=== PATIENT | male | born 1940 | race Caucasian/White ===

== ENCOUNTER 2016-08-16 11:34 | Inpatient (IN) | payer MEDICARE ==
[2016-08-16] MEDS ORDERED: NS 0.9% 1000 ML* 1,000 ML IV ONE (11:46)
[2016-08-16] MEDS ORDERED: Levofloxacin 750 MG IVPREMIX(* 750 MG/150 ML BAG IVPB ONE (11:51)
[2016-08-16] MEDS ORDERED: methylPREDNISolone 125 MG* 2 ML VIAL IV ONE (11:51)
[2016-08-16] MEDS ORDERED: Acetaminophen TAB* 325 MG PO ONE (11:51)
[2016-08-16] MEDS ORDERED: Albuterol/Ipratropium NEB.SOL* Albuterol 2.5 MG/Ipratropium 0.5 MG 3 ML ONE (12:11)
[2016-08-16] MEDS: Albuterol/Ipratropium NEB.SOL* Albuterol 2.5 MG/Ipratropium 0.5 MG 3 ML INH SCH ×5 (12:16→14:54)
[2016-08-16 12:19] LABS: Hematocrit 39 % (42-52); Hemoglobin 12.6 g/dl (14.0-18.0); Mean Corpuscular HGB Conc 32 g/dl (31-36); Mean Corpuscular Hemoglobin 29 pg (27-31); Mean Corpuscular Volume 91 fL (80-94); Mean Platelet Volume 10 um3 (7.4-10.4); Red Blood Count 4.31 10^6/ul (4.0-5.4); Red Cell Distribution Width 15 % (10.5-15)
[2016-08-16 12:20] LABS: Add Diff/Slide Review? Slide Review Added; Comments Flag Yes
--- NOTE | 2016-08-16 12:27 | RAD ---
HISTORY: Shortness of breath COMPARISONS: December 12, 2015 VIEWS: 2: Frontal dual-energy and lateral views of the chest. FINDINGS: CARDIOMEDIASTINAL SILHOUETTE: The cardiomediastinal silhouette is normal. VARGAS: The vargas are normal. PLEURA: The costophrenic angles are sharp. No pleural abnormalities are noted. LUNG PARENCHYMA: There is hyperinflation with flattening of the diaphragm and expansion of the AP diameter of the chest. There is patchy alveolar opacification within the lower lung jordan bilaterally, developed from the previous examination ABDOMEN: The upper abdomen is clear. There is no subphrenic gas. BONES AND SOFT TISSUES: The patient is status post median sternotomy. OTHER: A left-sided AICD pacer is noted IMPRESSION: COPD. PATCHY AIRSPACE DISEASE OF THE LOWER LUNGS BILATERALLY. RECOMMEND FOLLOW-UP UNTIL RESOLUTION TO EXCLUDE UNDERLYING PULMONARY PARENCHYMAL PATHOLOGY
[2016-08-16 12:37] LABS: Albumin 3.7 g/dL (3.2-5.2); BUN/Creatinine Ratio 13.5 (8-20); C Reactive Protein 318.65 mg/L (< 5.00); Calcium 8.8 mg/dL (8.6-10.3); EGFR African American 106.9 (>60); EGFR Non-African American 83.1 (>60); Globulin 3.9 g/dL (2-4); Potassium 3.8 mmol/L (3.5-5.0); Total Bilirubin 2.2 mg/dL (0.2-1.0); Total Protein 7.6 g/dL (6.4-8.9)
[2016-08-16 12:52] LABS: Troponin I 0.04 ng/mL (<0.04)
[2016-08-16 13:24] LABS: Platelet Morphology Large
[2016-08-16] MEDS ORDERED: Ondansetron INJ* 2 MG/ML VIAL IV PRN (13:45)
[2016-08-16] MEDS ORDERED: NS 0.9% 1000 ML* 1,000 ML IV SCH (14:15)
[2016-08-16] MEDS ORDERED: Warfarin TAB(*) 5 MG PO SCH (17:00)
[2016-08-16 17:17] LABS: Digoxin 1.1 ng/ml (0.8-2.0)
[2016-08-16 17:28] LABS: TSH (Thyroid Stimulating Horm) 2.73 mcIU/mL (0.34-5.60)
[2016-08-16 18:03] LABS: Urine Bacteria Absent (Absent); Urine Bilirubin Negative (Negative); Urine Glucose 1+(50 mg/dL) (Negative); Urine Nitrite Negative (Negative)
--- NOTE | 2016-08-16 18:45 | ED ---
Brii Cain Auryana, scribed for Perry Jiménez MD on 08/16/16 at 1218 . Shortness of Breath - HPI Summary HPI Summary: 76 year old male presents with SOB starting 4 days ago worse since last night and this morning. He reports that last night he had a fever of 102 and now this morning has bilateral LE weakness, and a productive cough. Exertion aggravates the SOB - reports unable to shower. PMHx is significant for COPD history of PNA. - History of Current Complaint Chief Complaint: EDShortnessOfBreath Time Seen by Provider: 08/16/16 11:46 Hx Obtained From: Patient Onset/Duration: Gradual Onset, Lasting Days - 4, Still Present Timing: Constant Current Severity: Mild Dyspnea At: Rest Aggrevating Factors: Movement Associated Signs & Symptoms: Cough (Productive), Fever - Allergy/Home Medications Allergies/Adverse Reactions: Allergies Allergy/AdvReac Type Severity Reaction Status Date / Time Diltiazem [Cardizem] AdvReac See Comment Verified 02/24/16 23:32 Theophylline AdvReac Unknown Verified 02/24/16 23:32 Reaction Details Verapamil AdvReac See Comment Verified 02/24/16 23:32 Home Medications: Home Medications Eplerenone 25 mg PO DAILY 08/16/16 [History Confirmed 08/16/16] Spiriva Inhaler DEVICE* 18 mcg PO EVERY OTHER DAY 08/16/16 [History Confirmed ] PMH/Surg Hx/FS Hx/Imm Hx Endocrine/Hematology History: Denies: Hx Diabetes, Hx Thyroid Disease Cardiovascular History: Reports: Hx Angina, Hx Atrial Fibrillation, Hx Auto Implanted Cardiovert Defib, Hx Congestive Heart Failure, Hx Coronary Artery Disease, Hx Hypertension, Hx Myocardial Infarction, Hx Pacemaker/ICD, Hx Valvular Heart Disease, Other Cardiovascular Problems/Disorders - BYPASS Respiratory History: Reports: Hx Chronic Obstructive Pulmonary Disease (COPD), Hx Pneumonia Denies: Hx Asthma GI History: Denies: Hx Ulcer History: Denies: Hx Dialysis, Hx Renal Disease Musculoskeletal History: Reports: Hx Arthritis Sensory History: Reports: Hx Contacts or Glasses - DID NOT BRING FROM HOME Opthamlomology History: Reports: Hx Contacts or Glasses - DID NOT BRING FROM HOME - Surgical History Surgery Procedure, Year, and Place: A-FIB, HEART VALVE REPLACEMENT, PACE MAKER DEFIBRILATOR Hx Anesthesia Reactions: No - Immunization History Date of Tetanus Vaccine: UTD per pt Infectious Disease History: No Infectious Disease History: Denies: Hx Hepatitis, Hx Human Immunodeficiency Virus (HIV), Traveled Outside the [place] in Last 30 Days - Family History Known Family History: Positive: Cardiac Disease - CAD - Social History Occupation: Retired Lives: Alone Alcohol Use: Occasionally Hx Substance Use: No Substance Use Type: Reports: None Hx Tobacco Use: Yes Smoking Status (MU): Former Smoker Review of Systems Positive: Fever Eyes: Negative ENT: Negative Cardiovascular: Negative Positive: Shortness Of Breath, Cough - PRODUCTIVE Gastrointestinal: Negative Genitourinary: Negative Musculoskeletal: Negative Skin: Negative Positive: Weakness - BILATERAL LE Psychological: Normal All Other Systems Reviewed And Are Negative: Yes Physical Exam - Summary Physical Exam Summary: VITAL SIGNS: Reviewed. GENERAL: Patient is a elderly male who is lying comfortable in the stretcher. Patient is acute mild respiratory distress but is able to speak in full sentences. HEAD AND FACE: No signs of trauma. No ecchymosis, hematomas or skull depressions. No sinus tenderness. EYES: PERRLA, EOMI x 2, No injected conjunctiva, no nystagmus. EARS: Hearing grossly intact. Ear canals and tympanic membranes are within normal limits. MOUTH: Oropharynx within normal limits. NECK: Supple, trachea is midline, no adenopathy, no JVD, no carotid bruit, no c- spine tenderness, neck with full ROM. CHEST: Symmetric, no tenderness at palpation LUNGS: diffuse wheezing, bilateral crackles in the bases. CVS: Irregular rate and rhythm, S1 and S2 present, no murmurs or gallops appreciated. ABDOMEN: Soft, non-tender. No signs of distention. No rebound no guarding, and no masses palpated. Bowel sounds are normal. EXTREMITIES: FROM in all major joints, no edema, no cyanosis or clubbing. NEURO: Alert and oriented x 3. No acute neurological deficits. Speech is normal and follows commands. SKIN: Dry and warm Triage Information Reviewed: Yes Vital Signs On Initial Exam: Initial Vitals Temp Pulse Resp BP Pulse Ox 102.4 F 80 20 122/51 100 08/16/16 11:41 08/16/16 11:41 08/16/16 11:41 08/16/16 11:41 08/16/16 11:41 Vital Signs Reviewed: Yes Diagnostics - Vital Signs Vital Signs Temp Pulse Resp BP Pulse Ox 08/16/16 11:41 102.4 F 80 20 122/51 100 - Laboratory Lab Results: Lab Results 08/16/16 08/16/16 08/16/16 Range/Units 12:05 12:05 12:05 WBC 21.0 H (3.5-10.8) 10^3/ul RBC 4.31 (4.0-5.4) 10^6/ul Hgb 12.6 L (14.0-18.0) g/dl Hct 39 L (42-52) % MCV 91 (80-94) fL MCH 29 (27-31) pg MCHC 32 (31-36) g/dl RDW 15 (10.5-15) % Plt Count 218 (150-450) 10^3/ul MPV 10 (7.4-10.4) um3 Neut % (Auto) 83.9 H (38-83) % Lymph % (Auto) 3.4 L (25-47) % [place] % (Auto) 12.4 H (1-9) % Eos % (Auto) 0.1 (0-6) % Baso % (Auto) 0.2 (0-2) % Absolute Neuts (auto) 17.6 H (1.5-7.7) 10^3/ul Absolute Lymphs (auto) 0.7 L (1.0-4.8) 10^3/ul Absolute Monos (auto) 2.6 H (0-0.8) 10^3/ul Absolute Eos (auto) 0 (0-0.6) 10^3/ul Absolute Basos (auto) 0.1 (0-0.2) 10^3/ul Absolute Nucleated RBC 0 10^3/ul Nucleated RBC % 0 Platelet Morphology Large Normal RBC Morphology Not Reportable INR (Anticoag Therapy) (0.89-1.11) Sodium 134 (133-145) mmol/L Potassium 3.8 (3.5-5.0) mmol/L Chloride 95 L (101-111) mmol/L Carbon Dioxide 33 H (22-32) mmol/L Anion Gap 6 (2-11) mmol/L BUN 12 (6-24) mg/dL Creatinine 0.89 (0.67-1.17) mg/dL Est GFR ( Amer) 106.9 (>60) Est GFR (Non-Af Amer) 83.1 (>60) BUN/Creatinine Ratio 13.5 (8-20) Glucose 114 H (70-100) mg/dL Lactic Acid 1.1 (0.5-2.0) mmol/L Calcium 8.8 (8.6-10.3) mg/dL Magnesium 2.0 (1.9-2.7) mg/dL Total Bilirubin 2.20 H (0.2-1.0) mg/dL AST 33 (13-39) U/L ALT 21 (7-52) U/L Alkaline Phosphatase 109 H (34-104) U/L Total Creatine Kinase 34 (10-223) U/L Troponin I 0.04 H* (<0.04) ng/mL C-Reactive Protein 318.65 H (< 5.00) mg/L B-Natriuretic Peptide ( - 100) pg/mL Total Protein 7.6 (6.4-8.9) g/dL Albumin 3.7 (3.2-5.2) g/dL Globulin 3.9 (2-4) g/dL Albumin/Globulin Ratio 0.9 L (1-3) TSH 2.73 (0.34-5.60) mcIU/mL Digoxin 1.1 (0.8-2.0) ng/ml 08/16/16 08/16/16 Range/Units 12:05 12:05 WBC (3.5-10.8) 10^3/ul RBC (4.0-5.4) 10^6/ul Hgb (14.0-18.0) g/dl Hct (42-52) % MCV (80-94) fL MCH (27-31) pg MCHC (31-36) g/dl RDW (10.5-15) % Plt Count (150-450) 10^3/ul MPV (7.4-10.4) um3 Neut % (Auto) (38-83) % Lymph % (Auto) (25-47) % [place] % (Auto) (1-9) % Eos % (Auto) (0-6) % Baso % (Auto) (0-2) % Absolute Neuts (auto) (1.5-7.7) 10^3/ul Absolute Lymphs (auto) (1.0-4.8) 10^3/ul Absolute Monos (auto) (0-0.8) 10^3/ul Absolute Eos (auto) (0-0.6) 10^3/ul Absolute Basos (auto) (0-0.2) 10^3/ul Absolute Nucleated RBC 10^3/ul Nucleated RBC % Platelet Morphology Normal RBC Morphology INR (Anticoag Therapy) 3.08 H (0.89-1.11) Sodium (133-145) mmol/L Potassium (3.5-5.0) mmol/L Chloride (101-111) mmol/L Carbon Dioxide (22-32) mmol/L Anion Gap (2-11) mmol/L BUN (6-24) mg/dL Creatinine (0.67-1.17) mg/dL Est GFR ( Amer) (>60) Est GFR (Non-Af Amer) (>60) BUN/Creatinine Ratio (8-20) Glucose (70-100) mg/dL Lactic Acid (0.5-2.0) mmol/L Calcium (8.6-10.3) mg/dL Magnesium (1.9-2.7) mg/dL Total Bilirubin (0.2-1.0) mg/dL AST (13-39) U/L ALT (7-52) U/L Alkaline Phosphatase (34-104) U/L Total Creatine Kinase (10-223) U/L Troponin I (<0.04) ng/mL C-Reactive Protein (< 5.00) mg/L B-Natriuretic Peptide 250 H ( - 100) pg/mL Total Protein (6.4-8.9) g/dL Albumin (3.2-5.2) g/dL Globulin (2-4) g/dL Albumin/Globulin Ratio (1-3) TSH (0.34-5.60) mcIU/mL Digoxin (0.8-2.0) ng/ml Result Diagrams: 08/16/16 12:05 08/16/16 12:05 Lab Statement: Any lab studies that have been ordered have been reviewed, and results considered in the medical decision making process. - Radiology CXR Xray Interpretation: Positive (See Comments) - IMPRESSION: COPD. PATCHY AIRSPACE DISEASE OF THE LOWER LUNGS BILATERALLY. RECOMMEND FOLLOW-UP UNTIL RESOLUTION TO EXCLUDE UNDERLYING PULMONARY PARENCHYMAL PATHOLOGY Radiology Interpretation Completed By: Radiologist - EKG 11:56 EKG Interpretation: A-FIB WITH VENTRICULAR PACED RYHTHM @ 80 BPM EKG Comparison: No Significant Change - from similar EKG done on 04/07/14 Course/Dx - Course Course Of Treatment: 76 year old male presents with SOB starting 4 days ago worse since last night and this morning. He reports that last night he had a fever of 102 and now this morning has bilateral LE weakness, and a productive cough. Exertion aggravates the SOB - reports unable to shower. PMHx is significant for COPD history of PNA. Assessment/Plan: Test results WNL except WBC 21 without bands, INR of 3.8 , troponin 0.05, CRP 3.19. CXR IMPRESSION: COPD. PATCHY AIRSPACE DISEASE OF THE LOWER LUNGS BILATERALLY. EKG- A-FIB WITH VENTRICULAR PACED RYHTHM @ 80 BPM. In the ED course, patient was started with IV fluids and given Solu- medrol and duoneb for COPD exacerbation. Levaquin was started for PNA. The patient started feeling better but because the combo of PNA and acute COPD exacerbation, I discussed my physical exam and findings with Dr. Ruelas who accepted the patient for admission. Patient is hemodynamically stable and A&Ox3. - Diagnoses Differential Diagnosis/HQI/PQRI: Positive: Bronchitis, CHF, COPD Exacerbation, Pneumonia Provider Diagnoses: COPD with acute exacerbation, PNA (pneumonia) - Physician Notifications Discussed Care of Patient With: DIDI FUENTES Time Discussed With Above Provider: 12:13 - agrees to admit Discharge - Discharge Plan Condition: Stable Disposition: ADMITTED TO [facility] documentation as recorded by the Brii chavez Auryana accurately reflects the service I personally performed and the decisions made by me, Perry Jiménez MD.
[2016-08-16] MEDS: guaiFENesin ER TAB 600 MG PO SCH (21:16)
--- NOTE | 2016-08-16 21:33 | HP ---
MEDICINE HISTORY AND PHYSICAL: DATE OF ADMISSION: 08/16/16 PROVIDER: Tariq Springer NP ATTENDING PHYSICIAN: Charo Ruelas DO* (dictated by Tariq Springer NP) PRIMARY CARE PROVIDER: Yahir Hardy MD PRIMARY INFANTRYMAN: Dr. Pollo Andino. CHIEF COMPLAINT: Shortness of breath. HISTORY OF PRESENT ILLNESS: Mr. Huber is a 76-year-old male patient who presents today with complaints of increased shortness of breath x4 to 5 days. The patient states that he has been feeling more fatigued over the past few days like he has been treating his symptoms with Tylenol and allergy medications. They have not helped with his symptoms. He also reports last evening having chills. At first, he could not find a thermometer, but his daughter got him one. He states that he was concerned for a 102 temperature at home. He reports a productive cough with yellow green sputum. Additionally, he also reports some left-sided chest pain at the site of his pacemaker and he states that he has to put his hand over the area to make the pain stop. He has not had any pattern with it. It does not increase with exertion or activity. He states the pain is intermittent and does not think it is linked to his breathing. He states it feels like a sore muscle. He currently denies chest pain. The patient does use oxygen on a p.r.n. basis at home and states that he has not really needed to increase his oxygen in the past couple of days; however, he does report that he does feel more short of breath and he traces this back as far as 5 months ago when he got a new ICD pacemaker implantation. He states that since then he has been more easily fatigued and feels that the pacemaker has not helped. He states that he felt worse since the new one was placed. The previous pacemaker was malfunctioning. The patient has not followed up with Cardiology since his last pacemaker placement; however, his daughter does state that the patient has been able to carry out most of his normal activities, but does fatigue more easily. He has not had echocardiogram recently. In the ER, the patient was evaluated and labs were drawn. He does have a white count that is notable for 21,000 white blood cells as well as an indeterminate troponin of 0.04. His CRP is 318.65 and the patient's chest x-ray shows concern for COPD and patchy air space disease of the lower lungs bilaterally. Also, the patient has a 102.4 fever upon arrival. PAST MEDICAL HISTORY: 1. COPD. 2. History of CHF with last documented ejection fraction 30% to 35%. 3. History of mechanical aortic valve replacement. 4. Coronary artery disease, status post MA and CABG. 5. Defibrillator and pacemaker placement, most recently placed 5 months ago at [facility]. 6. Hyperlipidemia. 7. Anemia. 8. History of GI AVM. 9. History of herpes zoster. 10. Atrial fibrillation. 11. History of rheumatic fever in childhood. 12. Pulmonary nodules seen on previous admission. The patient states that he had followup and was told that they are gone. HOME MEDICATIONS: 1. Spiriva 18 mcg every other day. 2. Eplerenone 25 mg daily. 3. Albuterol nebulizer treatment 2.5 mg nebulizer q.4 hours p.r.n. 4. Acetaminophen 650 mg q.6 hours p.r.n. 5. Nitroglycerin 0.4 mg q.5 minutes p.r.n. 6. Atrovent 0.5 mg t.i.d. p.r.n. 7. Warfarin 5 mg daily except for Saturdays when the patient takes 2.5 mg. 8. Multivitamin 1 tab daily. 9. Albuterol nebulizer 1 treatment q.4 hours. 10. Torsemide 20 mg daily. 11. Aspirin 81 mg daily. 12. Albuterol inhaler 2 puffs inhaled q.4 hours p.r.n. 13. Digoxin 0.25 mg daily. 14. Atorvastatin 10 mg daily. 15. Toprol-XL 50 mg daily. ALLERGIES: Include DILTIAZEM, THEOPHYLLINE, and VERAPAMIL. FAMILY HISTORY: The patient reports history of coronary artery disease in his mother and history of bone cancer in his father. Both parents are . SOCIAL HISTORY: The patient reports that he quit smoking over 30 years ago. He did smoke for approximately 35 years. He reports occasional use. He lives alone, but states that his daughter and his brother check in on him regularly. He is independent with ADLs. His daughter, Traci White, is his surrogate decision maker in the event of emergency. REVIEW OF SYSTEMS: A 14-point review of systems was completed. All pertinent positives and negatives are included in the HPI. All those not mentioned are negative. PHYSICAL EXAMINATION GENERAL: Mr. Huber is a 76-year-old male patient who is lying in the ED stretcher, in no acute distress. He is able to speak in full sentences. VITAL SIGNS: Temperature 102.4, heart rate 100, respiratory rate 22, blood pressure 118/59, and O2 saturation 95% on 3 L nasal cannula. HEENT: Head is atraumatic, normocephalic. Face is symmetrical. Pupils are equal, round, reactive to light and are anicteric. Oral mucosa appears moist. There is no oropharyngeal erythema. NECK: Supple. No lymphadenopathy noted. RESPIRATORY: Lungs are somewhat coarse and diminished, although there is fair aeration throughout all lung jordan. The patient does have expiratory wheezing and prolonged expiratory phase. No accessory muscle use is noted. CARDIAC: Irregularly irregular rate and rhythm. There is a grade 1 to 2 systolic murmur that is better heard when the patient is lying down. The patient does not have any peripheral edema and distal pulses are 2+. ABDOMEN: Soft, nontender, and nondistended. Bowel sounds are present times all 4 quadrants. MUSCULOSKELETAL: There is no clubbing or cyanosis noted. The patient has full range of motion. SKIN: Limited examination, appears grossly intact. The patient does have some scattered ecchymotic areas to the extremities and one notable dry scaling patch to his right lower extremity. NEUROLOGIC: He is alert and oriented x3. No focal neurologic deficits. He moves all extremities. Sensation is intact to light touch. DIAGNOSTIC STUDIES/LAB DATA: CBC: WBC 21.0, hemoglobin 12.6, hematocrit 39, and platelet count 218. CMP: Sodium 134, potassium 3.8, chloride 95, carbon dioxide 33, BUN 12, creatinine 0.89, glucose 114, lactic acid 1.1, and calcium 8.8. Total bilirubin 2.2, AST 33, ALT 21, and alk phos 109. Total CK 34. Troponin 0.04. CRP 318.65. BNP 250. Total protein 7.6 and albumin 3.7. INR is pending. The patient's EKG shows ventricularly paced rhythm and atrial fibrillation. Chest x-rays as previously mentioned. Old medical records were reviewed. ASSESSMENT AND PLAN: Mr. Huber is a 76-year-old male patient presented to the ER today with concern for increasing shortness of breath and was found to have a bilateral pneumonia. Symptoms also concerning for reported increased activity intolerance over the past 5 months. We will admit him to the telemetry floor. Plan is as follows: 1. Community-acquired pneumonia: Admit to telemetry. The patient has received his first dose of IV Levaquin, which we will continue. Initially, we will maintain the patient on steroids. He will receive prednisone starting tomorrow. He has received Solu-Medrol here in the ER and is doing well. Continue p.r.n. nebulizer treatments. We will also check results of blood cultures, sputum culture the patient is able to provide as well as urine antigens for Legionella and S. pneumoniae. The patient also is ordered guaifenesin. 2. Chronic obstructive pulmonary disease: Suspect mild exacerbation in the presence of pneumonia. Continue the patient on his home Spiriva and continue p.r.n. nebulizers. Again, the patient will be on prednisone. He does not appear to be in severe distress and we will continue to monitor. 3. Sepsis: The patient meets SIRS criteria for sepsis with elevated white count and fever and meets sepsis criteria by q-SOFA score of 1 per increased respiratory rate. Continue IV Levaquin and continue to monitor. 4. Increased total bilirubin: Suspect this maybe secondary to acute infection. Continue to follow. 5. History of congestive heart failure: The patient's last documented EF per our records is 30% to 35%. The patient reports increasing shortness of breath and increased fatigue over the past 5 months. I am not clear how accurate is the story is, but we will check an echocardiogram to compare with his previous records to see if there is any new cardiomyopathy present. Continue home torsemide. 6. Chest pain: The patient reports intermittent chest pain at home, which maybe pleuritic. We will trend his troponins. His first troponin was indeterminate, which might be secondary to demand ischemia. We will also check an echocardiogram. 7. Coronary artery disease: Continue the patient's home aspirin, statin, and beta matthew. 8. History of anemia: The patient seems to be within his baseline. Continue to monitor. 9. Atrial fibrillation: Continue Toprol-XL and warfarin. 10. History of mechanical valve replacement: Continue home warfarin at home dosing assuming his INR is therapeutic. 11. FEN: The patient is on a heart-healthy diet. We will also monitor I's and O's and daily weights. 12. DVT prophylaxis: Continue the patient's home warfarin. 13. Code status: The patient is a full code. TIME SPENT: Time spent on the admission was approximately 60 minutes, more than half the time was spent [id number] with the patient obtaining history and physical, performing the physical examination, and reviewing the plan of care. Plan of care was also reviewed with my attending, Dr. Ruelas, who is in agreement. TARIQ SPRINGER NP CC: Dr. Hardy; Dr. Andino* [id number]/CPS #: [id number]
[2016-08-17 06:46] LABS: Hematocrit 35 % (42-52); Hemoglobin 11.3 g/dl (14.0-18.0); Mean Corpuscular HGB Conc 33 g/dl (31-36); Mean Corpuscular Hemoglobin 30 pg (27-31); Mean Corpuscular Volume 91 fL (80-94); Mean Platelet Volume 10 um3 (7.4-10.4); Red Blood Count 3.82 10^6/ul (4.0-5.4); Red Cell Distribution Width 15 % (10.5-15); White Blood Count 15.4 10^3/ul (3.5-10.8)
[2016-08-17 07:09] LABS: Albumin 3.2 g/dL (3.2-5.2); BUN/Creatinine Ratio 17.1 (8-20); Calcium 8.6 mg/dL (8.6-10.3); Direct Bilirubin 0.4 mg/dL (0.03-0.18); EGFR Non-African American 109.6 (>60); Globulin 3.3 g/dL (2-4); Indirect Bilirubin 0.6 mg/dL (0.3-1.0); Potassium 3.6 mmol/L (3.5-5.0); Total Protein 6.5 g/dL (6.4-8.9)
[2016-08-17] MEDS: Digoxin TAB* 0.25 MG PO SCH (08:04)
[2016-08-17] MEDS: Aspirin EC Low Dose* 81 MG TAB.EC PO SCH (08:04)
[2016-08-17] MEDS: Atorvastatin* 10 MG TAB PO SCH (08:04)
[2016-08-17] MEDS: Multivitamins/Minerals TAB PO SCH (08:05)
[2016-08-17] MEDS: Metoprolol Succinate XL TAB* 50 MG PO SCH (08:05)
[2016-08-17] MEDS: guaiFENesin ER TAB 600 MG PO SCH ×2 (08:05→20:34)
[2016-08-17] MEDS: Torsemide TAB* 20 MG PO SCH (08:07)
[2016-08-17] MEDS ORDERED: predniSONE TAB* 20 MG PO ONE (09:00)
[2016-08-17] MEDS: EPLERONONE 25 MG PO SCH (11:31)
--- NOTE | 2016-08-17 11:47 | ECHO ---
Patient: EMMANUEL ESPINAL [facility] Rec#: [id number] : 1940 Date: 08/17/2016 Age: 76y Height: 187.96 cm / 74.0 in Weight: 77.11 kg / 170.0 lbs Sex: M BSA: 2.03 Room#: 447 Admit Date#: 08/16/2016 Type: Inpatient Referring: Tiffany Sow Reading: Tom Lopez MD Program Director/Music Director: Linda Webber RDCS CC: Yahir Hardy MD Transthoracic Echocardiogram Indication: CHF//SOB BP: 122/62 HR: 69 Rhythm: Paced Findings History: COPD,a-fib,s/p AICD implant,CHF,CAD,s/p AVR and MVR with mechanical valve in both positions,remote smoking history with home oxygen as needed,AK,HTN. Technical Comments: The study is technically limited due to the patient's history of COPD. Completed at 1115. The study is technically limited due to the patient's smoking history. Left Ventricle: The left ventricular chamber size is normal. Moderate concentric left ventricular hypertrophy is observed. There is moderately decreased left ventricular systolic function. The estimated ejection fraction is 35-40%. Post surgical hypokinesis of the interventricular septum is observed consistent with valve replacement. The assessment of diastolic function is non-diagnostic. The apical lateral wall segment is hypokinetic (score 2). The basal inferior, apical septal, and apical inferior wall segments are akinetic (score 3). Overall wallmotion score index is 2.75 Left Atrium: The left atrium is moderate to severely dilated. Right Ventricle: The right ventricular cavity size is normal. The right ventricular global systolic function is normal. The septum has abnormal paradoxical motion consistent with RV pacemaker. A pacemaker wire is visualized in the right ventricle. Right Atrium: The right atrium is moderately dilated. A pacemaker wire is visualized in the right atrium. Aortic Valve: There is no evidence of aortic regurgitation. There is moderate aortic stenosis. A mechanical prosthetic aortic valve is present. Mitral Valve: There is mild to moderate mitral regurgitation. There is mild mitral stenosis. A mechanical prosthetic mitral valve is present. Tricuspid Valve: The tricuspid valve leaflets are normal. There is mild tricuspid regurgitation. The tricuspid regurgitant jet is directed toward the RA free wall. The right ventricular systolic pressure is estimated at 42 mmHg. There is evidence of mild pulmonary hypertension. Pulmonic Valve: The pulmonic valve appears normal. There is no evidence of pulmonic regurgitation. There is no pulmonic stenosis. Pericardium: There is no significant pericardial effusion. Aorta: There is no dilatation of the aortic arch. There is mild dilatation of the aortic root. Pulmonary Artery: The main pulmonary artery is not well visualized. Venous: The inferior vena cava is dilated. There is an approximate 50% respiratory change in the inferior vena cava dimension. Conclusions There is moderately decreased left ventricular systolic function. The estimated ejection fraction is 35-40%. The apical lateral wall segment is hypokinetic (score 2). The basal inferior, apical septal, and apical inferior wall segments are akinetic (score 3). The left ventricular chamber size is normal. Moderate concentric left ventricular hypertrophy is observed. The left atrium is moderate to severely dilated. The right atrium is moderately dilated. A mechanical prosthetic aortic valve replacement (AVR) is present. There is moderate aortic stenosis. There is no evidence of aortic regurgitation. A mechanical prosthetic mitral valve is present. There is mild to moderate mitral regurgitation. There is mild mitral stenosis. There is mild tricuspid regurgitation. There is evidence of mild pulmonary hypertension. There is mild dilatation of the aortic root. Since the prior echocardiograms completed 08/10/10 and 04/28/13, there is a mild increase in the peak and mean gradients across the AVR; otherwise appears similiar. Measurements Name Value Normal Range RVIDd (AP) 2D 3.1 cm (0.9 - 2.6) RVDdMajor (2D) 2.9 cm (2.2 - 4.4) RAd ISD 4CH 6.2 cm (3.4 - 4.9) RA (A4C)W 4.6 cm (2.9 - 4.6) IVSd (2D) 1.5 cm (0.6 - 1) LVPWd (2D) 1.5 cm (0.6 - 1) LVIDd (2D) 4.2 cm (3.6 - 5.4) LVIDs (2D) 3.5 cm - LV FS (2D) 17 % (25 - 45) Aortic Annulus 1.7 cm (1.4 - 2.6) Ao root diameter (2D) 3.7 cm (2.1 - 3.5) Aortic arch 2.5 cm (1.8 - 3.4) Descending Ao 0.7 cm - LAd ISD 4CH 7.6 cm (2.9 - 5.3) LA ISD 4CH W 4.8 cm (2.5 - 4.5) Name Value Normal Range LA ESV SP 4CH (A/L) 140 ml - LA ESV SP 2CH (A/L) 145 ml - LA ESV BP (A/L) 145 ml - LA ESV BP (A/L) index 71.33 ml/m2 - LA ESV SP 4CH (MOD) 127 ml - LA ESV SP 2CH (MOD) 139 ml - Name Value Normal Range MV E-wave Vmax 2.1 m/sec - MV deceleration time 332 msec - LV septal e' Vmax 0.07 m/sec - LV lateral e' Vmax 0.07 m/sec - LV E:e' septal ratio 30 ratio - LV E:e' lateral ratio 30 ratio - Name Value Normal Range AV Vmax 3.2 m/sec - AV VTI 59.23 cm - AV peak gradient 42.26 mmHg - AV mean gradient 21.01 mmHg - LVOT diameter 1.6 cm - LVOT Vmax 0.8 m/sec - LVOT VTI 16.6 cm - LVOT peak gradient 2.76 mmHg - LVOT mean gradient 1.3 mmHg - HERBIE (continuity Vmax) 0.5 cm2 - HERBIE (continuity VTI) 0.6 cm2 - Name Value Normal Range MV Vmax 2.1 m/sec - MV VTI 41.89 cm - MV peak gradient 17.6 mmHg - MV mean gradient 6.65 mmHg - MV PHT 94 msec - MR Vmax 4.34 m/sec - MR VTI 106.4 cm - MVA (PHT) 2.3 cm2 - MVA (continuity VTI) 1.1 cm2 - Name Value Normal Range TR Vmax 2.8 m/sec - TR peak gradient 30 mmHg - RAP 12 mmHg - RVSP 42 mmHg - IVC diameter 2.4 cm - Name Value Normal Range PV Vmax 1.1 m/sec - PV peak gradient 5.19 mmHg - Wallmotion BAS Not Seen BA Not Seen BAL Not Seen JANA Not Seen BI Akinetic BIS Not Seen MAS Not Seen MA Not Seen MAL Not Seen MIL Not Seen AK Not Seen MIS Not Seen Akinetic AA Not Seen AL Hypokinetic AI Akinetic APEX Akinetic
[2016-08-17] MEDS ORDERED: Levofloxacin 750 MG IVPREMIX(* 750 MG/150 ML BAG IVPB SCH (12:00)
[2016-08-17] MEDS: Albuterol 2.5 MG/3 ML NEB.SOL* (0.083%) INH PRN (13:22)
--- NOTE | 2016-08-17 15:29 | PN ---
Subjective Date of Service: 08/17/16 Interval History: This is a 76 yo gentleman with COPD, CHF with EF 30-35%, mechanical aortic and mitral valves, atrial fibrillation and pacer/ICD in place who presented with c/ o SOB and cough with fevers. He was admitted with PNA and COPD exacerbation. He also offered that his pacer was replaced at [facility] ~ 5 months ago and he has been more fatigued and short of breath since that time. Today, he is still quite dyspneic, requiring assistance to get to the restroom. He reports that his SOB and cough have improved since admission. Denies CP, abd pain, n/v. Objective Active Medications: Acetaminophen (Tylenol Tab*) 650 mg PO Q4H PRN PRN Reason: FEVER/PAIN Albuterol (Ventolin 2.5 Mg/3 Ml Neb.Nori*) 2.5 mg INH Q2H PRN PRN Reason: SOB/WHEEZING Last Admin: 08/17/16 13:22 Dose: 2.5 mg Albuterol/Ipratropium (Duoneb (Albuterol 2.5 Mg/Ipratropium 0.5 Mg)) 1 neb INH Q4H PRN PRN Reason: SOB/WHEEZING Aspirin (Aspirin Ec Low Dose*) 81 mg PO DAILY [facility] Last Admin: 08/17/16 08:04 Dose: 81 mg Atorvastatin Calcium (Lipitor*) 10 mg PO DAILY [facility] Last Admin: 08/17/16 08:04 Dose: 10 mg Digoxin (Lanoxin Tab*) 0.25 mg PO DAILY [facility] Last Admin: 08/17/16 08:04 Dose: 0.25 mg Eplerenone (Inspra (Nf)) 25 mg PO DAILY [facility] Last Admin: 08/17/16 11:31 Dose: 25 mg Guaifenesin (Mucinex*) 1,200 mg PO BID [facility] Last Admin: 08/17/16 08:05 Dose: 1,200 mg Levofloxacin/Dextrose (Levaquin 750 Mg Ivpremix(*)) 750 mg in 150 mls @ 100 mls /hr IVPB Q24H [facility] Stop: 08/20/16 13:29 Last Admin: 08/17/16 11:31 Dose: 100 mls/hr Metoprolol Succinate (Toprol Xl Tab*) 50 mg PO DAILY [facility] Last Admin: 08/17/16 08:05 Dose: 50 mg Multivitamins/Minerals (Theragran/Minerals Tab*) 1 tab PO DAILY [facility] Last Admin: 08/17/16 08:05 Dose: 1 tab Ondansetron HCl (Zofran Inj*) 4 mg IV Q6H PRN PRN Reason: NAUSEA Pharmacy Profile Note (Coumadin Per Pharmacy*) 1 note FOLLOW UP .PER PHARMACY PROTOC [facility]ELIA PRN Reason: Protocol Prednisone (Deltasone Tab*) 40 mg PO DAILY [facility] Tiotropium [place] (Spiriva Cap.Inh*) 1 cap INH EVERY OTHER DAY [facility] Torsemide (Demadex*) 20 mg PO DAILY [facility] Last Admin: 08/17/16 08:07 Dose: 20 mg Vital Signs: Temp Pulse Resp BP Pulse Ox 97.4 F 86 16 108/60 96 08/17/16 07:35 08/17/16 08:35 08/17/16 08:35 08/17/16 07:35 08/17/16 08:35 Oxygen Devices in Use Now: Nasal Cannula Appearance: Elderly gentleman, extremely pleasant, mildly dyspneic with conversation Respiratory: Symmetrical Chest Expansion and Respiratory Effort, - - reduced lung sounds in all jordan, few crackles in LLL Cardiovascular: RRR Abdominal: NL Sounds; No Tenderness; No Distention Extremities: No Edema Skin: No Rash or Ulcers Neurological: Alert and Oriented x 3 Result Diagrams: 08/17/16 06:04 08/17/16 06:04 Additional Lab and Data: Laboratory Tests 08/16/16 08/16/16 08/16/16 12:05 14:59 18:35 Troponin I 0.04 H* 0.05 H* 0.06 H* 08/16/16 21:37 Troponin I 0.03 Microbiology and Other Data: Microbiology 08/16/16 17:30 Legionella Urinary Antigen - Final Urine Negative Legionella Streptococcus pneumoniae Ag Screen - Final Negative S. pneumo Antigen Diagnostic Imaging: CXR - patchy bilateral infiltrate Echo - mod LVH, EF 30-35% with hypokinesis apical and inferior segments with mech aortic and mitral valves in place, reportedly unchanged from prior Tele - primarily paced, occ. breakthrough bigeminy and 2 sec pauses x 2 Assess/Plan/Problems-Billing Assessment: This is a 76 yo gentleman with COPD, CHF with EF 30-35%, mechanical aortic and mitral valves, CAD s/p CABG, HLD, anemia, pacer/ICD in place and atrial fibrillation who presented with complaints of SOB, cough and fever. Admitted with PNA and COPD exacerbation - Patient Problems (1) Pneumonia Comment: Clinically improving Cont Levaquin (2) COPD exacerbation Comment: Improving Still dyspneic Cont prednisone, Spiriva, prn DuoNebs (3) Cardiomyopathy Comment: Ischemic, EF 30-35% No acute exacerbation (4) Elevated troponin Comment: No ACS Likely demand (5) Atrial fibrillation Comment: Anticoagulated with Coumadin Rate controlled, primarily paced rhythm (6) Cardiac pacemaker Comment: Replaced 5 months ago at [facility] records (7) Bradyarrhythmia Comment: Noted bradycardia and pauses while primarily paced Will obtain recent pacer records and ask cardiology to review He is currently asymptomatic with this (8) CAD (coronary artery disease) Comment: No ACS s/p CABG (9) Mechanical heart valve present Comment: Aortic/mitral valves (10) Full code status (11) DVT prophylaxis Comment: Therapeutic INR Status and Disposition: Inpatient. Anticipate additional 2-3 day LOS
[2016-08-18] MEDS: Acetaminophen TAB* 325 MG PO PRN (04:45)
[2016-08-18] MEDS: Albuterol/Ipratropium NEB.SOL* Albuterol 2.5 MG/Ipratropium 0.5 MG 3 ML INH PRN (04:59)
[2016-08-18] MEDS: Atorvastatin* 10 MG TAB PO SCH (07:28)
[2016-08-18] MEDS: Torsemide TAB* 20 MG PO SCH (07:28)
[2016-08-18] MEDS: Digoxin TAB* 0.25 MG PO SCH (07:29)
[2016-08-18] MEDS: Multivitamins/Minerals TAB PO SCH (07:29)
[2016-08-18] MEDS: predniSONE TAB* 20 MG PO SCH (07:29)
[2016-08-18] MEDS: Metoprolol Succinate XL TAB* 50 MG PO SCH (07:29)
[2016-08-18] MEDS: Aspirin EC Low Dose* 81 MG TAB.EC PO SCH (07:30)
[2016-08-18] MEDS: guaiFENesin ER TAB 600 MG PO SCH ×2 (07:30→20:54)
[2016-08-18] MEDS: EPLERONONE 25 MG PO SCH (08:04)
[2016-08-18] MEDS: Azithromycin IV(*) 250 MG in NS 0.9% 250 ML* 250 ML IVPB SCH (08:54)
[2016-08-18 08:58] LABS: Hematocrit 40 % (42-52); Mean Corpuscular HGB Conc 33 g/dl (31-36); Mean Corpuscular Hemoglobin 30 pg (27-31); Mean Corpuscular Volume 91 fL (80-94); Mean Platelet Volume 10 um3 (7.4-10.4); Red Blood Count 4.38 10^6/ul (4.0-5.4); Red Cell Distribution Width 15 % (10.5-15); White Blood Count 20.8 10^3/ul (3.5-10.8)
[2016-08-18 09:16] LABS: BUN/Creatinine Ratio 21.3 (8-20); Calcium 9.2 mg/dL (8.6-10.3); EGFR African American 120.9 (>60); Potassium 3.7 mmol/L (3.5-5.0)
[2016-08-18 09:35] LABS: C Reactive Protein 187.51 mg/L (< 5.00)
[2016-08-18] MEDS: cefTRIAXone VIAL(*) 1,000 MG in NS 0.9% 50 ML* 50 ML IVPB SCH (09:48)
--- NOTE | 2016-08-18 10:32 | PN ---
Subjective Date of Service: 08/18/16 Interval History: Patient reports he is fatigued this am. He was coughing this am, improved after a nebulizer treatment. Reports some improvement in dyspnea. Objective Active Medications: Acetaminophen (Tylenol Tab*) 650 mg PO Q4H PRN PRN Reason: FEVER/PAIN Last Admin: 08/18/16 04:45 Dose: 650 mg Albuterol (Ventolin 2.5 Mg/3 Ml Neb.Nori*) 2.5 mg INH Q2H PRN PRN Reason: SOB/WHEEZING Last Admin: 08/17/16 13:22 Dose: 2.5 mg Albuterol/Ipratropium (Duoneb (Albuterol 2.5 Mg/Ipratropium 0.5 Mg)) 1 neb INH Q4H PRN PRN Reason: SOB/WHEEZING Last Admin: 08/18/16 04:59 Dose: 1 neb Aspirin (Aspirin Ec Low Dose*) 81 mg PO DAILY [facility] Last Admin: 08/18/16 07:30 Dose: 81 mg Atorvastatin Calcium (Lipitor*) 10 mg PO DAILY [facility] Last Admin: 08/18/16 07:28 Dose: 10 mg Digoxin (Lanoxin Tab*) 0.25 mg PO DAILY [facility] Last Admin: 08/18/16 07:29 Dose: 0.25 mg Eplerenone (Inspra (Nf)) 25 mg PO DAILY [facility] Last Admin: 08/18/16 08:04 Dose: 25 mg Guaifenesin (Mucinex*) 1,200 mg PO BID [facility] Last Admin: 08/18/16 07:30 Dose: 1,200 mg Ceftriaxone Sodium 1,000 mg/ (Sodium Chloride) 50 mls @ 200 mls/hr IVPB Q24H [facility] Last Admin: 08/18/16 09:48 Dose: 200 mls/hr Azithromycin 250 mg/ Sodium (Chloride) 250 mls @ 250 mls/hr IVPB Q24H [facility] Last Admin: 08/18/16 08:54 Dose: 250 mls/hr Metoprolol Succinate (Toprol Xl Tab*) 50 mg PO DAILY [facility] Last Admin: 08/18/16 07:29 Dose: 50 mg Multivitamins/Minerals (Theragran/Minerals Tab*) 1 tab PO DAILY [facility] Last Admin: 08/18/16 07:29 Dose: 1 tab Ondansetron HCl (Zofran Inj*) 4 mg IV Q6H PRN PRN Reason: NAUSEA Pharmacy Profile Note (Coumadin Per Pharmacy*) 1 note FOLLOW UP .PER PHARMACY PROTOC [facility] PRN Reason: Protocol Prednisone (Deltasone Tab*) 40 mg PO DAILY [facility] Last Admin: 08/18/16 07:29 Dose: 40 mg Tiotropium [place] (Spiriva Cap.Inh*) 1 cap INH EVERY OTHER DAY [facility] Torsemide (Demadex*) 20 mg PO DAILY [facility] Last Admin: 08/18/16 07:28 Dose: 20 mg Vital Signs: Temp Pulse Resp BP Pulse Ox 97.6 F 80 18 113/71 98 08/18/16 07:31 08/18/16 09:01 08/18/16 09:01 08/18/16 07:31 08/18/16 09:01 Oxygen Devices in Use Now: Nasal Cannula Appearance: Somewhat fatigued elderly gentleman in NAD. Smiling and joking. Respiratory: Symmetrical Chest Expansion and Respiratory Effort, - - faint wheeze, reduced breath sounds, but improved air exchange Cardiovascular: NL Sounds; No Murmurs; No JVD, RRR Extremities: No Edema Skin: No Rash or Ulcers Neurological: Alert and Oriented x 3 Result Diagrams: 08/18/16 08:34 08/18/16 08:34 Additional Lab and Data: Laboratory Tests 08/16/16 08/16/16 08/16/16 12:05 14:59 18:35 Troponin I 0.04 H* 0.05 H* 0.06 H* 08/16/16 21:37 Troponin I 0.03 Microbiology and Other Data: Microbiology 08/16/16 17:30 Legionella Urinary Antigen - Final Urine Negative Legionella Streptococcus pneumoniae Ag Screen - Final Negative S. pneumo Antigen Diagnostic Imaging: CXR - patchy bilateral infiltrate Echo - mod LVH, EF 30-35% with hypokinesis apical and inferior segments with mech aortic and mitral valves in place, reportedly unchanged from prior Tele - primarily paced, freq pauses up to 2 sec Assess/Plan/Problems-Billing Assessment: This is a 76 yo gentleman with COPD, CHF with EF 30-35%, mechanical aortic and mitral valves, CAD s/p CABG, HLD, anemia, pacer/ICD in place and atrial fibrillation who presented with complaints of SOB, cough and fever. Admitted with PNA and COPD exacerbation - Patient Problems (1) Pneumonia Comment: Clinically improving Switch from Levaquin to ceftriaxone/azithromycin because of increasing INR Increased leukocytosis likely due to steroids, CRP improving, remains afebrile (2) COPD exacerbation Comment: Improving Still dyspneic Cont prednisone, Spiriva, prn DuoNebs (3) Cardiac pacemaker Comment: Frequent pauses on telemetry, up to 2 sec Replaced 5 months ago at [facility] Records received and in paper chart, [facility] Requested interrogation by [facility] front office representative and cardiology consultation regarding pauses (4) Cardiomyopathy Comment: Ischemic, EF 30-35% No acute exacerbation (5) Hyperglycemia Comment: Noted hyperglycemia on fasting labs the last 2 days May be due to steroid use Checking HgbA1c (6) Elevated troponin Comment: No ACS Likely demand (7) Atrial fibrillation Comment: Anticoagulated with Coumadin Rate controlled, primarily paced rhythm (8) Bradyarrhythmia Comment: Noted bradycardia and pauses while primarily paced Will obtain recent pacer records and ask cardiology to review He is currently asymptomatic with this (9) CAD (coronary artery disease) Comment: No ACS s/p CABG (10) Mechanical heart valve present Comment: Aortic/mitral valves (11) Full code status (12) DVT prophylaxis Comment: Therapeutic INR Status and Disposition: Inpatient. Anticipate additional 1-2 day LOS
[2016-08-18] MEDS: Tiotropium CAP.INH* CAP.INH/18 MCG INH SCH (11:09)
[2016-08-18] MEDS ORDERED: Spiriva Inhaler DEVICE* 1 EACH DEVICE ONE (12:00)
--- NOTE | 2016-08-18 16:19 | CONS ---
CARDIAC CONSULTATION: DATE OF CONSULTATION: 08/18/16 INDICATIONS FOR CONSULTATION: Atrial fibrillation, cardiomyopathy, abnormal pacemaker rhythm. HISTORY OF PRESENT ILLNESS: The patient is a 76-year-old gentleman with a history of ischemic cardiomyopathy, chronic atrial fibrillation, history of a dual-chamber ICD implantation many years ago, who came in to the hospital because of pneumonia. On his telemetry monitoring, there appears to be pauses on his pacemaker and his pacemaker is set at 60 beats per minute. Occasionally , he will have a pause of 1 cycle and then back to its normal rhythm. Interrogation of his ICD demonstrates there is oversensing of his baseline myocardium, which causes inhibition of his pacing output. There is no clear evidence of lead fracture. His impedance and sensing appeared to be normal. His baseline does not show any clear evidence of fracture. His ICD was reprogrammed to a higher sensitivity, which seemed to take care of the problem and he has normal pacing. The question is whether the higher sensitivity will inhibit its ability to detect ventricular fibrillation. PAST MEDICAL HISTORY: Significant for: 1. COPD. 2. Congestive heart failure. 3. Ischemic cardiomyopathy. 4. Mechanical aortic valve replacement. 5. Chronic atrial fibrillation. 6. GI bleed. 7. Childhood rheumatic fever. OUTPATIENT MEDICATIONS: 1. Spiriva 18 mcg inhaler every day. 2. Eplerenone 25 mg a day. 3. Nitroglycerin p.r.n. 4. Atrovent inhaler. 5. Coumadin as directed. 6. Multivitamin a day. 7. Torsemide 20 mg a day. 8. Aspirin 81 mg a day. 9. Digoxin 0.25 mg daily. 10. Atorvastatin 10 mg a day. 11. Toprol-XL 50 mg a day. ALLERGIES: He is intolerant of DILTIAZEM, THEOPHYLLINE, VERAPAMIL. SOCIAL HISTORY: He is a previous smoker. He quit 30 years ago. He lives alone. He is able to do his activities of daily living on his own. He does not have any problems doing his activities. He does not get any regular exercise. PHYSICAL EXAMINATION: Height is 6 feet 2 inches, weight is 161 pounds, temperature is 98.3, heart rate is 80, blood pressure 130/68, respiratory rate is 18, oxygen saturation 95% on 2 L. Sclerae anicteric. Oropharynx is pink without erythema. Carotids are 2+ without bruits. JVD is normal. Thyroid is normal. Cardiac Exam: S1, mechanical S2 with a 2/6 systolic ejection murmur, no diastolic murmur. Lungs have mild rhonchi bilaterally. There is no dullness to percussion. His ICD site is stable. Extremities show no edema. The patient is awake, alert and oriented. He moves all 4 extremities equally. LABORATORY STUDIES: White count 20.8, hemoglobin 13, hematocrit 40, platelet count 277. Chemistries within normal limits, BUN 17, creatinine 0.8. IMPRESSION AND PLAN: This is a 76-year-old gentleman with a history of ischemic cardiomyopathy, history of mechanical aortic valve replacement, history of chronic atrial fibrillation, who is admitted to the hospital with pneumonia. On telemetry, he was noted to have pacemaker pauses for unclear reasons. Interrogation of his ICD demonstrates that there is oversensing on his ventricular lead, thus inhibiting output at its normal rate. There were adjustments made in his device. There is no clear evidence of a lead fracture. His device was reprogrammed to a more sensitive setting. The patient will follow up as an outpatient with Dr. Andino and Dr. Palma regarding his ICD. At this point, no other intervention is necessary. CC: Yahir Hardy MD; Dr. Andino; Dr. Keo Palma, [place], [place]* [id number]/[facility] #: [id number] MTDD
[2016-08-19 05:41] LABS: Hematocrit 37 % (42-52); Hemoglobin 11.9 g/dl (14.0-18.0); Mean Corpuscular HGB Conc 32 g/dl (31-36); Mean Corpuscular Hemoglobin 29 pg (27-31); Mean Corpuscular Volume 91 fL (80-94); Mean Platelet Volume 10 um3 (7.4-10.4); Red Blood Count 4.05 10^6/ul (4.0-5.4); Red Cell Distribution Width 15 % (10.5-15); White Blood Count 14.9 10^3/ul (3.5-10.8)
[2016-08-19 05:55] LABS: BUN/Creatinine Ratio 23.3 (8-20); Calcium 8.5 mg/dL (8.6-10.3); EGFR African American 134.3 (>60); EGFR Non-African American 104.5 (>60); Potassium 3.6 mmol/L (3.5-5.0)
[2016-08-19] MEDS: EPLERONONE 25 MG PO SCH (07:32)
[2016-08-19] MEDS: predniSONE TAB* 20 MG PO SCH (07:33)
[2016-08-19] MEDS: Aspirin EC Low Dose* 81 MG TAB.EC PO SCH (07:35)
[2016-08-19] MEDS: Metoprolol Succinate XL TAB* 50 MG PO SCH (07:35)
[2016-08-19] MEDS: Multivitamins/Minerals TAB PO SCH (07:36)
[2016-08-19] MEDS: Digoxin TAB* 0.25 MG PO SCH (07:36)
[2016-08-19] MEDS: Atorvastatin* 10 MG TAB PO SCH (07:37)
[2016-08-19] MEDS: guaiFENesin ER TAB 600 MG PO SCH (07:37)
[2016-08-19] MEDS: Torsemide TAB* 20 MG PO SCH (07:37)
[2016-08-19] MEDS: Azithromycin IV(*) 250 MG in NS 0.9% 250 ML* 250 ML IVPB SCH (07:43)
[2016-08-19] MEDS: Albuterol/Ipratropium NEB.SOL* Albuterol 2.5 MG/Ipratropium 0.5 MG 3 ML INH PRN (09:20)
[2016-08-19] MEDS: cefTRIAXone VIAL(*) 1,000 MG in NS 0.9% 50 ML* 50 ML IVPB SCH (10:35)
--- NOTE | 2016-08-19 13:58 | PN ---
Subjective Date of Service: 08/19/16 Interval History: Patient reports that he had some increased cough and SOB overnight and it took him most of the morning to recover, he is now feeling better. He denies CP or abd pain. He feels that he is still slowly improving but still quite dyspneic. Pacer interrogated yesterday and reprogrammed by Dr Clark, no further pauses noted Objective Active Medications: Acetaminophen (Tylenol Tab*) 650 mg PO Q4H PRN PRN Reason: FEVER/PAIN Last Admin: 08/18/16 04:45 Dose: 650 mg Albuterol (Ventolin 2.5 Mg/3 Ml Neb.Nori*) 2.5 mg INH Q2H PRN PRN Reason: SOB/WHEEZING Last Admin: 08/17/16 13:22 Dose: 2.5 mg Albuterol/Ipratropium (Duoneb (Albuterol 2.5 Mg/Ipratropium 0.5 Mg)) 1 neb INH Q4H PRN PRN Reason: SOB/WHEEZING Last Admin: 08/19/16 09:20 Dose: 1 neb Aspirin (Aspirin Ec Low Dose*) 81 mg PO DAILY [facility] Last Admin: 08/19/16 07:35 Dose: 81 mg Atorvastatin Calcium (Lipitor*) 10 mg PO DAILY [facility] Last Admin: 08/19/16 07:37 Dose: 10 mg Digoxin (Lanoxin Tab*) 0.25 mg PO DAILY [facility] Last Admin: 08/19/16 07:36 Dose: 0.25 mg Eplerenone (Inspra (Nf)) 25 mg PO DAILY [facility] Last Admin: 08/19/16 07:32 Dose: 25 mg Guaifenesin (Mucinex*) 1,200 mg PO BID [facility] Last Admin: 08/19/16 07:37 Dose: 1,200 mg Ceftriaxone Sodium 1,000 mg/ (Sodium Chloride) 50 mls @ 200 mls/hr IVPB Q24H [facility] Last Admin: 08/19/16 10:35 Dose: 200 mls/hr Azithromycin 250 mg/ Sodium (Chloride) 250 mls @ 250 mls/hr IVPB Q24H [facility] Last Admin: 08/19/16 07:43 Dose: 250 mls/hr Metoprolol Succinate (Toprol Xl Tab*) 50 mg PO DAILY [facility] Last Admin: 08/19/16 07:35 Dose: 50 mg Multivitamins/Minerals (Theragran/Minerals Tab*) 1 tab PO DAILY [facility] Last Admin: 08/19/16 07:36 Dose: 1 tab Ondansetron HCl (Zofran Inj*) 4 mg IV Q6H PRN PRN Reason: NAUSEA Pharmacy Profile Note (Coumadin Per Pharmacy*) 1 note FOLLOW UP .PER PHARMACY PROTOC [facility] PRN Reason: Protocol Prednisone (Deltasone Tab*) 40 mg PO DAILY [facility] Last Admin: 08/19/16 07:33 Dose: 40 mg Tiotropium [place] (Spiriva Cap.Inh*) 1 cap INH EVERY OTHER DAY [facility] Last Admin: 08/18/16 11:09 Dose: 1 cap Torsemide (Demadex*) 20 mg PO DAILY [facility] Last Admin: 08/19/16 07:37 Dose: 20 mg Warfarin Sodium (Coumadin Tab(*)) 4 mg PO 1700 ONE Stop: 08/19/16 17:01 Vital Signs: Temp Pulse Resp BP Pulse Ox 97.9 F 80 20 128/47 92 08/19/16 07:48 08/19/16 09:20 08/19/16 09:20 08/19/16 07:48 08/19/16 09:20 Oxygen Devices in Use Now: Nasal Cannula Appearance: Well appearing elderly gentleman in NAD Neck: NL Appearance and Movements; NL JVP Respiratory: Symmetrical Chest Expansion and Respiratory Effort, - - reduced breath sounds, no wheeze noted Cardiovascular: RRR, - - faint murmur noted Abdominal: NL Sounds; No Tenderness; No Distention Extremities: No Edema Skin: No Rash or Ulcers Neurological: Alert and Oriented x 3 Result Diagrams: 08/19/16 04:55 08/19/16 04:55 Additional Lab and Data: Laboratory Tests 08/16/16 08/16/16 08/16/16 12:05 14:59 18:35 Troponin I 0.04 H* 0.05 H* 0.06 H* 08/16/16 21:37 Troponin I 0.03 Microbiology and Other Data: Microbiology 08/16/16 17:30 Legionella Urinary Antigen - Final Urine Negative Legionella Streptococcus pneumoniae Ag Screen - Final Negative S. pneumo Antigen Diagnostic Imaging: CXR - patchy bilateral infiltrate Echo - mod LVH, EF 30-35% with hypokinesis apical and inferior segments with mech aortic and mitral valves in place, reportedly unchanged from prior Tele - primarily paced, freq pauses up to 2 sec Assess/Plan/Problems-Billing Assessment: This is a 76 yo gentleman with COPD, CHF with EF 30-35%, mechanical aortic and mitral valves, CAD s/p CABG, HLD, anemia, pacer/ICD in place and atrial fibrillation who presented with complaints of SOB, cough and fever. Admitted with PNA and COPD exacerbation - Patient Problems (1) Pneumonia Comment: Clinically improving Cont ceftriaxone, azithromycin Remains afebrile, decreasing WBCs and CRP (2) COPD exacerbation Comment: Improving Still dyspneic Cont prednisone and Spiriva Add scheduled DuoNebs (3) V-tach Comment: He is having freq PVCs and a few episodes of non-sustained Vtach Increase metoprolol and cont to monitor (4) Cardiac pacemaker Comment: Noted frequent pauses on telemetry, up to 2 sec which have resolved since pacer reprogrammed by Dr Clark Replaced 5 months ago at [facility] (5) Cardiomyopathy Comment: Ischemic, EF 30-35% No acute exacerbation (6) Hyperglycemia Comment: Noted hyperglycemia on fasting labs the last 2 days May be due to steroid use Checking HgbA1c (7) Elevated troponin Comment: No ACS Likely demand (8) Atrial fibrillation Comment: Anticoagulated with Coumadin Rate controlled, primarily paced rhythm (9) CAD (coronary artery disease) Comment: No ACS s/p CABG (10) Mechanical heart valve present Comment: Aortic/mitral valves (11) Full code status (12) DVT prophylaxis Comment: Therapeutic INR Status and Disposition: Inpatient. Anticipate additional 1-2 day LOS
[2016-08-19] MEDS ORDERED: Metoprolol Succinate XL TAB* 50 MG PO ONE (14:03)
[2016-08-19] MEDS: Acetaminophen TAB* 325 MG PO PRN (14:35)
[2016-08-19] MEDS ORDERED: Warfarin TAB(*) 4 MG PO ONE (17:00)
[2016-08-19] MEDS: Albuterol/Ipratropium NEB.SOL* Albuterol 2.5 MG/Ipratropium 0.5 MG 3 ML INH SCH (18:26)
[2016-08-20] MEDS: guaiFENesin ER TAB 600 MG PO SCH ×3 (00:27→21:20)
[2016-08-20] MEDS: Albuterol/Ipratropium NEB.SOL* Albuterol 2.5 MG/Ipratropium 0.5 MG 3 ML INH PRN ×2 (00:42→03:47)
[2016-08-20 05:41] LABS: Hematocrit 36 % (42-52); Hemoglobin 11.5 g/dl (14.0-18.0)
[2016-08-20] MEDS: Albuterol/Ipratropium NEB.SOL* Albuterol 2.5 MG/Ipratropium 0.5 MG 3 ML INH SCH ×3 (07:55→19:37)
[2016-08-20] MEDS: Atorvastatin* 10 MG TAB PO SCH (08:13)
[2016-08-20] MEDS: predniSONE TAB* 20 MG PO SCH (08:13)
[2016-08-20] MEDS: Torsemide TAB* 20 MG PO SCH (08:13)
[2016-08-20] MEDS: Aspirin EC Low Dose* 81 MG TAB.EC PO SCH (08:13)
[2016-08-20] MEDS: Multivitamins/Minerals TAB PO SCH (08:14)
[2016-08-20] MEDS: Digoxin TAB* 0.25 MG PO SCH (08:14)
[2016-08-20] MEDS: EPLERONONE 25 MG PO SCH (08:14)
[2016-08-20] MEDS: Metoprolol Succinate XL TAB* 50 MG PO SCH (08:14)
[2016-08-20] MEDS: Azithromycin IV(*) 250 MG in NS 0.9% 250 ML* 250 ML IVPB SCH (08:15)
[2016-08-20] MEDS: Tiotropium CAP.INH* CAP.INH/18 MCG INH SCH (09:36)
[2016-08-20] MEDS: cefTRIAXone VIAL(*) 1,000 MG in NS 0.9% 50 ML* 50 ML IVPB SCH (09:36)
--- NOTE | 2016-08-20 11:06 | PN ---
Subjective Date of Service: 08/20/16 Interval History: Patient reports that is still improving. He asked to take off his O2 yesterday afternoon and has maintained resting O2 sats in the low to mid 90s. He went for a walk this am and became dyspneic with O2 sats in the mid 80s, but he recovered quickly with rest. Objective Active Medications: Acetaminophen (Tylenol Tab*) 650 mg PO Q4H PRN PRN Reason: FEVER/PAIN Last Admin: 08/19/16 14:35 Dose: 650 mg Albuterol (Ventolin 2.5 Mg/3 Ml Neb.Nori*) 2.5 mg INH Q2H PRN PRN Reason: SOB/WHEEZING Last Admin: 08/17/16 13:22 Dose: 2.5 mg Albuterol/Ipratropium (Duoneb (Albuterol 2.5 Mg/Ipratropium 0.5 Mg)) 1 neb INH Q4H PRN PRN Reason: SOB/WHEEZING Last Admin: 08/20/16 03:47 Dose: 1 neb Albuterol/Ipratropium (Duoneb (Albuterol 2.5 Mg/Ipratropium 0.5 Mg)) 1 neb INH RT.TID [facility] Last Admin: 08/20/16 07:55 Dose: 1 neb Aspirin (Aspirin Ec Low Dose*) 81 mg PO DAILY [facility] Last Admin: 08/20/16 08:13 Dose: 81 mg Atorvastatin Calcium (Lipitor*) 10 mg PO DAILY [facility] Last Admin: 08/20/16 08:13 Dose: 10 mg Digoxin (Lanoxin Tab*) 0.25 mg PO DAILY [facility] Last Admin: 08/20/16 08:14 Dose: 0.25 mg Eplerenone (Inspra (Nf)) 25 mg PO DAILY [facility] Last Admin: 08/20/16 08:14 Dose: 25 mg Guaifenesin (Mucinex*) 1,200 mg PO BID [facility] Last Admin: 08/20/16 08:14 Dose: 1,200 mg Ceftriaxone Sodium 1,000 mg/ (Sodium Chloride) 50 mls @ 200 mls/hr IVPB Q24H [facility] Last Admin: 08/20/16 09:36 Dose: 200 mls/hr Azithromycin 250 mg/ Sodium (Chloride) 250 mls @ 250 mls/hr IVPB Q24H [facility] Last Admin: 08/20/16 08:15 Dose: 250 mls/hr Metoprolol Succinate (Toprol Xl Tab*) 100 mg PO DAILY [facility] Last Admin: 08/20/16 08:14 Dose: 100 mg Multivitamins/Minerals (Theragran/Minerals Tab*) 1 tab PO DAILY [facility] Last Admin: 08/20/16 08:14 Dose: 1 tab Ondansetron HCl (Zofran Inj*) 4 mg IV Q6H PRN PRN Reason: NAUSEA Pharmacy Profile Note (Coumadin Per Pharmacy*) 1 note FOLLOW UP .PER PHARMACY PROTOC [facility] PRN Reason: Protocol Prednisone (Deltasone Tab*) 40 mg PO DAILY [facility] Last Admin: 08/20/16 08:13 Dose: 40 mg Tiotropium [place] (Spiriva Cap.Inh*) 1 cap INH EVERY OTHER DAY [facility] Last Admin: 08/20/16 09:36 Dose: 1 cap Torsemide (Demadex*) 20 mg PO DAILY [facility] Last Admin: 08/20/16 08:13 Dose: 20 mg Vital Signs: Temp Pulse Resp BP Pulse Ox 97.9 F 88 16 116/50 98 08/20/16 07:08 08/20/16 08:14 08/20/16 07:55 08/20/16 07:08 08/20/16 07:55 Oxygen Devices in Use Now: None Appearance: Well appearing elderly gentleman in NAD Respiratory: Symmetrical Chest Expansion and Respiratory Effort, Clear to Auscultation, - - improved breath sounds Cardiovascular: NL Sounds; No Murmurs; No JVD, RRR Abdominal: NL Sounds; No Tenderness; No Distention Extremities: No Edema Skin: No Rash or Ulcers Neurological: Alert and Oriented x 3 Result Diagrams: 08/20/16 05:30 08/19/16 04:55 Additional Lab and Data: Laboratory Tests 08/16/16 08/16/16 08/16/16 12:05 14:59 18:35 Troponin I 0.04 H* 0.05 H* 0.06 H* 08/16/16 21:37 Troponin I 0.03 Microbiology and Other Data: Microbiology 08/16/16 17:30 Legionella Urinary Antigen - Final Urine Negative Legionella Streptococcus pneumoniae Ag Screen - Final Negative S. pneumo Antigen Diagnostic Imaging: CXR - patchy bilateral infiltrate Echo - mod LVH, EF 30-35% with hypokinesis apical and inferior segments with mech aortic and mitral valves in place, reportedly unchanged from prior Tele - primarily paced, freq pauses up to 2 sec Assess/Plan/Problems-Billing Assessment: This is a 76 yo gentleman with COPD, CHF with EF 30-35%, mechanical aortic and mitral valves, CAD s/p CABG, HLD, anemia, pacer/ICD in place and atrial fibrillation who presented with complaints of SOB, cough and fever. Admitted with PNA and COPD exacerbation - Patient Problems (1) Pneumonia Comment: Clinically improving, oxygen needs are decreasing Cont ceftriaxone, azithromycin Remains afebrile (2) COPD exacerbation Comment: Improving Still dyspneic but now only with ambulation Cont prednisone and Spiriva with scheduled DuoNebs (3) V-tach Comment: He is having freq PVCs and a few episodes of non-sustained Vtach Metoprolol increased, cont to monitor (4) Cardiac pacemaker Comment: Noted frequent pauses on telemetry, up to 2 sec which have resolved since pacer reprogrammed by Dr Eduardo Neville 5 months ago at [facility] (5) Cardiomyopathy Comment: Ischemic, EF 30-35% No acute exacerbation (6) Hyperglycemia Comment: Noted hyperglycemia on fasting labs the last 2 days Likely due to steroid use HgbA1c nl at 5.5% (7) Elevated troponin Comment: No ACS Likely demand (8) Atrial fibrillation Comment: Anticoagulated with Coumadin Rate controlled, primarily paced rhythm (9) CAD (coronary artery disease) Comment: No ACS s/p CABG (10) Mechanical heart valve present Comment: Aortic/mitral valves (11) Full code status (12) DVT prophylaxis Comment: Therapeutic INR Status and Disposition: Inpatient. Anticipate discharge tomorrow
[2016-08-20] MEDS ORDERED: Warfarin TAB(*) 5 MG PO ONE (17:00)
[2016-08-20] MEDS ORDERED: Benzonatate CAP* 100 MG PO PRN (20:46)
[2016-08-20] MEDS: Albuterol 2.5 MG/3 ML NEB.SOL* (0.083%) INH PRN (23:19)
[2016-08-21 05:50] LABS: Hematocrit 35 % (42-52); Hemoglobin 11.4 g/dl (14.0-18.0); Mean Corpuscular HGB Conc 32 g/dl (31-36); Mean Corpuscular Hemoglobin 29 pg (27-31); Mean Corpuscular Volume 91 fL (80-94); Mean Platelet Volume 9 um3 (7.4-10.4); Red Cell Distribution Width 15 % (10.5-15)
[2016-08-21 06:02] LABS: BUN/Creatinine Ratio 17.7 (8-20); Calcium 8.7 mg/dL (8.6-10.3); EGFR African American 162.2 (>60); EGFR Non-African American 126.1 (>60); Potassium 3.8 mmol/L (3.5-5.0)
[2016-08-21] MEDS: Albuterol/Ipratropium NEB.SOL* Albuterol 2.5 MG/Ipratropium 0.5 MG 3 ML INH SCH (07:25)
[2016-08-21 07:31] VITALS: BP 122/57
[2016-08-21] MEDS: Azithromycin IV(*) 250 MG in NS 0.9% 250 ML* 250 ML IVPB SCH (07:34)
[2016-08-21] MEDS: predniSONE TAB* 20 MG PO SCH (07:36)
[2016-08-21] MEDS: Torsemide TAB* 20 MG PO SCH (07:36)
[2016-08-21] MEDS: Metoprolol Succinate XL TAB* 50 MG PO SCH (07:37)
[2016-08-21] MEDS: Atorvastatin* 10 MG TAB PO SCH (07:37)
[2016-08-21] MEDS: Aspirin EC Low Dose* 81 MG TAB.EC PO SCH (07:37)
[2016-08-21] MEDS: Multivitamins/Minerals TAB PO SCH (07:38)
[2016-08-21] MEDS: guaiFENesin ER TAB 600 MG PO SCH (07:38)
[2016-08-21] MEDS: Digoxin TAB* 0.25 MG PO SCH (07:38)
[2016-08-21] MEDS: EPLERONONE 25 MG PO SCH (07:40)
[2016-08-21] MEDS: cefTRIAXone VIAL(*) 1,000 MG in NS 0.9% 50 ML* 50 ML IVPB SCH (08:45)
--- NOTE | 2016-08-21 23:09 | DS ---
DISCHARGE SUMMARY: DATE OF ADMISSION: 08/16/16 DATE OF DISCHARGE: 08/21/16 PRIMARY CARE PROVIDER: Yahir Hardy MD DISCHARGING PROVIDER: ADI Michael CONSULTING ASSISTANT GENERAL MANAGER: Abdelrahman Clark MD SUPERVISING PHYSICIAN: Emir Gonzales MD * (DICTATED BY ADI MICHAEL) PRIMARY DISCHARGE DIAGNOSES: 1. Pneumonia. 2. Chronic obstructive pulmonary disease exacerbation. 3. Pacemaker malfunction. 4. Frequent premature ventricular contractions with ventricular tachycardia. 5. Elevated troponin - likely representing demand ischemia without acute coronary syndrome. SECONDARY DISCHARGE DIAGNOSES: 1. Ischemic cardiomyopathy with EF of 30% to 35% without acute exacerbation. 2. Atrial fibrillation - rate controlled and anticoagulated with Coumadin. 3. Mechanical aortic and mitral valves present. DISCHARGE MEDICATIONS: 1. Eplerenone 25 mg p.o. daily. 2. Spiriva 18 mcg inhaled once daily. 3. Acetaminophen 650 mg p.o. q.6 hours as needed for pain or fever. 4. Albuterol inhaler 2 puffs inhaled q.4 hours as needed for shortness of breath. 5. DuoNeb inhaled q.4 hours as needed for shortness of breath. 6. Aspirin 81 mg p.o. daily. 7. Atorvastatin 10 mg p.o. daily. 8. Cefdinir 300 mg p.o. twice daily x5 days. 9. Digoxin 0.25 mg p.o. daily. 10. Metoprolol succinate 1 mg p.o. daily. 11. Multivitamin 1 tablet p.o. daily. 12. Nitroglycerin 0.4 mg p.o. q.5 minutes as needed for chest pain. 13. Torsemide 20 mg p.o. daily. 14. Coumadin 5 mg daily with the exception of Saturdays which he takes 2.5 mg. 15. Prednisone 20 mg daily x3 days followed by 10 mg daily x3 days. Medication changes: 1. Increase metoprolol from 50 to 100 mg daily. 2. Cefdinir x5 days. 3. Prednisone on a tapering basis. HOSPITAL IMAGIN. Chest x-ray shows COPD changes and evidence of bilateral infiltrates in lower lobes. 2. EKG shows primarily paced rhythm with occasional underlying atrial fibrillation. 3. Transthoracic echocardiogram demonstrates ejection fraction of 35% to 40% with apical and lateral wall segment hypokinesis as well as moderate concentric LVH. Mechanical aortic valve present with moderate stenosis and mechanical mitral valve present with [id number] regurg, evidence of mild pulmonary hypertension when compared to echos from 2011 to 2014 that was a little changed. HOSPITAL COURSE: This is a 76-year-old gentleman with a known history of coronary artery disease and subsequent ischemic cardiomyopathy as well as relatively severe COPD, mechanical aortic and mitral valves with a pacer and ICD in place, and underlying atrial fibrillation, who presented to the emergency department with complaints of shortness of breath for 4 or 5 days prior to admission. He was noted to be febrile upon admission to the emergency department with the temperature measured at 102.4 degrees Fahrenheit. Initial labs demonstrated a leukocytosis with white blood cell count of 21,000, primarily neutrophils. Comprehensive metabolic panel was largely unremarkable. Initial troponin was mildly elevated at 0.04. CRP was significantly elevated at 318. Initial chest x-ray demonstrated a patchy bilateral infiltrate and the patient had wheezing and rhonchi appreciated on lung exam. The patient was subsequently admitted for treatment of pneumonia and associated COPD exacerbation. The patient was initial treated with Levaquin, but there was noted a rise in his INR and subsequently switched to ceftriaxone and azithromycin with a good clinical response. The patient was treated with oral steroids and regular DuoNebs in addition to his typical home Spiriva treatments for his COPD exacerbation. His oxygen needs slowly improved to the point that he was able to maintain oxygen saturations in the low to mid 90s on room air at rest. He continues to desaturate with ambulation into the mid 80s or so, but recovered quickly. The patient was maintained on telemetry. He has a primarily paced rhythm with underlying atrial fibrillation. There were significant and quite regular pauses noted; however, during his hospital stay despite the pacer in place. [facility] rep came and interrogated the pacer and this was reviewed with Dr. Clark. There seemed to be a programming issue that did not allow for conduction occasionally. The patient had noted that since his pacemaker had been placed 5 to 6 months ago at [facility], he had been more fatigued than usual. After pacemaker was reprogrammed, there were no further pauses. DISPOSITION AND FOLLOWUP PLAN: The patient is being discharged to home. He has home oxygen available to him and he is instructed to use this during activity or with feeling of shortness of breath or dizziness. He is also instructed to use his nebulizer at least 3 times daily on a scheduled basis for the next several days, after which he can taper down to just as needed. He will require 5 additional days of antibiotics and prednisone taper as outlined above. He also requires followup with his oil winterizer regarding his pacer and would likely benefit from interrogation again in a couple of weeks to ensure that there are no additional significant pauses. ADI MICHAEL CC: Dr. Hardy* [id number]/CPS #: [id number] [id number]
[2016-08-22] MEDS ORDERED: Warfarin TAB(*) 2.5 MG PO SCH (17:00)
== END 2016-08-21 10:45 | disposition home or self-care (01) | DRG 314 ==
LOC: ED 11:34 → MEDTELE 13:42
PROVIDERS: ADMIT Hospitalist; ATTEND Internal Medicine
PROC: 4B02XTZ Measurement of Cardiac Defibrillator, External Approach (ICD-10-PCS; principal; 2016-08-17)
DX: T82.119A Breakdown (mechanical) of unspecified cardiac electronic device, initial encounter (principal); J18.9 Pneumonia, unspecified organism; I47.2 Ventricular tachycardia; I11.0 Hypertensive heart disease with heart failure; I24.8 Other forms of acute ischemic heart disease; T82.857A Stenosis of other cardiac prosthetic devices, implants and grafts, initial encounter; I25.5 Ischemic cardiomyopathy; I50.9 Heart failure, unspecified; I49.5 Sick sinus syndrome; J44.0 Chronic obstructive pulmonary disease with (acute) lower respiratory infection; J44.1 Chronic obstructive pulmonary disease with (acute) exacerbation; I48.2 Chronic atrial fibrillation; Y71.2 Prosthetic and other implants, materials and accessory cardiovascular devices associated with adverse incidents; I25.10 Atherosclerotic heart disease of native coronary artery without angina pectoris; M19.90 Unspecified osteoarthritis, unspecified site; E78.5 Hyperlipidemia, unspecified; D64.9 Anemia, unspecified; R73.9 Hyperglycemia, unspecified; I49.3 Ventricular premature depolarization; Z88.8 Allergy status to other drugs, medicaments and biological substances; I25.2 Old myocardial infarction; Z95.1 Presence of aortocoronary bypass graft; Z82.49 Family history of ischemic heart disease and other diseases of the circulatory system; Z87.891 Personal history of nicotine dependence; Z80.8 Family history of malignant neoplasm of other organs or systems; Y92.9 Unspecified place or not applicable; Z79.82 Long term (current) use of aspirin
CPT/HCPCS: 36415; 71020; 80048; 80053; 80076; 80162; 81003; 81015; 82550; 83036; 83605; 83735; 83880; 84443; 84484; 85014; 85018; 85025; 85610; 86140; 87040; 87077; 87150; 87205; 87899; 93005; 93306; 94640; 94760; A9270-GY; J0456; J0696; J2930; J7512

== ENCOUNTER 2017-03-30 23:31 | Emergency (ER) | payer MEDICARE ==
[2017-03-31] MEDS ORDERED: Sodium Phosphate ADULT ENEMA* 118 ml bottle PR ONE (01:43)
[2017-03-31 01:57] LABS: Hematocrit 42 % (42-52); Hemoglobin 13.9 g/dl (14.0-18.0); Mean Corpuscular HGB Conc 33 g/dl (31-36); Mean Corpuscular Hemoglobin 30 pg (27-31); Mean Corpuscular Volume 91 fL (80-94); Mean Platelet Volume 9 um3 (7.4-10.4); Platelet Count 208 10^3/ul (150-450); Red Blood Count 4.67 10^6/ul (4.0-5.4); Red Cell Distribution Width 15 % (10.5-15); White Blood Count 13.7 10^3/ul (3.5-10.8)
[2017-03-31 02:02] LABS: INR 2.84 (0.77-1.02)
[2017-03-31 02:11] LABS: EGFR Non-African American 87.6 (>60)
[2017-03-31 02:28] LABS: ABS Basophils 0 10^3/ul (0-0.2); ABS Eosinophils 0.1 10^3/ul (0-0.6); ABS Monocytes 1.7 10^3/ul (0-0.8); ABS Neutrophils 10.8 10^3/ul (1.5-7.7); ABS Nucleated RBC 0 10^3/ul; Eosinophil % 0.5 % (0-6); Lymphocyte % 7.6 % (25-47); Nucleated Red Blood Cells % 0.1
[2017-03-31 04:41] LABS: Urine Appearance Clear; Urine Blood Negative (Negative); Urine Color Yellow; Urine Ketones 1+ (Negative); Urine Protein Negative (Negative); Urine Specific Gravity 1.014 (1.010-1.030); Urine Urobilinogen Negative (Negative)
[2017-03-31 04:42] VITALS: BP 107/78
--- NOTE | 2017-04-17 16:47 | ED ---
Caty Cain Emily, scribed for Yahir Cheng MD on 03/31/17 at 0125 . GI/ HPI - HPI Summary HPI Summary: This patient is a 76 year old M presenting to [facility] with a chief complaint of constipation that began yesterday. The patient rates the pain 7/10 in severity. Symptoms aggravated by nothing. Symptoms alleviated by nothing. Patient reports rectal pain and ankle swelling. Patient denies abd pain and hematochezia. Pt is on 3 L of O2 at home. - History of Current Complaint Chief Complaint: EDGeneral Stated Complaint: CONSTIPATION Hx Obtained From: Patient Onset/Duration: Started Days Ago, Still Present Timing: Constant, Lasting Days Severity: Moderate Current Severity: Moderate Pain Intensity: 7 Location of Pain: Rectal Associated Signs and Symptoms: Positive: Other: - Positive rectal pain and ankle swelling. Negative hematochezia - Additional Pertinent History Primary Care Physician: [id number] - Allergy/Home Medications Allergies/Adverse Reactions: Allergies Allergy/AdvReac Type Severity Reaction Status Date / Time Diltiazem [Cardizem] AdvReac See Comment Verified 03/30/17 23:51 Theophylline AdvReac Unknown Verified 03/30/17 23:51 Reaction Details Verapamil AdvReac See Comment Verified 03/30/17 23:51 PMH/Surg Hx/FS Hx/Imm Hx Previously Healthy: No Endocrine/Hematology History: Denies: Hx Diabetes, Hx Thyroid Disease Cardiovascular History: Reports: Hx Angina, Hx Atrial Fibrillation, Hx Auto Implanted Cardiovert Defib, Hx Congestive Heart Failure, Hx Coronary Artery Disease, Hx Hypertension, Hx Myocardial Infarction, Hx Pacemaker/ICD, Hx Valvular Heart Disease, Other Cardiovascular Problems/Disorders - [place]PASS Respiratory History: Reports: Hx Chronic Obstructive Pulmonary Disease (COPD), Hx Pneumonia Denies: Hx Asthma GI History: Denies: Hx Ulcer History: Denies: Hx Dialysis, Hx Renal Disease Musculoskeletal History: Reports: Hx Arthritis Sensory History: Reports: Hx Contacts or Glasses - DID NOT BRING FROM HOME Denies: Hx Hearing Aid Opthamlomology History: Reports: Hx Contacts or Glasses - DID NOT BRING FROM HOME - Surgical History Surgery Procedure, Year, and Place: A-FIB, HEART VALVE REPLACEMENT, PACE MAKER DEFIBRILATOR Hx Anesthesia Reactions: No - Immunization History Date of Tetanus Vaccine: UTD per pt Date of Influenza Vaccine: Fall 2016 Infectious Disease History: No Infectious Disease History: Denies: Hx Hepatitis, Hx Human Immunodeficiency Virus (HIV), Traveled Outside the [place] in Last 30 Days - Family History Known Family History: Positive: Cardiac Disease - CAD - Social History Occupation: Retired Lives: Alone Alcohol Use: Occasionally Hx Substance Use: No Substance Use Type: Reports: None Hx Tobacco Use: Yes Smoking Status (MU): Former Smoker Review of Systems Positive: Other - Positive constipation and rectal pain. Negative hematochezia. Negative: Abdominal Pain Positive: Other - Positive ankle swelling All Other Systems Reviewed And Are Negative: Yes Physical Exam - Summary Physical Exam Summary: Appearance: Well-appearing, Well-nourished Skin: Warm, Dry, No rash Eyes: Normal, PERRL, EOMI, sclera anicteric ENT: Normal Neck: Supple, nontender Respiratory: Decreased breath sounds bilaterally Cardiovascular: S1, S2, no murmur, no rub, no gallop Abdomen: Soft, Mildly distended Rectal Exam: Rectum is without obvious hemorrhoids. Pt deferred a digital exam Bowel sounds: Present Musculoskeletal: Normal, Strength/ROM Intact, no edema, pulses symmetrical Neurological: Normal, A&Ox3, cranial nerves II-XII WNL, follows commands, gait not tested, sensation intact to pin and light touch Psychiatric: affect normal, behavior appropriate, dressed appropriately, judgment intact Triage Information Reviewed: Yes Vital Signs On Initial Exam: Initial Vitals Temp Pulse Resp BP Pulse Ox 99.3 F 81 20 142/75 92 03/30/17 23:46 03/30/17 23:46 03/30/17 23:46 03/30/17 23:46 03/30/17 23:46 Vital Signs Reviewed: Yes Diagnostics - Vital Signs Vital Signs Temp Pulse Resp BP Pulse Ox 03/30/17 23:46 99.3 F 81 20 142/75 92 - Laboratory Result Diagrams: 03/31/17 01:41 03/31/17 01:41 Lab Statement: Any lab studies that have been ordered have been reviewed, and results considered in the medical decision making process. GIGU Course/Dx - Course Assessment/Plan: This patient is a 76 year old M presenting to [facility] with a chief complaint of constipation that began yesterday. Patient reports rectal pain and ankle swelling. Patient denies hematochezia. Physical Exam Findings. Decreased breath sounds bilaterally. Abd is mildly distended. Rectum without obvious hemorrhoids. Pt deferred a digital exam. Bloodwork obtained. In the ED course the patient was given fleet enema. Patient will be discharged with a prescription for Miralax and with follow up from PCP. The patient is agreeable with this plan. - Diagnoses Provider Diagnoses: Constipation Discharge - Discharge Plan Condition: Good Disposition: HOME Prescriptions: Polyethylene Glycol 3350 BTL* [Miralax] 1 pow PO DAILY PRN 30 Days #1 btl PRN Reason: Constipation Patient Education Materials: Constipation (ED) Referrals: Yahir Hardy MD [Primary Care Provider] - The documentation as recorded by the Caty chavez Emily accurately reflects the service I personally performed and the decisions made by me, Yahir Cheng MD.
== END 2017-03-31 04:35 | disposition home or self-care (01) ==
LOC: ED 23:31
DX: K59.00 Constipation, unspecified (principal); K62.89 Other specified diseases of anus and rectum; Z87.891 Personal history of nicotine dependence
CPT/HCPCS: 36415; 80048; 81003; 85025; 85610; 99283; A9270-GY

== ENCOUNTER 2018-05-09 11:24 | Observation (INO) | payer MEDICARE ==
[2018-05-09] MEDS ORDERED: Morphine INJ* 2 MG/ML 1 ML SYRINGE (TWO MG - NEW SYRINGE VERSION) IV PRN (16:39)
[2018-05-09] MEDS ORDERED: Albuterol/Ipratropium NEB.SOL* Albuterol 2.5 MG/Ipratropium 0.5 MG 3 ML INH PRN (16:48)
[2018-05-09] MEDS ORDERED: Enoxaparin(*) 40 MG/0.4 ML SYR SUBCUT SCH (17:00)
[2018-05-09] MEDS ORDERED: Warfarin TAB(*) 5 MG PO SCH (17:00)
[2018-05-09 18:36] LABS: ABS Basophils 0 10^3/ul (0-0.2); ABS Eosinophils 0.2 10^3/ul (0-0.6); ABS Monocytes 0.9 10^3/ul (0-0.8); ABS Neutrophils 5.7 10^3/ul (1.5-7.7); ABS Nucleated RBC 0 10^3/ul; Eosinophil % 3.1 %; Hematocrit 46 % (42-52); Hemoglobin 14.9 g/dl (14.0-18.0); Lymphocyte % 12.1 %; Mean Corpuscular HGB Conc 33 g/dl (31-36); Mean Corpuscular Hemoglobin 30 pg (27-31); Mean Corpuscular Volume 92 fL (80-94); Mean Platelet Volume 9.7 fL (7.4-10.4); Nucleated Red Blood Cells % 0.1; Platelet Count 237 10^3/ul (150-450); Red Blood Count 4.97 10^6/ul (4.00-5.40); Red Cell Distribution Width 15 % (10.5-15); White Blood Count 7.9 10^3/ul (3.5-10.8)
[2018-05-09 18:41] LABS: Albumin 4.6 g/dL (3.2-5.2); Albumin/Globulin Ratio 1.3 (1-3); BUN/Creatinine Ratio 13.3 (8-20); C Reactive Protein 8.18 mg/L (<8.01); Calcium 9.7 mg/dL (8.6-10.3); EGFR African American 82.7 (>60); EGFR Non-African American 68.3 (>60); Globulin 3.5 g/dL (2-4); Potassium 4.6 mmol/L (3.5-5.0); Total Protein 8.1 g/dL (6.4-8.9)
[2018-05-09] MEDS ORDERED: Pantoprazole TAB * 40 MG TAB PO ONE (18:45)
[2018-05-09] MEDS ORDERED: methylPREDNISolone 125 MG* 2 ML VIAL IV ONE (18:45)
[2018-05-09] MEDS ORDERED: Iohexol 350* (CONTRAST) 500 ML MDV IV ONE (18:54)
[2018-05-09] MEDS: Mometasone/Formoter 200/5 MDI INH SCH (21:19)
[2018-05-10 07:14] LABS: Erythrocyte Sed Rate 5 mm/Hr (0-20)
[2018-05-10] MEDS: Metoprolol Succinate XL TAB* 50 MG PO SCH (07:44)
[2018-05-10] MEDS: Torsemide TAB* 20 MG PO SCH (07:45)
[2018-05-10] MEDS: predniSONE TAB* 20 MG PO SCH (07:45)
[2018-05-10] MEDS: Atorvastatin* 40 MG TAB PO SCH (07:45)
[2018-05-10] MEDS: Pantoprazole TAB * 40 MG TAB PO SCH (07:45)
[2018-05-10] MEDS: Aspirin EC TAB* 81 MG TAB.EC PO SCH (07:45)
[2018-05-10] MEDS: Multivitamins/Minerals TAB PO SCH (07:46)
[2018-05-10 07:48] LABS: INR 3.35 (0.77-1.02)
[2018-05-10] MEDS: Mometasone/Formoter 200/5 MDI INH SCH ×2 (07:54→19:32)
[2018-05-10] MEDS ORDERED: Magnesium CITRATE* 300 ML BTL PO ONE (11:00)
--- NOTE | 2018-05-10 11:13 | PN ---
Progress Note - Progress Note Date of Service: 05/10/18 SOAP: Subjective: [Feeling slightly better this am. He says mornings are typically better and his symptoms get worse throughout the day so he is anxious to say he has improved. Had a BM this am, but still feels bloated, although improved. No fevers. No cough.] Objective: [ Vital Signs Temp Pulse Resp BP Pulse Ox 97.4 F 89 18 117/54 93 05/10/18 07:47 05/10/18 07:57 05/10/18 07:57 05/10/18 07:47 05/10/18 07:57 Acetaminophen (Tylenol Tab*) 650 mg PO Q6H PRN PRN Reason: pain/fever Albuterol/Ipratropium (Duoneb (Albuterol 2.5 Mg/Ipratropium 0.5 Mg)) 1 neb INH Q4H PRN PRN Reason: SOB/WHEEZING Aspirin (Aspirin Ec Tab*) 81 mg PO DAILY [facility] Last Admin: 05/10/18 07:45 Dose: 81 mg Atorvastatin Calcium (Lipitor*) 40 mg PO DAILY [facility] Last Admin: 05/10/18 07:45 Dose: 40 mg Magnesium Citrate (Citrate Of Magnesia*) 150 ml PO ONCE ONE Stop: 05/10/18 11:01 Metoprolol Succinate (Toprol Xl Tab*) 50 mg PO DAILY [facility] Last Admin: 05/10/18 07:44 Dose: 50 mg Mometasone Furoate/Formoterol Fumar (Dulera 200/5 Mdi*) 2 puff INH BID [facility] Last Admin: 05/10/18 07:54 Dose: 2 puff Morphine Sulfate (Morphine Inj ((Syringe))*) 2 mg IV Q4H PRN PRN Reason: PAIN - MILD Multivitamins/Minerals (Theragran/Minerals Tab*) 1 tab PO DAILY [facility] Last Admin: 05/10/18 07:46 Dose: 1 tab Pantoprazole Sodium (Protonix Tab*) 40 mg PO DAILY [facility] Last Admin: 05/10/18 07:45 Dose: 40 mg Prednisone (Deltasone Tab*) 70 mg PO DAILY [facility] Last Admin: 05/10/18 07:45 Dose: 70 mg Torsemide (Demadex*) 10 mg PO DAILY [facility] Last Admin: 05/10/18 07:45 Dose: 10 mg Warfarin Sodium (Coumadin Tab(*)) 5 mg PO [id number] [facility]; Protocol Last Admin: 05/09/18 22:19 Dose: Not Given Laboratory Results - last 24 hr 05/09/18 05/09/18 05/09/18 18:17 18:17 18:17 WBC 7.9 RBC 4.97 Hgb 14.9 Hct 46 MCV 92 MCH 30 MCHC 33 RDW 15 Plt Count 237 MPV 9.7 Neut % (Auto) 72.9 Lymph % (Auto) 12.1 [place] % (Auto) 11.4 Eos % (Auto) 3.1 Baso % (Auto) 0.5 Absolute Neuts (auto) 5.7 Absolute Lymphs (auto) 1.0 Absolute Monos (auto) 0.9 H Absolute Eos (auto) 0.2 Absolute Basos (auto) 0 Absolute Nucleated RBC 0 Nucleated RBC % 0.1 ESR 5 INR (Anticoag Therapy) Sodium 137 Potassium 4.6 Chloride 97 L Carbon Dioxide 35 H Anion Gap 5 BUN 14 Creatinine 1.05 Est GFR ( Amer) 82.7 Est GFR (Non-Af Amer) 68.3 BUN/Creatinine Ratio 13.3 Glucose 97 Calcium 9.7 Total Bilirubin 1.00 AST 31 ALT 17 Alkaline Phosphatase 81 Lactate Dehydrogenase 160 C-Reactive Protein 8.18 H B-Natriuretic Peptide 227 H Total Protein 8.1 Albumin 4.6 Globulin 3.5 Albumin/Globulin Ratio 1.3 05/10/18 07:14 WBC RBC Hgb Hct MCV MCH MCHC RDW Plt Count MPV Neut % (Auto) Lymph % (Auto) [place] % (Auto) Eos % (Auto) Baso % (Auto) Absolute Neuts (auto) Absolute Lymphs (auto) Absolute Monos (auto) Absolute Eos (auto) Absolute Basos (auto) Absolute Nucleated RBC Nucleated RBC % ESR INR (Anticoag Therapy) 3.35 H Sodium Potassium Chloride Carbon Dioxide Anion Gap BUN Creatinine Est GFR ( Amer) Est GFR (Non-Af Amer) BUN/Creatinine Ratio Glucose Calcium Total Bilirubin AST ALT Alkaline Phosphatase Lactate Dehydrogenase C-Reactive Protein B-Natriuretic Peptide Total Protein Albumin Globulin Albumin/Globulin Ratio Exam: Gen: Chronically ill but spry appearing elderly gentleman in NAD HEENT: MMM, no thrush CV: RRR, murmur present Resp: reduced breath sounds, few rhonchi at bases Abd: slightly distended, soft, nonTTP Ext: no edema Skin: no rashes] Assessment: [78 yo male with CHF, COPD, and recurrent metastatic melanoma on pembrolizumab who presented with c/o increased SOB and abdominal bloating. CT scan demonstrates ground glass opacities at lung bases likely representing a pneumonitis and his abdominal bloating is secondary to constipation.] Plan: [1. Pneumonitis secondary to pembrolizumab - cont prednisone 70 mg daily (1mg/kg) - can likely taper steroids quickly 2. COPD, severe - O2 dependent - some associated exacerbation - needs 2-3L with ambulation at baseline although he has been resistent to use it 3. CHF - severe cardiomyopathy - followed by Dr Andino - does not appear acutely exacerbated - repeat echo pending for today 4. Constipation - large amount of stool on imaging - will be more aggressive with laxatives during his inpatient stay and recommend a more regular bowel regimen at home Dispo: anticipate discharge home tomorrow
--- NOTE | 2018-05-10 12:11 | ECHO ---
Patient: EMMANUEL ESPINAL [facility] Rec#: [id number] : 1940 Date: 05/10/2018 Age: 78y Height: 183 cm / 72.0 in Weight: 72.7 kg / 160.2 lbs Sex: M BSA: 1.94 Room#: [facility] Admit Date#: 05/09/2018 Type: Inpatient Referring: Paloma Pinto Reading: Abdelrahman Clark MD Graphic Engineer: Christy Espinoza RN RDCS CC: Inessa Ruth MD Transthoracic Echocardiogram Indication: Shortness of breath, CHF BP: 92/42 HR: 70 Rhythm: Paced Findings History: CAD, CABG, mechanical AVR and MVR, A. fib, AICD, CHF, HTN, HLD Technical Comments: The study quality is fair. The study is technically limited due to the patient's history of COPD. Left Ventricle: The left ventricular chamber size is normal. Mild to moderate concentric left ventricular hypertrophy is observed. There is global hypokinesis of the left ventricle with minor regional variation. There is severely decreased left ventricular systolic function. The estimated ejection fraction is 20-25%. There is abnormal ventricular septal wall motion consistent with right ventricular pacemaker. Abnormal left ventricular diastolic function is observed. Left Atrium: The left atrium is severely dilated. Right Ventricle: The right ventricular cavity size is normal. The right ventricular global systolic function is low normal. A pacemaker wire is visualized in the right ventricle. Right Atrium: The right atrium is moderately dilated. A pacemaker wire is visualized in the right atrium. Aortic Valve: The aortic valve structure is not well visualized. There is no evidence of aortic regurgitation. The mean gradient of the aortic valve is 17 mmHg. The peak instantaneous gradient of the aortic valve is 30 mmHg. A mechanical prosthetic aortic valve is present. The mechanical aortic valve appears well seated with normal function. Mitral Valve: There is mild mitral regurgitation. A mechanical prosthetic mitral valve is present. Mitral valve repair functioning normally. Tricuspid Valve: The tricuspid valve structure is not well visualized. There is trace to mild tricuspid regurgitation. Unable to estimate the right ventricular systolic pressure. There is no tricuspid stenosis. Pulmonic Valve: The pulmonic valve structure is not well visualized. Pericardium: There is no significant pericardial effusion. Aorta: The ascending aorta is not well visualized. There is no dilatation of the aortic arch. There is mild dilatation of the aortic root. Pulmonary Artery: The main pulmonary artery is not well visualized. Venous: The inferior vena cava is dilated. There is a greater than 50% respiratory change in the inferior vena cava dimension. Summary: There are no significant changes when compared to the previous study done on 02/02/18 Conclusions There is global hypokinesis of the left ventricle with minor regional variation. There is severely decreased left ventricular systolic function. The estimated ejection fraction is 20-25%. There is abnormal ventricular septal wall motion consistent with right ventricular pacemaker. A pacemaker wire is visualized in the right ventricle. A mechanical prosthetic aortic valve is present. The mechanical aortic valve appears well seated with normal function. The mean gradient of the aortic valve is 17 mmHg. A mechanical prosthetic mitral valve is present. Mitral valve repair functioning normally. There is mild mitral regurgitation. There is trace to mild tricuspid regurgitation. Unable to estimate the right ventricular systolic pressure. There is no significant pericardial effusion. There are no significant changes when compared to the previous study done on 02/02/18 Measurements Name Value Normal Range RVDdMajor (2D) 3.6 cm (2.2 - 4.4) RAd ISD 4CH 6.5 cm (3.4 - 4.9) RA (A4C)W 5 cm (2.9 - 4.6) IVSd (2D) 1.3 cm (0.6 - 1) LVPWd (2D) 1.2 cm (0.6 - 1) LVIDd (2D) 5.3 cm (3.6 - 5.4) LVIDs (2D) 4.9 cm - LV FS (2D) 8 % (25 - 45) EF Teichholz (2D) 17 % - Aortic Annulus 2 cm (1.4 - 2.6) Ao root diameter (2D) 3.6 cm (2.1 - 3.5) Aortic arch 2.2 cm (1.8 - 3.4) LA dimension (AP) 2D 3.9 cm (2.3 - 3.8) LAd ISD 4CH 7.3 cm (2.9 - 5.3) LA ISD 4CH W 5.1 cm (2.5 - 4.5) Name Value Normal Range LA ESV BP (A/L) index 67 ml/m2 - Name Value Normal Range MV E-wave Vmax 1.7 m/sec - MV deceleration time 295 msec - LV septal e' Vmax 0.05 m/sec - LV lateral e' Vmax 0.06 m/sec - LV E:e' septal ratio 34 ratio - LV E:e' lateral ratio 28.33 ratio - Name Value Normal Range AV Vmax 2.8 m/sec - AV VTI 52.5 cm - AV peak gradient 30 mmHg - AV mean gradient 17 mmHg - LVOT diameter 1.9 cm - LVOT Vmax 1.1 m/sec - LVOT VTI 22 cm - LVOT peak gradient 4 mmHg - LVOT mean gradient 3 mmHg - DOI (VTI) 0.42 ratio - DOI (Vmax) 0.39 ratio - HERBIE (continuity Vmax) 1.1 cm2 - HERBIE (continuity VTI) 1.2 cm2 - KATTY Vmax 0.82 m/sec - Name Value Normal Range MV Vmax 1.8 m/sec - MV VTI 38.8 cm - MV peak gradient 13 mmHg - MV mean gradient 4 mmHg - MV PHT 100 msec - MVA (PHT) 2.2 cm2 - MVA (continuity VTI) 1.61 cm2 - Name Value Normal Range IVC diameter 2.3 cm - Name Value Normal Range PV Vmax 0.82 m/sec -
[2018-05-10] MEDS: Acetaminophen TAB* 325 MG PO PRN (14:22)
[2018-05-10] MEDS ORDERED: Pneumococcal *Vac Polyvalent 0.5 ML VIAL IM ONE (21:00)
[2018-05-11] MEDS: Mometasone/Formoter 200/5 MDI INH SCH ×2 (06:28→10:10)
[2018-05-11 06:51] LABS: INR 3.08 (0.77-1.02)
[2018-05-11] MEDS: Acetaminophen TAB* 325 MG PO PRN (07:59)
[2018-05-11] MEDS ORDERED: Pneumococcal *Vac Polyvalent 0.5 ML VIAL IM ONE (09:00)
[2018-05-11] MEDS: Metoprolol Succinate XL TAB* 50 MG PO SCH (10:08)
[2018-05-11] MEDS: predniSONE TAB* 20 MG PO SCH (10:09)
[2018-05-11] MEDS: Torsemide TAB* 20 MG PO SCH (10:09)
[2018-05-11] MEDS: Multivitamins/Minerals TAB PO SCH (10:10)
[2018-05-11] MEDS: Aspirin EC TAB* 81 MG TAB.EC PO SCH (10:10)
[2018-05-11] MEDS: Atorvastatin* 40 MG TAB PO SCH (10:10)
[2018-05-11] MEDS: Pantoprazole TAB * 40 MG TAB PO SCH (10:10)
[2018-05-11 11:48] VITALS: BP 131/64
--- NOTE | 2018-05-11 13:02 | DS ---
CC: Dr. Ruth * DISCHARGE SUMMARY: DATE OF ADMISSION: 05/09/18 DATE OF DISCHARGE: 05/11/18 PRIMARY CARE PROVIDER: Dr. Ruth. PRIMARY ONCOLOGIST AND ATTENDING PHYSICIAN: Dr. Yasmani Bermudez.* (DICTATED BY ADI MICHAEL) DISCHARGING PROVIDER: ADI Michael PRIMARY DISCHARGE DIAGNOSES: 1. 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 2. Constipation causing abdominal discomfort and bloating. SECONDARY DISCHARGE DIAGNOSES: 1. Chronic severe systolic heart failure, followed by Dr. Andino, without evidence for acute exacerbation during this hospitalization. 2. Severe oxygen dependent chronic obstructive pulmonary disease, likely some associated exacerbation with the pneumonitis, and requires 2 to 3 L of supplemental oxygen at baseline. DISCHARGE MEDICATIONS: 1. DuoNeb 1 neb inhaled 4 times daily as needed for shortness of breath. 2. Aspirin 81 mg p.o. daily. 3. Atorvastatin 40 mg p.o. daily. 4. Inspra 25 mg p.o. daily. 5. Advair 250/50 one puff inhaled twice daily. 6. Multivitamin 1 tablet p.o. daily. 7. Torsemide 10 mg p.o. daily. 8. Coumadin 5 mg p.o. daily. 9. Metoprolol succinate 50 mg p.o. daily. 10. Prednisone 60 mg p.o. daily with plan to start taper next week. HOSPITAL IMAGING: CTA chest, abdomen, and pelvis shows no PE, bilateral ground - glass opacities and small nodules in the lung bases bilaterally, no other acute findings. HOSPITAL COURSE: This is a 78-year-old gentleman with metastatic melanoma, currently treated with pembrolizumab, who presented to the oncology clinic with complaints of increased shortness of breath, abdominal bloating, and discomfort , who was subsequently admitted with concerns for potential pneumonitis secondary to his immunotherapy. He had CT chest, abdomen, and pelvis for restaging purposes as well as to investigate his complaints. A CTA of the chest was completed to also rule out PE which was negative. He did have what looked like ground glass opacities with small nondescript nodularities in the lung bases bilaterally which would be consistent with pneumonitis. No other pathology noted with the exception of a large amount of stool in his colon. No evidence of significant ascites. The patient was subsequently started on high dose steroids and a more aggressive bowel regimen. His abdominal discomfort improved with subsequent bowel movements and his shortness of breath improved back to baseline during his hospitalization as well. Echocardiogram was assessed during this hospitalization as well, which did not show any significant change when compared to January 2018, but does show severe cardiomyopathy with an EF of 20% to 25% and a mechanical aortic valve in place. DISPOSITION AND FOLLOWUP PLAN: The patient is being discharged to home with 60 mg of prednisone daily, he received 70 mg during his hospitalizations here. Plan to follow up with Dr. Bermudez next week on 05/18/18 and anticipate that we can initiate rather rapid taper of his steroids at that point. Pembrolizumab will be held at this time until his steroid taper is nearly completed. Of note , his INR was slightly supratherapeutic during his hospitalization. He is followed closely by the [facility] with [facility] and his Coumadin was held for 1 day during his hospitalization; will resume at 5 mg daily with close followup with the [facility]. ADI MICHAEL [id number]/[facility] #: [id number] STEVE
[2018-05-11] MEDS ORDERED: Warfarin TAB(*) 4 MG PO SCH (17:00)
== END 2018-05-11 13:10 | disposition home or self-care (01) | DRG 206 ==
LOC: MED 11:24 → OBSVTOIN 05-10 11:24 → INTOOBSV 05-10 11:24
PROVIDERS: ADMIT Internal Medicine Hematology & Oncology; ATTEND Internal Medicine Hematology & Oncology
DX: J70.4 Drug-induced interstitial lung disorders, unspecified (principal); J44.1 Chronic obstructive pulmonary disease with (acute) exacerbation; I50.22 Chronic systolic (congestive) heart failure; C79.9 Secondary malignant neoplasm of unspecified site; I42.9 Cardiomyopathy, unspecified; K59.00 Constipation, unspecified; T45.1X5A Adverse effect of antineoplastic and immunosuppressive drugs, initial encounter; C44.99 Other specified malignant neoplasm of skin, unspecified; I48.91 Unspecified atrial fibrillation; I25.10 Atherosclerotic heart disease of native coronary artery without angina pectoris; E78.5 Hyperlipidemia, unspecified; Z86.19 Personal history of other infectious and parasitic diseases; Z95.4 Presence of other heart-valve replacement; Y92.9 Unspecified place or not applicable; Z99.81 Dependence on supplemental oxygen; Z79.82 Long term (current) use of aspirin; Z79.01 Long term (current) use of anticoagulants; Z79.52 Long term (current) use of systemic steroids; Z23 Encounter for immunization; Z95.1 Presence of aortocoronary bypass graft; Z95.810 Presence of automatic (implantable) cardiac defibrillator; Z72.89 Other problems related to lifestyle
CPT/HCPCS: 36415; 71275; 74177; 80053; 83615; 83880; 85025; 85610; 85652; 86140; 90471; 90686; 90732; 94640; 96372; 99219; 99222; 99232; 99239; 99283; A9270-GY; G0009; G0378; J2930; J7512; Q9967

== ENCOUNTER 2018-07-03 06:20 | Inpatient (IN) | payer MEDICARE ==
[2018-07-03] MEDS ORDERED: fentaNYL* 50 MCG/ML 2 ML VIAL (100 MCG VIAL) IV SLOW PU ONE ×2 (06:31→06:35)
[2018-07-03] MEDS ORDERED: Famotidine IV* 10 MG/ML 2 ML (20 mg) IV SLOW PU ONE (07:24)
[2018-07-03 07:34] LABS: ABS Basophils 0 10^3/ul (0-0.2); ABS Eosinophils 0.1 10^3/ul (0-0.6); ABS Lymphocytes 0.4 10^3/ul (1.0-4.8); ABS Monocytes 1.2 10^3/ul (0-0.8); ABS Nucleated RBC 0 10^3/ul; Eosinophil % 0.4 %; Hematocrit 35 % (36-46); Hemoglobin 11.3 g/dL (14.0-18.0); Lymphocyte % 3.2 %; Mean Corpuscular HGB Conc 32 g/dL (31-36); Mean Corpuscular Hemoglobin 30 pg (27-31); Mean Corpuscular Volume 94 fL (80-94); Mean Platelet Volume 8.2 fL (7.4-10.4); Nucleated Red Blood Cells % 0; Platelet Count 294 10^3/uL (150-450); Red Blood Count 3.73 10^6 /uL (4.18-5.48); Red Cell Distribution Width 16 % (10.5-15); White Blood Count 13.7 10^3/uL (3.5-10.8)
[2018-07-03 07:40] LABS: INR 2.43 (0.77-1.02)
[2018-07-03 07:52] LABS: Albumin 3.8 g/dL (3.2-5.2); Albumin/Globulin Ratio 1.3 (1-3); C Reactive Protein 29.92 mg/L (<8.01); EGFR African American 121.9 (>60); EGFR Non-African American 100.7 (>60); Globulin 2.9 g/dL (2-4); Potassium 4.4 mmol/L (3.5-5.0); Total Bilirubin 0.7 mg/dL (0.2-1.0); Total Protein 6.7 g/dL (6.4-8.9)
[2018-07-03 07:53] LABS: Troponin I 0.02 ng/mL (<0.04)
--- NOTE | 2018-07-03 09:08 | ED ---
Abdominal Pain/Male - HPI Summary HPI Summary: Patient is a 78-year-old male with history of malignant melanoma presenting to the ED with abdominal pain which is diffuse. He states this began after eating a meatball cells last evening. He came in today as he was concerned with further malignancy and metastasis in the abdomen. He has a history of COPD and uses 2 L O2 of oxygen at baseline. He was seen in the ED 1 month ago for pneumonia and was admitted to the hospital at that time. He denies any nausea, vomiting, diarrhea, constipation. He denies any back pain or urinary symptoms. He denies any dizziness, headache, weakness. Denies any recent sick contacts , body aches, fevers, sweats, chills. - History of Current Complaint Chief Complaint: EDAbdPain Stated Complaint: "ABD PAIN" PER EMS Time Seen by Provider: 07/03/18 06:48 Hx Obtained From: Patient Onset/Duration: Sudden Onset Timing: Constant Severity Initially: Moderate Severity Currently: Mild Pain Intensity: 8 Pain Scale Used: 0-10 Numeric Radiates: No Character: Cramping Aggravating Factor(s): Nothing Alleviating Factor(s): Nothing Associated Signs And Symptoms: Positive: Negative - Risk Factors Testicular Torsion: Negative Cardiac Risk Factors: Negative - Allergies/Home Medications Allergies/Adverse Reactions: Allergies Allergy/AdvReac Type Severity Reaction Status Date / Time diltiazem Allergy See Comment Verified 05/26/18 11:16 theophylline Allergy See Comment Verified 05/26/18 11:16 verapamil Allergy See Comment Verified 05/26/18 11:16 PMH/Surg Hx/FS Hx/Imm Hx Previously Healthy: Yes Endocrine/Hematology History: Reports: Hx Anticoagulant Therapy - Coumadin Denies: Hx Diabetes, Hx Thyroid Disease Cardiovascular History: Reports: Hx Angina, Hx Atrial Fibrillation, Hx Auto Implanted Cardiovert Defib, Hx Congestive Heart Failure, Hx Coronary Artery Disease, Hx Hypertension, Hx Myocardial Infarction, Hx Pacemaker/ICD - [employer]- [employer] - NOT MR CONDITIONAL, Hx Rheumatic Fever, Hx Valvular Heart Disease, Other Cardiovascular Problems/Disorders - BYPASS Respiratory History: Reports: Hx Chronic Obstructive Pulmonary Disease (COPD), Hx Pneumonia Denies: Hx Asthma GI History: Denies: Hx Ulcer History: Denies: Hx Dialysis, Hx Renal Disease Musculoskeletal History: Reports: Hx Arthritis Sensory History: Reports: Hx Contacts or Glasses - DID NOT BRING FROM HOME, Hx Hearing Problem Denies: Hx Hearing Aid Opthamlomology History: Reports: Hx Contacts or Glasses - DID NOT BRING FROM HOME - Cancer History Cancer Type, Location and Year: METASTATIC MELANOMA - Surgical History Surgery Procedure, Year, and Place: A-FIB, HEART VALVE REPLACEMENT,. [facility]- [facility] - NOT MR CONDITIONAL----PACEMAKER/DEFIBRILLATOR (2 - 2007 & CHANDED 2014 - ALL PAPERWORK SCANNED INTO [employer] UNDER OTHER FACILTY REPORTS - DR CECIL WAGONER) Hx Anesthesia Reactions: No - Immunization History Date of Tetanus Vaccine: UTD per pt Date of Influenza Vaccine: Fall 2017 Hx Pertussis Vaccination: No Immunizations Up to Date: Yes Infectious Disease History: No Infectious Disease History: Denies: Hx Hepatitis, Hx Human Immunodeficiency Virus (HIV), Traveled Outside the [place] in Last 30 Days - Family History Known Family History: Positive: None - reviewed & noncontributory, Cardiac Disease - Social History Occupation: Unemployed Lives: Alone Alcohol Use: Rare Hx Substance Use: No Substance Use Type: Reports: None Hx Tobacco Use: Yes Smoking Status (MU): Former Smoker Type: Cigarettes Review of Systems Constitutional: Negative Negative: Fever, Chills, Fatigue Negative: Dental Pain, Sore Throat Negative: Palpitations, Chest Pain Negative: Cough Positive: Abdominal Pain. Negative: Vomiting, Diarrhea, Nausea Genitourinary: Negative Positive: no symptoms reported, see HPI Negative: Arthralgia, Myalgia Negative: Bruising Negative: Headache, Weakness All Other Systems Reviewed And Are Negative: Yes Physical Exam - Summary Physical Exam Summary: Appearance: Patient appears well, no acute distress male, comfortable, pleasant , alert Skin: Soft dry skin, no lesions. Nailbeds pink with no cyanosis or clubbing. No petechia noted. Eyes: JOE, EOMI, Conjunctiva pink with no redness or exudates. Mouth: Dentition without lesions. Moist mucosa Neck: Full range of motion. Palpable thyroid. Trachea at midline. No lymphadenopathy. Pulm: Chest symmetrical expansion. No deformities on posterior chest wall. Lungs clear to auscultation and percussion, without adventitious sounds. CV: No JVD. No deformities on anterior chest wall. Heart sounds. RRR. Normal S1 and single S2. No S3, S4, rubs, or murmurs. Carotids 2+ bilaterally without bruits. . exam not performed GI: Bowel sounds WNL in all 4 quadrants. No pain on deep palpation of all 4 quadrants. Negative clay's, negative obturator. Psoas not performed. No pain over Mcburney's point. Musculoskeletal: Flexion and extension of neck without limitations. ROM WNL in all extremities. No deformities noted. Pulses +2 bilaterally. Neuro: Motor strength is 5/5 in upper and lower extremities bilaterally. A&OX3 Psych: Logical, coherent Triage Information Reviewed: Yes Vital Signs On Initial Exam: Initial Vitals Temp Pulse Resp BP Pulse Ox 98.4 F 70 22 94/56 92 07/03/18 06:25 07/03/18 06:25 07/03/18 06:25 07/03/18 06:25 07/03/18 06:25 Vital Signs Reviewed: Yes Appearance: Positive: Well-Appearing, Well-Nourished Skin: Positive: Warm, Skin Color Reflects Adequate Perfusion Diagnostics - Vital Signs Vital Signs Temp Pulse Resp BP Pulse Ox 07/03/18 08:27 70 17 106/44 98 07/03/18 08:00 70 23 97 07/03/18 07:57 70 16 130/71 98 07/03/18 07:01 70 21 95 07/03/18 06:57 70 13 106/58 94 07/03/18 06:36 20 07/03/18 06:27 67 94/56 91 07/03/18 06:25 98.4 F 70 22 94/56 91 - Laboratory Lab Results: Lab Results 07/03/18 07/03/18 07/03/18 Range/Units 07:27 07:27 07:27 WBC 13.7 H (3.5-10.8) 10^3/uL RBC 3.73 L (4.18-5.48) 10^6 /uL Hgb 11.3 L (14.0-18.0) g/dL Hct 35 L (36-46) % MCV 94 (80-94) fL MCH 30 (27-31) pg MCHC 32 (31-36) g/dL RDW 16 H (10.5-15) % Plt Count 294 (150-450) 10^3/uL MPV 8.2 (7.4-10.4) fL Neut % (Auto) 87.3 % Lymph % (Auto) 3.2 % Collin % (Auto) 8.9 % Eos % (Auto) 0.4 % Baso % (Auto) 0.2 % Absolute Neuts (auto) 12.0 H (1.5-7.7) 10^3/ul Absolute Lymphs (auto) 0.4 L (1.0-4.8) 10^3/ul Absolute Monos (auto) 1.2 H (0-0.8) 10^3/ul Absolute Eos (auto) 0.1 (0-0.6) 10^3/ul Absolute Basos (auto) 0 (0-0.2) 10^3/ul Absolute Nucleated RBC 0 10^3/ul Nucleated RBC % 0 INR (Anticoag Therapy) 2.43 H (0.77-1.02) Sodium 136 (135-145) mmol/L Potassium 4.4 (3.5-5.0) mmol/L Chloride 100 L (101-111) mmol/L Carbon Dioxide 31 (22-32) mmol/L Anion Gap 5 (2-11) mmol/L BUN 12 (6-24) mg/dL Creatinine 0.75 (0.67-1.17) mg/dL Est GFR ( Amer) 121.9 (>60) Est GFR (Non-Af Amer) 100.7 (>60) BUN/Creatinine Ratio 16.0 (8-20) Glucose 112 H (70-100) mg/dL Lactic Acid (0.5-2.0) mmol/L Calcium 9.0 (8.6-10.3) mg/dL Magnesium 2.0 (1.9-2.7) mg/dL Total Bilirubin 0.70 (0.2-1.0) mg/dL AST 22 (13-39) U/L ALT 13 (7-52) U/L Alkaline Phosphatase 89 (34-104) U/L Troponin I 0.02 (<0.04) ng/mL C-Reactive Protein 29.92 H (<8.01) mg/L Total Protein 6.7 (6.4-8.9) g/dL Albumin 3.8 (3.2-5.2) g/dL Globulin 2.9 (2-4) g/dL Albumin/Globulin Ratio 1.3 (1-3) Lipase 25 (11.0-82.0) U/L 07/03/18 Range/Units 07:27 WBC (3.5-10.8) 10^3/uL RBC (4.18-5.48) 10^6 /uL Hgb (14.0-18.0) g/dL Hct (36-46) % MCV (80-94) fL MCH (27-31) pg MCHC (31-36) g/dL RDW (10.5-15) % Plt Count (150-450) 10^3/uL MPV (7.4-10.4) fL Neut % (Auto) % Lymph % (Auto) % Collin % (Auto) % Eos % (Auto) % Baso % (Auto) % Absolute Neuts (auto) (1.5-7.7) 10^3/ul Absolute Lymphs (auto) (1.0-4.8) 10^3/ul Absolute Monos (auto) (0-0.8) 10^3/ul Absolute Eos (auto) (0-0.6) 10^3/ul Absolute Basos (auto) (0-0.2) 10^3/ul Absolute Nucleated RBC 10^3/ul Nucleated RBC % INR (Anticoag Therapy) (0.77-1.02) Sodium (135-145) mmol/L Potassium (3.5-5.0) mmol/L Chloride (101-111) mmol/L Carbon Dioxide (22-32) mmol/L Anion Gap (2-11) mmol/L BUN (6-24) mg/dL Creatinine (0.67-1.17) mg/dL Est GFR ( Amer) (>60) Est GFR (Non-Af Amer) (>60) BUN/Creatinine Ratio (8-20) Glucose (70-100) mg/dL Lactic Acid 0.6 (0.5-2.0) mmol/L Calcium (8.6-10.3) mg/dL Magnesium (1.9-2.7) mg/dL Total Bilirubin (0.2-1.0) mg/dL AST (13-39) U/L ALT (7-52) U/L Alkaline Phosphatase (34-104) U/L Troponin I (<0.04) ng/mL C-Reactive Protein (<8.01) mg/L Total Protein (6.4-8.9) g/dL Albumin (3.2-5.2) g/dL Globulin (2-4) g/dL Albumin/Globulin Ratio (1-3) Lipase (11.0-82.0) U/L Result Diagrams: 07/03/18 07:27 07/03/18 07:27 Lab Statement: Any lab studies that have been ordered have been reviewed, and results considered in the medical decision making process. Abdominal Pain Male Course/Dx - Course Course Of Treatment: During this course of treatment, the patient is evaluated for diffuse abdominal pain which is currently rated a 7/10, previously 89/10. On arrival he is given fentanyl for pain. Labs obtained which are WNL. He was placed on a cardiopulmonary monitor while in the ED and was noted to have a run of V. tach of 6 beats with a rate of 128. He does have a defibrillator and pacemaker placed a [facility] 5 years ago. While seen in the ED last month he was noted to have frequent pauses > 2 sec as well as NSVT of 3-5 consec. beats. ICD interrogation was performed at that time. It was found the model to his RV lead was recalled and he has an appointment in 2 days with his grocery clerk checking Dr. Nichole in [place], [place] to assess. Recent ejection fraction shows 25%. Patient also has a history of aortic/mitral valve replacements. Patient denies any chest pain, shortness of breath, dizziness or weakness. Discussed case with Dr. Collins at 9:00 AM on 07/03/18. Patient is currently on a BB and is asympatomatic. Also, patient has close f/u. EKG shows ventricular paced rhythm. He will be discharged home and I have encouraged Gas-X and also have given tramadol for comfort relief of his abdomen pain. He states the abdominal pain has reduced from 7/10-2/10. He states in the past Gas-X has improved these types of symptoms. He is given strict return precautions. He understands plan and is okay with discharge at this time. - Diagnoses Differential Diagnosis/HQI/PQRI: Other - NSVT, diffuse abdominal pain, pacemaker issue Provider Diagnoses: Abdominal pain, NSVT (nonsustained ventricular tachycardia) - Provider Notifications Discussed Care Of Patient With: Guillermo Collins Instructed by Provider To: Other - patient will see grocery clerk checking Dr Nichole in [place] in 2 days (scheduled) Discharge - Sign-Out/Discharge Documenting (check all that apply): Patient Departure Patient Received Moderate/Deep Sedation with Procedure: No - Discharge Plan Condition: Stable Disposition: HOME Prescriptions: Simethicone [Gas-X] 125 mg PO SEE INSTRUCTIONS #30 tab.chew traMADol TAB* [Ultram*] 50 mg PO Q8H PRN #12 tab MDD 3 PRN Reason: Pain Patient Education Materials: Acute Abdominal Pain (ED) Referrals: Inessa Ruth MD [Primary Care Provider] - Additional Instructions: Please follow-up with your grocery clerk checking at [facility] on Wednesday as scheduled As discussed, Gas-X 1-2 chewable tabs after mealtimes and before bed Tramadol up to 3 times daily for pain not well controlled with Gas-X If you develop any worsening abdominal pain, dizziness, weakness or chest pains , return to the ED immediately - Billing Disposition and Condition Condition: STABLE Disposition: Home
[2018-07-03] MEDS ORDERED: NS 0.9% 1000 ML** 1,000 ML IV ONE (10:51)
[2018-07-03] MEDS ORDERED: Simethicone TAB* 80 MG TAB.CHEW PO ONE (10:57)
[2018-07-03 13:05] LABS: Urine Appearance Cloudy; Urine Bilirubin Negative (Negative); Urine Blood Negative (Negative); Urine Color Yellow; Urine Glucose Negative (Negative); Urine Ketones 2+ (Negative); Urine Nitrite Negative (Negative); Urine Protein Negative (Negative); Urine Specific Gravity 1.021 (1.010-1.030); Urine Urobilinogen Negative (Negative)
[2018-07-03] MEDS ORDERED: Albuterol/Ipratropium NEB.SOL* Albuterol 2.5 MG/Ipratropium 0.5 MG 3 ML INH PRN (13:13)
[2018-07-03 13:20] LABS: Influenza A Molecular NEGATIVE (Negative); Influenza B Molecular NEGATIVE (Negative)
[2018-07-03] MEDS ORDERED: Acetaminophen TAB* 325 MG PO ONE (13:32)
[2018-07-03] MEDS: cefTRIAXone(*) 1 GM in NS 0.9% 50 ML* 50 ML IVPB SCH (13:38)
[2018-07-03] MEDS ORDERED: Enoxaparin(*) 40 MG/0.4 ML SYR SUBCUT SCH (14:00)
[2018-07-03] MEDS ORDERED: Iohexol 300* (CONTRAST) 10 ML SDV IV ONE (14:58)
[2018-07-03] MEDS: Azithromycin IV(*) 250 MG in NS 0.9% 250 ML* 250 ML IVPB SCH (15:53)
--- NOTE | 2018-07-03 16:25 | HP ---
CC: Dr. Ruth; Dr. Yasmani Bermudez * ADMISSION HISTORY AND PHYSICAL: DATE OF ADMISSION: 07/03/18 PRIMARY CARE PROVIDER: Dr. Ruth. PRIMARY ONCOLOGIST: Dr. Bermudez. ATTENDING PHYSICIAN: Dr. Ricci Woodson.* (DICTATED BY ADI MICHAEL) ADMITTING PROVIDER: ADI Michael. CHIEF COMPLAINT: Abdominal pain. HISTORY OF PRESENT ILLNESS: This is a 78-year-old gentleman under the care of Dr. Bermudez for metastatic melanoma, recently treated with pembrolizumab, who presented to the emergency department with complaints of severe abdominal pain, which started at approximately 10 p.m. last night. The patient reports that his abdominal discomfort started shortly after he drank half a beer. He complained of abdominal cramping and distention, but the pain was quite severe and he was unable to get comfortable. The pain radiated to his chest. When the pain did not subside, he called an ambulance to be evaluated in the emergency department. His initial evaluation in terms of his abdominal complaints was benign, but discovered a right middle lobe pneumonia on chest x- ray. The patient reports that over the last several days he has had some increased fatigue and shortness of breath. Denies any new cough or fever, however. At the time of evaluation, he reports that his abdominal pain has improved, and he denies any current nausea or recent vomiting. He has been intermittently compliant with recommendations to use a supplemental oxygen full-time at home. The patient recently met with Dr. Bermudez following a restaging PET scan. He had a new lesion at his fourth rib, which is consistent likely with an occult fracture associated with coughing and sneezing; however, there was a new lesion at T8 and a 7-mm lung nodule with indeterminate PET activity that was also new on that scan. Plan at the time that he saw Dr. Bermudez was for a contrasted CT of the thoracic spine to further characterize the T8 lesion. He is unable to have an MRI due to his pacemaker and defibrillator. Also of note, during the patient's last hospitalization, he had noted pacemaker malfunction and it has been working more appropriately since he had some change in settings, but one of his ventricular leads is on recall and he has an appointment with his correctional supervisor in [place] for this coming week to review his recommendations for management. PAST MEDICAL HISTORY: 1. Severe COPD, oxygen dependent. 2. Severe ischemic cardiomyopathy with last EF of 20% to 25%. 3. Metastatic melanoma. 4. Mechanical aortic valve replacement. HOME MEDICATIONS: 1. DuoNeb 2 puffs inhaled q.4 hours as needed for shortness of breath. 2. Aspirin 81 mg p.o. daily. 3. Atorvastatin 40 mg p.o. daily. 4. Eplerenone 25 mg p.o. daily. 5. Advair 1 puff inhaled twice daily. 6. Metoprolol succinate 25 mg p.o. daily. 7. Multivitamin 1 tablet p.o. daily. 8. Entresto 1 tablet p.o. twice daily. 9. Spiriva 1 capsule inhaled daily. 10. Torsemide 10 mg p.o. daily. 11. Docusate 100 mg p.o. twice daily. 12. MiraLAX 17 g p.o. daily. 13. Senna 1 tablet p.o. twice daily. 14. Gas-X 1 to 2 tablets at mealtime. 15. Coumadin 3 mg daily. FAMILY HISTORY: The patient has a sister with melanoma and 4 other siblings with other skin cancers, a brother with lung cancer and esophageal cancer. SOCIAL HISTORY: The patient lives at home by himself. He has 5 children. Consumes alcohol occasionally. Retired from the [employer]. He has a history of smoking, but is not actively smoking. REVIEW OF SYSTEMS: Full review of systems completed and as noted in HPI, otherwise negative. PHYSICAL EXAMINATION GENERAL: This is a mildly ill-appearing 78-year-old male, in no acute distress. VITAL SIGNS: Most recent vitals, temperature 98.4 degrees Fahrenheit, pulse 70 beats per minute, respiratory rate 22, oxygen saturation 92% on 2 L, blood pressure 94/56. HEENT: Head is normocephalic, atraumatic. Mucous membranes are pink and moist. RESPIRATORY: Decreased lung sounds throughout. No appreciated wheezes, crackles, or rhonchi. CARDIOVASCULAR: Heart has regular rate and rhythm. There is a subtle murmur appreciated associated with his known valve replacement. ABDOMEN: Soft, somewhat distended with some hyperactive bowel sounds. EXTREMITIES: No edema. SKIN: No rash. DIAGNOSTIC STUDIES/LAB DATA: CBC shows a white blood cell count of 13,700, hemoglobin of 11.3 g/dL, and platelet count of 294,000. INR therapeutic at 2.43. Comprehensive metabolic panel shows a sodium of 136, potassium of 4.4, BUN of 12, creatinine 0.75. Lactic acid 0.6. Transaminases within normal limits. Troponin negative x2 at 0.02 and 0.03. CRP mildly elevated at 29. Lipase normal at 25. Urinalysis remarkable only for 2+ ketones. Influenza is negative. Imagin. CT abdomen and pelvis shows, per personal review, moderate amount of gas and stool within the large bowel. There is a 9-mm right lower lobe pulmonary nodule, which is unchanged from the recent PET. 2. Chest x-ray demonstrates a right middle lobe infiltrate. 3. EKG shows a primarily paced rhythm. ASSESSMENT AND PLAN: This is a 78-year-old gentleman with severe chronic obstructive pulmonary disease and ischemic cardiomyopathy as well as metastatic melanoma, who presented to the emergency department with complaints of abdominal discomfort, which seems most consistent with gas related pain, but also complained of some increased fatigue and shortness of breath with a right middle lobe infiltrate appreciated on chest x-ray. The patient will subsequently be admitted to a period of observation for appropriate evaluation and management. 1. Right middle lobe pneumonia - treat for community acquired pathogens with ceftriaxone and azithromycin. Does not appear to have a significant chronic obstructive pulmonary disease exacerbation associated with this, and we will continue with his usual inhaled medications and p.r.n. DuoNeb. We will avoid starting steroids at this point. 2. Severe chronic obstructive pulmonary disease, oxygen dependent with 2 L at baseline without acute exacerbation. 3. Severe ischemic cardiomyopathy with EF of 20% to 25% that does not appear to be acutely exacerbated. 4. Metastatic melanoma - most recently treated with pembrolizumab, but has been held recently for need for steroids to help manage prior chronic obstructive pulmonary disease exacerbations. He is currently off of steroids. Recent PET scan showed a new pulmonary nodule and lesion at T8. He requires a contrasted CT of the thoracic spine to further evaluate the thoracic lesion, which can be completed during this hospitalization. 5. Code status: The patient is full code. 6. DVT prophylaxis: Lovenox 40 mg subcu daily. 7. Disposition: The patient is being admitted to observation status for pneumonia. Anticipate length of stay to be 1 midnight. [facility]HAEL [id number]/[facility] #: [id number] [facility] HOSPITALJesse
[2018-07-03] MEDS: Simethicone TAB* 80 MG TAB.CHEW PO SCH (17:18)
[2018-07-03] MEDS: Mometasone/Formoter 200/5 MDI INH SCH (20:10)
[2018-07-03] MEDS: VALSARTAN PO SCH (21:23)
[2018-07-03] MEDS: SACUBITRIL PO SCH (21:23)
[2018-07-03] MEDS: Docusate CAP* 100 MG PO SCH (21:23)
[2018-07-03] MEDS: oxyCODONE TAB* 5 MG TAB PO PRN (23:02)
[2018-07-04 07:22] LABS: Hematocrit 34 % (36-46); Hemoglobin 11.1 g/dL (14.0-18.0); Mean Corpuscular HGB Conc 32 g/dL (31-36); Mean Corpuscular Hemoglobin 30 pg (27-31); Mean Corpuscular Volume 93 fL (80-94); Mean Platelet Volume 8.9 fL (7.4-10.4); Platelet Count 307 10^3/uL (150-450); Red Blood Count 3.69 10^6 /uL (4.18-5.48); Red Cell Distribution Width 16 % (10.5-15); White Blood Count 15.4 10^3/uL (3.5-10.8)
[2018-07-04] MEDS: Tiotropium CAP.INH* CAP.INH/18 MCG (USE ORDER SET !) INH SCH (07:30)
[2018-07-04 07:31] LABS: INR 2.41 (0.77-1.02)
[2018-07-04] MEDS: Mometasone/Formoter 200/5 MDI INH SCH ×2 (07:31→20:58)
[2018-07-04 07:34] LABS: Albumin 3.6 g/dL (3.2-5.2); Albumin/Globulin Ratio 1.2 (1-3); BUN/Creatinine Ratio 11.7 (8-20); Calcium 8.9 mg/dL (8.6-10.3); EGFR African American 118.2 (>60); EGFR Non-African American 97.7 (>60); Globulin 2.9 g/dL (2-4); Potassium 4.3 mmol/L (3.5-5.0); Total Bilirubin 0.9 mg/dL (0.2-1.0); Total Protein 6.5 g/dL (6.4-8.9)
[2018-07-04 08:27] LABS: ABS Basophils 0 10^3/ul (0-0.2); ABS Eosinophils 0 10^3/ul (0-0.6); ABS Monocytes 1.9 10^3/ul (0-0.8); ABS Neutrophils 12.4 10^3/ul (1.5-7.7); ABS Nucleated RBC 0 10^3/ul; Eosinophil % 0.3 %; Lymphocyte % 6.3 %; Nucleated Red Blood Cells % 0
[2018-07-04] MEDS: Polyethylene Glycol 3350* 17 GM PACKET PO SCH (08:52)
[2018-07-04] MEDS: Docusate CAP* 100 MG PO SCH ×2 (08:53→21:36)
[2018-07-04] MEDS: Torsemide TAB 10 MG PO SCH (08:53)
[2018-07-04] MEDS: Simethicone TAB* 80 MG TAB.CHEW PO SCH ×3 (08:53→16:20)
[2018-07-04] MEDS: oxyCODONE TAB* 5 MG TAB PO PRN ×2 (08:53→21:35)
[2018-07-04] MEDS: Metoprolol Succinate XL TAB* 25 MG PO SCH (08:53)
[2018-07-04] MEDS: Atorvastatin* 40 MG TAB PO SCH (08:53)
[2018-07-04] MEDS: Aspirin EC TAB* 81 MG TAB.EC PO SCH (08:54)
[2018-07-04] MEDS: VALSARTAN PO SCH ×2 (09:05→21:36)
[2018-07-04] MEDS: CMC:Epleronone (NF) 25 MG TAB PO SCH (09:05)
[2018-07-04] MEDS: SACUBITRIL PO SCH ×2 (09:05→21:36)
[2018-07-04] MEDS: cefTRIAXone(*) 1 GM in NS 0.9% 50 ML* 50 ML IVPB SCH (14:22)
[2018-07-04] MEDS: Warfarin TAB(*) 3 MG PO SCH (16:20)
[2018-07-04] MEDS: Azithromycin IV(*) 250 MG in NS 0.9% 250 ML* 250 ML IVPB SCH (16:20)
[2018-07-05] MEDS ORDERED: NS 0.9% 500 ML* 500 ML IV ONE (04:35)
[2018-07-05] MEDS: oxyCODONE TAB* 5 MG TAB PO PRN ×3 (04:47→20:42)
[2018-07-05 06:24] LABS: Hematocrit 30 % (36-46); Hemoglobin 9.8 g/dL (14.0-18.0); Mean Corpuscular HGB Conc 33 g/dL (31-36); Mean Corpuscular Hemoglobin 31 pg (27-31); Mean Corpuscular Volume 93 fL (80-94); Mean Platelet Volume 8.6 fL (7.4-10.4); Platelet Count 272 10^3/uL (150-450); Red Blood Count 3.22 10^6 /uL (4.18-5.48); Red Cell Distribution Width 16 % (10.5-15); White Blood Count 11.7 10^3/uL (3.5-10.8)
[2018-07-05 06:26] LABS: ABS Basophils 0 10^3/ul (0-0.2); ABS Eosinophils 0.2 10^3/ul (0-0.6); ABS Lymphocytes 0.7 10^3/ul (1.0-4.8); ABS Monocytes 1.9 10^3/ul (0-0.8); ABS Neutrophils 8.9 10^3/ul (1.5-7.7); ABS Nucleated RBC 0 10^3/ul; Eosinophil % 1.5 %; Nucleated Red Blood Cells % 0
[2018-07-05] MEDS: Metoprolol Succinate XL TAB* 25 MG PO SCH (07:49)
[2018-07-05] MEDS: Tiotropium CAP.INH* CAP.INH/18 MCG (USE ORDER SET !) INH SCH (09:08)
[2018-07-05] MEDS: Mometasone/Formoter 200/5 MDI INH SCH ×2 (09:09→19:37)
[2018-07-05] MEDS: Aspirin EC TAB* 81 MG TAB.EC PO SCH (10:02)
[2018-07-05] MEDS: Atorvastatin* 40 MG TAB PO SCH (10:02)
[2018-07-05] MEDS: Simethicone TAB* 80 MG TAB.CHEW PO SCH ×3 (10:02→16:22)
[2018-07-05] MEDS: Docusate CAP* 100 MG PO SCH ×2 (10:02→20:42)
[2018-07-05] MEDS: CMC:Epleronone (NF) 25 MG TAB PO SCH (10:02)
[2018-07-05] MEDS: Torsemide TAB 10 MG PO SCH (10:03)
[2018-07-05] MEDS: Senna TAB PO PRN (10:03)
[2018-07-05] MEDS: SACUBITRIL PO SCH ×2 (10:03→20:42)
[2018-07-05] MEDS: VALSARTAN PO SCH ×2 (10:03→20:42)
[2018-07-05] MEDS: Polyethylene Glycol 3350* 17 GM PACKET PO SCH (10:03)
[2018-07-05] MEDS: cefTRIAXone(*) 1 GM in NS 0.9% 50 ML* 50 ML IVPB SCH (14:59)
[2018-07-05] MEDS: Azithromycin IV(*) 250 MG in NS 0.9% 250 ML* 250 ML IVPB SCH (15:35)
[2018-07-05] MEDS: Warfarin TAB(*) 3 MG PO SCH (17:29)
[2018-07-05] MEDS ORDERED: NS 0.9% 250 ML* 250 ML IV ONE (18:30)
--- NOTE | 2018-07-05 20:16 | PN ---
Progress Note - Progress Note Date of Service: 07/05/18 Note: Surgery Progress Note Please see full dictated H&P by Ryann Otero. But briefly, patient is a 78 yo M with metastatic melanoma, ischemic cardiomyopathy, AVR on coumadin who presented to the ED with abdominal pain 2 days ago. The patient says his generalized abdominal discomfort began about 1 month ago when he said he just "swelled up like a balloon." He said that his pain is typically lower abdominal. He also has had decreased bowel movements and usually only has BM every 3-4 days. He said for the past 1 week he started having more right mid abdominal pain. He does not have much appetite at home because after eating he gets distended. He denies nausea, emesis or diarrhea. Labs and imaging were reviewed. Normal LFTs and WBC today 11. RUQ US shows distended gallbladder, no stones. CT shows a distended gallbladder. On exam he has localized right mid abdomen tenderness. Patient could have acalculus cholecystitis however his pain is slightly more mid abdomen than upper abdomen. Recommend ordering a HIDA scan to assess for acute cholecystitis. Patient can stay NPO and continue abx, which he has been on ceftriaxone for a PNA. If patient does demonstrate acute cholecystitis he is not the best operative candidate given his ischemic cardiomyopathy and EF and may be best treated with a cholecystostomy tube.
--- NOTE | 2018-07-05 20:24 | CONS ---
CC: Dr. Bermudez; Dr. Ruth; Dr. Diana Ojeda * SURGICAL CONSULTATION NOTE: DATE OF CONSULT: 07/05/18 LOCATION: This patient was seen on 07/05/18 in room 412 at [facility]. ATTENDING PHYSICIAN: Dr. Diana Ojeda. CHIEF COMPLAINT: Right upper quadrant abdominal pain. HISTORY OF PRESENT ILLNESS: The patient is a 78-year-old male under the care of Dr. Bermudez for metastatic melanoma who presented to the emergency department on 07/03/18 with complaints of severe abdominal pain, which started the evening before after he drank half of a beer. He complained of abdominal cramping and distention and nausea, but no vomiting. His initial evaluation in terms of his abdominal complaints was benign, but a chest x-ray discovered a right middle lobe pneumonia. Apparently, Dr. Woodson saw the patient this morning and Mr. Huber was complaining of severe right upper quadrant abdominal pain and therefore a gallbladder ultrasound was ordered. On the gallbladder ultrasound, there was trace pericholecystic fluid and positive Kearns sign with a question of a calculus cholecystitis. It should be mentioned that on the day of admission, he had a CAT scan of the abdomen and pelvis without contrast and the gallbladder was described as appearing distended, but no stones or gallbladder wall thickening was seen. His white blood cell count initially was 13.7, yesterday it was 15.4, and today it is 11.7. His liver function tests have all been within normal limits and he has been afebrile. PAST MEDICAL HISTORY: Significant for severe COPD, oxygen dependent, severe ischemic cardiomyopathy with last ejection fraction 20% to 25%, metastatic melanoma, mechanical aortic valve replacement, pacemaker and chronic anticoagulation. MEDICATIONS: Home medications were reviewed. It is significant that he is on Coumadin 3 mg daily. INR on 07/04/18 was 2.41. ALLERGIES: Include DILTIAZEM, THEOPHYLLINE and VERAPAMIL. FAMILY HISTORY: Noted in the admission. SOCIAL HISTORY: Noted in the admission. REVIEW OF SYSTEMS: Noted to be completed on admission and other than symptoms mentioned in the history of present illness were otherwise negative. PHYSICAL EXAM: General: This is a mildly ill appearing 78-year-old male in no acute distress. Height 6 feet, weight 162 pounds, body mass index 22. Vital Signs: Temperature 98.1, heart rate 69, respiratory rate 18, O2 saturation 98% on room air, blood pressure 98/49. Physical examination was limited to the abdomen, which is distended with active bowel sounds; soft, exquisitely tender over the right upper quadrant subcostal region with an area of firmness and mild guarding. ASSESSMENT: The patient is a 78-year-old male with multiple medical problems and an ejection fraction of 20% to 25% that could preclude surgical intervention ; he has a gallbladder ultrasound suggestive of a calculus cholecystitis. The findings were discussed with Dr. Ojeda. PLAN: Further workup with a HIDA scan tomorrow morning. The patient will be kept NPO; I updated ADI Byrne from [facility] with the plan and at this time we will not discontinue warfarin. The patient was updated with the plan. We will follow along with you. Thank you for this consult. TIME SPENT: 60 minutes with greater than 50% in [id number] history taking, physical examination and coordination of care. VIGNESH LIU NP [id number]/[facility] #: [id number] [facility]
[2018-07-06 07:00] LABS: Hematocrit 30 % (36-46); Hemoglobin 9.7 g/dL (14.0-18.0); Mean Corpuscular HGB Conc 33 g/dL (31-36); Mean Corpuscular Hemoglobin 30 pg (27-31); Mean Corpuscular Volume 93 fL (80-94); Mean Platelet Volume 9.1 fL (7.4-10.4); Platelet Count 269 10^3/uL (150-450); Red Blood Count 3.21 10^6 /uL (4.18-5.48); Red Cell Distribution Width 16 % (10.5-15); White Blood Count 9.8 10^3/uL (3.5-10.8)
[2018-07-06 07:03] LABS: ABS Basophils 0 10^3/ul (0-0.2); ABS Eosinophils 0.2 10^3/ul (0-0.6); ABS Lymphocytes 0.6 10^3/ul (1.0-4.8); ABS Monocytes 1.6 10^3/ul (0-0.8); ABS Neutrophils 7.3 10^3/ul (1.5-7.7); ABS Nucleated RBC 0 10^3/ul; Eosinophil % 2.4 %; Lymphocyte % 6.1 %; Nucleated Red Blood Cells % 0.1
[2018-07-06 07:06] LABS: INR 2.08 (0.77-1.02)
[2018-07-06 07:16] LABS: Albumin 2.9 g/dL (3.2-5.2); Albumin/Globulin Ratio 1.1 (1-3); BUN/Creatinine Ratio 13.7 (8-20); Calcium 8.3 mg/dL (8.6-10.3); EGFR African American 125.7 (>60); EGFR Non-African American 103.9 (>60); Globulin 2.7 g/dL (2-4); Potassium 3.9 mmol/L (3.5-5.0); Total Bilirubin 0.8 mg/dL (0.2-1.0); Total Protein 5.6 g/dL (6.4-8.9)
[2018-07-06] MEDS: Simethicone TAB* 80 MG TAB.CHEW PO SCH ×3 (08:38→15:13)
[2018-07-06] MEDS: Tiotropium CAP.INH* CAP.INH/18 MCG (USE ORDER SET !) INH SCH (09:27)
[2018-07-06] MEDS: Mometasone/Formoter 200/5 MDI INH SCH ×2 (09:28→19:22)
--- NOTE | 2018-07-06 11:47 | PN ---
Progress Note - Progress Note Date of Service: 07/06/18 Note: Surgery Progress Note S: Patient feels well this morning. No nausea, no emesis. Hasn't had pain meds since yesterday. No new complaints. O: Vital Signs: Temp Pulse Resp BP Pulse Ox 98.3 F 70 16 96/47 97 07/06/18 07:23 07/06/18 09:29 07/06/18 09:29 07/06/18 07:23 07/06/18 09:29 Laboratory Last Values WBC 9.8 10^3/uL (3.5-10.8) 07/06/18 06:27 RBC 3.21 10^6 /uL (4.18-5.48) L 07/06/18 06:27 Hgb 9.7 g/dL (14.0-18.0) L 07/06/18 06:27 Hct 30 % (36-46) L 07/06/18 06:27 MCV 93 fL (80-94) 07/06/18 06:27 MCH 30 pg (27-31) 07/06/18 06:27 MCHC 33 g/dL (31-36) 07/06/18 06:27 RDW 16 % (10.5-15) H 07/06/18 06:27 Plt Count 269 10^3/uL (150-450) 07/06/18 06:27 MPV 9.1 fL (7.4-10.4) 07/06/18 06:27 Neut % (Auto) 74.7 % 07/06/18 06:27 Lymph % (Auto) 6.1 % 07/06/18 06:27 [place] % (Auto) 16.5 % 07/06/18 06:27 Eos % (Auto) 2.4 % 07/06/18 06:27 Baso % (Auto) 0.3 % 07/06/18 06:27 Absolute Neuts (auto) 7.3 10^3/ul (1.5-7.7) 07/06/18 06:27 Absolute Lymphs (auto) 0.6 10^3/ul (1.0-4.8) L 07/06/18 06:27 Absolute Monos (auto) 1.6 10^3/ul (0-0.8) H 07/06/18 06:27 Absolute Eos (auto) 0.2 10^3/ul (0-0.6) 07/06/18 06:27 Absolute Basos (auto) 0 10^3/ul (0-0.2) 07/06/18 06:27 Absolute Nucleated RBC 0 10^3/ul 07/06/18 06:27 Nucleated RBC % 0.1 07/06/18 06:27 INR (Anticoag Therapy) 2.08 (0.77-1.02) H 07/06/18 06:27 Sodium 135 mmol/L (135-145) 07/06/18 06:27 Potassium 3.9 mmol/L (3.5-5.0) 07/06/18 06:27 Chloride 100 mmol/L (101-111) L 07/06/18 06:27 Carbon Dioxide 32 mmol/L (22-32) 07/06/18 06:27 Anion Gap 3 mmol/L (2-11) 07/06/18 06:27 BUN 10 mg/dL (6-24) 07/06/18 06:27 Creatinine 0.73 mg/dL (0.67-1.17) 07/06/18 06:27 Est GFR ( Amer) 125.7 (>60) 07/06/18 06:27 Est GFR (Non-Af Amer) 103.9 (>60) 07/06/18 06:27 BUN/Creatinine Ratio 13.7 (8-20) 07/06/18 06:27 Glucose 95 mg/dL (70-100) 07/06/18 06:27 Lactic Acid 0.6 mmol/L (0.5-2.0) 07/03/18 07:27 Calcium 8.3 mg/dL (8.6-10.3) L 07/06/18 06:27 Magnesium 2.0 mg/dL (1.9-2.7) 07/03/18 07:27 Total Bilirubin 0.80 mg/dL (0.2-1.0) 07/06/18 06:27 AST 15 U/L (13-39) 07/06/18 06:27 ALT 9 U/L (7-52) 07/06/18 06:27 Alkaline Phosphatase 72 U/L (34-104) 07/06/18 06:27 Troponin I 0.03 ng/mL (<0.04) 07/03/18 11:46 C-Reactive Protein 29.92 mg/L (<8.01) H 07/03/18 07:27 Total Protein 5.6 g/dL (6.4-8.9) L 07/06/18 06:27 Albumin 2.9 g/dL (3.2-5.2) L 07/06/18 06:27 Globulin 2.7 g/dL (2-4) 07/06/18 06:27 Albumin/Globulin Ratio 1.1 (1-3) 07/06/18 06:27 Lipase 25 U/L (11.0-82.0) 07/03/18 07:27 Urine Color Yellow 07/03/18 12:45 Urine Appearance Cloudy 07/03/18 12:45 Urine pH 5.0 (5-9) 07/03/18 12:45 Ur Specific [place] 1.021 (1.010-1.030) 07/03/18 12:45 Urine Protein Negative (Negative) 07/03/18 12:45 Urine Ketones 2+ (Negative) A 07/03/18 12:45 Urine Blood Negative (Negative) 07/03/18 12:45 Urine Nitrate Negative (Negative) 07/03/18 12:45 Urine Bilirubin Negative (Negative) 07/03/18 12:45 Urine Urobilinogen Negative (Negative) 07/03/18 12:45 Ur Leukocyte Esterase Negative (Negative) 07/03/18 12:45 Urine Glucose Negative (Negative) 07/03/18 12:45 Urine Ascorbic Acid * (Negative) A 07/03/18 12:45 Influenza A (Rapid) Negative (Negative) 07/03/18 12:45 Influenza B (Rapid) Negative (Negative) 07/03/18 12:45 Intake & Output 07/05/18 07/06/18 07/06/18 22:59 06:59 14:59 Intake Total 766 0 Output Total 1050 Balance -284 0 Intake: IV Fluids 331 NS (0.9%) 331 IVPB 325 ABX - AZITHROMYCIN 270 ABX - CEFTRIAXONE 55 Oral 110 0 Output: Urine 1050 Other: # Bowel Movements 0 Physical exam: Abd: distended, non tender this morning, +tympany A/P: 78 M with metastatic melanoma and ischemic cardiomyopathy with right mid abdominal pain of unclear etiology. - Awaiting HIDA scan to evaluate for acute cholecystitis although this seems less likely given patient's history and clinical course - Afebrile, WBC normal today and exam seems improved - I suspect his abdominal pain may be from the distension and constipation. Would recommend aggressive regimen with enema, suppository, milk of magnesia and colace/senna. - Discussed patient with primary oncology team
[2018-07-06] MEDS ORDERED: Sodium Phosphate ADULT ENEMA* 118 ml bottle PR ONE (11:48)
[2018-07-06] MEDS: oxyCODONE TAB* 5 MG TAB PO PRN ×2 (12:35→20:40)
[2018-07-06] MEDS: Senna TAB PO PRN (15:13)
[2018-07-06] MEDS: Aspirin EC TAB* 81 MG TAB.EC PO SCH (15:13)
[2018-07-06] MEDS: Atorvastatin* 40 MG TAB PO SCH (15:13)
[2018-07-06] MEDS: Docusate CAP* 100 MG PO SCH ×2 (15:13→20:41)
[2018-07-06] MEDS: Polyethylene Glycol 3350* 17 GM PACKET PO SCH (15:13)
[2018-07-06] MEDS: cefTRIAXone(*) 1 GM in NS 0.9% 50 ML* 50 ML IVPB SCH (15:14)
[2018-07-06] MEDS: VALSARTAN PO SCH ×2 (15:16→20:41)
[2018-07-06] MEDS: CMC:Epleronone (NF) 25 MG TAB PO SCH (15:16)
[2018-07-06] MEDS: SACUBITRIL PO SCH ×2 (15:16→20:41)
[2018-07-06] MEDS: Azithromycin IV(*) 250 MG in NS 0.9% 250 ML* 250 ML IVPB SCH (15:47)
[2018-07-06] MEDS: Warfarin TAB(*) 3 MG PO SCH (18:27)
[2018-07-07 05:55] LABS: ABS Basophils 0.1 10^3/ul (0-0.2); ABS Eosinophils 0.2 10^3/ul (0-0.6); ABS Lymphocytes 0.6 10^3/ul (1.0-4.8); ABS Monocytes 1.4 10^3/ul (0-0.8); ABS Neutrophils 5.6 10^3/ul (1.5-7.7); ABS Nucleated RBC 0 10^3/ul; Eosinophil % 2.9 %; Hematocrit 29 % (36-46); Hemoglobin 9.4 g/dL (14.0-18.0); Lymphocyte % 7.8 %; Mean Corpuscular HGB Conc 33 g/dL (31-36); Mean Corpuscular Hemoglobin 31 pg (27-31); Mean Corpuscular Volume 93 fL (80-94); Nucleated Red Blood Cells % 0.1; Platelet Count 296 10^3/uL (150-450); Red Blood Count 3.07 10^6 /uL (4.18-5.48); Red Cell Distribution Width 16 % (10.5-15); White Blood Count 7.8 10^3/uL (3.5-10.8)
[2018-07-07 06:21] LABS: Albumin 2.9 g/dL (3.2-5.2); Albumin/Globulin Ratio 1.1 (1-3); BUN/Creatinine Ratio 15.5 (8-20); Calcium 8.4 mg/dL (8.6-10.3); EGFR African American 129.8 (>60); EGFR Non-African American 107.3 (>60); Globulin 2.6 g/dL (2-4); Magnesium 2.1 mg/dL (1.9-2.7); Total Bilirubin 0.6 mg/dL (0.2-1.0); Total Protein 5.5 g/dL (6.4-8.9)
[2018-07-07 06:22] LABS: INR 2.13 (0.77-1.02)
[2018-07-07] MEDS: Metoprolol Succinate XL TAB* 25 MG PO SCH (07:37)
[2018-07-07] MEDS: Mometasone/Formoter 200/5 MDI INH SCH ×2 (08:01→20:56)
[2018-07-07] MEDS: Tiotropium CAP.INH* CAP.INH/18 MCG (USE ORDER SET !) INH SCH (08:01)
[2018-07-07] MEDS: Polyethylene Glycol 3350* 17 GM PACKET PO SCH (08:49)
[2018-07-07] MEDS: Simethicone TAB* 80 MG TAB.CHEW PO SCH ×3 (08:49→16:58)
[2018-07-07] MEDS: CMC:Epleronone (NF) 25 MG TAB PO SCH (08:50)
[2018-07-07] MEDS: Atorvastatin* 40 MG TAB PO SCH (08:50)
[2018-07-07] MEDS: Docusate CAP* 100 MG PO SCH ×2 (08:50→20:07)
[2018-07-07] MEDS: Aspirin EC TAB* 81 MG TAB.EC PO SCH (08:50)
[2018-07-07] MEDS: Torsemide TAB 10 MG PO SCH (09:38)
[2018-07-07] MEDS ORDERED: Acetaminophen TAB* 325 MG PO PRN (09:40)
[2018-07-07] MEDS ORDERED: Sodium Phosphate ADULT ENEMA* 118 ml bottle PR ONE (10:24)
[2018-07-07] MEDS: Senna TAB PO PRN (10:33)
[2018-07-07] MEDS ORDERED: Magnesium Hydroxide LIQ* 30 ML UDC PO ONE (10:33)
--- NOTE | 2018-07-07 10:45 | PN ---
Progress Note - Progress Note Date of Service: 07/07/18 SOAP: Subjective: [Abdomen is slightly better today. Successful enema yesterday but he still feels bloated and would like to repeat it today. No n/v. Feeling more SOB today.] Objective: [ Laboratory Results - last 24 hr 07/07/18 07/07/18 07/07/18 05:28 05:28 05:28 WBC 7.8 RBC 3.07 L Hgb 9.4 L Hct 29 L MCV 93 MCH 31 MCHC 33 RDW 16 H Plt Count 296 MPV 9.0 Neut % (Auto) 71.2 Lymph % (Auto) 7.8 [place] % (Auto) 17.3 Eos % (Auto) 2.9 Baso % (Auto) 0.8 Absolute Neuts (auto) 5.6 Absolute Lymphs (auto) 0.6 L Absolute Monos (auto) 1.4 H Absolute Eos (auto) 0.2 Absolute Basos (auto) 0.1 Absolute Nucleated RBC 0 Nucleated RBC % 0.1 INR (Anticoag Therapy) 2.13 H Sodium 137 Potassium 4.0 Chloride 102 Carbon Dioxide 31 Anion Gap 4 BUN 11 Creatinine 0.71 Est GFR ( Amer) 129.8 Est GFR (Non-Af Amer) 107.3 BUN/Creatinine Ratio 15.5 Glucose 97 Calcium 8.4 L Magnesium 2.1 Total Bilirubin 0.60 AST 16 ALT 9 Alkaline Phosphatase 78 Total Protein 5.5 L Albumin 2.9 L Globulin 2.6 Albumin/Globulin Ratio 1.1 Acetaminophen (Tylenol Tab*) 650 mg PO Q6H PRN PRN Reason: pain/fever Last Admin: 07/07/18 10:33 Dose: 650 mg Albuterol/Ipratropium (Duoneb (Albuterol 2.5 Mg/Ipratropium 0.5 Mg)) 1 neb INH [id number] AWAKE PRN PRN Reason: sob/wheexing Last Admin: 07/04/18 09:12 Dose: 1 neb Aspirin (Aspirin Ec Tab*) 81 mg PO DAILY [facility] Last Admin: 07/07/18 08:50 Dose: 81 mg Atorvastatin Calcium (Lipitor*) 40 mg PO DAILY [facility] Last Admin: 07/07/18 08:50 Dose: 40 mg Docusate Sodium (Colace Cap*) 100 mg PO BID [facility] Last Admin: 07/07/18 08:50 Dose: 100 mg Eplerenone (Inspra (Nf)) 25 mg PO DAILY [facility]; Protocol Last Admin: 07/07/18 08:50 Dose: 25 mg Ceftriaxone Sodium 1 gm/ (Sodium Chloride) 50 mls @ 200 mls/hr IVPB Q24H [facility] Last Admin: 07/06/18 15:14 Dose: 200 mls/hr Azithromycin 250 mg/ Sodium (Chloride) 250 mls @ 250 mls/hr IVPB Q24H [facility] Last Admin: 07/06/18 15:47 Dose: 250 mls/hr Metoprolol Succinate (Toprol Xl Tab*) 25 mg PO DAILY@0900 [facility] Last Admin: 07/07/18 07:37 Dose: Not Given Mometasone Furoate/Formoterol Fumar (Dulera 200/5 Mdi*) 2 puff INH BID [facility] Last Admin: 07/07/18 08:01 Dose: 2 puff Oxycodone HCl (Roxycodone Tab*) 5 mg PO Q4H PRN PRN Reason: PAIN Last Admin: 07/06/18 20:40 Dose: 5 mg Polyethylene Glycol/Electrolytes (Miralax*) 17 gm PO DAILY [facility] Last Admin: 07/07/18 08:49 Dose: 17 gm Sacubitril/Valsartan (Entresto (Nf)) 1 tab PO BID [facility] Last Admin: 07/06/18 20:41 Dose: 1 tab Senna (Senokot Tab*) 1 tab PO BID PRN PRN Reason: CONSTIPATION Last Admin: 07/07/18 10:33 Dose: 1 tab Simethicone (Mylicon Tab*) 80 mg PO AC [facility] Last Admin: 07/07/18 08:49 Dose: 80 mg Tiotropium [place] (Spiriva Cap.Inh*) 1 cap INH DAILY [facility] Last Admin: 07/07/18 08:01 Dose: 1 cap Torsemide (Torsemide) 10 mg PO DAILY@0900 [facility] Last Admin: 07/07/18 09:38 Dose: Not Given Warfarin Sodium (Coumadin Tab(*)) 3 mg PO 1700 [facility]; Protocol Last Admin: 07/06/18 18:27 Dose: 3 mg Vital Signs: Temp Pulse Resp BP Pulse Ox 98.1 F 71 16 101/41 98 07/07/18 07:37 07/07/18 08:04 07/07/18 08:04 07/07/18 07:37 07/07/18 08:04 Exam: Gen: Relatively well appearing 78 yo male in NAD HEENT: MMM CV: RRR, 3/6 murmur Resp: few rhonchi, no wheezing Abd: slightly distended, some TTP over the R upper and lower quadrants Ext: no edema] Assessment: [78 yo male with metastatic melanoma, severe COPD and severe ischemic cardiomyopathy who presented with c/o abd pain, fatigue and dyspnea and found to have a PNA on CXR. Concern for biliary pathology. ] Plan: [1. PNA - improving - cont Ceftriaxone/azithro 2. Abd pain - HIDA negative - symptoms likely due to constipation and seem to have improved somewhat following an enema 3. COPD - O2 dependent, no current exacerbation 4. Ischemic cardiomyopathy with AICD/pacer in place - occasional short runs of Vtach - followed by Dr Andino - no exacerbation with this hospitalization 5. Melanoma - arguably EDGAR based on recent PET - T4/T8 lesions secondary to bony trauma, indeterminant pulm nodule - will plan to resume pembrolizumab following discharge Dispo: anticipate dc home tomorrow]
--- NOTE | 2018-07-07 14:25 | PN ---
Progress Note - Progress Note Date of Service: 07/07/18 SOAP: Subjective:HOSPITAL DAY#5,ABDOMINAL PAIN feels better,good results from enema yesterday,passing a lot of flatus,no n/v [] Objective: Vital Signs Temp 98.0 F 07/07/18 11:07 Pulse 68 07/07/18 11:07 Resp 17 07/07/18 11:07 BP 102/46 07/07/18 11:07 Pulse Ox 97 07/07/18 11:07 Intake & Output 07/06/18 07/07/18 07/07/18 18:59 06:59 18:59 Intake Total 580 787 120 Output Total 525 Balance 55 787 120 Intake: IV Fluids 25 NS (0.9%) 25 IVPB 322 ABX - AZITHROMYCIN 265 ABX - CEFTRIAXONE 57 Oral 580 440 120 Output: Urine 525 Other: Estimated Void Small # Bowel Movements 0 Estimated Stool Amount Large # Voids 0 abd:+BS,softer and less distended,minimal tenderness on palpation,no guarding [] Assessment:HIDA neg for acute cholecystitis;constipation most likely cause of pain and distention [] Plan:Bowel regimen in place;pt states he is going home tomorrow;will sign off; no surgical intervention needed ay this time; agrees []
[2018-07-07] MEDS: SACUBITRIL PO SCH ×2 (15:13→20:08)
[2018-07-07] MEDS: VALSARTAN PO SCH ×2 (15:13→20:08)
[2018-07-07] MEDS: cefTRIAXone(*) 1 GM in NS 0.9% 50 ML* 50 ML IVPB SCH (15:14)
[2018-07-07] MEDS: Azithromycin IV(*) 250 MG in NS 0.9% 250 ML* 250 ML IVPB SCH (16:17)
[2018-07-07] MEDS: Warfarin TAB(*) 3 MG PO SCH (16:58)
[2018-07-07] MEDS: oxyCODONE TAB* 5 MG TAB PO PRN (20:08)
[2018-07-08 07:30] VITALS: BP 96/53
[2018-07-08] MEDS: Metoprolol Succinate XL TAB* 25 MG PO SCH (07:47)
[2018-07-08] MEDS: CMC:Epleronone (NF) 25 MG TAB PO SCH (07:48)
[2018-07-08] MEDS: Polyethylene Glycol 3350* 17 GM PACKET PO SCH (07:48)
[2018-07-08] MEDS: Atorvastatin* 40 MG TAB PO SCH (07:49)
[2018-07-08] MEDS: Simethicone TAB* 80 MG TAB.CHEW PO SCH ×2 (07:49→12:20)
[2018-07-08] MEDS: SACUBITRIL PO SCH (07:49)
[2018-07-08] MEDS: Aspirin EC TAB* 81 MG TAB.EC PO SCH (07:49)
[2018-07-08] MEDS: Senna TAB PO PRN (07:49)
[2018-07-08] MEDS: Docusate CAP* 100 MG PO SCH (07:49)
[2018-07-08] MEDS: VALSARTAN PO SCH (07:49)
[2018-07-08] MEDS: oxyCODONE TAB* 5 MG TAB PO PRN (07:49)
[2018-07-08] MEDS: Mometasone/Formoter 200/5 MDI INH SCH (08:38)
[2018-07-08] MEDS: Tiotropium CAP.INH* CAP.INH/18 MCG (USE ORDER SET !) INH SCH (08:38)
[2018-07-08] MEDS: Torsemide TAB 10 MG PO SCH (09:58)
[2018-07-08] MEDS: cefTRIAXone(*) 1 GM in NS 0.9% 50 ML* 50 ML IVPB SCH (12:08)
--- NOTE | 2018-07-12 04:16 | DS ---
CC: Dr. Ruth; Dr. Bermudez * DISCHARGE SUMMARY: DATE OF ADMISSION: 07/03/18 DATE OF DISCHARGE: 07/08/18 PRIMARY CARE PROVIDER: Dr. Ruth. PRIMARY ONCOLOGIST: Dr. Bermudez. CONSULTING SURGEON: Dr. Ojeda. ATTENDING PHYSICIAN: Dr. Woodson.* (DICTATED BY ADI MICHAEL) DISCHARGING PROVIDER: ADI Michael PRIMARY DISCHARGE DIAGNOSES: 1. Pneumonia - discharged with 5 additional days of cefdinir after being treated with ceftriaxone and azithromycin during hospitalization. 2. Abdominal pain - likely secondary to constipation with negative gallbladder evaluation. 3. Chronic obstructive pulmonary disease - severe and oxygen dependent, but without acute exacerbation. 4. Severe ischemic cardiomyopathy with EF of 20% to 25 % without acute exacerbation. 5. Metastatic melanoma - treated with pembrolizumab - stable on recent imaging. DISCHARGE MEDICATIONS: 1. Aspirin 81 mg p.o. daily. 2. Atorvastatin 40 mg p.o. daily. 3. Eplerenone 25 mg p.o. daily. 4. Advair 1 puff inhaled twice daily. 5. Metoprolol succinate 25 mg p.o. daily. 6. Multivitamin 1 tablet p.o. daily. 7. Entresto 1 tablet p.o. twice daily. 8. Spiriva 1 capsule inhaled daily. 9. Torsemide 10 mg p.o. daily. 10. DuoNeb one neb inhaled q.4 hours as needed for shortness of breath. 11. Cefdinir 300 mg p.o. twice daily for 5 days. 12. Docusate 100 mg p.o. twice daily. 13. Oxycodone 5 mg p.o. q.4 hours as needed for pain. 14. MiraLAX 17 g p.o. daily. 15. Senna 1 tablet p.o. twice daily. 16. Gas-X 125 mg p.o. after meals and at bedtime as needed for abdominal discomfort. 17. Coumadin 3 mg p.o. daily. HOSPITAL IMAGIN. CT abdomen and pelvis 07/03/18 demonstrates a 9 mm right lower lobe pulmonary nodule which is unchanged from recent PET scan, no other acute pathology. 2. Chest x-ray 07/03/18 demonstrates a new small nodular infiltrate in the right mid lung. Recommend followup chest x-rays to resolution. 3. CT thoracic spine demonstrates severe compression fracture of T8 with slight increased compression from prior CT study as well as mild retropulsion of fracture fragments causing mild spinal canal narrowing. 4. Gallbladder ultrasound 07/05/18 shows trace pericholecystic fluid with positive sonographic [place] sign, sonographic features are indeterminate, but may represent acute cholecystitis. 5. HIDA demonstrates delayed filling of the gallbladder, but a patent cystic duct. HOSPITAL COURSE: This is 78-year-old gentleman with metastatic melanoma, currently treated with pembrolizumab, who has been hospitalized frequently over the last couple of months with recurrent pneumonia and COPD exacerbation, presented to the emergency department with complaints of abdominal pain and distention as well as increased fatigue and cough. The patient was afebrile on an initial presentation, but did have leukocytosis with a white blood cell count 13,700. He had rather significant abdominal discomfort when he reached the emergency department which resolved with administration of IV opiates. He reported that his abdominal pain had started shortly after having half a beer, which he rarely does and he described it as a cramping sensation in the mid abdomen. On initial evaluation in the ER following pain medication, he had very little in the way of abdominal tenderness, but was noted to have a right- sided pulmonary infiltrate with complaints of increasing fatigue and cough over the proceeding few days. The patient was subsequently admitted for treatment of pneumonia as well as further evaluation of his abdominal pain. Following day, patient developed recurrent abdominal pain and was quite tender to palpation in the right upper quadrant as well as the right lower quadrant and surgical evaluation was sought. He underwent gallbladder ultrasound, initially suggestive of acute cholecystitis and subsequent HIDA scan that demonstrated a patent cystic duct. The patient was subsequently treated with an aggressive bowel regimen, as he did have a significant amount of bowel gas and stool within the large colon. His abdominal discomfort improved. Regarding his pneumonia, he was treated with ceftriaxone and azithromycin for community-acquired pathogens. He was not treated with steroids and did not appear to have a significant COPD exacerbation. In regards to his melanoma, his last PET scan demonstrated PET indeterminate lung nodule as well as lesions on a rib near T4 and T8. The T4 lesion seemed to be consistent with what was thought to be a rib fracture and T8 was evaluated further with dedicated thoracic spine CT which demonstrated progression of a prior compression fracture in the area which would be consistent with PET findings. No evidence that this was a pathologic fracture or otherwise represented his metastatic disease. DISPOSITION AND FOLLOWUP PLAN: The patient is being discharged home in stable condition. He will continue cefdinir for an additional 5 days and more aggressive bowel regimen. He will follow up with oncology office within the next week and plan to resume pembrolizumab. ADI MICHAEL [id number]/[facility] #: [id number] [facility] CENTERJesse
== END 2018-07-08 13:10 | disposition home or self-care (01) | DRG 194 ==
LOC: ED 06:20 → MED 13:13 → OBSVTOIN 07-04 16:00
PROVIDERS: ADMIT Internal Medicine Hematology & Oncology; ATTEND Internal Medicine Hematology & Oncology
DX: J18.1 Lobar pneumonia, unspecified organism (principal); J44.0 Chronic obstructive pulmonary disease with (acute) lower respiratory infection; I47.1 Supraventricular tachycardia; C79.89 Secondary malignant neoplasm of other specified sites; I48.91 Unspecified atrial fibrillation; I50.9 Heart failure, unspecified; I25.10 Atherosclerotic heart disease of native coronary artery without angina pectoris; I11.0 Hypertensive heart disease with heart failure; M19.90 Unspecified osteoarthritis, unspecified site; H91.90 Unspecified hearing loss, unspecified ear; C43.9 Malignant melanoma of skin, unspecified; I25.5 Ischemic cardiomyopathy; K59.00 Constipation, unspecified; Z82.49 Family history of ischemic heart disease and other diseases of the circulatory system; Z87.891 Personal history of nicotine dependence; I25.2 Old myocardial infarction; Z95.0 Presence of cardiac pacemaker; Z88.8 Allergy status to other drugs, medicaments and biological substances; Z95.810 Presence of automatic (implantable) cardiac defibrillator; Z95.2 Presence of prosthetic heart valve; Z80.0 Family history of malignant neoplasm of digestive organs; Z80.1 Family history of malignant neoplasm of trachea, bronchus and lung; Z72.89 Other problems related to lifestyle; Z79.82 Long term (current) use of aspirin; Z79.01 Long term (current) use of anticoagulants
CPT/HCPCS: 36415; 71046; 72129; 74176; 76705; 78226; 80053; 81003; 83605; 83690; 83735; 84484; 85025; 85610; 86140; 87641; 93005; 94640; 99220; 99223; 99232; 99239; 99285; A9270-GY; A9537; G0378; J0456; J0696; J1650; J3010; Q9967

== ENCOUNTER 2018-08-08 11:40 | Inpatient (IN) | payer MEDICARE ==
[2018-08-08] MEDS ORDERED: methylPREDNISolone 125 MG* 2 ML VIAL IV ONE (11:43)
--- NOTE | 2018-08-08 11:52 | ED ---
Shortness of Breath - HPI Summary HPI Summary: This patient is a 78 year old M brought in by ambulance to ED with hx of COPD and a chief complaint of SOB since 2 days ago. The patient lives in a hot environment in his trailer. En route, the patient was given a duoneb via EMS. The patient rates the pain 5/10 in severity. Symptoms aggravated by nothing. Symptoms alleviated by tx given by EMS. The patient is on Coumadin and ASA. His oncologist is Dr. Bemrudez. - History of Current Complaint Hx Obtained From: Patient, EMS Onset/Duration: Sudden Onset, Lasting Days - since 2 days ago, Still Present Timing: Constant Current Severity: Moderate - 5/10 Aggrevating Factors: Nothing Alleviating Factors: EMS Tx - Allergy/Home Medications Allergies/Adverse Reactions: Allergies Allergy/AdvReac Type Severity Reaction Status Date / Time diltiazem Allergy See Comment Verified 05/26/18 11:16 theophylline Allergy See Comment Verified 05/26/18 11:16 verapamil Allergy See Comment Verified 05/26/18 11:16 Home Medications: Home Medications Acetaminophen [Acetaminophen Extra Strength] 500 mg PO Q6HR PRN 08/08/18 [ History Confirmed 08/08/18] Albuterol HFA INHALER* [Ventolin HFA Inhaler*] 2 puff INH Q4H PRN 08/08/18 [ History Confirmed 08/08/18] Albuterol/Ipratropium NEB.MELINDA* [Duoneb (Albuterol 2.5 MG/Ipratropium 0.5 MG)] 1 neb INH Q4H PRN 08/08/18 [History Confirmed 08/08/18] Azithromycin TAB* [Zithromax TAB (Z-JANNETTE) 250 mg #6 tabs] 250 mg PO .THREE TIMES A WEEK 08/08/18 [History Confirmed 08/08/18] Clotrimazole/Betamethasone* [Lotrisone Cream*] 1 applic TOPICAL BID 08/08/18 [ History Confirmed 08/08/18] Fluticasone-Salmeterol 500-50* [Advair Diskus 500-50*] 1 puff INH BID 08/08/18 [ History Confirmed 08/08/18] Metoprolol Succinate XL TAB* [Toprol XL TAB*] 50 mg PO DAILY 08/08/18 [History Confirmed 08/08/18] Nitroglycerin TAB 0.4 MG* 0.4 mg SL Q5M PRN 08/08/18 [History Confirmed 08/08/18 ] Pembrolizumab [Keytruda] 200 mg IV Q21D 08/08/18 [History Confirmed 08/08/18] Simethicone TAB* [Mylicon TAB*] 125 mg PO QID PRN 08/08/18 [History Confirmed ] Tiotropium [place] [Spiriva Respimat] 8 gm INH DAILY 08/08/18 [History Confirmed 08/08/18] Warfarin TAB(*) [Coumadin TAB(*)] 3 mg PO MOTUWETHSA 08/08/18 [History Confirmed 08/08/18] Warfarin TAB(*) [Coumadin TAB(*)] 5 mg PO SUFR 08/08/18 [History Confirmed 08/08] guaiFENesin ER TAB [Mucinex*] 1,200 mg PO BID 08/08/18 [History Confirmed ] PMH/Surg Hx/FS Hx/Imm Hx Endocrine/Hematology History: Reports: Hx Anticoagulant Therapy - Coumadin Denies: Hx Diabetes, Hx Thyroid Disease Cardiovascular History: Reports: Hx Angina, Hx Atrial Fibrillation, Hx Auto Implanted Cardiovert Defib, Hx Congestive Heart Failure, Hx Coronary Artery Disease, Hx Hypertension, Hx Myocardial Infarction, Hx Pacemaker/ICD - [facility] [employer] - NOT MR CONDITIONAL, Hx Rheumatic Fever, Hx Valvular Heart Disease, Other Cardiovascular Problems/Disorders - [place]PASS Respiratory History: Reports: Hx Chronic Obstructive Pulmonary Disease (COPD), Hx Pneumonia Denies: Hx Asthma GI History: Denies: Hx Ulcer History: Denies: Hx Dialysis, Hx Renal Disease Musculoskeletal History: Reports: Hx Arthritis Sensory History: Reports: Hx Contacts or Glasses, Hx Hearing Problem Denies: Hx Hearing Aid Opthamlomology History: Reports: Hx Contacts or Glasses - Cancer History Cancer Type, Location and Year: METASTATIC MELANOMA - Surgical History Surgery Procedure, Year, and Place: A-FIB, HEART VALVE REPLACEMENT,. [facility] - NOT MR CONDITIONAL----PACEMAKER/DEFIBRILLATOR (2 - 2007 & CHANDED 2014 - ALL PAPERWORK SCANNED INTO [place] UNDER OTHER FACILTY REPORTS - DR CECIL WAGONER) Hx Anesthesia Reactions: No - Immunization History Date of Tetanus Vaccine: UTD per pt Date of Influenza Vaccine: Fall 2017 Infectious Disease History: Denies: Hx Hepatitis, Hx Human Immunodeficiency Virus (HIV) - Family History Known Family History: Positive: Cardiac Disease - Social History Alcohol Use: Rare Hx Substance Use: No Substance Use Type: Reports: None Hx Tobacco Use: Yes Smoking Status (MU): Former Smoker Type: Cigarettes Review of Systems Negative: Fever Positive: Shortness Of Breath All Other Systems Reviewed And Are Negative: Yes Physical Exam - Summary Physical Exam Summary: Appearance: Well-appearing, Well-nourished, lying in bed comfortably Skin: Warm, dry, no obvious rash Eyes: sclera anicteric, no conjunctival pallor ENT: mucous membranes moist, pharynx appears normal Neck: Supple, nontender Respiratory: Clear to auscultation, no signs of respiratory distress. Diminished breath sounds bilaterally. No audible wheezing. Cardiovascular: Normal S1, S2. No murmurs. Normal distal pulses in tibial and radial bilaterally. Abdomen: Soft, nontender, normal active bowel sounds present Musculoskeletal: Normal, Strength/ROM Intact Neurological: A&Ox3, awake and alert, mentation is normal, speech is fluent and appropriate Psychiatric: affect is normal, does not appear anxious or depressed Triage Information Reviewed: Yes Vital Signs On Initial Exam: Initial Vitals Temp Pulse Resp BP Pulse Ox 98.2 F 95 20 114/64 99 08/08/18 11:44 08/08/18 11:44 08/08/18 11:44 08/08/18 11:44 08/08/18 11:44 Vital Signs Reviewed: Yes Diagnostics - Laboratory Result Diagrams: 08/08/18 11:54 08/08/18 11:54 Lab Statement: Any lab studies that have been ordered have been reviewed, and results considered in the medical decision making process. - Radiology CXR Radiology Interpretation Completed By: ED Physician, Radiologist Summary of Radiographic Findings: Per ED physician, theres improving infiltrate in R mid lung. Pending radiologist official report. Per radiologist , 1. POSSIBLE MILD CONGESTIVE HEART FAILURE VERSUS CHRONIC CHANGES. 2. COPD. Dr. Sanchez has reviewed this radiology report. - EKG 1146 Cardiac Rate: Other Rate - ventricular paced complexes at rate of 70 BPM Summary of EKG Findings: Ventricular paced complexes at rate of 70 BPM and no further analysis attempted due to paced rhythm. Re-Evaluation - Re-Evaluation First Eval Re-Evaluation Time: 12:31 Comment: Performed PE. Second Eval Re-Evaluation Time: 13:51 Change: Improved Comment: Discussed results with the patient. He feels a bit better. Third Eval Re-Evaluation Time: 14:13 Comment: We monitored the patient's O2 sat and condition as he walked in the ED. the patient felt winded and light-headed as he walked. Discussed plan for admission. Patient understands and agrees with this plan. Course/Dx - Course Assessment/Plan: This patient is a 78 year old M brought in by ambulance to ED with hx of COPD and a chief complaint of SOB since 2 days ago. EKG reveals ventricular paced complexes at rate of 70 BPM and no further analysis attempted due to paced rhythm. Per ED physician, theres improving infiltrate in R mid lung. Per radiologist, 1. POSSIBLE MILD CONGESTIVE HEART FAILURE VERSUS CHRONIC CHANGES. 2. COPD. Consulted Dr. Nath at 1427 who accepted the patient for admission. The patient will be admitted with dx of COPD exacerbation. Patient understands and agrees with this plan. - Diagnoses Differential Diagnosis/HQI/PQRI: Positive: COPD Exacerbation Provider Diagnoses: COPD exacerbation - Physician Notifications Discussed Care of Patient With: Arpita Nath Time Discussed With Above Provider: 14:27 Instructed by Provider To: Admit As Inpatient Discharge - Sign-Out/Discharge Documenting (check all that apply): Patient Departure - admit Patient Received Moderate/Deep Sedation with Procedure: No - Discharge Plan Condition: Stable Disposition: ADMITTED TO [facility] - Billing Disposition and Condition Condition: STABLE Disposition: Admitted to [facility] - Attestation Statements Document Initiated by Claudine: Yes Documenting Scribe: Fercho Ojeda Provider For Whom Cluadine is Documenting (Include Credential): MD Bennett Newmanibabdullahi Attestation: Fercho Cain, scribed for Samuel Sanchez MD on 08/08/18 at 1709. Scribe Documentation Reviewed: Yes Provider Attestation: The documentation as recorded by the Fercho chavez accurately reflects the service I personally performed and the decisions made by me, Samuel Sanchez MD Status of Scribe Document: Viewed
[2018-08-08 12:09] LABS: Hematocrit 36 % (42-52); Hemoglobin 11.6 g/dL (14.0-18.0); Mean Corpuscular HGB Conc 33 g/dL (31-36); Mean Corpuscular Hemoglobin 30 pg (27-31); Mean Corpuscular Volume 92 fL (80-94); Platelet Count 235 10^3/uL (150-450); Red Blood Count 3.88 10^6 /uL (4.18-5.48); Red Cell Distribution Width 15 % (10.5-15); White Blood Count 7.5 10^3/uL (3.5-10.8)
[2018-08-08] MEDS ORDERED: Acetaminophen TAB* 325 MG PO ONE (12:30)
[2018-08-08] MEDS ORDERED: Albuterol 0.5% CONC NEB.SOL* 5 MG/ML 20 ml BOT INH ONE (12:39)
[2018-08-08 12:46] LABS: Albumin 4.1 g/dL (3.2-5.2); Albumin/Globulin Ratio 1.4 (1-3); BUN/Creatinine Ratio 17.7 (8-20); EGFR African American 91.7 (>60); EGFR Non-African American 75.8 (>60); Globulin 2.9 g/dL (2-4); Potassium 3.9 mmol/L (3.5-5.0); Total Bilirubin 0.7 mg/dL (0.2-1.0)
[2018-08-08 12:48] LABS: Troponin I 0.03 ng/mL (<0.04)
[2018-08-08 12:51] LABS: ABS Basophils 0.1 10^3/ul (0-0.2); ABS Eosinophils 0.5 10^3/ul (0-0.6); ABS Lymphocytes 1.1 10^3/ul (1.0-4.8); ABS Monocytes 1.1 10^3/ul (0-0.8); ABS Neutrophils 4.7 10^3/ul (1.5-7.7); Eosinophil % 7.3 %; Lymphocyte % 14.4 %
[2018-08-08] MEDS ORDERED: Albuterol/Ipratropium NEB.SOL* Albuterol 2.5 MG/Ipratropium 0.5 MG 3 ML INH PRN (15:25)
[2018-08-08] MEDS ORDERED: Morphine ORAL CONCENTRATE* 5 MG/0.25 ML ORAL.SYRIN PO PRN (15:42)
[2018-08-08] MEDS ORDERED: LORazepam TAB(*) 0.5 MG PO PRN (15:43)
[2018-08-08] MEDS ORDERED: Azithromycin TAB* 250 MG PO SCH (16:00)
[2018-08-08] MEDS ORDERED: Warfarin TAB(*) 3 MG PO SCH (17:00)
[2018-08-08] MEDS: MDI INH SCH (18:10)
[2018-08-08] MEDS: TIOTROPIUM RESPIMT 2.5 MCG INH SCH (18:10)
--- NOTE | 2018-08-08 18:11 | HP ---
CC: Dr. Inessa Ruth; Dr. Bermudez; Dr. Andino * HISTORY AND PHYSICAL: DATE OF ADMISSION: 08/08/18 PRIMARY CARE PROVIDER: Dr. Inessa Ruth. ONCOLOGIST: Dr. Bermudez. CLINIC ASSISTANT: Dr. Andino. HEALTHCARE PROXY: Jose Enrique Huber, his brother. CODE STATUS: DNR/DNI. CHIEF COMPLAINT: Dyspnea on exertion for 4 days. HISTORY OF PRESENT ILLNESS: Mr. Huber is a 78-year-old man with metastatic melanoma, recently treated with pembrolizumab; severe COPD, on home O2, with recent care from [facility], on morphine and Ativan; AFib, on warfarin; rheumatic heart disease, status post aortic and mitral valve replacement; heart failure, reduced ejection fraction, EF 20%; carotid stenosis; who is presenting with subacute dyspnea on exertion. He reports being in his usual state of health until approximately 4 to 5 days ago when he began experiencing progressive dyspnea on exertion. He states that he normally can walk at least a couple minutes without having to stop to rest, although he does go slowly and recently he has been progressively more short of breath on exerting himself until the point where today he could not even make it a few steps to his bathroom from his bed. Initially, he did not have shortness of breath at rest, but by the day of admission, he did experience shortness of breath even while resting. He also reports that when this severe shortness of breath would come on on exertion, he also experienced dizziness and lightheadedness, although he did not feel like he was going to faint. He did not experience syncope. When asked what is the main concern that brought the patient to the hospital, he states that he would like some more help at home. He states that he currently manages his own medications and he does not have a home health aide and he has never had a visiting nurse. He denies fevers or chills, fatigue, chest pain, abdominal pain, nausea, vomiting, constipation, diarrhea, orthopnea, paroxysmal nocturnal dyspnea, or increasing lower extremity edema. He has been taking all of his medicines as prescribed. He states that he does have a chronic cough at baseline that is not progressive or productive recently. In the emergency room, the patient was noted to be at his home oxygen requirements approximately 2 L; however, upon walking, the patient became severely symptomatic again with dizziness and lightheadedness. While the ER staff did not note the patient to desaturate on walking, the patient reports that he went down to 80% on his pulse ox that he has on his finger from home, so he was asked to be admitted to the hospitalist service for COPD exacerbation. In the emergency room, he was also given nebulizers, Tylenol, and methylprednisolone IV 125 mg. Of note, the patient has had three hospitalizations in the last year. The first one in January 2018 was for an episode of chest pressure, which was thought to be secondary to nonsustained ventricular tachycardia. 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 His third hospitalization was last month June 2018 where he was hospitalized for pneumonia, abdominal pain likely secondary to constipation, acute exacerbation of COPD. PAST MEDICAL HISTORY: 1. Metastatic melanoma, followed by Dr. Bermudez, previously on immunotherapy. 2. Chronic obstructive pulmonary disease, on home oxygen, recently cared for by [facility]. 3. Rheumatic heart disease, status post mechanical aortic and mitral valves, on warfarin. 4. Coronary artery disease, status post bypass in 1985 and a stent to LAD in 2009. 5. Ischemic cardiomyopathy with EF 20% to 25%. 6. Nonsustained ventricular tachycardia, status post pacer/defibrillator implantation. 7. Obstructive sleep apnea. 8. Carotid stenosis. 9. Chronic atrial fibrillation, on anticoagulation, with pacer. 10. DVT. 11. BPH. 12. 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 HOME MEDICATIONS: 1. Morphine oral concentration 5 mg every 6 hours as needed for dyspnea. 2. Ativan 0.5 mg every 6 hours as needed for anxiety. 3. Warfarin 3 mg 5 days a week, 5 mg twice a week. 4. Torsemide 10 mg daily. 5. Spiriva 1 inhalation daily. 6. Advair 1 puff twice a day. 7. DuoNebs every 4 hours as needed for shortness of breath. 8. Albuterol 2 puffs every 4 hours as needed for shortness of breath. 9. Aspirin 81 mg daily. 10. Atorvastatin 40 mg daily. 11. Azithromycin 250 three times a week. 12. Eplerenone 25 mg daily. 13. Metoprolol 50 mg daily. 14. Nitroglycerin 0.4 sublingual every 5 minutes as needed for chest pain. 15. Polyethylene glycol 17 g daily as needed for constipation. 16. Entresto 1 tab twice a day. ALLERGIES: DILTIAZEM, THEOPHYLLINE, and VERAPAMIL. See chart for reactions. FAMILY HISTORY: Significant for sister with breast cancer and other siblings with non-melanoma skin cancer. SOCIAL HISTORY: The patient's healthcare proxy is his brother, Jose Enrique. He lives alone at home. He quit smoking in the 1980s, but had significant prior use. Rare alcohol use and never recreational drugs. 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 PHYSICAL EXAMINATION GENERAL: Mildly ill-appearing man, in no acute distress, but with increased work of breathing, friendly, pleasant, and in good spirits. VITAL SIGNS: The patient is afebrile, heart rate 70s, blood pressure 109/59, respiratory rate 12, oxygen saturation 95% on 2 L. HEENT: Moist mucous membranes. Pupils equal, round, reactive to light. RESPIRATORY: With poor air movement throughout. No wheezes, crackles, or rhonchi. HEART: Regular rate and rhythm. No murmurs, gallops, or rubs, but mechanical S1, S2. ABDOMEN: Soft, nontender, nondistended. EXTREMITIES: With trace ankle edema. SKIN: Without rash. DIAGNOSTIC STUDIES/LAB DATA: Labs reviewed and significant for anemia 11.6, normocytic at baseline. BMP and LFTs normal. INR not drawn. Chest x-ray with possible mild congestive heart failure versus chronic changes and hyperinflation. No evidence of infection. ASSESSMENT AND PLAN: 78-year-old man with severe chronic obstructive pulmonary disease, on home O2; ischemic cardiomyopathy, EF 25% to 30%; atrial fibrillation and mechanical aortic and mitral valves, on warfarin; metastatic melanoma; who is presenting to the emergency department with acute dyspnea on exertion, progressive shortness of breath, found without evidence of infection, symptoms significantly improved after IV steroids and nebulizers. 1. Chronic obstructive pulmonary disease exacerbation. We will continue the patient on nebulizers, his home inhalers, and steroid burst. We will wean O2 as tolerated, but the patient is currently at his home oxygen dose. We will continue azithromycin 3 times a week and continue home opioids and benzos as needed for dyspnea and anxiety. We will explore options for more support at home. 2. Severe ischemic cardiomyopathy, heart failure. We will home torsemide dose. The patient currently does not appear volume overloaded significantly on exam. Continue home eplerenone and Entresto and beta-matthew. 3. Metastatic melanoma. We will touch base with Oncology. 4. History of coronary artery disease. Continue home aspirin and statin. 5. Constipation. Continue home MiraLAX as needed. 6. Atrial fibrillation and mechanical valve. Continue warfarin dosing by level. 7. Code status: The patient is DNR/DNI. TIME SPENT: Approximately 60 minutes was spent on admission of this patient, more than half of which was spent at bedside for interview and exam. [id number]/[facility] #: [id number] STEVE
[2018-08-08] MEDS: Acetaminophen TAB* 325 MG PO PRN (18:14)
[2018-08-08] MEDS: Mometasone/Formoter 200/5 MDI INH SCH (19:51)
[2018-08-08] MEDS: guaiFENesin ER TAB 600 MG PO SCH (21:46)
[2018-08-08] MEDS: PTO: Sacubitril/Valsartan 24/26(NF) 1 TAB PO SCH (22:02)
[2018-08-08] MEDS: Simethicone TAB* 80 MG TAB.CHEW PO PRN (22:16)
[2018-08-09] MEDS: Acetaminophen TAB* 325 MG PO PRN ×2 (00:15→15:09)
[2018-08-09] MEDS: Simethicone TAB* 80 MG TAB.CHEW PO PRN (03:29)
[2018-08-09] MEDS ORDERED: Al Hydrox/Mg Hydrox/Simet LIQ* 30 ML UDC PO PRN (03:44)
--- NOTE | 2018-08-09 03:46 | PN ---
Progress Note - Progress Note Date of Service: 08/09/18 Note: Patient c/o mid sternal radiating to epigastric pain all evening. Paged for his oxycodone which he normally takes at home. Will order this as well as getting his labs now, including a troponin and EKG
[2018-08-09] MEDS: oxyCODONE TAB* 5 MG TAB PO PRN ×2 (04:03→10:41)
[2018-08-09 04:15] LABS: Hematocrit 35 % (42-52); Hemoglobin 11.3 g/dL (14.0-18.0); Mean Corpuscular HGB Conc 32 g/dL (31-36); Mean Corpuscular Hemoglobin 30 pg (27-31); Mean Corpuscular Volume 92 fL (80-94); Mean Platelet Volume 9.3 fL (7.4-10.4); Platelet Count 213 10^3/uL (150-450); Red Blood Count 3.79 10^6 /uL (4.18-5.48); Red Cell Distribution Width 15 % (10.5-15)
[2018-08-09 04:22] LABS: Anion Gap 6 mmol/L (2-11); BUN/Creatinine Ratio 20.2 (8-20); Blood Urea Nitrogen 19 mg/dL (6-24); CO2 Carbon Dioxide 29 mmol/L (22-32); Calcium 9.3 mg/dL (8.6-10.3); Chloride 101 mmol/L (101-111); EGFR African American 93.9 (>60); EGFR Non-African American 77.6 (>60); Glucose 144 mg/dL (70-100); Potassium 4.7 mmol/L (3.5-5.0); Sodium 136 mmol/L (135-145)
[2018-08-09 04:31] LABS: INR 5.49 (0.82-1.09)
[2018-08-09 04:33] LABS: Troponin I 0.19 ng/mL (<0.04)
[2018-08-09] MEDS: Mometasone/Formoter 200/5 MDI INH SCH ×2 (07:32→20:08)
[2018-08-09] MEDS: MDI INH SCH (07:33)
[2018-08-09] MEDS: TIOTROPIUM RESPIMT 2.5 MCG INH SCH (07:33)
[2018-08-09 07:38] LABS: Troponin I 0.16 ng/mL (<0.04)
[2018-08-09] MEDS: guaiFENesin ER TAB 600 MG PO SCH (07:54)
[2018-08-09] MEDS: PTO: Sacubitril/Valsartan 24/26(NF) 1 TAB PO SCH (07:55)
[2018-08-09] MEDS ORDERED: Phytonadione Oral Solution* 5 MG/25 ML UDC PO ONE (07:58)
[2018-08-09] MEDS ORDERED: Polyethylene Glycol 3350* 17 GM PACKET PO SCH (09:00)
[2018-08-09] MEDS ORDERED: Metoprolol Succinate XL TAB* 50 MG PO SCH (09:00)
[2018-08-09] MEDS ORDERED: CMCS:Epleronone (NF) 25 MG TAB PO SCH (09:00)
[2018-08-09] MEDS ORDERED: Torsemide TAB 10 MG PO SCH (09:00)
[2018-08-09] MEDS ORDERED: Aspirin EC TAB* 81 MG TAB.EC PO SCH (09:00)
[2018-08-09] MEDS ORDERED: Atorvastatin* 40 MG TAB PO SCH (09:00)
[2018-08-09] MEDS ORDERED: predniSONE TAB* 20 MG PO SCH (09:00)
[2018-08-09 15:45] VITALS: BP 91/49
--- NOTE | 2018-08-09 15:55 | ECHO ---
*[facility]* [place] [address] Fax #: [phone] Patient: Mayo, Height: 72 in / Mario Wallace 182.9 cm : 1940 Weight: 149.7 lb / Study Date: 08/09/2018 68 kg Age: 78 BP: 101 / 51 Gender: M BMI/BSA: 20.3 kg/m^2 HR: 70 bpm / 1.89 m^2 *Marine Operations Coordinator: * Elvia Hernandez [facility] *Referring Physician: * Janeth Vidal *Reading Physician: * Abdelrahman Clark MD Indications: Chest Pain, unspecified. History: Atrial fibrillation. Coronary artery disease. Congestive heart failure. PMH: COPD exacerbation. Risk factors: Hypertension. Hyperlipidemia. Metastatic melanoma. Labs, prior tests, procedures, and surgery: ICD system implantation. Coronary artery bypass grafting. Mitral valve replacement with a mechanical valve. Aortic valve replacement with a mechanical valve. Conclusions Summary: 1. Left ventricle: Systolic function is severely reduced. The estimated ejection fraction is 25-30%. Severe diffuse hypokinesis. Left ventricular diastolic function parameters are indeterminate. 2. Ventricular septum: There is abnormal interventricular septal wall motion consistent with an RV pacemaker. 3. Mitral valve: There is a mechanical prosthesis. There is no evidence of stenosis. There is trace to mild regurgitation. 4. Aortic valve: There is a mechanical prosthetic valve. There is no evidence of stenosis. There is trivial regurgitation. 5. Tricuspid valve: There is mild regurgitation. 6. Ascending aorta: The ascending aorta is appears normal. 7. Compared to study of 05/10/18, there is little change. Study data: Procedure: Transthoracic echocardiography was performed. Image quality was fair. Complete 2D, spectral Doppler, and color flow Doppler. Location: Bedside. Patient status: Inpatient. Patient room number: 440. Rhythm: Paced rhythm. Findings Left ventricle: The cavity size is normal. Wall thickness is normal. Systolic function is severely reduced. The estimated ejection fraction is 25-30%. Severe diffuse hypokinesis. Left ventricular diastolic function parameters are indeterminate. Right ventricle: The cavity size is mildly to moderately dilated. Pacer wire noted in the right ventricle. Systolic function is low normal. Ventricular septum: There is abnormal interventricular septal wall motion consistent with an RV pacemaker. Left atrium: The atrium is severely dilated. Right atrium: The atrium is moderately dilated. Pacer wire noted in right atrium. Mitral valve: Not well visualized. There is a mechanical prosthesis. There is no evidence of stenosis. There is trace to mild regurgitation. Aortic valve: Not well visualized. There is a mechanical prosthetic valve. There is no evidence of stenosis. There is trivial regurgitation. Tricuspid valve: The leaflets are mildly thickened. There is no evidence of stenosis. There is mild regurgitation. Pulmonic valve: The leaflets are normal thickness. There is no evidence of stenosis. There is trivial regurgitation. Aorta: Ascending aorta: The ascending aorta is appears normal. Aortic arch: The aortic arch is appears normal. The aortic root is not dilated. Pericardium: There is no pericardial effusion. Pulmonary arteries: Not well visualized. Systemic veins: Inferior vena cava: The vessel is normal in size. The respirophasic diameter changes are in the normal range (>= 50%). Measurements Left ventricle Value Ref Aortic valve Value Ref SANJUANITA, LAX 5.1 cm 4.2 - Annette diam, ED 1.9 cm ----- 5.8 Peak v, S 2.7 m/sec ----- ESD, LAX 3.9 cm 2.5 - VTI, S 62.7 cm ----- 4.0 Mean grad, S 17.0 mm Hg ----- FS, LAX (L) 23 % 25 - 43 Peak grad, S 30.0 mm Hg ----- PW, ED, LAX 1.0 cm 0.6 - LVOT/AV, VTI ratio 0.24 ----- 1.0 HERBIE, VTI 0.75 cm^2 ----- FS (L) 23 % 25 - 43 HERBIE, Vmax 0.92 cm^2 ----- PW, ED 1.0 cm 0.6 - 1.0 Mitral valve Value Ref E', lat annette, TDI (L) 5.3 cm/sec >=10.0 Peak E 1.6 m/sec --- -- E/e', lat annette, TDI 30 -------- Peak A 0 m/sec ----- E', med annette, TDI (L) 5.3 cm/sec >=7.0 Decel time 246 ms --- -- E/e', med annette, TDI 30 -------- PHT 166 ms ----- E', avg, TDI 5.3 cm/sec -------- Mean grad, D 6.0 mm Hg ----- E/e', avg, TDI (H) 30 <=14 Peak grad, D 17.0 mm Hg --- -- MVA, PHT 1.4 cm^2 ----- LVOT Value Ref Diam, S 2.00 cm -------- Pulmonic valve Value Ref Area 3.1 cm^2 -------- Peak v, S 0.93 m/sec ----- Peak alejandro, S 0.79 m/sec -------- Peak grad, S 3.0 mm Hg ----- VTI, S 15.0 cm -------- Mean grad, S 1 mm Hg -------- Tricuspid valve Value Ref SV 46 ml -------- TR peak v 2.5 m/sec <=2.8 SV/bsa 24 ml/m^2 -------- Peak RV-RA grad, S 25 mm Hg ----- Ventricular septum Value Ref Aortic root Value Ref IVS, ED 1.0 cm 0.6 - Root diam 3.4 cm <4.1 1.0 Ascending aorta Value Ref Right ventricle Value Ref AAo AP diam, S 3.5 cm ----- SANJUANITA, LAX 4.4 cm -------- SANJUANITA minor ax, A4C (H) 5.3 cm 1.9 - Aortic arch Value Ref mid 3.5 Arch diam 2.5 cm ----- Pressure, S 28 mm Hg -------- Decending aorta Value Ref Left atrium Value Ref Kenny peak alejandro 0.64 m/sec ----- ML dim, A4C 6.4 cm -------- SI dim, A4C 7.6 cm -------- Pulmonary artery Value Ref Vol/bsa, ES, 1-p (H) 120 ml/m^2 12 - 37 Pressure, S 25.0 mm Hg ----- A4C Vol/bsa, ES, A/L (H) 143 ml/m^2 16 - 34 Inferior vena cava Value Ref Diam 2.1 cm ----- Right atrium Value Ref SI dim, ES (H) 7.5 cm 3.4 - 5.3 ML dim, ES, A4C (H) 5.2 cm 2.6 - 4.4 SI dim, ES, A4C (H) 7.5 cm 3.4 - 5.3 SI dim/bsa, ES, A4C (H) 4.0 cm/m^2 1.8 - 3.0 Estimated RAP 3 mm Hg -------- Legend: (L) and (H) damian values outside specified reference range. Prepared and electronically signed by Abdelrahman Clark MD 08/09/2018 15:55
--- NOTE | 2018-08-10 01:08 | DS ---
CC: Inessa Ruth MD * DISCHARGE SUMMARY: DATE OF ADMISSION: 08/08/18 DATE OF DISCHARGE: 08/09/18 ATTENDING PHYSICIAN: Joseph Turk MD * (dictated by ADI Bonilla). PRIMARY CARE PROVIDER: Inessa Ruth MD. PRIMARY DIAGNOSES: 1. Chronic obstructive pulmonary disease exacerbation. 2. Supratherapeutic INR. 3. Type II non-ST elevation myocardial infarction. SECONDARY DIAGNOSES: 1. Chronic obstructive pulmonary disease, on 2 L of oxygen at home. 2. Metastatic melanoma, currently receiving chemotherapy. 3. Rheumatic heart disease, status post mechanical aortic and mitral valve, on warfarin. 4. Coronary artery disease, status post coronary artery bypass in 1985 and a stent to LAD in 2009. 5. Ischemic cardiomyopathy with EF 20% to 25%. 6. Nonsustained ventricular tachycardia, status post pacer/defibrillator implantation. 7. Obstructive sleep apnea. 8. Carotid stenosis. 9. Atrial fibrillation, on anticoagulation, with pacer. 10. Deep venous thrombosis. 11. Benign prostatic hyperplasia. 12. 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 DIAGNOSTIC IMAGING STUDIES: Chest x-ray on 08/08/18: 1. COPD. 2. Possible mild congestive heart failure versus chronic changes. EKG on 08/08/18, ventricular paced, rate of 70 beats per minute, similar to a previous EKG in June. EKG taken on 08/08/18 at 3:53 a.m., ventricular paced with rate of 70 beats per minute. No ST changes compared to previous EKG. No T-wave changes. Transthoracic echocardiogram on 08/09/18. Summary: Left ventricle systolic function is severely reduced. Estimated ejection fraction 25% to 30%. Severe diffuse hypokinesis. Left ventricular diastolic function parameters are indeterminate. Ventricular septum: There is abnormal ventricular septal valve motion consistent with RV pacemaker. Mitral valve: There is mechanical prosthesis. There is no evidence of stenosis. There is trace to mild regurgitation. Aortic valve: There is mechanical prosthetic valve. There is no evidence of stenosis. There is trivial regurgitation. Tricuspid valve: There is mild regurgitation. Ascending aorta: The aorta appears normal. Compared studies on 05/10/18, there is no change. PERTINENT LAB DATA: Troponin at admission 0.03. Troponin after experiencing chest pain at 3 a.m. was 0.19 and then 0.16. White blood cell count 7.5 at admission. INR 5.49. DISCHARGE MEDICATIONS: 1. Oral prednisone 6 mg p.o. x5 days. CONTINUED HOME MEDICATIONS: 1. Warfarin 5 mg p.o. Wednesday and Wednesday (to be held for 2 days until INR recheck). 2. Warfarin 3 mg p.o. Wednesday, Wednesday, Wednesday, , and Wednesday (to be held for 2 days pending INR recheck). 3. Torsemide 10 mg p.o. daily. 4. Spiriva 8 g inhaled daily. 5. Simethicone 125 p.o. 4 times a day, p.r.n. constipation. 6. Entresto 1 tab p.o. b.i.d. 7. MiraLAX 17 g p.o. daily. 8. Keytruda 200 mg IV q.21 days, care with Dr. Bermudez. 9. Oxycodone 5 mg p.o. q.4 hours p.r.n. pain, maximum daily dose 30 mg. 10. Nitroglycerine 0.4 mg sublingual q 5 minutes p.r.n. chest pain. 11. Multivitamin tab. 12. Mucinex 1200 mg p.o. b.i.d. 13. Metoprolol succinate 50 mg p.o. daily. 14. Advair 1 puff inhale b.i.d. 15. Eplerenone 25 mg p.o. daily. 17. Lotrisone cream 1 application topical b.i.d. 18. Azithromycin 250 p.o. 3 times a week. 19. Atorvastatin 40 mg p.o. daily. 20. Aspirin 81 mg p.o. daily. 21. DuoNeb 1 inhaled q.4 hours p.r.n. shortness of breath. 22. Albuterol inhaler 2 puffs inhaled q.4 hours p.r.n. shortness of breath and wheezing. 23. Acetaminophen 500 mg p.o. q.6 hours p.r.n. pain. HISTORY OF PRESENT ILLNESS/HOSPITAL COURSE: Mr. Mario Huber is a 78-year-old white male with past medical history significant for COPD, on 2 L oxygen at home; coronary artery disease; metastatic melanoma; ischemic cardiomyopathy with ejection fraction of 20% to 25%; atrial fibrillation; and mechanical valves , on Coumadin; and history of GI bleed, who presents to the emergency department due to dyspnea on exertion for 4 days. To see further details regarding the admission, please see H and P dictated by Dr. Arpita Nath. Ultimately, the patient had diminished breath sounds and the patient had no fever, no leukocytosis, and chest x-ray was overall clear without evidence for pulmonary edema. Additionally, the patient did not have peripheral edema. Therefore, dyspnea on exertion was determined due to COPD exacerbation. The patient was given IV steroids in emergency department and then p.o. steroids during his stay. The following day, he was greatly improved, he was able to ambulate around the unit, but he did not develop shortness of breath for approximately 200 feet. During this time, he maintained oxygen saturations above 88% on his 2 L, which is his home amount. During his stay, care management coordinated setting up visiting nurses through [facility]. The patient is already receiving care through [facility] for palliative care. Overnight after his admission, he developed chest pain at 3 a.m. and his EKG did not show any acute changes, but he did have elevated troponin, which was noted. The patient had an echo following day, which was unchanged from previous echo. This is likely due to the demand ischemia and type 2 NSTEMI. The patient likely to have true NSTEMI as there was no EKG changes, but ischemic demand is likely due to COPD exacerbation. Additionally, the patient had supratherapeutic INR and his Coumadin was held and he was given 1 mg p.o. Coumadin due to his history of GI bleed. In addition to the steroid, the patient was continued on his home medications and was placed on p.r.n. DuoNeb. All other home medications were continued other than the Coumadin, which was held. On the day of discharge, the patient is feeling greatly improved and no longer is experiencing shortness of breath with ambulation with such short distances. The patient, at the time of evaluation, does not have chest pain. Denies fever , chills, the patient does admit to abdominal pain, which has been a chronic issue since chemotherapy and does find a relief with oxycodone. He denies nausea, vomiting. REVIEW OF SYSTEMS: An 11-point review of systems was completed and all pertinent positives and negatives are above in the HPI. All other systems are negative. PHYSICAL EXAMINATION: General: Thin, elderly white male, lying in hospital bed , appearing in no acute distress and appearing comfortable. Head: Normocephalic atraumatic. Eyes: PERRLA. Sclerae anicteric. ENT: Mucous membranes moist. Neck: Without JVD. Neck is supple. Cardio: Regular rate and rhythm without murmurs, rubs, or gallops. Respiratory: Audible breath sounds throughout. No wheezes, rhonchi, or crackles. Chest expansion is symmetrical with respirations. Abdomen: Abdomen is minimally tender throughout. Abdomen is nondistended and no masses palpated. Abdomen is soft. Extremities: Strength 5 /5 in all extremities. No clubbing, cyanosis, or edema. Neuro: The patient is alert and oriented x3. No focal deficits. Skin: Skin is warm, dry, and intact. Psych: The patient is pleasant and cooperative. DISCHARGE PLAN: Diet: Heart healthy diet. Activity: The patient is to return to normal activity as tolerated with 2 L of oxygen. The patient was advised to hold his Coumadin his for 2 days and to have his INR followed up in 2 days with his primary care provider. The patient is advised to follow up with primary care provider regarding this admission as well. The patient will receive nursing services from [facility]. The patient is advised to follow up with Dr. Bermudez regarding his chemotherapy. Regarding his coronary artery disease, he is to continue his home medications of metoprolol, aspirin, and atorvastatin. Regarding his ischemic cardiomyopathy, the patient is to continue taking his metoprolol, torsemide, eplerenone, and Entresto. Regarding his atrial fibrillation, the patient is to hold warfarin as previously mentioned. Regarding the treatment of his COPD, he is to take Prednisone for 5 days for the COPD exacerbation and continue his previous home medications of Spiriva, Advair 3 times a day, azithromycin, p.r.n. DuoNeb, p.r.n. albuterol, and Mucinex. For treatment of his cancer pain type, he will continue to take oxycodone. The patient is additionally provided p.r.n. Ativan. CONDITION ON DISCHARGE: Stable. DISPOSITION: Home. TIME SPENT: Approximately 35 minutes was spent on this discharge; approximately half this time was spent at bedside. ADI BONILLA [id number]/[facility] #: [id number] STEVE
--- NOTE | 2018-08-11 16:06 | HP ---
HISTORY AND PHYSICAL: ADDENDUM: DATE OF ADMISSION: 08/08/18 REVIEW OF SYSTEMS: A complete 10-point review of systems was performed and pertinent positives and negatives are listed in the HPI. [id number]/[facility] #: [id number]
[2018-08-12] MEDS ORDERED: Warfarin TAB(*) 5 MG PO SCH (17:00)
== END 2018-08-09 23:44 | disposition home health service (06) | DRG 190 ==
LOC: ED 11:40 → MEDTELE 15:25 → UNDOADMIN 15:25 → ED 16:43 → UNDODISIN 08-09 23:44 → UNDOADMIN 09-06 15:41 → MEDTELE 09-06 15:41
PROVIDERS: ADMIT Internal Medicine; ATTEND Internal Medicine
DX: J44.1 Chronic obstructive pulmonary disease with (acute) exacerbation (principal); I21.A1 Myocardial infarction type 2; I47.1 Supraventricular tachycardia; Z99.81 Dependence on supplemental oxygen; C43.9 Malignant melanoma of skin, unspecified; I09.9 Rheumatic heart disease, unspecified; I25.5 Ischemic cardiomyopathy; G47.33 Obstructive sleep apnea (adult) (pediatric); I65.29 Occlusion and stenosis of unspecified carotid artery; I08.1 Rheumatic disorders of both mitral and tricuspid valves; I48.91 Unspecified atrial fibrillation; N40.0 Benign prostatic hyperplasia without lower urinary tract symptoms; I25.10 Atherosclerotic heart disease of native coronary artery without angina pectoris; K59.00 Constipation, unspecified; Z95.1 Presence of aortocoronary bypass graft; Z95.810 Presence of automatic (implantable) cardiac defibrillator; Z95.2 Presence of prosthetic heart valve; Z95.5 Presence of coronary angioplasty implant and graft; Z86.718 Personal history of other venous thrombosis and embolism; Z79.2 Long term (current) use of antibiotics; Z79.01 Long term (current) use of anticoagulants; Z79.82 Long term (current) use of aspirin; Z79.51 Long term (current) use of inhaled steroids; Z79.899 Other long term (current) drug therapy; Z88.8 Allergy status to other drugs, medicaments and biological substances; Z80.8 Family history of malignant neoplasm of other organs or systems; Z87.891 Personal history of nicotine dependence
CPT/HCPCS: 36415; 71046; 80048; 80053; 83605; 83735; 84484; 85025; 85027; 85610; 93005; 93306; 94640; 99284; A9270-GY; J2930; J7512; J7611

== ENCOUNTER 2018-09-11 13:39 | Observation (INO) | payer MEDICARE ==
--- NOTE | 2018-09-11 13:55 | ED ---
HPI Chest Pain - HPI Summary HPI Summary: 78 year old M presenting to [facility] with a chief complaint of mid sternal chest tightness since 12:30 today 09/11/18. The patient rates the pain 6/10 in severity. It started as 4/10 in severity and has now progressed to a 6/10 in severity. Symptoms aggravated by nothing. Symptoms alleviated by nothing. Patient reports lightheadedness, diaphoresis, right leg numbness, shortness of breath, and headache. He states that he "feels like someone was squeezing his throat and taking his air." Patient treated his symptoms with NTG spray without relief. Patient used 2 sprays, each at 400 mcg per spray. Patient has cardiac hx. Patient has hx AZ. He states that his las AZ was "a little while ago" but cannot remember exactly when. He states that his current symptoms feel like an AZ. His last code striper is Dr. Andino at [facility]. Patient has a pacemaker and defibrillator that did not go off today. Patient wears O2 nasal cannula 2L continuously at home, and comes in with his O2 tank, but it is empty. He is placed on 2L NC on arrival. Patient is a former smoker. He used to drink alcohol. Fhx cardiac disease. Vital signs at triage: HR 70 bpm, BP 100/51, O2 sat 92% Home Medications Medication Instructions Recorded Confirmed Type Aspirin EC TAB* [Ecotrin EC Low 81 mg PO DAILY 02/01/18 09/11/18 History Dose 81 MG*] Atorvastatin* [Lipitor 40 MG*] 40 mg PO DAILY 02/01/18 08/08/18 History Epleronone (NF) [Inspra (NF)] 25 mg PO DAILY 02/01/18 09/11/18 History Multivitamins/Minerals TAB* 1 tab PO DAILY 02/01/18 09/11/18 History [Theragran/minerals TAB*] Sacubitril/Valsartan (NF) 1 tab PO BID 05/26/18 09/11/18 History [Entresto (NF)] Torsemide TAB* [Demadex 20 MG*] 10 mg PO DAILY 05/26/18 09/11/18 History Polyethylene Glycol 3350* 17 gm PO DAILY packet 06/02/18 09/11/18 Rx [Miralax*] oxyCODONE TAB* [Roxycodone TAB 5 5 mg PO Q4H PRN #90 tab MDD 30 mg 07/08/18 Rx mg*] Acetaminophen [Acetaminophen Extra 500 mg PO Q6HR PRN 08/08/18 09/11/18 History Strength] Albuterol HFA INHALER* [Ventolin 2 puff INH Q4H PRN 08/08/18 09/11/18 History HFA Inhaler*] Albuterol/Ipratropium NEB.MELINDA* 1 neb INH Q4H PRN 08/08/18 09/11/18 History [Duoneb (Albuterol 2.5 MG/Ipratropium 0.5 MG)] Clotrimazole/Betamethasone* 1 applic TOPICAL BID 08/08/18 09/11/18 History [Lotrisone Cream*] Fluticasone-Salmeterol 500-50* 1 puff INH BID 08/08/18 09/11/18 History [Advair Diskus 500-50*] Metoprolol Succinate XL TAB* 25 mg PO DAILY 08/08/18 09/11/18 History [Toprol XL TAB*] Nitroglycerin TAB 0.4 MG* 0.4 mg SL Q5M PRN 08/08/18 09/11/18 History Pembrolizumab [Keytruda] 200 mg IV Q21D 08/08/18 09/11/18 History Simethicone TAB* [Mylicon TAB*] 125 mg PO QID PRN 08/08/18 09/11/18 History Tiotropium [place] [Spiriva 8 gm INH DAILY 08/08/18 09/11/18 History Respimat] Warfarin TAB(*) [Coumadin TAB(*)] 3 mg PO MOTUWETHSA 08/08/18 09/11/18 History Warfarin TAB(*) [Coumadin TAB(*)] 5 mg PO SUFR 08/08/18 09/11/18 History guaiFENesin ER TAB [Mucinex*] 1,200 mg PO BID 08/08/18 09/11/18 History LORazepam [Lorazepam] 0.5 mg PO Q6H PRN 09/11/18 09/11/18 History predniSONE TAB* [Deltasone 20 MG 20 mg PO DAILY 09/11/18 09/11/18 History TAB*] - History of Current Complaint Chief Complaint: EDChestPainROMI Hx Obtained From: Patient Onset/Duration: Started Hours Ago - 12:30 today 09/11/18, Still Present Time of Onset: 12:30 - today, 09/11/18 Timing: Constant Initial Severity: Moderate Current Severity: Moderate Pain Intensity: 4 Pain Scale Used: 0-10 Numeric Chest Pain Location: Mid Sternal Chest Pain Radiates: No Character: Tightness Aggravating Factor(s): Nothing Alleviating Factor(s): Nothing Associated Signs and Symptoms: Positive: Chest Pain, Headaches, Numbness - right leg, Shortness of Breath, Lightheadedness, Diaphoresis - Additional Pertinent History Primary Care Physician: [id number] - Allergy/Home Medications Allergies/Adverse Reactions: Allergies Allergy/AdvReac Type Severity Reaction Status Date / Time diltiazem Allergy See Comment Verified 09/11/18 14:20 theophylline Allergy See Comment Verified 09/11/18 14:20 verapamil Allergy See Comment Verified 09/11/18 14:20 Home Medications: Home Medications LORazepam [Lorazepam] 0.5 mg PO Q6H PRN 09/11/18 [History Confirmed 09/11/18] PMH/Surg Hx/FS Hx/Imm Hx Previously Healthy: No Endocrine/Hematology History: Reports: Hx Anticoagulant Therapy - Coumadin Denies: Hx Diabetes, Hx Thyroid Disease Cardiovascular History: Reports: Hx Angina, Hx Atrial Fibrillation, Hx Auto Implanted Cardiovert Defib, Hx Congestive Heart Failure, Hx Coronary Artery Disease, Hx Hypertension, Hx Myocardial Infarction, Hx Pacemaker/ICD - [facility] - NOT MR CONDITIONAL, Hx Rheumatic Fever, Hx Valvular Heart Disease, Other Cardiovascular Problems/Disorders - BYPASS Respiratory History: Reports: Hx Chronic Obstructive Pulmonary Disease (COPD), Hx Pneumonia Denies: Hx Asthma GI History: Denies: Hx Ulcer History: Denies: Hx Dialysis, Hx Renal Disease Musculoskeletal History: Reports: Hx Arthritis Sensory History: Reports: Hx Contacts or Glasses, Hx Hearing Problem Denies: Hx Hearing Aid Opthamlomology History: Reports: Hx Contacts or Glasses - Cancer History Cancer Type, Location and Year: METASTATIC MELANOMA - Surgical History Surgery Procedure, Year, and Place: A-FIB, HEART VALVE REPLACEMENT,. [facility] - NOT MR CONDITIONAL----PACEMAKER/DEFIBRILLATOR (2 - 2007 & CHANDED 2014 - ALL PAPERWORK SCANNED INTO [employer] UNDER OTHER FACILTY REPORTS - DR CECIL WAGONER). AICD Hx Anesthesia Reactions: No - Immunization History Date of Tetanus Vaccine: UTD per pt Date of Influenza Vaccine: Fall 2017 Infectious Disease History: No Infectious Disease History: Denies: Hx Hepatitis, Hx Human Immunodeficiency Virus (HIV), Traveled Outside the [place] in Last 30 Days - Family History Known Family History: Positive: Cardiac Disease - Social History Alcohol Use: None Hx Substance Use: No Substance Use Type: Reports: None Hx Tobacco Use: Yes Smoking Status (MU): Former Smoker Type: Cigarettes Review of Systems Positive: Skin Diaphoresis Positive: Other - feels like someone is squeezing his throat and taking his air away Positive: Other - chest tightness Positive: Shortness Of Breath Gastrointestinal: Negative Positive: no symptoms reported Musculoskeletal: Negative Skin: Negative Neurological: Other - lightheadedness, right leg numbness Positive: Headache Psychological: Normal All Other Systems Reviewed And Are Negative: Yes Physical Exam - Summary Physical Exam Summary: Appearance: Ill-appearing, moderate pain distress, well-nourished, he is wearing 2L nasal cannula of O2 Skin: Warm, color reflects adequate perfusion, diaphoretic Head: Normal Head/Face inspection, atraumatic Eyes: Conjunctiva clear ENT: Normal inspection Neck: Supple, no nodes, no JVD Respiratory: Lungs clear, normal breath sounds, no respiratory distress, he is wearing 2L nasal cannula of O2 Cardio: RRR, No murmur, pulses normal, brisk capillary refill, pacemaker in the left anterior chest Abdomen: Soft, nontender, no masses, nondistended Bowel sounds: Present Musculoskeletal: Strength Intact/ROM intact, no calf tenderness, no edema. Psychological: Normal Neuro: Alert, muscle tone normal, no focal deficit Triage Information Reviewed: Yes Vital Signs On Initial Exam: Initial Vitals Temp Pulse Resp BP Pulse Ox 99.5 F 70 18 100/51 92 09/11/18 13:40 09/11/18 13:40 09/11/18 13:40 09/11/18 13:40 09/11/18 13:40 Vital Signs Reviewed: Yes Diagnostics - Vital Signs Vital Signs Temp Pulse Resp BP Pulse Ox 09/11/18 13:40 99.5 F 70 18 100/51 92 - Laboratory Result Diagrams: 09/11/18 13:58 09/12/18 05:38 Lab Statement: Any lab studies that have been ordered have been reviewed, and results considered in the medical decision making process. - Radiology CXR Radiology Interpretation Completed By: Radiologist Summary of Radiographic Findings: CXR shows: Stigmata of chronic obstructive pulmonary disease and pulmonary arterial hypertension without appreciable superimposed acute cardiopulmonary process. ED physician has reviewed this report. - EKG 1353 Cardiac Rate: Other Rate - 100% paced Summary of EKG Findings: This is a 100% paced EKG taken at 13:53. ED MD has reviewed and interpreted this EKG. 1652 EKG Comparison: Other - No change compared to 13:53 1653 Cardiac Rate: NL - 70 BPM EKG Rhythm: Sinus Rhythm EKG Comparison: Other - No change compared to 13:53 09/11/18 Summary of EKG Findings: This is a 100% paced EKG taken at 13:53. ED MD has reviewed and interpreted this EKG. Re-Evaluation - Re-Evaluation First Eval Re-Evaluation Time: 16:20 Change: Improved Comment: Patient has right arm pain. Chest tightness has resolved. 2nd re-eval Re-Evaluation Time: 18:02 Change: Unchanged Comment: Vital signs: 73bpm, SaO2 95% on 2L nasal cannula, BP 87/43, and 18 respirations per minute. The chest pressure is still present, and he is slightly short of breath and requests a nebulizer tx. Chest Pain Course/Dx - Course Course Of Treatment: 78 yo M with hx AZ presents with throat and chest tightness , unrelieved by NTG. Pt wears O2 2L continuously, and is placed on this at triage. Patient medications reviewed this visit. Nurses notes reviewed. Allergies noted. High blood pressure noted. An EKG reveals a 100% paced EKG taken at 13:53. CXR shows: Stigmata of chronic obstructive pulmonary disease and pulmonary arterial hypertension without appreciable superimposed acute cardiopulmonary process. Test results with no significant abnormalities except for Hgb 11.7, Hct 36, INR 3.24 (slightly supratherapeutic). Troponin I 0.02 at 15:59. Troponin I 0.03 at 19:59. In the ED course, the patient was given aspirin 81 mg x4, and Tylenol [address] Barth, hospitalist, agrees to admit the patient at 16:50 based on current and past hx. The patient will be admitted to the hospitalist. The patient understands and is agreeable to this admission plan. Re-eval at 1802 shows: Vital signs: 73bpm, SaO2 95% on 2L nasal cannula, BP 87/43, and 18 respirations per minute. The chest pressure is still present, and he is slightly short of breath and requests a nebulizer tx. - Chest Pain Differential Diagnosis/HQI/PQRI: Acute AZ, ACS, Angina, CHF, Lower Respiratory Infection, Pulmonary Embolism - Diagnoses Provider Diagnoses: Unstable angina, COPD (chronic obstructive pulmonary disease) - Provider Notifications Discussed Care Of Patient With: Basia Barth Time Discussed With Above Provider: 16:50 Instructed by Provider To: Other - Dr. Barth, hospitalist, agrees to admit the patient. - Critical Care Time Critical Care Time: 30-74 min - 30 minutes Discharge - Sign-Out/Discharge Documenting (check all that apply): Patient Departure - Admit Patient Received Moderate/Deep Sedation with Procedure: No - Discharge Plan Condition: Guarded Disposition: ADMITTED TO [facility] - Billing Disposition and Condition Condition: GUARDED Disposition: Admitted to [facility] - Attestation Statements Document Initiated by Scribe: Yes Documenting Scribe: Yael Aguilera Provider For Whom Claudine is Documenting (Include Credential): Della Gotti MD Scribe Attestation: Yael Cain, scribed for Della Gotti MD on 09/13/18 at 2004. Scribe Documentation Reviewed: Yes Provider Attestation: The documentation as recorded by the scribYael fernando accurately reflects the service I personally performed and the decisions made by me, Della Gotti MD Status of Scribe Document: Viewed
[2018-09-11 14:07] LABS: ABS Basophils 0.1 10^3/ul (0-0.2); ABS Eosinophils 0.2 10^3/ul (0-0.6); ABS Lymphocytes 1.1 10^3/ul (1.0-4.8); ABS Monocytes 1.1 10^3/ul (0-0.8); ABS Neutrophils 8.4 10^3/ul (1.5-7.7); Eosinophil % 2.3 %; Hematocrit 36 % (42-52); Hemoglobin 11.7 g/dL (14.0-18.0); Lymphocyte % 9.8 %; Mean Corpuscular HGB Conc 32 g/dL (31-36); Mean Corpuscular Hemoglobin 30 pg (27-31); Mean Corpuscular Volume 92 fL (80-94); Platelet Count 287 10^3/uL (150-450); Red Blood Count 3.96 10^6 /uL (4.18-5.48); Red Cell Distribution Width 15 % (10-15); White Blood Count 10.8 10^3/uL (3.5-10.8)
[2018-09-11 14:11] LABS: INR 3.24 (0.82-1.09)
[2018-09-11 14:24] LABS: Albumin 3.8 g/dL (3.2-5.2); Albumin/Globulin Ratio 1.2 (1-3); BUN/Creatinine Ratio 19.1 (8-20); Calcium 9.3 mg/dL (8.6-10.3); EGFR African American 93.9 (>60); EGFR Non-African American 77.6 (>60); Globulin 3.1 g/dL (2-4); Potassium 4.5 mmol/L (3.5-5.0); Total Bilirubin 0.7 mg/dL (0.2-1.0); Total Protein 6.9 g/dL (6.4-8.9)
[2018-09-11 14:26] LABS: Troponin I 0.02 ng/mL (<0.04)
[2018-09-11] MEDS ORDERED: Aspirin 81 mg CHEW TAB* 81 MG TAB.CHEW PO ONE (16:11)
[2018-09-11] MEDS ORDERED: Acetaminophen TAB* 325 MG PO ONE (17:11)
[2018-09-11] MEDS ORDERED: Simethicone TAB* 80 MG TAB.CHEW PO PRN (19:02)
[2018-09-11] MEDS ORDERED: Albuterol/Ipratropium NEB.SOL* Albuterol 2.5 MG/Ipratropium 0.5 MG 3 ML INH PRN (19:02)
[2018-09-11] MEDS ORDERED: Albuterol HFA INHALER* 8 gm MDI INH PRN (19:02)
[2018-09-11] MEDS ORDERED: Nitroglycerin TAB 0.4 MG* 0.4 MG TAB SL PRN (19:02)
[2018-09-11] MEDS ORDERED: LORazepam TAB(*) 0.5 MG PO PRN (19:02)
[2018-09-11] MEDS ORDERED: Ondansetron INJ* 2 MG/ML VIAL IV PRN (19:08)
[2018-09-11] MEDS ORDERED: Warfarin TAB(*) 5 MG PO SCH (20:00)
--- NOTE | 2018-09-11 20:34 | HP ---
CC: Dr. Ruth; Dr. Bermudez * [facility] MEDICINE HISTORY AND PHYSICAL: DATE OF ADMISSION: 09/11/18 PRIMARY CARE PHYSICIAN: Dr. Ruth. ONCOLOGIST: Dr. Bermudez. SPOT REMOVER: Dr. Andino. ATTENDING PHYSICIAN: Dr. Luis Miguel Giles * (dictation provided by Lily Mullen NP). CHIEF COMPLAINT: Chest pain. HISTORY OF PRESENT ILLNESS: Mr. Huber is a 78-year-old male with multiple medical problems including COPD with chronic hypoxic respiratory failure; on 2 L nasal cannula at home, chronic systolic congestive heart failure with ejection fraction of 20% to 25%, history of CABG, history of AFib; on anticoagulation, history of rheumatic fever; mechanical aortic and mitral valve replacements as well as a metastatic melanoma; currently in the midst of treatment who presents today to the hospital with concern for chest pain. Mr. Huber states he was in his normal state of health when he woke up this morning. He was getting in the car to drive toward [facility], where he was going to meet family, when he suddenly developed tightness in his throat. He had pain in his neck. This began to radiate down into his chest and felt like a heaviness and then it was hard for him to catch his breath. He debated with his family on whether or not he should come into the hospital, but ultimately decided to come in when these symptoms did not thi. He also associated the symptoms of tingling in his right leg. By the time he got to the hospital, he was feeling a little bit better. Persistent symptoms are a little bit of blurry vision, a headache, and some right arm pain. Mr. Huber states overall he is feeling better and he does deny chest pain. He denies any other symptoms. He has had no nausea, vomiting, diarrhea, or abdominal pain. In the emergency room, Mr. Huber has had 2 troponins, the first was 0.02 and the second was 0.03. An EKG which showed AFib and V-paced. Rest of his labs were unremarkable. PAST MEDICAL HISTORY: 1. COPD with chronic hypoxic respiratory failure, on 2 L nasal cannula. 2. History of metastatic melanoma. 3. Rheumatic heart disease, status post mechanical aortic and mitral valves, on warfarin. 4. Coronary artery disease, status post CABG in 1995 and stent to LAD in 2009. 5. Ischemic cardiomyopathy with chronic systolic congestive heart failure with ejection fraction of 20% to 25%. 6. History of nonsustained V-tach with history of pacemaker defibrillator. 7. Obstructive sleep apnea. 8. Carotid stenosis. 9. Deep vein thrombosis. 10. Benign prostatic hyperplasia. 11. 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 MEDICATIONS: The patient was unable to corroborate his complete medication list as it is complex. He states that he had no medication changes since his previous discharge. At that time, his medications are as follows: 1. Warfarin 5 mg p.o. Wednesday and Wednesday. 2. Warfarin 3 mg Wednesday, Wednesday, Wednesday, , and Wednesday. 3. Torsemide 10 mg p.o. daily. 4. Spiriva inhaled daily. 5. Simethicone 125 mg p.o. 4 times a day p.r.n. for constipation. 6. Entresto 1 tab p.o. b.i.d. 7. MiraLAX 17 g p.o. daily. 8. Keytruda 200 mg IV q.21 days (the patient states he has not had this for at least 2 months). 9. Oxycodone 5 mg q.6 hours p.r.n. 10. Nitroglycerin 0.4 mg sublingually as needed. 11. Multivitamin tab. 12. Mucinex 1200 mg p.o. b.i.d. 13. Metoprolol succinate 50 mg p.o. daily. 14. Advair 1 puff inhaled b.i.d. 15. Eplerenone 25 mg p.o. daily. 16. Lotrisone cream 1 application topical b.i.d. 17. Azithromycin 250 mg p.o. 3 times a week. 18. Atorvastatin 40 mg p.o. daily. 19. Aspirin 81 mg p.o. daily. 20. DuoNeb inhaled q.4 hours p.r.n. for shortness of breath. 21. Albuterol inhaler as needed. 22. Tylenol p.r.n. for pain. 23. Clotrimazole 1 application topically b.i.d. The staff here in the ED did review the list that was provided by [facility]. Prednisone is listed there, but I am not continuing that at this point. It is unclear whether or not he is taking this, but we will need to follow up with the patient's primary care physician in order to verify his complete and correct list. ALLERGIES: DILTIAZEM, THEOPHYLLINE, and VERAPAMIL. FAMILY HISTORY: The patient reports that his mother related to old age and father related to bone cancer. SOCIAL HISTORY: The patient is a former smoker, but he quit 30 years ago. He drinks alcohol very occasionally. No reported drug use. He states his daughter will be the healthcare proxy. REVIEW OF SYSTEMS: A 14-point review of systems was completed with the patient and all those not mentioned above were negative. PHYSICAL EXAMINATION GENERAL: Mr. Huber is sitting on the bed. He is in no acute distress. VITAL SIGNS: Temperature 98.0, pulse rate 70, respiratory rate 17, O2 saturation 96% on room air, blood pressure 87/43. LUNGS: Clear to auscultation bilaterally with no accessory muscle use and good aeration. HEART: No murmur, rub, or gallop. Mechanical S1, S2. ABDOMEN: Soft, nontender with bowel sounds positive x4. EXTREMITIES: No cyanosis or edema. NEURO: He is alert. He is oriented x3. He moves all extremities equally. There is no facial asymmetry or focal weakness. Extraocular movements are intact. SKIN: Intact. DIAGNOSTIC STUDIES/LAB DATA: Labs: WBC 10.8, hemoglobin 11.7, hematocrit 36, platelet count 287. INR 3.24. Sodium 137, potassium 4.5, chloride 101, serum bicarbonate 33, BUN 18, creatinine 0.94, glucose 96. Troponin 0.02 and then followed by 0.03. The EKG shows AFib flutter and was V-paced as well. Chest x-ray, stigmata of COPD and pulmonary arterial hypertension without appreciable superimposed acute cardiopulmonary process. ASSESSMENT AND PLAN: Mr. Huber is a 78-year-old male with a complicated past medical history including chronic hypoxic respiratory failure; on 2 L nasal cannula at home, chronic obstructive pulmonary disease, systolic congestive heart failure with ejection fraction of 20% to 25%, coronary artery disease with coronary artery bypass grafting and mechanical aortic and mitral valves who presents today to the hospital with concern for chest pain. Our plans are for observation in the hospital for the followin. Chest pain: I have reviewed the case with Dr. Lau over the phone. He has recommended that we continue to cycle troponins and that the patient should have a nuclear cardiac stress test tomorrow. I put in a consultation with Dr. Clark, who will be following up. At this time, he is chest pain free, although he has some lingering symptoms of a headache and some blurry vision. I suspect this is related to nitroglycerin. He will have Tylenol available p.r.n. He will be monitored on the telemetry unit. He will have aspirin. He has multiple cardiac medications. I do note that his blood pressure is quite low, but I know it has been that way in the past. Plan to hold his blood pressure medications for blood pressure less than 95, but otherwise, we will continue those. The patient has no evidence of acute congestive heart failure exacerbation. There is no evidence of chronic obstructive pulmonary disease and no evidence of pneumonia. He is therapeutic on his INR, so there is no evidence for a pulmonary embolism. 2. Hypotension. The patient's blood pressure is relatively low. In looking back at previous hospitalization, he had some low blood pressures there as well. I think this is chronic for him, but we will monitor closely and hold medications if necessary. 3. Hyperlipidemia. Continue atorvastatin. 4. Chronic obstructive pulmonary disease. Continue home medications. 5. Anxiety. Continue lorazepam. 6. Mechanical aortic and mitral valves as well as atrial fibrillation. Continue warfarin as INR is therapeutic at 3.24. TIME SPENT: Approximately 75 minutes were spent on the admission of this patient. More than half the time was spent with the patient at the bedside reviewing the events leading up to this hospitalization, performing the physical examination, and reviewing my plan of care. LILY MULLEN NP [id number]/[facility] #: [id number] STEVE
[2018-09-11] MEDS: guaiFENesin ER TAB 600 MG PO SCH (20:40)
[2018-09-11] MEDS ORDERED: Sacubitril/Valsartan 24/26(NF) 1 TAB PO ONE (21:00)
[2018-09-11] MEDS ORDERED: Sacubitril/Valsartan 24/26(NF) 1 TAB PO SCH (21:00)
[2018-09-11] MEDS: oxyCODONE TAB* 5 MG TAB PO PRN (22:48)
[2018-09-11] MEDS: Mometasone/Formoter 200/5 MDI INH SCH (22:51)
[2018-09-12] MEDS ORDERED: Magnesium Sulfate 1 GM IV* 1 GM/100 ML BAG IV ONE (00:52)
--- NOTE | 2018-09-12 00:55 | PN ---
Progress Note - Progress Note Date of Service: 09/12/18 Note: Pt had an asymptomatic run of 27 beats of V. tach. Echo , Mg level and BMP ordered for aM
[2018-09-12 06:20] LABS: INR 3.11 (0.82-1.09)
[2018-09-12] MEDS ORDERED: Tiotropium CAP.INH* CAP.INH/18 MCG (USE ORDER SET !) INH ONE (06:56)
[2018-09-12] MEDS: Mometasone/Formoter 200/5 MDI INH SCH ×2 (07:11→19:24)
[2018-09-12] MEDS: Tiotropium CAP.INH* CAP.INH/18 MCG (USE ORDER SET !) INH SCH (07:35)
[2018-09-12] MEDS: SACUBITRIL PO SCH ×2 (08:02→21:32)
[2018-09-12] MEDS: VALSARTAN PO SCH ×2 (08:02→21:32)
[2018-09-12] MEDS: Torsemide TAB 10 MG PO SCH (08:02)
[2018-09-12] MEDS: Metoprolol Succinate XL TAB* 25 MG PO SCH (08:02)
[2018-09-12 08:18] LABS: BUN/Creatinine Ratio 20.8 (8-20); Calcium 8.5 mg/dL (8.6-10.3); EGFR African American 91.7 (>60); EGFR Non-African American 75.8 (>60); Magnesium 2.3 mg/dL (1.9-2.7)
[2018-09-12] MEDS ORDERED: Spiriva Inhaler DEVICE* 1 EACH DEVICE INH ONE (09:00)
[2018-09-12] MEDS ORDERED: Metoprolol Succinate XL TAB* 50 MG PO SCH (09:00)
[2018-09-12] MEDS: Acetaminophen TAB* 325 MG PO PRN ×2 (09:00→21:31)
[2018-09-12] MEDS ORDERED: predniSONE TAB* 20 MG PO SCH (09:00)
[2018-09-12] MEDS: Atorvastatin* 40 MG TAB PO SCH (09:02)
[2018-09-12] MEDS: Aspirin EC TAB* 81 MG TAB.EC PO SCH (09:02)
[2018-09-12] MEDS: guaiFENesin ER TAB 600 MG PO SCH ×2 (09:02→21:32)
[2018-09-12] MEDS: Multivitamins/Minerals TAB PO SCH (09:03)
[2018-09-12] MEDS: oxyCODONE TAB* 5 MG TAB PO PRN ×2 (12:21→18:37)
[2018-09-12] MEDS: Polyethylene Glycol 3350* 17 GM PACKET PO SCH (12:22)
[2018-09-12] MEDS ORDERED: Regadenoson* 0.4 MG/5 ML SYRINGE ONE (13:19)
[2018-09-12] MEDS ORDERED: Warfarin TAB(*) 3 MG PO SCH (17:00)
--- NOTE | 2018-09-12 17:37 | CONS ---
CC: Dr. Andino, Cardiology, [facility] * CARDIOLOGY CONSULTATION: DATE OF CONSULT: 09/12/18 INDICATION FOR CONSULTATION: Atypical chest pain. HISTORY OF PRESENT ILLNESS: The patient is a 78-year-old gentleman with a history of coronary artery disease, history of ischemic cardiomyopathy, history of ICD implantation, who was admitted to the hospital with chest pain. The patient described it as slight discomfort in the anterior chest that radiated up into the back of his right neck. He said when he moved his neck around, it made the discomfort better. He said he was sleeping poorly for the past 2 nights and thought he had muscle strain in the back of his neck. He wanted to check it out and came to the emergency room. The patient was admitted to the hospital for rule out myocardial infarction. The patient's troponin levels were unremarkable. The patient did have a chemical nuclear stress test today, which demonstrated a large area of infarct to his inferior, inferolateral and apical schrader. No evidence of reversible ischemia, this is all a large infarct. His calculated ejection fraction was 30% with distal inferior wall, lateral wall and apical wall akinesis. His TID was normal at 0.99, again no evidence of ischemia were present. The patient's troponin levels were negative. In speaking with the patient today, his discomfort was all gone. He has no specific complaints. PAST MEDICAL HISTORY: Significant for COPD, metastatic melanoma, rheumatic heart disease with mechanical and aortic valve replacements in the past, coronary artery bypass surgery in 2009, history of nonsustained VT with an ICD implant, sleep apnea, DVT. OUTPATIENT MEDICATIONS: 1. Coumadin as directed. 2. Torsemide 10 mg a day. 3. Spiriva inhaler. 4. Entresto 1 tablet b.i.d. 5. Keytruda as directed for lung cancer. 6. Oxycodone. 7. Multivitamin a day. 8. Metoprolol succinate 50 mg a day. 9. Advair inhaler. 10. Eplerenone 25 mg a day. 11. Atorvastatin 40 mg a day. 12. Aspirin 81 mg a day. 13. Albuterol inhaler. 14. Tylenol p.r.n. ALLERGIES: DILTIAZEM and THEOPHYLLINE. FAMILY HISTORY: The patient reports his mother of natural causes. Father of lung cancer. SOCIAL HISTORY: He is a previous smoker, he quit 30 years ago. Denies tobacco or alcohol use. He lives with his daughter. REVIEW OF SYSTEMS: Negative for fevers and chills. Negative for changes in bowel or bladder habits. Negative for change in weight. Other 12-point review is unremarkable. PHYSICAL EXAM: Height is 6 feet, weight is 148 pounds. Temperature 97.9, heart rate is 70, blood pressure 89/45, which is his baseline. Oxygen saturation 99% on 3 L. Sclerae anicteric. Oropharynx is pink without erythema. Carotids are 2+ without bruits. JVD is normal. Thyroid is normal. Cardiac exam: Mechanical S1, mechanical S2 with a 2/6 systolic ejection murmur. No diastolic murmur. PMI is normal. Lungs are clear to auscultation bilaterally. There is no dullness to percussion. Extremities: Show no edema. He has 2+ pulses throughout. The patient is awake, alert and oriented. DIAGNOSTIC STUDIES/LAB DATA: The patient did have an echocardiogram on that demonstrated ejection fraction of 25% to 30%. Mechanical aortic and mitral valves which are functioning normally. CBC within normal limits. Chemistries within normal limits. Troponins are negative x3. AST and ALT are normal. IMPRESSION: The patient is a 78-year-old gentleman who was admitted to the hospital with atypical chest pain. The patient does have an extensive cardiac history including coronary artery bypass surgery, history of stenting, history of ICD implantation. At this point, I am not exactly sure what the cause of this chest discomfort was. I do not think it was an ischemic event. The patient will follow up with Dr. Andino at [facility]. [id number]/[facility] #: [id number] [facility]
[2018-09-12] MEDS ORDERED: Iohexol 300* (CONTRAST) 10 ML SDV IV ONE (17:40)
--- NOTE | 2018-09-12 19:55 | PN ---
Subjective Date of Service: 09/12/18 Interval History: HOSPITALIST PROGRESS NOTE Patient seen and examined at bedside. Care reviewed and d/w Jewell Diaz RN. He feels better today. Had an episode of 27 beats of Vtach overnight, asymptomatic. Neck pressure and dyspnea are resolved, but he complains of RLE numbness since admission, not associated with weakness. Also c/o right sided back pain, that's worse now. Family History: Unchanged from Admission Social History: Unchanged from Admission Past Medical History: Unchanged from Admission Objective Active Medications: Acetaminophen (Tylenol Tab*) 650 mg PO Q6H PRN PRN Reason: PAIN Last Admin: 09/12/18 09:00 Dose: 650 mg Albuterol (Ventolin Hfa Inhaler*) 2 puff INH Q4H PRN PRN Reason: SOB/WHEEZING Last Admin: 09/11/18 22:54 Dose: 2 puff Albuterol/Ipratropium (Duoneb (Albuterol 2.5 Mg/Ipratropium 0.5 Mg)) 1 neb INH Q4H PRN PRN Reason: WHEEZING Aspirin (Aspirin Ec Tab*) 81 mg PO DAILY [facility] Last Admin: 09/12/18 09:02 Dose: 81 mg Atorvastatin Calcium (Lipitor*) 40 mg PO DAILY [facility] Last Admin: 09/12/18 09:02 Dose: 40 mg Guaifenesin (Mucinex*) 1,200 mg PO BID [facility] Last Admin: 09/12/18 09:02 Dose: 1,200 mg Lorazepam (Ativan Tab(*)) 0.5 mg PO Q6H PRN PRN Reason: ANXIETY Metoprolol Succinate (Toprol Xl Tab*) 25 mg PO DAILY [facility] Last Admin: 09/12/18 08:02 Dose: Not Given Mometasone Furoate/Formoterol Fumar (Dulera 200/5 Mdi*) 1 puff INH BID [facility] Last Admin: 09/12/18 19:24 Dose: 1 puff Multivitamins/Minerals (Theragran/Minerals Tab*) 1 tab PO DAILY [facility] Last Admin: 09/12/18 09:03 Dose: 1 tab Nitroglycerin (Nitroglycerin Tab 0.4 Mg*) 0.4 mg SL Q5M PRN PRN Reason: PAIN - CHEST Ondansetron HCl (Zofran Inj*) 4 mg IV Q6H PRN PRN Reason: NAUSEA Oxycodone HCl (Roxycodone Tab*) 5 mg PO Q4H PRN PRN Reason: PAIN Last Admin: 09/12/18 18:37 Dose: 5 mg Pharmacy Profile Note (Coumadin Daily Reminder*) 1 note FOLLOW UP 1700 [facility] Last Admin: 09/12/18 18:38 Dose: 1 note Polyethylene Glycol/Electrolytes (Miralax*) 17 gm PO DAILY [facility] Last Admin: 09/12/18 12:22 Dose: 17 gm Sacubitril/Valsartan (Entresto (Nf)) 1 tab PO BID [facility] Last Admin: 09/12/18 08:02 Dose: Not Given Simethicone (Mylicon Tab*) 80 mg PO QID PRN PRN Reason: INDIGESTION Tiotropium [place] (Spiriva Cap.Inh*) 1 cap INH DAILY [facility] Last Admin: 09/12/18 07:35 Dose: Not Given Torsemide (Torsemide) 10 mg PO DAILY [facility] Last Admin: 09/12/18 08:02 Dose: Not Given Warfarin Sodium (Coumadin Tab(*)) 3 mg PO MoTuWeThSa@1700 [facility]; Protocol Last Admin: 09/12/18 17:32 Dose: 3 mg Warfarin Sodium (Coumadin Tab(*)) 5 mg PO SuFr@1700 [facility]; Protocol Last Admin: 09/11/18 20:40 Dose: 5 mg Vital Signs - 8 hr 09/12/18 09/12/18 09/12/18 12:21 16:47 18:37 Pulse Rate Respiratory 16 16 16 Rate O2 Sat by Pulse Oximetry 09/12/18 19:24 Pulse Rate 70 Respiratory 20 Rate O2 Sat by Pulse 92 Oximetry Oxygen Devices in Use Now: Nasal Cannula - 2 liters Appearance: Elderly gentleman sitting up in bed in [facility]. Eyes: No Scleral Icterus Ears/Nose/Mouth/Throat: Mucous Membranes Moist Neck: Trachea Midline Respiratory: Symmetrical Chest Expansion and Respiratory Effort, - - BS+ bilaterally diminished, no added sounds Cardiovascular: RRR - Normal S1 and S2 Abdominal: NL Sounds; No Tenderness; No Distention Extremities: No Edema Neurological: Alert and Oriented x 3, - - Decreased sensation on RLE from knee down Result Diagrams: 09/11/18 13:58 09/12/18 05:38 Assess/Plan/Problems-Billing Assessment: Mr Huber is a 78yo M with PMH of COPD on home O2, metastatic melanoma, rheumatic heart disease s/p mechanical aortic and mitral valve replacements on chronic anticoagulation with Warfarin, CAD s/p CABG and stent, ischemic CMP with EF 20-25%, non sustained Vtach s/p pacer/ICD, SAL, carotid stenosis, DVT, BPH, GI bleed secondary to AVM; who presented to ED with c/o dyspnea and neck pressure. - Patient Problems (1) CAD (coronary artery disease) Comment: - Patient has known complex cardiac history. - Stress test showed a large infarct involving the apex and inferior schrader without evidence for ischemia. - Cardiology input appreciated - unclear what caused his discomfort, but Dr Clark doesn't think it was an ischemic event. Recommended continuation of current medications and f/u with Dr Andino. (2) Right leg numbness Comment: - No focal weakness, but has sensory loss. - H/o melanoma with bone mets - will check CT brain/spine to look for mets causing his symptoms. - Neuro checks. - Cannot have MRI due to pacer/ICD. (3) V-tach Comment: - Asymptomatic. - Continue Metoprolol. (4) COPD (chronic obstructive pulmonary disease) Comment: - Stable. - Continue Mometasone/Formoterol, Spiriva, supplemental O2. (5) DVT prophylaxis Comment: - Warfarin. - Therapeutic INR (6) Full code status Status and Disposition: OBV.
[2018-09-13] MEDS: oxyCODONE TAB* 5 MG TAB PO PRN ×2 (04:19→10:15)
[2018-09-13] MEDS: VALSARTAN PO SCH (08:18)
[2018-09-13] MEDS: SACUBITRIL PO SCH (08:18)
[2018-09-13] MEDS: Atorvastatin* 40 MG TAB PO SCH (08:20)
[2018-09-13] MEDS: guaiFENesin ER TAB 600 MG PO SCH (08:20)
[2018-09-13] MEDS: Torsemide TAB 10 MG PO SCH (08:20)
[2018-09-13] MEDS: Multivitamins/Minerals TAB PO SCH (08:20)
[2018-09-13] MEDS: Polyethylene Glycol 3350* 17 GM PACKET PO SCH (08:20)
[2018-09-13] MEDS: Metoprolol Succinate XL TAB* 25 MG PO SCH (08:20)
[2018-09-13] MEDS: Aspirin EC TAB* 81 MG TAB.EC PO SCH (08:20)
[2018-09-13] MEDS: Mometasone/Formoter 200/5 MDI INH SCH (10:36)
[2018-09-13] MEDS: Tiotropium CAP.INH* CAP.INH/18 MCG (USE ORDER SET !) INH SCH (10:36)
--- NOTE | 2018-09-13 11:46 | PN ---
Progress Note - Progress Note Date of Service: 09/13/18 SOAP: Subjective: [Admitted yesterday with c/o CP. Evaluation for ACS has been negative. Stress test shows stable large infarct without new ischemia, and interestingly his EF looks improved to 35% by nuclear measurements. Mario reports over the last 2 days he has noted numbness in his R foot which is most notable in his great toe but effects the entire leg distal to the knee. He has also had increased back pain over the last couple of weeks. Most of his back pain is in the mid thoracic region. No lower back pain. Of note, he reports the numbness appears worse when he sits up and dangles his feet.] Objective: [ Acetaminophen (Tylenol Tab*) 650 mg PO Q6H PRN PRN Reason: PAIN Last Admin: 09/12/18 21:31 Dose: 650 mg Albuterol (Ventolin Hfa Inhaler*) 2 puff INH Q4H PRN PRN Reason: SOB/WHEEZING Last Admin: 09/11/18 22:54 Dose: 2 puff Albuterol/Ipratropium (Duoneb (Albuterol 2.5 Mg/Ipratropium 0.5 Mg)) 1 neb INH Q4H PRN PRN Reason: WHEEZING Aspirin (Aspirin Ec Tab*) 81 mg PO DAILY [facility] Last Admin: 09/13/18 08:20 Dose: 81 mg Atorvastatin Calcium (Lipitor*) 40 mg PO DAILY [facility] Last Admin: 09/13/18 08:20 Dose: 40 mg Guaifenesin (Mucinex*) 1,200 mg PO BID [facility] Last Admin: 09/13/18 08:20 Dose: 1,200 mg Lorazepam (Ativan Tab(*)) 0.5 mg PO Q6H PRN PRN Reason: ANXIETY Metoprolol Succinate (Toprol Xl Tab*) 25 mg PO DAILY [facility] Last Admin: 09/13/18 08:20 Dose: 25 mg Mometasone Furoate/Formoterol Fumar (Dulera 200/5 Mdi*) 1 puff INH BID [facility] Last Admin: 09/13/18 10:36 Dose: 1 puff Multivitamins/Minerals (Theragran/Minerals Tab*) 1 tab PO DAILY [facility] Last Admin: 09/13/18 08:20 Dose: 1 tab Nitroglycerin (Nitroglycerin Tab 0.4 Mg*) 0.4 mg SL Q5M PRN PRN Reason: PAIN - CHEST Ondansetron HCl (Zofran Inj*) 4 mg IV Q6H PRN PRN Reason: NAUSEA Oxycodone HCl (Roxycodone Tab*) 5 mg PO Q4H PRN PRN Reason: PAIN Last Admin: 09/13/18 10:15 Dose: 5 mg Pharmacy Profile Note (Coumadin Daily Reminder*) 1 note FOLLOW UP 1700 [facility] Last Admin: 09/12/18 18:38 Dose: 1 note Polyethylene Glycol/Electrolytes (Miralax*) 17 gm PO DAILY [facility] Last Admin: 09/13/18 08:20 Dose: 17 gm Sacubitril/Valsartan (Entresto (Nf)) 1 tab PO BID [facility] Last Admin: 09/13/18 08:18 Dose: Not Given Simethicone (Mylicon Tab*) 80 mg PO QID PRN PRN Reason: INDIGESTION Tiotropium [place] (Spiriva Cap.Inh*) 1 cap INH DAILY [facility] Last Admin: 09/13/18 10:36 Dose: 1 cap Torsemide (Torsemide) 10 mg PO DAILY [facility] Last Admin: 09/13/18 08:20 Dose: 10 mg Warfarin Sodium (Coumadin Tab(*)) 3 mg PO MoTuWeThSa@1700 [facility]; Protocol Last Admin: 09/12/18 17:32 Dose: 3 mg Warfarin Sodium (Coumadin Tab(*)) 5 mg PO SuFr@1700 [facility]; Protocol Last Admin: 09/11/18 20:40 Dose: 5 mg Vital Signs: Temp Pulse Resp BP Pulse Ox 98.5 F 70 16 101/52 90 09/13/18 08:00 09/13/18 10:37 09/13/18 10:37 09/13/18 08:00 09/13/18 10:37 Exam: Gen: chronically ill 78 yo male in NAD HEENT: MMM CV: RRR, no m/r/g Resp: decreased BS diffusely, no w/c/r Abd: soft, mild TTP Ext: no edema, 1+ dorsalis pedis pulse, difficult to assess posterior tibial, cap refill mildly delayed but symmetric Spine: TTP over midline of the mid thoracic region Skin: no concerning rashes or lesions] Assessment: [This is a 78 yo male with metastatic melanoma and severe COPD and ischemic cardiomyopathy admitted with c/o CP and RLE numbness. CT brain shows no acute disease. CT C/A/P shows stable RUL lung nodule, but there appears to be a new T7 compression fx. No obvious cord compression or lytic lesion. MRI would be most helpful to differentiate between pathologic and osteoporotic fxs, but he has a pacemaker that interferes with this. Since there is no way to differentiate between these processes further it makes the most sense to treat this as a symptomatic pathologic fracture. Regarding the RLE numbness it is difficult to connect his T7 compression fx to RLE numbness. No obvious lumbar or obstructive pelvic pathology. Could consider vascular pathology, but he has an intact dorsalis pedis pulse and skin is warm. Neurology consultation is pending. Plan: [1. T7/8 compression fx - T7 appears new when compared to imaging from June 2018 - symptomatic with c/o pain and TTP - recommend we treat this has a pathologic fx and pursue palliative RT to the area - reviewed this with pt and he is agreeable - pain appears manageable and there is no cord compromise, RT can be initiated on an outpatient basis - Dr Aldridge is out of the office today, but consultation appt was made on patient's behalf for next week (09/21 at 2:30p) 2. RLE numbness - pending neurologic consult - brain CT neg for obvious pathology - unlikely to be related to pathology at thoracic level 3. Metastatic melanoma - pending PET for tomorrow - treatment has been intermittent due to multiple hospitalizations and freq need for high dose steroids for COPD treatment - hospice has been offered on several occasions, but pt is motivated to cont with treatment 4. Ischemic cardiomyopathy 5. Severe COPD Dispo: per Hospitalist. Appt for radiation oncologist, Dr Aldridge Wed 09/21 at 2: 30p. Pend PET for tomorrow, can be rescheduled if he remains in the hospital]
[2018-09-13 16:13] VITALS: BP 107/57
--- NOTE | 2018-09-13 20:53 | CONS ---
NEUROLOGY CONSULTATION REPORT: DATE OF CONSULT: 09/13/18 CONSULTING PROVIDER: Dr. Lutz. REASON FOR CONSULT: Numbness in the right leg. CHIEF COMPLAINT: Numbness of the right leg. HISTORY OF PRESENT ILLNESS: Mr. Mario Huber is a 78-year-old man with history of COPD, on chronic oxygen therapy; congestive heart failure with an ejection fraction of 20%; atrial fibrillation, on anticoagulation with therapeutic INR; history of mechanical aortic and mitral valve; and metastatic melanoma; who presented to [facility] for throat tightness, pressure sensation in the head, shortness of breath, and tingling sensation in the right leg. He was admitted for rule out cardiac related chest pain. His workup was unrevealing and the patient was getting discharged when then he started complaining of the tingling of the right leg. The patient stated that he noticed the tingling on Wednesday while he was en route [facility] The patient stated before entering the pickup truck he had no numbness or tingling sensation and then a few blocks down the road after sitting in the vehicle, he noticed a sharp tingling pain in the lateral surface of the right foot radiating upwards to the right leg. The pain does not go above the knee. He has chronic back pain, but this pain is different and does not radiate down his leg. He denied any symptoms in the upper extremities. He does cross his legs occasionally right over the left. He does sleep on the right side, which pushes on his right lateral fibula. He denied any recent travels. He denied any slurred speech. He has other nonspecific symptoms of chronic blurred vision, but he has been told that he has cataracts and needs surgery. PAST MEDICAL HISTORY: 1. COPD with chronic hypoxic respiratory failure. 2. Metastatic melanoma. 3. Rheumatic heart disease, on anticoagulation therapy 4. Coronary artery disease. 5. Ischemic cardiomyopathy with an ejection fraction for 20% to 25%. 6. History of nonsustained V-tach. 7. Obstructive sleep apnea. 8. Carotid stenosis. 9. Deep vein thrombosis. 10. Benign prostatic hyperplasia. 11. 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 MEDICATIONS: 1. Aspirin 81 mg daily. 2. Torsemide 10 mg p.o. daily. 3. Eplerenone 25 mg p.o. daily. 4. MiraLAX 17 g p.o. daily. 5. Oxycodone 5 mg p.o. every 4 hours. 6. Warfarin 5 mg p.o. daily. 7. Spiriva. 8. Mylicon. 9. Keytruda 200 mg IV every 21 days. 10. Nitroglycerin 0.4 mg sublingual as needed. 11. Guaifenesin 1200 mg p.o. b.i.d. 12. Metoprolol 25 mg p.o. daily. 13. Advair. 14. Lotrisone. 15. Albuterol/ipratropium. 16. Acetaminophen. 17. Lorazepam 0.5 mg p.o. every 6 hours as needed. 18. Prednisone 20 mg p.o. daily. FAMILY HISTORY: No family history of stroke or seizures. SOCIAL HISTORY: The patient denied any recent tobacco or alcohol use. He is a former smoker, but quit 30 years ago. REVIEW OF SYSTEMS: A 14-point review of systems was obtained and otherwise negative except for what was mentioned in the HPI. PHYSICAL EXAMINATION: Vitals: Temperature of 98.3, pulse of 70, respiratory rate of 20, oxygen saturation 96, blood pressure 107/57. General: Frail, chronically ill-appearing man in no acute distress. Head: Normocephalic, atraumatic without any obvious abnormality. Eyes: Conjunctivae/corneas are clear. Neck: Supple and symmetric with no carotid bruit. Lungs are clear to auscultation bilaterally. Cardiovascular: Click heard on the lateral chest wall. Extremities: Normal range of motion with no cyanosis. No mass lesions or cysts on the lateral knee on either side. Skin: No skin lesions or lacerations. Psych: Affect is broad and normal mood. Easy to establish rapport. Neurological Examination: Mental status: Awake, alert, and oriented to person, place, time, and general circumstance. Speech and language including expression, naming, repetition, and comprehension were assessed and found to be normal. Cranial Nerves: Normal confrontation testing bilaterally. Sensation is intact in the forehead, cheeks, and jaw region bilaterally. There is no facial droop or facial asymmetry while smiling. He is able to hear throughout the history process. Symmetrical palatal elevation. Normal strength against shoulder shrug. Tongue is symmetric and midline with no atrophy or fasciculations. Motor examination: No abnormal movements or pronator drift. Normal bulk and tone throughout. No fasciculation. Reflexes right/left: Brachioradialis 1/1, biceps 1/1, triceps 1/1, patella trace/trace, ankle trace/trace, plantar flexor/flexor. Sensation is reduced to pinprick on the lateral surface of the right leg and the dorsum of the right leg. Tinel's sign is positive over the right fibular neck. Negative Tinel's sign over the left lateral leg. There is reduced vibration at the toes. Normal proprioception. Coordination: Normal bemifm-cf-[id number] and rapid alternating movement. Gait and station wide based. No ataxia. DIAGNOSTIC STUDIES/LABORATORY DATA: His WBC was 10.8, hemoglobin of 11, hematocrit of 36, platelet count of 287, INR is 3.11. Sodium of 139, potassium is 5, creatinine 0.96, glucose of 93, and AST and ALT are unremarkable. He had a CT of the head without contrast completed on 09/12/18 that showed no evidence of acute intracranial abnormality. I personally reviewed the study. ASSESSMENT AND RECOMMENDATION: Mr. Mario Huber is a 78-year-old male who has habitual leg crossing as well as applying pressure to the right lateral knee region when sleeping, who presented with increase in tingling sensation over the right lateral distal two-third of the lower extremity involving the dorsum of the foot. He had positive Tinel's sign on the right over the fibular head. 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 Risks factors do include the habitual leg crossing as well as applying pressure to that region. I was unable to feel any cyst or neuromas around that area. He has no evidence of weakness. No need for ankle foot orthotics at this point; however, I did educate the patient on the importance of minimizing any habitual leg crossing, and if he is going to lay on the right side, to make sure he places a pillow. He has no upper extremity symptoms or symptoms involving other dermatomal distribution and therefore I do not suspect this is related to radiculopathy originating from the lumbar spine or neuropathy. An EMG nerve conduction study can be done within 2-3 weeks as an outpatient to further evaluate the degree of mononeuropathy in that limb. I discussed these recommendations with the patient. He verbalized understanding. I do not recommend any further neurological workup at this time. I discussed the case with Dr. Lutz who agreed. [id number]/[facility] #: [id number] [facility]se
== END 2018-09-13 17:11 | disposition home or self-care (01) ==
LOC: ED 13:39 → MEDTELE 18:41
PROVIDERS: ADMIT Internal Medicine; ATTEND Internal Medicine
DX: R07.9 Chest pain, unspecified (principal); J44.9 Chronic obstructive pulmonary disease, unspecified; J96.11 Chronic respiratory failure with hypoxia; Z85.820 Personal history of malignant melanoma of skin; Z79.01 Long term (current) use of anticoagulants; I25.10 Atherosclerotic heart disease of native coronary artery without angina pectoris; Z95.5 Presence of coronary angioplasty implant and graft; I25.5 Ischemic cardiomyopathy; I50.22 Chronic systolic (congestive) heart failure; G47.33 Obstructive sleep apnea (adult) (pediatric); I65.29 Occlusion and stenosis of unspecified carotid artery; Z86.718 Personal history of other venous thrombosis and embolism; N40.0 Benign prostatic hyperplasia without lower urinary tract symptoms; Z87.891 Personal history of nicotine dependence; Z79.82 Long term (current) use of aspirin
CPT/HCPCS: 36415; 70460; 71045; 71260; 74177; 78452; 80048; 80053; 83735; 84484; 85025; 85610; 93005; 93017; 94640; 96374; 99285; A9270-GY; A9502; G0378; J2785; J3475; Q9967

== ENCOUNTER 2018-10-27 13:48 | Inpatient (IN) | payer MEDICARE ==
--- NOTE | 2018-10-27 14:21 | ED ---
HPI Chest Pain - History of Current Complaint Chief Complaint: EDShortnessOfBreath Time Seen by Provider: 10/27/18 13:57 Hx Obtained From: Patient Onset/Duration: Started Days Ago, Still Present Pain Intensity: 3 Pain Scale Used: 0-10 Numeric - Additional Pertinent History Primary Care Physician: [id number] - Allergy/Home Medications Allergies/Adverse Reactions: Allergies Allergy/AdvReac Type Severity Reaction Status Date / Time diltiazem Allergy See Comment Verified 10/27/18 13:57 theophylline Allergy See Comment Verified 10/27/18 13:57 verapamil Allergy See Comment Verified 10/27/18 13:57 PMH/Surg Hx/FS Hx/Imm Hx Endocrine/Hematology History: Reports: Hx Anticoagulant Therapy - Coumadin Denies: Hx Diabetes, Hx Thyroid Disease Cardiovascular History: Reports: Hx Angina, Hx Atrial Fibrillation, Hx Auto Implanted Cardiovert Defib, Hx Congestive Heart Failure, Hx Coronary Artery Disease, Hx Hypercholesterolemia, Hx Hypertension, Hx Myocardial Infarction, Hx Pacemaker/ICD - [facility] - NOT MR CONDITIONAL, Hx Rheumatic Fever, Hx Valvular Heart Disease, Other Cardiovascular Problems/Disorders - [place]PASS Respiratory History: Reports: Hx Chronic Obstructive Pulmonary Disease (COPD), Hx Pneumonia Denies: Hx Asthma GI History: Denies: Hx Ulcer History: Denies: Hx Dialysis, Hx Renal Disease Musculoskeletal History: Reports: Hx Arthritis Sensory History: Reports: Hx Contacts or Glasses, Hx Hearing Problem Denies: Hx Hearing Aid Opthamlomology History: Reports: Hx Contacts or Glasses - Cancer History Cancer Type, Location and Year: METASTATIC MELANOMA - Surgical History Surgery Procedure, Year, and Place: A-FIB, HEART VALVE REPLACEMENT,. [facility] - NOT MR CONDITIONAL----PACEMAKER/DEFIBRILLATOR (2 - 2007 & CHANDED 2014 - ALL PAPERWORK SCANNED INTO [place] UNDER OTHER FACILTY REPORTS - DR CECIL WAGONER). AICD Hx Anesthesia Reactions: No - Immunization History Date of Tetanus Vaccine: UTD per pt Date of Influenza Vaccine: Fall 2017 Infectious Disease History: No Infectious Disease History: Denies: Hx Hepatitis, Hx Human Immunodeficiency Virus (HIV), Traveled Outside the [place] in Last 30 Days - Family History Known Family History: Positive: Cardiac Disease - Social History Alcohol Use: None Hx Substance Use: No Substance Use Type: Reports: None Hx Tobacco Use: Yes Smoking Status (MU): Former Smoker Type: Cigarettes Amount Used/How Often: !pck/day Have You Smoked in the Last Year: No Physical Exam Triage Information Reviewed: Yes Vital Signs On Initial Exam: Initial Vitals Resp 18 10/27/18 13:53 Vital Signs Reviewed: Yes Diagnostics - Vital Signs Vital Signs Temp Pulse Resp BP Pulse Ox 10/27/18 13:54 98.4 F 70 19 103/50 93 10/27/18 13:53 18 - Laboratory Lab Statement: Any lab studies that have been ordered have been reviewed, and results considered in the medical decision making process. Discharge - Discharge Plan Referrals: Inessa Ruth MD [Primary Care Provider] - - Attestation Statements Document Initiated by Scribe: Yes Documenting Scribe: Chantel Us Provider For Whom Scribe is Documenting (Include Credential): Dr. Estiven Westfall MD Scribe Attestation: Chantel Cain, scribed for Dr. Estiven Westfall MD on 10/27/18 at 1420.
[2018-10-27] MEDS ORDERED: Albuterol/Ipratropium NEB.SOL* Albuterol 2.5 MG/Ipratropium 0.5 MG 3 ML INH ONE ×2 (14:24→18:16)
[2018-10-27] MEDS ORDERED: Dexamethasone IV* 4 MG/ML 1 ML (4 MG) IV SLOW PU ONE (14:24)
[2018-10-27 14:26] LABS: ABS Eosinophils 1.3 10^3/ul (0-0.6); ABS Lymphocytes 0.7 10^3/ul (1.0-4.8); ABS Monocytes 1.2 10^3/ul (0-0.8); ABS Neutrophils 6.5 10^3/ul (1.5-7.7); Eosinophil % 13.1 %; Hematocrit 38 % (42-52); Hemoglobin 12.2 g/dL (14.0-18.0); Lymphocyte % 7.6 %; Mean Corpuscular HGB Conc 32 g/dL (31-36); Mean Corpuscular Hemoglobin 29 pg (27-31); Mean Corpuscular Volume 91 fL (80-94); Mean Platelet Volume 8.6 fL (7.4-10.4); Platelet Count 262 10^3/uL (150-450); Red Blood Count 4.19 10^6 /uL (4.18-5.48); Red Cell Distribution Width 15 % (10-15); White Blood Count 9.7 10^3/uL (3.5-10.8)
--- NOTE | 2018-10-27 14:29 | ED ---
Shortness of Breath - HPI Summary HPI Summary: 78 year old M presenting to [facility] with a chief complaint of shortness of breath for the last 3-4 days, worse since this morning, 10/27/18, rated at 3/10 in severity, per triage. Per triage, patient was seen by visiting nurse this morning and patient had low O2 saturation leading to his ED visit. Patient reports that this morning he could not even talk due to the shortness of breath. Patient reports that before he left his home he took morphine and oxycodone which he thinks is helping him to breath now. Patient reports he visited a new lung doctor and asked her to prescribe him a new breathing medication that he saw on television. Patient reports that the doctor told him to stop use of all of his other medications which he proceeded to do so. Patient reports he took a dose of the new medication and for 3 days could breathe fantastically but after the 3 days he experienced difficulty breathing. Patient thinks that the other medications that he stopped use of helped and now the new medication is not helping. Patient reports a slight cough, belly and chest soreness, and itchy skin. Pt denies any fever, chills, erythema of eyes, sore throat, CP, abdominal pain, N/V, dysuria, hematuria, myalgia, edema, rash, or dizziness. Symptoms aggravated by nothing. Symptoms alleviated by morphine and oxycodone. Patient has had multiple cardiac surgeries. - History of Current Complaint Chief Complaint: EDShortnessOfBreath Time Seen by Provider: 10/27/18 13:57 Hx Obtained From: Patient Onset/Duration: Lasting Days, Still Present Aggravating Factors: Nothing Alleviating Factors: Other - Morphine and Oxycodone Associated Signs & Symptoms: Cough (Nonproductive) - Allergy/Home Medications Allergies/Adverse Reactions: Allergies Allergy/AdvReac Type Severity Reaction Status Date / Time diltiazem Allergy See Comment Verified 10/27/18 13:57 theophylline Allergy See Comment Verified 10/27/18 13:57 verapamil Allergy See Comment Verified 10/27/18 13:57 Home Medications: Home Medications Azithromycin TAB* [Zithromax TAB (Z-JANNETTE) 250 mg #6 tabs] 250 mg PO .3XWEEK 10/27 [History Confirmed 10/27/18] Moxifloxacin 0.5% OPHTH(NF) [Vigamox 0.5% OPHTH(NF)] 2 drop RIGHT EYE QID [History Confirmed 10/27/18] Prednisolone Acetate/Pf [Prednisolone Acet 1% Eye Drop] 1 drop RIGHT EYE QID 11/07 [History Confirmed 10/27/18] PMH/Surg Hx/FS Hx/Imm Hx Endocrine/Hematology History: Reports: Hx Anticoagulant Therapy - Coumadin Denies: Hx Diabetes, Hx Thyroid Disease Cardiovascular History: Reports: Hx Angina, Hx Atrial Fibrillation, Hx Auto Implanted Cardiovert Defib, Hx Congestive Heart Failure, Hx Coronary Artery Disease, Hx Hypercholesterolemia, Hx Hypertension, Hx Myocardial Infarction, Hx Pacemaker/ICD - [facility] - NOT MR CONDITIONAL, Hx Rheumatic Fever, Hx Valvular Heart Disease, Other Cardiovascular Problems/Disorders - BYPASS Respiratory History: Reports: Hx Chronic Obstructive Pulmonary Disease (COPD), Hx Pneumonia Denies: Hx Asthma GI History: Denies: Hx Ulcer History: Denies: Hx Dialysis, Hx Renal Disease Musculoskeletal History: Reports: Hx Arthritis Sensory History: Reports: Hx Contacts or Glasses, Hx Hearing Problem Denies: Hx Hearing Aid Opthamlomology History: Reports: Hx Contacts or Glasses - Cancer History Cancer Type, Location and Year: METASTATIC MELANOMA - Surgical History Surgery Procedure, Year, and Place: A-FIB, HEART VALVE REPLACEMENT,. [facility] - NOT MR CONDITIONAL----PACEMAKER/DEFIBRILLATOR (2007 & [facility]AND2014 - ALL PAPERWORK SCANNED INTO [facility] UNDER OTHER FACILTY REPORTS - DR CECIL WAGONER). AICD Hx Anesthesia Reactions: No - Immunization History Date of Tetanus Vaccine: UTD per pt Date of Influenza Vaccine: Fall 2017 Infectious Disease History: No Infectious Disease History: Denies: Hx Hepatitis, Hx Human Immunodeficiency Virus (HIV), Traveled Outside the [place] in Last 30 Days - Family History Known Family History: Positive: Cardiac Disease - Social History Alcohol Use: None Hx Substance Use: No Substance Use Type: Reports: None Hx Tobacco Use: Yes Smoking Status (MU): Former Smoker Type: Cigarettes Amount Used/How Often: !pck/day Have You Smoked in the Last Year: No Review of Systems Negative: Fever, Chills Negative: Erythema Negative: Sore Throat Negative: Chest Pain Positive: Shortness Of Breath, Cough Negative: Abdominal Pain, Vomiting, Nausea Negative: dysuria, hematuria Negative: Myalgia, Edema Negative: Rash Neurological: Other - denies dizziness All Other Systems Reviewed And Are Negative: Yes Physical Exam - Summary Physical Exam Summary: Constitutional: Well-developed, Well-nourished, Alert. (-) Distressed Skin: Warm, Dry HENT: Normocephalic; Atraumatic Eyes: Conjunctiva normal Neck: Musculoskeletal ROM normal neck. (-) JVD, (-) Stridor, (-) Tracheal deviation Cardio: Rhythm regular, rate normal, Heart sounds normal; Intact distal pulses; The pedal pulses are 2+ and symmetric. Radial pulses are 2+ and symmetric. (-) Murmur Pulmonary/Chest wall: diminished breath sounds with expiratory wheezing Abd: Soft, (-) tenderness, (-) Distension, (-) Guarding, (-) Rebound Musculoskeletal: (-) Edema Lymph: (-) Cervical adenopathy Neuro: Alert, Oriented x3 Psych: Mood and affect Normal Triage Information Reviewed: Yes Vital Signs On Initial Exam: Initial Vitals Resp 18 10/27/18 13:53 Vital Signs Reviewed: Yes Diagnostics - Vital Signs Vital Signs Temp Pulse Resp BP Pulse Ox 10/27/18 13:54 98.4 F 70 19 103/50 93 10/27/18 13:53 18 - Laboratory Result Diagrams: 10/31/18 06:57 10/31/18 06:57 Lab Statement: Any lab studies that have been ordered have been reviewed, and results considered in the medical decision making process. - Radiology Chest X-Ray Radiology Interpretation Completed By: Radiologist Summary of Radiographic Findings: Per radiologist,. INTERSTITIAL EDEMA WITH RIGHT BASE AIRSPACE DISEASE CONSISTENT WITH RIGHT. BASILAR PNEUMONIA. ED physician has reviewed this imaging report. - CT Chest/Thorax CTA CT Interpretation Completed By: Radiologist Summary of CT Findings: Per radiologist,. No definite pulmonary embolus is noted. Enlarged left atrium and right atrium which is similar to that identified previously. Areas of peripheral nodular infiltrate in the inferior right upper lobe and right lower. lobe as well as the left lower lobe is noted unchanged from previous exam and may. represent inflammatory changes. Right basilar atelectasis is noted. ED physician has reviewed this report. - EKG 1359 Cardiac Rate: NL - 70 BP< Summary of EKG Findings: Ventricular-paced complexes at 70 BPM. Re-Evaluation - Re-Evaluation First Eval Re-Evaluation Time: 17:52 Comment: patient check up Course/Dx - Course Course Of Treatment: 78 year old M presenting to [facility] with a chief complaint of shortness of breath for the last 3-4 days, worse since this morning, 10/27/18, rated at 3/10 in severity, per triage. Per triage, patient was seen by visiting nurse this morning and patient had low O2 saturation leading to his ED visit. Patient reports that before he left his home he took morphine and oxycodone which he thinks is helping him to breath now. Patient reports he started a new breathing medication and stopped use of all of his other medications. Patient reports he took a dose of the new medication and for 3 days could breathe fantastically but after the 3 days he experienced difficulty breathing. Patient thinks that the other medications that he stopped use of helped and now the new medication is not helping. Patient reports a slight cough, belly and chest soreness, and itchy skin. Pt denies any fever, chills, erythema of eyes, sore throat, CP, abdominal pain, N/V, dysuria, hematuria, myalgia, edema, rash, or dizziness. Symptoms alleviated by morphine and oxycodone. Physical exam reveals no abnormalities except for diminished breath sounds with expiratory wheezing. Bloodwork reveals no abnormalities except for Hgb 12.2 L, Hct 38 L, Absolute Lymphs 0.7 L, Absolute Monos 1.2 H, Absolute Eos 1.3 H, D-Dimer 299 H, Carbon Dioxide 33 H, Glucose 110 H, B-Natriuretic Peptide 126 H, INR 2.57 H, and D- Dimer 299 H. Patient was given 1 neb albuterol/ipratropium 8 mg dexamethasone sodium phosphate IV, 70 ml iohexol IV, 100 mg benzonatate PO, 250 mls/hr doxycycline hyclate 100 mg in sodium chloride IV, 20 mg furosemide PO, 1200 mg guaifenesin PO, 5 mg oxycodone hcl, 1 drop prednisolone acetate right eye, and 3 mg warfarin sodium PO. Chest X-Ray reveals INTERSTITIAL EDEMA WITH RIGHT BASE AIRSPACE DISEASE CONSISTENT WITH RIGHT BASILAR PNEUMONIA. Chest/Thorax CTA reveals No definite pulmonary embolus is noted. Enlarged left atrium and right atrium which is similar to that identified previously.Areas of peripheral nodular infiltrate in the inferior right upper lobe and right lower. lobe as well as the left lower lobe is noted unchanged from previous exam and may. represent inflammatory changes. Right basilar atelectasis is noted. EKG reveals Ventricular-paced complexes at 70 BPM. Physician discussed care with Dr. Fernandez, hospitalist, who accepts admission. Patient will be admitted. - Diagnoses Provider Diagnoses: Pneumonia Discharge ED - Sign-Out/Discharge Documenting (check all that apply): Patient Departure - admit Patient Received Moderate/Deep Sedation with Procedure: No - Discharge Plan Condition: Fair Disposition: ADMITTED TO [facility] - Billing Disposition and Condition Condition: FAIR Disposition: Admitted to [facility] - Attestation Statements Document Initiated by Scribe: Yes Documenting Scribe: Chantel Us Provider For Whom Bennettibe is Documenting (Include Credential): Dr. Estiven Westfall MD Scribe Attestation: Chantel Cain, scribed for Dr. Estiven Westfall MD on 11/08/18 at 1429. Scribe Documentation Reviewed: Yes Provider Attestation: The documentation as recorded by the Chantel chavez accurately reflects the service I personally performed and the decisions made by me, Dr. Estiven Westfall MD Status of Scribe Document: Viewed
[2018-10-27 14:49] LABS: Troponin I 0.01 ng/mL (<0.04)
[2018-10-27 14:50] LABS: Albumin 4.3 g/dL (3.2-5.2); Albumin/Globulin Ratio 1.4 (1-3); BUN/Creatinine Ratio 11.4 (8-20); Calcium 9.3 mg/dL (8.6-10.3); EGFR African American 101.3 (>60); EGFR Non-African American 83.8 (>60); Globulin 3.1 g/dL (2-4); Potassium 4.2 mmol/L (3.5-5.0); Total Bilirubin 0.9 mg/dL (0.2-1.0); Total Protein 7.4 g/dL (6.4-8.9)
[2018-10-27] MEDS ORDERED: Iohexol 350* (CONTRAST) 500 ML MDV IV ONE (16:40)
[2018-10-27 18:57] LABS: INR 2.57 (0.82-1.09)
[2018-10-27] MEDS ORDERED: Ondansetron INJ* 2 MG/ML VIAL IV PRN (18:58)
[2018-10-27] MEDS ORDERED: Albuterol 2.5 MG/3 ML NEB.SOL* (0.083%) INH PRN (18:58)
[2018-10-27] MEDS ORDERED: Benzonatate CAP* 100 MG PO PRN (18:58)
[2018-10-27] MEDS ORDERED: DOXYcycline IV* 100 MG in NS 0.9% 250 ML* 250 ML IVPB SCH (19:00)
[2018-10-27] MEDS ORDERED: Morphine ORAL CONCENTRATE* 5 MG/0.25 ML ORAL.SYRIN PO PRN (19:04)
[2018-10-27] MEDS ORDERED: Nitroglycerin TAB 0.4 MG* 0.4 MG TAB SL PRN (19:04)
[2018-10-27] MEDS ORDERED: Simethicone TAB* 80 MG TAB.CHEW PO PRN (19:04)
[2018-10-27] MEDS: Albuterol/Ipratropium NEB.SOL* Albuterol 2.5 MG/Ipratropium 0.5 MG 3 ML INH SCH (19:10)
[2018-10-27] MEDS ORDERED: Warfarin TAB(*) 3 MG PO SCH (20:00)
[2018-10-27] MEDS: Mometasone/Formoter 200/5 MDI INH SCH (20:03)
[2018-10-27] MEDS ORDERED: Fluticasone-Salmeterol 500-50* DISKUS INH SCH (21:00)
--- NOTE | 2018-10-27 21:08 | HP ---
CC: Dr. Ruth; Dr. Alexandrea Fernandez* ADMISSION HISTORY AND PHYSICAL: DATE OF ADMISSION: 10/27/18 PRIMARY CARE PROVIDER: Dr. Ruth. MY ATTENDING WHILE IN THE HOSPITAL: Dr. Alexandrea Fernandez* (dictated by ADI Peterson). CHIEF COMPLAINT: Shortness of breath x3 days. HISTORY OF PRESENT ILLNESS: Mr. Huber is a 78-year-old male with past medical history significant for severe COPD with chronic hypoxic respiratory failure, on 2 L of oxygen at home; heart failure, reduced ejection fraction, EF most recently 25% to 30%; and rheumatic heart disease, who presents to the emergency department after approximately 1 week ago he was feeling in his normal state of health, he had significant shortness of breath at baseline and is on maximal medical therapy for COPD prevention, but saw an advertisement for Anoro on the television and had a transition from his previous medications of Advair and Spiriva to the Anoro. The patient states he felt very good on the first day, poor on the second day and then has had worsening shortness of breath since then. The patient states his functional capacity is significantly decreased. He cannot walk for more than several feet without getting short of breath. The patient has been using his inhalers and has been using a significant amount of morphine for controlling his shortness of breath. The patient denies any swelling in his legs. No orthopnea. The patient has had no sick contacts. No fevers or chills. The patient has had an increase in cough. No hemoptysis. The patient denies chest pain, just some chest tightness. The patient denies overt wheezing. The patient had no high salt meals. The patient has very poor appetite and has been losing weight. Generally, the patient is on no treatment for his melanoma at the current time. The patient states his only complaint is being generally itchy, which has been responding relatively well to over-the- counter treatments. The patient was sent in due to severe shortness of breath from his visiting nurse services. In the emergency department, the patient was found to be on his baseline oxygen saturation. The patient had a slightly elevated D-dimer, but negative CTA of the chest showing only chronic stable changes. The patient was given dexamethasone and DuoNeb inhalers, which did not improve his subjective shortness of breath or his significantly restricted lung exam. The patient also states that his torsemide was recently decreased due to low blood pressure, but that he has not noticed any significant change since then. Due to concern for COPD exacerbation, we were asked to evaluate the patient for admission to the hospital. PAST MEDICAL HISTORY: COPD with chronic hypoxic respiratory failure, on 2 L of oxygen at home; rheumatic heart disease; coronary artery disease; nonsustained ventricular tachycardia, status post pacemaker placement; obstructive sleep apnea; carotid stenosis; DVT; BPH; history of gastrointestinal AV malformation with GI bleeding; malignant melanoma, on no current treatment. PAST SURGICAL HISTORY: CABG, pacer and ICD placement. MEDICATIONS: The patient does not know his medications. As per medication reconciliation: 1. Multivitamin 1 tab p.o. daily. 2. Atorvastatin 40 mg p.o. daily. 3. Aspirin 81 mg p.o. daily. 4. Eplerenone 25 mg p.o. daily. 5. Torsemide 10 mg p.o. daily. 6. Entresto one tab p.o. b.i.d. 7. MiraLAX 17 g p.o. daily. 8. Oxycodone 5 mg p.o. q.4 hours as needed. 9. Warfarin 5 mg p.o. Wednesday, Wednesday. 10. Warfarin 3 mg Wednesday, Wednesday, Wednesday, , and Wednesday. 11. Spiriva Respimat 4 g/mL 2 puffs inhalation daily. 12. Simethicone 125 mg p.o. 4 times a day as needed. 13. Nitroglycerin 0.4 mg sublingually q.5 minutes as needed. 14. Mucinex 1200 mg p.o. b.i.d. 15. Metoprolol succinate 25 mg p.o. daily. 16. Advair Diskus 500/50 one puff inhalation b.i.d. 17. Clotrimazole/betamethasone 1 application topical b.i.d. 18. DuoNeb 1 nebulizer inhalation q.4 hours as needed. 19. Albuterol inhaler 2 puffs inhalation q.4 hours as needed. 20. Tylenol 500 mg p.o. q.6 hours as needed. 21. Lorazepam 0.25 mg p.o. q.6 hours as needed. 22. Revefenacin 1 puff inhalation daily. 23. Prednisolone 1 drop right eye 4 times daily. 24. Moxifloxacin 2 drops right eye 4 times daily. 25. Morphine 2.5 mL p.o. q.4 to 6 hours as needed for shortness of breath. 26. Zithromax 250 mg p.o. 3 times weekly. ALLERGIES: DILTIAZEM, THEOPHYLLINE, VERAPAMIL. FAMILY HISTORY: The patient's mother of old age. The patient's father of bone cancer. SOCIAL HISTORY: The patient quit smoking over 30 years ago. The patient drinks occasional alcohol, none recently. The patient denies illicit drug use. 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 The patient is not and has 7 biological children, 2 of which . REVIEW OF SYSTEMS: A 14-point review of systems was reviewed and is negative except as above in the HPI. PHYSICAL EXAMINATION GENERAL: The patient is a 78-year-old male, who appears stated age and sitting in the bed with significantly increased work of breathing. VITAL SIGNS: At the time of evaluation, temperature 98.4, pulse rate 71, respiratory rate 22, oxygen saturation 96% on 2 L, blood pressure 94/55. HEENT: Head: Normocephalic, atraumatic. Sclerae anicteric. No conjunctival injection. Nasal mucosa moist. Oral mucosa moist. No pharyngeal erythema, discharge, or exudate. NECK: Supple, nontender. No lymphadenopathy. No carotid bruits auscultated. JVD at 90 degrees to corner of the jaw. RESPIRATORY: Severely decreased breath sounds bilaterally, slight expiratory wheezing heard in all lung jordan, very poor air exchange. ABDOMEN: Soft, nontender, nondistended. Bowel sounds present and normoactive in all 4 quadrants. No hepatosplenomegaly. No abdominal bruits auscultated. No hepatojugular reflux. GENITOURINARY: No suprapubic or CVA tenderness. NEURO: Cranial nerves II through XII intact. No focal deficits. Alert and oriented x3. PSYCHIATRIC: Pleasant and cooperative. SKIN: Clean, dry, and intact. No rash. DIAGNOSTIC STUDIES/LAB DATA: White blood cell count 9.7, hemoglobin 12.2. INR 2.57. D-dimer 299. Sodium 138, potassium 4.2, chloride 101, carbon dioxide 33, anion gap 4, BUN 10, creatinine 0.88, glucose 110, lactic acid 0.9, calcium 9.3. Bilirubin 0.9, AST 25, ALT 14, alkaline phosphatase 85. Troponin I 0.01, BNP 126. Protein 7.4, albumin 4.3, globulin 3.1. Studies: Chest/thorax CTA read as no definite pulmonary embolism noted. Enlarged left atrium and right atrium, which was similar to previous exam. Areas of peripheral nodule, infiltrate in the inferior right upper lobe and right lower lobe as well as left lower lobe are noted, unchanged from previous exam and may represent inflammatory changes, right basilar atelectasis. Chest x-ray read as interstitial edema with right basilar airspace disease consistent with right basilar pneumonia. ASSESSMENT AND PLAN: Impression: Mr. Huber is a 78-year-old male with past medical history significant for severe chronic obstructive pulmonary disease, on 2 L of oxygen at all times; heart failure with reduced ejection fraction, EF most recently 25% to 30%, status post pacemaker and ICD; coronary artery disease , status post CABG, who presents to the emergency department with 3 days of worsening shortness of breath after a change in his respiratory medications. The patient was transitioned from Advair and Spiriva to Anoro and did not tolerate this well. The patient will be admitted to the hospital for acute exacerbation. 1. Chronic obstructive pulmonary disease exacerbation. The patient has no worsening hypoxic respiratory failure from his chronic obstructive pulmonary disease exacerbation; however, he is significantly limited in his functional capacity with not being able to take more than several steps. The patient is particularly short of breath and has a very poor lung exam. The patient will be started on prednisone 60 mg daily for a planned burst with a possible tapering. Given the severity of disease, the patient will be given doxycycline IV for its anti-inflammatory effects. The patient will likely be resumed on his azithromycin 3 times weekly upon discharge. Discussion with his federal district law clerk about other advanced treatments for chronic obstructive pulmonary disease should be discussed. The patient will be placed on maximal dose triple inhaler therapy and have scheduled initial DuoNeb and albuterol for breakthrough wheezing. The patient will be continued on his morphine for respiratory distress. If the patient fails to improve, Dr. Del Castillo could be consulted inpatient. 2. Heart failure with reduced ejection fraction. The patient was recently discontinued from his torsemide. The patient does not appear overtly fluid overloaded except for significant JVD. The patient has very low blood pressure and will be started on low dose of Lasix. The patient's heart failure is likely contributing to his shortness of breath. He will be monitored closely for blood pressure and improvement with low dose of Lasix. The patient's kidney failure is normal and at baseline. 3. Rheumatic heart disease. The patient has mitral and aortic valve replacements. The patient is anticoagulated for this. The patient is currently therapeutic on his INR and will be continued with this. 4. Coronary artery disease. Continue the patient's Lipitor and aspirin. The patient has a negative troponin and nonischemic EKG. 5. History of deep venous thrombosis. Continue the patient's Coumadin. 6. FEN: The patient will have a heart-healthy diet without caffeine. No fluids are indicated. 7. Disposition: The patient is admitted to the hospital observation. TIME SPENT: Approximately 60 minutes were spent on the admission of this patient, 30 of which was spent [id number] with the patient obtaining history and physical and discussing treatment plan. The plan has been discussed with my attending, Dr. Alexandrea Fernandez, and she is in agreement. ADI PETERSON [id number]/CPS #: [id number]
[2018-10-27] MEDS: prednisoLONE 1% OPHTH.SUSP* 5 ML OPHTH.SUSP RIGHT EYE SCH (21:50)
[2018-10-27] MEDS: guaiFENesin ER TAB 600 MG PO SCH (21:51)
[2018-10-27] MEDS: oxyCODONE TAB* 5 MG TAB PO PRN (21:51)
[2018-10-27] MEDS: Furosemide TAB* 20 MG PO SCH (21:52)
[2018-10-27] MEDS: Clotrimazole/Betamethasone CREAM* 15 GM TOPICAL SCH (21:52)
[2018-10-27] MEDS: VALSARTAN PO SCH (21:53)
[2018-10-27] MEDS: SACUBITRIL PO SCH (21:53)
[2018-10-27] MEDS: Warfarin TAB(*) 3 MG PO SCH (23:31)
[2018-10-27] MEDS: DOXYcycline IV* 100 MG in NS 0.9% 250 ML* 250 ML IVPB SCH (23:31)
[2018-10-28] MEDS: Albuterol/Ipratropium NEB.SOL* Albuterol 2.5 MG/Ipratropium 0.5 MG 3 ML INH SCH ×5 (00:13→19:14)
[2018-10-28] MEDS: Acetaminophen TAB* 325 MG PO PRN ×2 (03:58→14:11)
[2018-10-28] MEDS: LORazepam TAB(*) 0.5 MG PO PRN ×2 (03:59→20:51)
[2018-10-28 04:19] LABS: Urine Appearance Cloudy; Urine Bilirubin Negative (Negative); Urine Blood Negative (Negative); Urine Color Yellow; Urine Glucose Negative (Negative); Urine Ketones Negative (Negative); Urine Nitrite Negative (Negative); Urine Protein Negative (Negative); Urine Specific Gravity 1.039 (1.010-1.030); Urine Urobilinogen Negative (Negative)
[2018-10-28 06:00] LABS: ABS Lymphocytes 0.3 10^3/ul (1.0-4.8); ABS Monocytes 0.3 10^3/ul (0-0.8); ABS Neutrophils 5.5 10^3/ul (1.5-7.7); Hematocrit 32 % (42-52); Hemoglobin 10.7 g/dL (14.0-18.0); Lymphocyte % 5.5 %; Mean Corpuscular HGB Conc 33 g/dL (31-36); Mean Corpuscular Hemoglobin 30 pg (27-31); Mean Corpuscular Volume 90 fL (80-94); Mean Platelet Volume 8.8 fL (7.4-10.4); Platelet Count 205 10^3/uL (150-450); Red Blood Count 3.58 10^6 /uL (4.18-5.48); Red Cell Distribution Width 15 % (10-15); White Blood Count 6.1 10^3/uL (3.5-10.8)
[2018-10-28 06:06] LABS: INR 3.08 (0.82-1.09)
[2018-10-28 06:27] LABS: BUN/Creatinine Ratio 21.3 (8-20); Calcium 9.1 mg/dL (8.6-10.3); EGFR Non-African American 82.7 (>60); Potassium 4.8 mmol/L (3.5-5.0)
[2018-10-28] MEDS: Mometasone/Formoter 200/5 MDI INH SCH ×2 (07:33→19:14)
[2018-10-28] MEDS: Tiotropium CAPSULE (NF) 1 CAP/18 MCG CAP.INH INH SCH (07:33)
[2018-10-28] MEDS: Polyethylene Glycol 3350* 17 GM PACKET PO SCH (08:46)
[2018-10-28] MEDS: CMCS:Epleronone (NF) 25 MG TAB PO SCH (08:49)
[2018-10-28] MEDS: prednisoLONE 1% OPHTH.SUSP* 5 ML OPHTH.SUSP RIGHT EYE SCH ×3 (08:50→16:17)
[2018-10-28] MEDS: guaiFENesin ER TAB 600 MG PO SCH ×2 (08:51→20:41)
[2018-10-28] MEDS: Atorvastatin* 40 MG TAB PO SCH (08:51)
[2018-10-28] MEDS: Furosemide TAB* 20 MG PO SCH (08:54)
[2018-10-28] MEDS: Aspirin EC TAB* 81 MG TAB.EC PO SCH (08:54)
[2018-10-28] MEDS: predniSONE TAB* 20 MG PO SCH (08:54)
[2018-10-28] MEDS: Clotrimazole/Betamethasone CREAM* 15 GM TOPICAL SCH ×2 (08:56→20:41)
[2018-10-28] MEDS: Metoprolol Succinate XL TAB* 25 MG PO SCH (08:56)
[2018-10-28] MEDS: Multivitamins/Minerals TAB PO SCH (08:56)
[2018-10-28] MEDS: DOXYcycline IV* 100 MG in NS 0.9% 250 ML* 250 ML IVPB SCH ×2 (08:57→20:42)
[2018-10-28] MEDS: SACUBITRIL PO SCH (08:57)
[2018-10-28] MEDS: VALSARTAN PO SCH (08:57)
[2018-10-28] MEDS ORDERED: Spiriva HANDIHALER DEVICE (NF) 1 EACH DEVICE INH SCH (09:00)
[2018-10-28] MEDS: oxyCODONE TAB* 5 MG TAB PO PRN ×2 (10:28→18:23)
--- NOTE | 2018-10-28 16:19 | PN ---
Subjective Date of Service: 10/28/18 Interval History: Patient is feeling persistently very SOB today. Patient has continued tightness in his chest, but no pain. Patient has mild improvement with nebulizers, but no overall subjective improvement. Patient talked at length and got very emotional talking about his desire to stay alive and be functional enough to ride his tractor. Family History: Unchanged from Admission Social History: Unchanged from Admission Past Medical History: Unchanged from Admission Objective Active Medications: Acetaminophen (Tylenol Tab*) 650 mg PO Q6H PRN PRN Reason: MILD PAIN or TEMP > 100.4 Last Admin: 10/28/18 14:11 Dose: 650 mg Albuterol (Ventolin 2.5 Mg/3 Ml Neb.Nori*) 2.5 mg INH Q2H PRN PRN Reason: SOB/WHEEZING Albuterol/Ipratropium (Duoneb (Albuterol 2.5 Mg/Ipratropium 0.5 Mg)) 1 neb INH [id number] AWAKE [facility] Last Admin: 10/28/18 12:03 Dose: 1 neb Aspirin (Aspirin Ec Tab*) 81 mg PO DAILY [facility] Last Admin: 10/28/18 08:54 Dose: 81 mg Atorvastatin Calcium (Lipitor*) 40 mg PO DAILY [facility] Last Admin: 10/28/18 08:51 Dose: 40 mg Benzonatate (Tessalon Cap*) 100 mg PO BID PRN PRN Reason: COUGH Last Admin: 10/27/18 21:50 Dose: 100 mg Betamethasone/Clotrimazole (Lotrisone Cream*) 1 applic TOPICAL BID [facility] Last Admin: 10/28/18 08:56 Dose: 1 applic Device (Tiotropium Inhaler Device*) 1 each INH .USE w/ SPIRIVA CAPS [facility] Eplerenone (Inspra (Nf)) 25 mg PO DAILY [facility]; Protocol Last Admin: 10/28/18 08:49 Dose: 25 mg Furosemide (Lasix Tab*) 20 mg PO DAILY [facility] Last Admin: 10/28/18 08:54 Dose: Not Given Guaifenesin (Mucinex*) 1,200 mg PO BID [facility] Last Admin: 10/28/18 08:51 Dose: 1,200 mg Doxycycline Hyclate 100 mg/ (Sodium Chloride) 250 mls @ 250 mls/hr IVPB 0900, 2100 [facility] Last Admin: 10/28/18 08:57 Dose: 250 mls/hr Lorazepam (Ativan Tab(*)) 0.5 mg PO Q6H PRN PRN Reason: ANXIETY Last Admin: 10/28/18 03:59 Dose: 0.5 mg Metoprolol Succinate (Toprol Xl Tab*) 25 mg PO DAILY [facility] Last Admin: 10/28/18 08:56 Dose: Not Given Mometasone Furoate/Formoterol Fumar (Dulera 200/5 Mdi*) 2 puff INH BID [facility] Last Admin: 10/28/18 07:33 Dose: 2 puff Morphine Sulfate (Morphine Oral.Soln 10 Mg*) 2.5 mg PO Q6H PRN PRN Reason: SEE LABEL COMMENTS Multivitamins/Minerals (Theragran/Minerals Tab*) 1 tab PO DAILY [facility] Last Admin: 10/28/18 08:56 Dose: 1 tab Nitroglycerin (Nitroglycerin Tab 0.4 Mg*) 0.4 mg SL Q5M PRN PRN Reason: PAIN - CHEST Ondansetron HCl (Zofran Inj*) 4 mg IV Q6H PRN PRN Reason: NAUSEA Oxycodone HCl (Roxycodone Tab*) 5 mg PO Q4H PRN PRN Reason: PAIN Last Admin: 10/28/18 10:28 Dose: 5 mg Polyethylene Glycol/Electrolytes (Miralax*) 17 gm PO DAILY [facility] Last Admin: 10/28/18 08:46 Dose: 17 gm Prednisolone Acetate (Pred Forte 1%*) 1 drop RIGHT EYE QID [facility] Last Admin: 10/28/18 08:50 Dose: 1 drop Prednisone (Deltasone Tab*) 60 mg PO DAILY [facility] Last Admin: 10/28/18 08:54 Dose: 60 mg Sacubitril/Valsartan (Entresto 24/(Nf)) 1 tab PO BID [facility] Simethicone (Mylicon Tab*) 80 mg PO QID PRN PRN Reason: INDIGESTION Tiotropium [place] (Spiriva Cap.Inh*) 1 cap INH DAILY [facility] Last Admin: 10/28/18 07:33 Dose: 1 cap Warfarin Sodium (Coumadin Tab(*)) 5 mg PO SuFr@1700 [facility]; Protocol Warfarin Sodium (Coumadin Tab(*)) 3 mg PO MoTuWeThSa@1701 [facility]; Protocol Last Admin: 10/27/18 23:31 Dose: 3 mg Vital Signs - 8 hr 10/28/18 10/28/18 10/28/18 10:28 11:15 12:05 Temperature 97.6 F Pulse Rate 71 75 Respiratory 20 16 16 Rate Blood Pressure 94/57 (mmHg) O2 Sat by Pulse 99 96 Oximetry Oxygen Devices in Use Now: Nasal Cannula Appearance: Patient is a 78yo male who appears stated age and is sitting in the bed with significantly increased work of breathing. Eyes: No Scleral Icterus, PERRLA Ears/Nose/Mouth/Throat: NL Teeth, Lips, Gums, Clear Oropharnyx, Mucous Membranes Moist Neck: NL Appearance and Movements; NL JVP, Trachea Midline Respiratory: Symmetrical Chest Expansion and Respiratory Effort, - - Severely diminished, Slight Expiratory wheezing. Cardiovascular: NL Sounds; No Murmurs; No JVD, RRR, No Edema Abdominal: NL Sounds; No Tenderness; No Distention, No Hepatosplenomegaly Lymphatic: No Cervical Adenopathy Extremities: No Edema Skin: No Rash or Ulcers, No Nodules or Sclerosis Neurological: Alert and Oriented x 3, NL Sensation, NL Muscle Strength and Tone Result Diagrams: 10/28/18 05:48 10/28/18 05:48 Microbiology and Other Data: Microbiology 10/27/18 14:10 Aerobic Blood Culture - Preliminary Blood Venous No Growth Day 1 Anaerobic Blood Culture - Preliminary No Growth Day 1 10/27/18 14:10 Aerobic Blood Culture - Preliminary Blood Venous No Growth Day 1 Anaerobic Blood Culture - Preliminary No Growth Day 1 10/28/18 04:00 Nasal Screen MRSA (PCR) - Final Nasal Mrsa Not Detected Assess/Plan/Problems-Billing Assessment: Patient is a 78yo male with a PMH for severe COPD, Severe HFrEF, Metastatic Melanoma, not currently active, who is admitted for a COPD exacerbation and is not currently improving. - Patient Problems (1) COPD exacerbation Current Visit: No Status: Acute Code(s): J44.1 - CHRONIC OBSTRUCTIVE PULMONARY DISEASE W (ACUTE) EXACERBATION SNOMED Code(s): 791840011 Comment: - Began when being transitioned from Triple Inhaler therapy to LAMA-LABA combo - ? Why ICS was discontinued do to evidence for improved exacerbation rate and mortality with ICS. - Very Poor Air Exchange - Continue steroids and Doxycycline - Continue scheduled nebulizers at this time - On home dose of O2, severely decreased exercise tolerance and slight wheezing. (2) Heart failure Current Visit: No Status: Chronic Code(s): I50.9 - HEART FAILURE, UNSPECIFIED SNOMED Code(s): 50810458 Comment: - Severe HFrEF with EF 20-25% stable from recent outside echo - Maximum medical therapy with Biventricular pacer, Entresto, Epleronone, Metoprolol, Diuretics. (3) CAD (coronary artery disease) Current Visit: No Status: Acute Code(s): I25.10 - ATHSCL HEART DISEASE OF [place] CORONARY ARTERY W/O ANG PCTRS SNOMED Code(s): 58397085 Comment: - Patient has known complex cardiac history. - EF 25-30% - Pacer/ICD in place due to NSVT - Recently discontinued Torsemide - Start Low dose lasix, monitor strict I/O and Daily Weight. (4) Cardiac pacemaker Current Visit: No Status: Acute Code(s): Z95.0 - PRESENCE OF CARDIAC PACEMAKER SNOMED Code(s): 910085669 Comment: - Biventricular - With ICD for NSVT (5) Mechanical heart valve present Current Visit: No Status: Acute Code(s): Z95.2 - PRESENCE OF PROSTHETIC HEART VALVE SNOMED Code(s): 17914329770959 Comment: - Aortic/mitral valves replaced and recent normal function - Theraperutic on Warfarin. (6) Melanoma Current Visit: No Status: Acute Code(s): C43.9 - MALIGNANT MELANOMA OF SKIN , UNSPECIFIED SNOMED Code(s): 070161524 Comment: - Metastatic, failed treatment - Follow up outpatient Oncology Status and Disposition: Observation for COPD Exacerbation.
[2018-10-28] MEDS ORDERED: Warfarin TAB(*) 5 MG PO SCH (17:00)
[2018-10-28] MEDS: PTO:Sacubitril/Valsartan 24/26(NF) 1 TAB PO SCH (20:41)
[2018-10-29] MEDS: Albuterol/Ipratropium NEB.SOL* Albuterol 2.5 MG/Ipratropium 0.5 MG 3 ML INH SCH ×3 (01:14→12:55)
[2018-10-29] MEDS: oxyCODONE TAB* 5 MG TAB PO PRN ×3 (04:51→22:32)
[2018-10-29 06:52] LABS: ABS Lymphocytes 0.6 10^3/ul (1.0-4.8); ABS Monocytes 1.4 10^3/ul (0-0.8); ABS Neutrophils 16.3 10^3/ul (1.5-7.7); Hematocrit 29 % (42-52); Hemoglobin 9.8 g/dL (14.0-18.0); Lymphocyte % 3.4 %; Mean Corpuscular HGB Conc 34 g/dL (31-36); Mean Corpuscular Hemoglobin 30 pg (27-31); Mean Corpuscular Volume 88 fL (80-94); Platelet Count 202 10^3/uL (150-450); Red Blood Count 3.27 10^6 /uL (4.18-5.48); Red Cell Distribution Width 15 % (10-15); White Blood Count 18.3 10^3/uL (3.5-10.8)
[2018-10-29 07:10] LABS: Calcium 9.4 mg/dL (8.6-10.3); Potassium 4.8 mmol/L (3.5-5.0)
[2018-10-29 07:16] LABS: EGFR African American 134.2 (>60); EGFR Non-African American 110.9 (>60)
[2018-10-29] MEDS: Mometasone/Formoter 200/5 MDI INH SCH ×2 (07:47→19:40)
[2018-10-29] MEDS: Tiotropium CAPSULE (NF) 1 CAP/18 MCG CAP.INH INH SCH (07:48)
[2018-10-29] MEDS: DOXYcycline IV* 100 MG in NS 0.9% 250 ML* 250 ML IVPB SCH ×2 (08:19→21:16)
[2018-10-29] MEDS: Clotrimazole/Betamethasone CREAM* 15 GM TOPICAL SCH ×2 (08:23→21:16)
[2018-10-29] MEDS: Furosemide TAB* 20 MG PO SCH (08:26)
[2018-10-29] MEDS: PTO:Sacubitril/Valsartan 24/26(NF) 1 TAB PO SCH ×2 (08:33→21:16)
[2018-10-29] MEDS: guaiFENesin ER TAB 600 MG PO SCH ×2 (08:33→21:16)
[2018-10-29] MEDS: predniSONE TAB* 20 MG PO SCH (08:34)
[2018-10-29] MEDS: Atorvastatin* 40 MG TAB PO SCH (08:34)
[2018-10-29] MEDS: Aspirin EC TAB* 81 MG TAB.EC PO SCH (08:35)
[2018-10-29] MEDS: Metoprolol Succinate XL TAB* 25 MG PO SCH (08:35)
[2018-10-29] MEDS: CMCS:Epleronone (NF) 25 MG TAB PO SCH (08:36)
[2018-10-29] MEDS: Multivitamins/Minerals TAB PO SCH (08:37)
[2018-10-29] MEDS: Polyethylene Glycol 3350* 17 GM PACKET PO SCH (08:37)
[2018-10-29] MEDS: Morphine ORAL.SOLN 10 mg* 2 MG/ML UDC 5 ml PO PRN (09:19)
[2018-10-29] MEDS: LORazepam TAB(*) 0.5 MG PO PRN ×2 (09:21→22:32)
[2018-10-29] MEDS ORDERED: Albuterol/Ipratropium NEB.SOL* Albuterol 2.5 MG/Ipratropium 0.5 MG 3 ML INH PRN (14:05)
[2018-10-29] MEDS ORDERED: Furosemide IV* 10 MG/ML 2 ML VIAL (20 MG) IV ONE (14:07)
[2018-10-29] MEDS: methylPREDNISolone 125 MG* 2 ML VIAL IV SCH (15:18)
--- NOTE | 2018-10-29 16:03 | PN ---
Subjective Date of Service: 10/29/18 Interval History: Patient doesn't feel better. Patient states he is still very SOB with minimal exertion, including with speaking. Patient has continued constriction of his breathing. Patient is needing a large amount of opiates to control dyspnea. Patient denies F/C, N/V, abdominal pain, diarrhea, or other pain. Family History: Unchanged from Admission Social History: Unchanged from Admission Past Medical History: Unchanged from Admission Objective Active Medications: Acetaminophen (Tylenol Tab*) 650 mg PO Q6H PRN PRN Reason: MILD PAIN or TEMP > 100.4 Last Admin: 10/28/18 14:11 Dose: 650 mg Albuterol (Ventolin 2.5 Mg/3 Ml Neb.Nori*) 2.5 mg INH Q2H PRN PRN Reason: SOB/WHEEZING Albuterol/Ipratropium (Duoneb (Albuterol 2.5 Mg/Ipratropium 0.5 Mg)) 1 neb INH [id number] AWAKE PRN PRN Reason: WHEEZING Aspirin (Aspirin Ec Tab*) 81 mg PO DAILY [facility] Last Admin: 10/29/18 08:35 Dose: 81 mg Atorvastatin Calcium (Lipitor*) 40 mg PO DAILY [facility] Last Admin: 10/29/18 08:34 Dose: 40 mg Benzonatate (Tessalon Cap*) 100 mg PO BID PRN PRN Reason: COUGH Last Admin: 10/27/18 21:50 Dose: 100 mg Betamethasone/Clotrimazole (Lotrisone Cream*) 1 applic TOPICAL BID [facility] Last Admin: 10/29/18 08:23 Dose: 1 applic Bumetanide (Bumex Tab*) 1 mg PO DAILY [facility] Device (Tiotropium Inhaler Device*) 1 each INH .USE w/ SPIRIVA CAPS [facility] Eplerenone (Inspra (Nf)) 25 mg PO DAILY [facility]; Protocol Last Admin: 10/29/18 08:36 Dose: 25 mg Guaifenesin (Mucinex*) 1,200 mg PO BID [facility] Last Admin: 10/29/18 08:33 Dose: 1,200 mg Doxycycline Hyclate 100 mg/ (Sodium Chloride) 250 mls @ 250 mls/hr IVPB 0900, 2100 [facility] Last Admin: 10/29/18 08:19 Dose: 250 mls/hr Lorazepam (Ativan Tab(*)) 0.5 mg PO Q6H PRN PRN Reason: ANXIETY Last Admin: 10/29/18 09:21 Dose: 0.5 mg Methylprednisolone Sodium Succinate (Solu-Medrol 125mg *) 60 mg IV Q12H [facility] Last Admin: 10/29/18 15:18 Dose: 60 mg Metoprolol Succinate (Toprol Xl Tab*) 25 mg PO DAILY [facility] Last Admin: 10/29/18 08:35 Dose: 25 mg Mometasone Furoate/Formoterol Fumar (Dulera 200/5 Mdi*) 2 puff INH BID [facility] Last Admin: 10/29/18 07:47 Dose: 2 puff Morphine Sulfate (Morphine Oral.Soln 10 Mg*) 2.5 mg PO Q6H PRN PRN Reason: SEE LABEL COMMENTS Last Admin: 10/29/18 09:19 Dose: 2.5 mg Multivitamins/Minerals (Theragran/Minerals Tab*) 1 tab PO DAILY [facility] Last Admin: 10/29/18 08:37 Dose: 1 tab Nitroglycerin (Nitroglycerin Tab 0.4 Mg*) 0.4 mg SL Q5M PRN PRN Reason: PAIN - CHEST Ondansetron HCl (Zofran Inj*) 4 mg IV Q6H PRN PRN Reason: NAUSEA Oxycodone HCl (Roxycodone Tab*) 5 mg PO Q4H PRN PRN Reason: PAIN Last Admin: 10/29/18 04:51 Dose: 5 mg Polyethylene Glycol/Electrolytes (Miralax*) 17 gm PO DAILY [facility] Last Admin: 10/29/18 08:37 Dose: 17 gm Sacubitril/Valsartan (Entresto /(Nf)) 1 tab PO BID [facility] Last Admin: 10/29/18 08:33 Dose: 1 tab Simethicone (Mylicon Tab*) 80 mg PO QID PRN PRN Reason: INDIGESTION Tiotropium [place] (Spiriva Cap.Inh*) 1 cap INH DAILY [facility] Last Admin: 10/29/18 07:48 Dose: 1 cap Warfarin Sodium (Coumadin Tab(*)) 5 mg PO SuFr@1700 [facility]; Protocol Last Admin: 10/28/18 18:20 Dose: 5 mg Warfarin Sodium (Coumadin Tab(*)) 3 mg PO MoTuWeThSa@1701 [facility]; Protocol Last Admin: 10/27/18 23:31 Dose: 3 mg Vital Signs - 8 hr 10/29/18 10/29/18 10/29/18 08:25 09:19 09:21 Temperature Pulse Rate Respiratory 18 20 18 Rate Blood Pressure (mmHg) O2 Sat by Pulse Oximetry 10/29/18 10/29/18 10/29/18 11:15 11:47 11:48 Temperature 97.5 F Pulse Rate 69 Respiratory 18 20 20 Rate Blood Pressure 97/46 (mmHg) O2 Sat by Pulse 99 Oximetry 10/29/18 12:56 Temperature Pulse Rate 72 Respiratory 18 Rate Blood Pressure (mmHg) O2 Sat by Pulse 100 Oximetry Oxygen Devices in Use Now: Nasal Cannula Appearance: Patient is a 78yo male who appears stated age and is sitting in the bed in [facility]. Eyes: No Scleral Icterus, PERRLA Ears/Nose/Mouth/Throat: NL Teeth, Lips, Gums, Clear Oropharnyx, Mucous Membranes Moist Neck: Trachea Midline, - - Severely elevated JVD. Respiratory: Symmetrical Chest Expansion and Respiratory Effort, - - Severely diminished throughout. Slight expiratory wheezing. Cardiovascular: NL Sounds; No Murmurs; No JVD, RRR, No Edema Abdominal: NL Sounds; No Tenderness; No Distention, No Hepatosplenomegaly Lymphatic: No Cervical Adenopathy Extremities: No Edema, No Clubbing, Cyanosis Skin: No Rash or Ulcers, No Nodules or Sclerosis Neurological: Alert and Oriented x 3, NL Sensation, NL Muscle Strength and Tone , - - CN II-XII intact. Result Diagrams: 10/29/18 06:11 10/29/18 06:11 Microbiology and Other Data: Microbiology 10/27/18 14:10 Aerobic Blood Culture - Preliminary Blood Venous No Growth Day 1 Anaerobic Blood Culture - Preliminary No Growth Day 1 10/27/18 14:10 Aerobic Blood Culture - Preliminary Blood Venous No Growth Day 1 Anaerobic Blood Culture - Preliminary No Growth Day 1 10/28/18 04:00 Nasal Screen MRSA (PCR) - Final Nasal Mrsa Not Detected Assess/Plan/Problems-Billing Assessment: Patient is a 78yo male with a PMH for severe COPD, Severe HFrEF, Metastatic Melanoma, not currently active, who is admitted for a COPD exacerbation and is not currently improving. - Patient Problems (1) COPD exacerbation Current Visit: No Status: Acute Code(s): J44.1 - CHRONIC OBSTRUCTIVE PULMONARY DISEASE W (ACUTE) EXACERBATION SNOMED Code(s): 164871033 Comment: - Began when being transitioned from Triple Inhaler therapy to LAMA-LABA combo - ? Why ICS was discontinued do to evidence for improved exacerbation rate and mortality with ICS. - Transition back to Anoro when it is available, will see ICS. - Very Poor Air Exchange - Increase steroids - Continue Doxycycline - Continue PRN Nebs - On home dose of O2, severely decreased exercise tolerance and slight wheezing. (2) Heart failure Current Visit: No Status: Chronic Code(s): I50.9 - HEART FAILURE, UNSPECIFIED SNOMED Code(s): 70096235 Comment: - Severe HFrEF with EF 20-25% stable from recent outside echo - Maximum medical therapy with Biventricular pacer, Entresto, Epleronone, Metoprolol, Diuretics. - Increase diuretics due to continued signs of fluid overload and persistent SOB. (3) CAD (coronary artery disease) Current Visit: No Status: Acute Code(s): I25.10 - ATHSCL HEART DISEASE OF [place] CORONARY ARTERY W/O ANG PCTRS SNOMED Code(s): 16532169 Comment: - Patient has known complex cardiac history. - EF 25-30% - Pacer/ICD in place due to NSVT - Recently discontinued Torsemide - Start Low dose lasix, monitor strict I/O and Daily Weight. (4) Cardiac pacemaker Current Visit: No Status: Acute Code(s): Z95.0 - PRESENCE OF CARDIAC PACEMAKER SNOMED Code(s): 163596681 Comment: - Biventricular - With ICD for NSVT (5) Mechanical heart valve present Current Visit: No Status: Acute Code(s): Z95.2 - PRESENCE OF PROSTHETIC HEART VALVE SNOMED Code(s): 04929154798175 Comment: - Aortic/mitral valves replaced and recent normal function - Theraperutic on Warfarin. (6) Melanoma Current Visit: No Status: Acute Code(s): C43.9 - MALIGNANT MELANOMA OF SKIN , UNSPECIFIED SNOMED Code(s): 730149430 Comment: - Metastatic, failed treatment - Follow up outpatient Oncology (7) DVT prophylaxis Current Visit: No Status: Acute Priority: Medium Onset Date: 04/07/14 Code(s): GJT4029 - SNOMED Code(s): 979385019 Comment: - Warfarin. - Therapeutic INR (8) Full code status Current Visit: No Status: Acute Priority: Medium Onset Date: 04/07/14 Code(s): Z78.9 - OTHER SPECIFIED HEALTH STATUS SNOMED Code(s): 340085576 Status and Disposition: Inpatient for COPD Exacerbation with severe co-morbidities. Lack of progress and escalating therapy.
[2018-10-29] MEDS: Warfarin TAB(*) 3 MG PO SCH (17:36)
[2018-10-30] MEDS: methylPREDNISolone 125 MG* 2 ML VIAL IV SCH ×2 (02:29→15:21)
[2018-10-30] MEDS: Tiotropium CAPSULE (NF) 1 CAP/18 MCG CAP.INH INH SCH (07:06)
[2018-10-30] MEDS: Mometasone/Formoter 200/5 MDI INH SCH (07:07)
[2018-10-30 07:43] LABS: ABS Lymphocytes 0.3 10^3/ul (1.0-4.8); ABS Monocytes 0.4 10^3/ul (0-0.8); ABS Neutrophils 15.9 10^3/ul (1.5-7.7); Hematocrit 32 % (42-52); Hemoglobin 10.3 g/dL (14.0-18.0); Lymphocyte % 2.1 %; Mean Corpuscular HGB Conc 32 g/dL (31-36); Mean Corpuscular Hemoglobin 29 pg (27-31); Mean Corpuscular Volume 90 fL (80-94); Mean Platelet Volume 9.3 fL (7.4-10.4); Platelet Count 241 10^3/uL (150-450); Red Blood Count 3.55 10^6 /uL (4.18-5.48); Red Cell Distribution Width 16 % (10-15); White Blood Count 16.7 10^3/uL (3.5-10.8)
[2018-10-30 07:44] LABS: INR 4.94 (0.82-1.09)
[2018-10-30 07:51] LABS: BUN/Creatinine Ratio 26.4 (8-20); Calcium 9.6 mg/dL (8.6-10.3); EGFR African American 127.8 (>60); EGFR Non-African American 105.6 (>60); Potassium 4.8 mmol/L (3.5-5.0)
[2018-10-30] MEDS: DOXYcycline IV* 100 MG in NS 0.9% 250 ML* 250 ML IVPB SCH (09:58)
[2018-10-30] MEDS: PTO:Sacubitril/Valsartan 24/26(NF) 1 TAB PO SCH ×2 (09:59→20:59)
[2018-10-30] MEDS: Polyethylene Glycol 3350* 17 GM PACKET PO SCH ×2 (09:59→10:02)
[2018-10-30] MEDS: Clotrimazole/Betamethasone CREAM* 15 GM TOPICAL SCH ×2 (09:59→21:00)
[2018-10-30] MEDS: guaiFENesin ER TAB 600 MG PO SCH ×2 (10:00→20:59)
[2018-10-30] MEDS: Aspirin EC TAB* 81 MG TAB.EC PO SCH (10:00)
[2018-10-30] MEDS: Bumetanide TAB* 2 MG PO SCH (10:01)
[2018-10-30] MEDS: CMCS:Epleronone (NF) 25 MG TAB PO SCH (10:01)
[2018-10-30] MEDS: Multivitamins/Minerals TAB PO SCH (10:01)
[2018-10-30] MEDS: Metoprolol Succinate XL TAB* 25 MG PO SCH (10:01)
[2018-10-30] MEDS: Atorvastatin* 40 MG TAB PO SCH (10:02)
--- NOTE | 2018-10-30 10:39 | PN ---
Subjective Date of Service: 10/30/18 Interval History: Patient feels his breathing is better today, but did feel short of breath when walking to the bathroom. He continues to want medical treatment. His family member brought his anoro inhaler today and was apparently administered by respiratory therapy. Patient feels chest tightness at times which is ongoing for months. Denies abd pain, n/v, fever/chills. Reports his breathing is comfortable at rest. Family History: Unchanged from Admission Social History: Unchanged from Admission Past Medical History: Unchanged from Admission Objective Active Medications: Acetaminophen (Tylenol Tab*) 650 mg PO Q6H PRN PRN Reason: MILD PAIN or TEMP > 100.4 Last Admin: 10/28/18 14:11 Dose: 650 mg Albuterol (Ventolin 2.5 Mg/3 Ml Neb.Nori*) 2.5 mg INH Q2H PRN PRN Reason: SOB/WHEEZING Albuterol/Ipratropium (Duoneb (Albuterol 2.5 Mg/Ipratropium 0.5 Mg)) 1 neb INH [id number] AWAKE PRN PRN Reason: WHEEZING Last Admin: 10/29/18 19:40 Dose: 1 neb Aspirin (Aspirin Ec Tab*) 81 mg PO DAILY [facility] Last Admin: 10/30/18 10:00 Dose: 81 mg Atorvastatin Calcium (Lipitor*) 40 mg PO DAILY [facility] Last Admin: 10/30/18 10:02 Dose: 40 mg Benzonatate (Tessalon Cap*) 100 mg PO BID PRN PRN Reason: COUGH Last Admin: 10/27/18 21:50 Dose: 100 mg Betamethasone/Clotrimazole (Lotrisone Cream*) 1 applic TOPICAL BID [facility] Last Admin: 10/30/18 09:59 Dose: 1 applic Bumetanide (Bumex Tab*) 1 mg PO DAILY [facility] Last Admin: 10/30/18 10:01 Dose: 1 mg Device (Tiotropium Inhaler Device*) 1 each INH .USE w/ SPIRIVA CAPS [facility] Eplerenone (Inspra (Nf)) 25 mg PO DAILY [facility]; Protocol Last Admin: 10/30/18 10:01 Dose: 25 mg Guaifenesin (Mucinex*) 1,200 mg PO BID [facility] Last Admin: 10/30/18 10:00 Dose: 1,200 mg Doxycycline Hyclate 100 mg/ (Sodium Chloride) 250 mls @ 250 mls/hr IVPB 0900, 2100 [facility] Last Admin: 10/30/18 09:58 Dose: 250 mls/hr Lorazepam (Ativan Tab(*)) 0.5 mg PO Q6H PRN PRN Reason: ANXIETY Last Admin: 10/29/18 22:32 Dose: 0.5 mg Methylprednisolone Sodium Succinate (Solu-Medrol 125mg *) 60 mg IV Q12H [facility] Last Admin: 10/30/18 02:29 Dose: 60 mg Metoprolol Succinate (Toprol Xl Tab*) 25 mg PO DAILY [facility] Last Admin: 10/30/18 10:01 Dose: 25 mg Mometasone Furoate/Formoterol Fumar (Dulera 200/5 Mdi*) 2 puff INH BID [facility] Last Admin: 10/30/18 07:07 Dose: 2 puff Morphine Sulfate (Morphine Oral.Soln 10 Mg*) 2.5 mg PO Q6H PRN PRN Reason: SEE LABEL COMMENTS Last Admin: 10/29/18 09:19 Dose: 2.5 mg Multivitamins/Minerals (Theragran/Minerals Tab*) 1 tab PO DAILY [facility] Last Admin: 10/30/18 10:01 Dose: 1 tab Nitroglycerin (Nitroglycerin Tab 0.4 Mg*) 0.4 mg SL Q5M PRN PRN Reason: PAIN - CHEST Ondansetron HCl (Zofran Inj*) 4 mg IV Q6H PRN PRN Reason: NAUSEA Oxycodone HCl (Roxycodone Tab*) 5 mg PO Q4H PRN PRN Reason: PAIN Last Admin: 10/29/18 22:32 Dose: 5 mg Polyethylene Glycol/Electrolytes (Miralax*) 17 gm PO DAILY [facility] Last Admin: 10/30/18 10:02 Dose: Not Given Sacubitril/Valsartan (Entresto (Nf)) 1 tab PO BID [facility] Last Admin: 10/30/18 09:59 Dose: 1 tab Simethicone (Mylicon Tab*) 80 mg PO QID PRN PRN Reason: INDIGESTION Tiotropium [place] (Spiriva Cap.Inh*) 1 cap INH DAILY [facility] Last Admin: 10/30/18 07:06 Dose: Not Given Vital Signs - 8 hr 08/11/19 08/11/19 08/11/19 03:56 07:07 07:38 Temperature 98.1 F 98.1 F Pulse Rate 70 98 100 Respiratory 18 18 16 Rate Blood Pressure 93/45 115/54 (mmHg) O2 Sat by Pulse 98 94 95 Oximetry Oxygen Devices in Use Now: Nasal Cannula Appearance: Thin, elderly white male laying upright in bed appearing in NAD Eyes: No Scleral Icterus, PERRLA Ears/Nose/Mouth/Throat: Mucous Membranes Moist Neck: NL Appearance and Movements; NL JVP Respiratory: Symmetrical Chest Expansion and Respiratory Effort, - - Minimal expiratory wheezes throughout; diminished breath sounds Cardiovascular: NL Sounds; No Murmurs; No JVD, RRR Abdominal: - - abd soft, nontender, nondistended Extremities: No Edema, No Clubbing, Cyanosis Skin: No Rash or Ulcers Neurological: Alert and Oriented x 3, NL Muscle Strength and Tone Result Diagrams: 10/30/18 07:12 10/30/18 07:12 Microbiology and Other Data: Microbiology 10/27/18 14:10 Aerobic Blood Culture - Preliminary Blood Venous No Growth Day 1 Anaerobic Blood Culture - Preliminary No Growth Day 1 10/27/18 14:10 Aerobic Blood Culture - Preliminary Blood Venous No Growth Day 1 Anaerobic Blood Culture - Preliminary No Growth Day 1 10/28/18 04:00 Nasal Screen MRSA (PCR) - Final Nasal Mrsa Not Detected Assess/Plan/Problems-Billing Assessment: Patient is a 78yo male with a PMH for severe COPD, Severe HFrEF, Metastatic Melanoma not currently receiving therapy, who is admitted for a COPD exacerbation. - Patient Problems (1) Acute and chronic respiratory failure Current Visit: Yes Status: Acute Code(s): J96.20 - ACUTE AND CHR RESP FAILURE, UNSP W HYPOXIA OR HYPERCAPNIA SNOMED Code(s): 51743681 Comment: -2/2 COPD exacerbation -COPD with 2L oxygen requirement at home -frequenty hospitalizations for COPD exacerbations this year -patient has [facility] to avoid such frequent hospitalizations -cont scheduled duonebs -changing doxy from IV to po -patient's medication reconciliation may not be accurate as it appears patient is no longer taking yupelri as he is taking anoro, which his family brought in today; ordered anoro and mometasone -will consult Dr. Benton with palliative care, appreciate assistance with communication with [facility] -symptomatic SOB improved today (2) Systolic CHF Current Visit: Yes Status: Acute Code(s): I50.20 - UNSPECIFIED SYSTOLIC ( CONGESTIVE) HEART FAILURE SNOMED Code(s): 80105090 Comment: -ischemic cardiomyopathy, EF 20-25% -IV lasix given yesterday, good response as lungs without crackles today -continue entresto, eplerenone, metoprolol -with PPM and ICD (3) Mechanical heart valve present Current Visit: No Status: Acute Code(s): Z95.2 - PRESENCE OF PROSTHETIC HEART VALVE SNOMED Code(s): 78927542202613 Comment: - Warfarin supratherapeutic - holding today, will recheck INR tomorrow (4) Melanoma Current Visit: No Status: Acute Code(s): C43.9 - MALIGNANT MELANOMA OF SKIN , UNSPECIFIED SNOMED Code(s): 541412294 Comment: - Metastatic, failed treatment - Follow up outpatient Oncology (5) CAD (coronary artery disease) Current Visit: No Status: Acute Code(s): I25.10 - ATHSCL HEART DISEASE OF [place] CORONARY ARTERY W/O ANG PCTRS SNOMED Code(s): 28715173 Comment: -continue aspirin, entresto, metoprolol (6) DVT prophylaxis Current Visit: No Status: Acute Priority: Medium Onset Date: 04/07/14 Code(s): GXY5853 - SNOMED Code(s): 202907780 Comment: - on warfarin, INR supratherapeutic at this time (7) Full code status Current Visit: No Status: Acute Priority: Medium Onset Date: 04/07/14 Code(s): Z78.9 - OTHER SPECIFIED HEALTH STATUS SNOMED Code(s): 224374141 Status and Disposition: Inpatient for COPD Exacerbation with severe co-morbidities. Lack of progress and escalating therapy.
[2018-10-30] MEDS: LORazepam TAB(*) 0.5 MG PO PRN ×2 (12:13→23:52)
[2018-10-30] MEDS: oxyCODONE TAB* 5 MG TAB PO PRN (12:19)
[2018-10-30] MEDS: Senna TAB 8.6 mg* TAB PO SCH (20:59)
[2018-10-30] MEDS: Morphine ORAL.SOLN 10 mg* 2 MG/ML UDC 5 ml PO PRN (23:51)
[2018-10-31] MEDS: methylPREDNISolone 125 MG* 2 ML VIAL IV SCH (03:24)
[2018-10-31 07:07] LABS: ABS Lymphocytes 0.4 10^3/ul (1.0-4.8); ABS Monocytes 0.6 10^3/ul (0-0.8); ABS Neutrophils 14.3 10^3/ul (1.5-7.7); Hematocrit 32 % (42-52); Hemoglobin 10.6 g/dL (14.0-18.0); Lymphocyte % 2.5 %; Mean Corpuscular HGB Conc 33 g/dL (31-36); Mean Corpuscular Hemoglobin 30 pg (27-31); Mean Corpuscular Volume 90 fL (80-94); Mean Platelet Volume 8.7 fL (7.4-10.4); Platelet Count 237 10^3/uL (150-450); Red Blood Count 3.61 10^6 /uL (4.18-5.48); Red Cell Distribution Width 16 % (10-15); White Blood Count 15.3 10^3/uL (3.5-10.8)
[2018-10-31 07:13] LABS: INR 3.87 (0.82-1.09)
[2018-10-31 07:31] LABS: Calcium 9.2 mg/dL (8.6-10.3); EGFR African American 129.8 (>60); EGFR Non-African American 107.3 (>60); Potassium 4.5 mmol/L (3.5-5.0)
[2018-10-31] MEDS: Mometasone 220 MCG MDI INH SCH (08:13)
[2018-10-31] MEDS: PTO:Umeclidin/Vilant 62.5 MDI 62.5/25 mcg 14 INH ELLIPTA DEVICE INH SCH (08:16)
[2018-10-31] MEDS: Multivitamins/Minerals TAB PO SCH (09:13)
[2018-10-31] MEDS: CMCS:Epleronone (NF) 25 MG TAB PO SCH (09:13)
[2018-10-31] MEDS: Bumetanide TAB* 2 MG PO SCH (09:13)
[2018-10-31] MEDS: Senna TAB 8.6 mg* TAB PO SCH ×2 (09:14→22:56)
[2018-10-31] MEDS: Metoprolol Succinate XL TAB* 25 MG PO SCH (09:14)
[2018-10-31] MEDS: Aspirin EC TAB* 81 MG TAB.EC PO SCH (09:14)
[2018-10-31] MEDS: DOXYcycline CAP(*) 100 MG PO SCH (09:15)
[2018-10-31] MEDS: guaiFENesin ER TAB 600 MG PO SCH ×2 (09:15→22:57)
[2018-10-31] MEDS: Atorvastatin* 40 MG TAB PO SCH (09:15)
[2018-10-31] MEDS: oxyCODONE TAB* 5 MG TAB PO PRN ×2 (09:16→23:10)
[2018-10-31] MEDS: PTO:Sacubitril/Valsartan 24/26(NF) 1 TAB PO SCH ×2 (09:17→22:57)
[2018-10-31] MEDS: Polyethylene Glycol 3350* 17 GM PACKET PO SCH (09:17)
[2018-10-31] MEDS: Clotrimazole/Betamethasone CREAM* 15 GM TOPICAL SCH ×2 (09:17→22:56)
[2018-10-31] MEDS: LORazepam TAB(*) 0.5 MG PO PRN ×2 (09:24→23:09)
[2018-10-31] MEDS ORDERED: predniSONE TAB* 50 MG PO SCH (12:00)
--- NOTE | 2018-10-31 13:07 | PN ---
Subjective Date of Service: 10/31/18 Interval History: Patient feeling improved today. He feels his shortness of breath is improved with exertion. He does not feel short of breath at rest. Denies chest pain, fever/chills, abd pain, nausea/vomiting. Anoro prescribed by PCP per patient's request, without addition of ICS inhaler. This was discovered by our transition of care pharmacist. Family History: Unchanged from Admission Social History: Unchanged from Admission Past Medical History: Unchanged from Admission Objective Active Medications: Acetaminophen (Tylenol Tab*) 650 mg PO Q6H PRN PRN Reason: MILD PAIN or TEMP > 100.4 Last Admin: 10/28/18 14:11 Dose: 650 mg Albuterol (Ventolin 2.5 Mg/3 Ml Neb.Nori*) 2.5 mg INH Q2H PRN PRN Reason: SOB/WHEEZING Albuterol/Ipratropium (Duoneb (Albuterol 2.5 Mg/Ipratropium 0.5 Mg)) 1 neb INH [id number] AWAKE PRN PRN Reason: WHEEZING Last Admin: 10/29/18 19:40 Dose: 1 neb Aspirin (Aspirin Ec Tab*) 81 mg PO DAILY [facility] Last Admin: 10/31/18 09:14 Dose: 81 mg Atorvastatin Calcium (Lipitor*) 40 mg PO DAILY [facility] Last Admin: 10/31/18 09:15 Dose: 40 mg Benzonatate (Tessalon Cap*) 100 mg PO BID PRN PRN Reason: COUGH Last Admin: 10/27/18 21:50 Dose: 100 mg Betamethasone/Clotrimazole (Lotrisone Cream*) 1 applic TOPICAL BID [facility] Last Admin: 10/31/18 09:17 Dose: 1 applic Bumetanide (Bumex Tab*) 1 mg PO DAILY [facility] Last Admin: 10/31/18 09:13 Dose: 1 mg Doxycycline Hyclate (Vibramycin Cap(*)) 100 mg PO DAILY [facility] Last Admin: 10/31/18 09:15 Dose: 100 mg Eplerenone (Inspra (Nf)) 25 mg PO DAILY [facility]; Protocol Last Admin: 10/31/18 09:13 Dose: 25 mg Guaifenesin (Mucinex*) 1,200 mg PO BID [facility] Last Admin: 10/31/18 09:15 Dose: 1,200 mg Lorazepam (Ativan Tab(*)) 0.5 mg PO Q6H PRN PRN Reason: ANXIETY Last Admin: 10/31/18 09:24 Dose: 0.5 mg Metoprolol Succinate (Toprol Xl Tab*) 25 mg PO DAILY [facility] Last Admin: 10/31/18 09:14 Dose: 25 mg Mometasone Furoate (Asmanex 220 Mcg Mdi *) 1 puff INH DAILY [facility]; Protocol Last Admin: 10/31/18 08:13 Dose: 1 puff Morphine Sulfate (Morphine Oral.Soln 10 Mg*) 2.5 mg PO Q6H PRN PRN Reason: SEE LABEL COMMENTS Last Admin: 10/30/18 23:51 Dose: 2.5 mg Multivitamins/Minerals (Theragran/Minerals Tab*) 1 tab PO DAILY [facility] Last Admin: 10/31/18 09:13 Dose: 1 tab Nitroglycerin (Nitroglycerin Tab 0.4 Mg*) 0.4 mg SL Q5M PRN PRN Reason: PAIN - CHEST Ondansetron HCl (Zofran Inj*) 4 mg IV Q6H PRN PRN Reason: NAUSEA Oxycodone HCl (Roxycodone Tab*) 5 mg PO Q4H PRN PRN Reason: PAIN Last Admin: 10/31/18 09:16 Dose: 5 mg Polyethylene Glycol/Electrolytes (Miralax*) 17 gm PO DAILY [facility] Last Admin: 10/31/18 09:17 Dose: Not Given Prednisone (Deltasone Tab*) 50 mg PO DAILY [facility] Sacubitril/Valsartan (Entresto 24/(Nf)) 1 tab PO BID [facility] Last Admin: 10/31/18 09:17 Dose: 1 tab Senna (Senokot 8.6 Mg Tab*) 2 tab PO BID [facility] Last Admin: 10/31/18 09:14 Dose: 2 tab Simethicone (Mylicon Tab*) 80 mg PO QID PRN PRN Reason: INDIGESTION Umeclidinium/Vilanterol (Anoro 62.5/25 Ellipta Device (Nf)) 1 inh INH DAILY [facility] Last Admin: 10/31/18 08:16 Dose: 1 puff Vital Signs - 8 hr 10/31/18 10/31/18 10/31/18 08:18 08:21 09:16 Temperature 98.7 F Pulse Rate 70 70 Respiratory 16 18 18 Rate Blood Pressure 112/57 (mmHg) O2 Sat by Pulse 98 97 Oximetry 10/31/18 09:24 Temperature Pulse Rate Respiratory 18 Rate Blood Pressure (mmHg) O2 Sat by Pulse Oximetry Oxygen Devices in Use Now: Nasal Cannula Appearance: Thin, elderly white male sitting upright on side of bed, not appearing in NAD Eyes: No Scleral Icterus, PERRLA Ears/Nose/Mouth/Throat: Mucous Membranes Moist Neck: NL Appearance and Movements; NL JVP Respiratory: Symmetrical Chest Expansion and Respiratory Effort, - - Expiratory wheezing in lower and mid lung jordan, diminished lung sounds Cardiovascular: RRR, - - systolic click consistent with mechanical valve, otherwise no murmurs appreciated Abdominal: - - abd soft, nontender, nondistended Extremities: No Edema, No Clubbing, Cyanosis Skin: No Rash or Ulcers Neurological: Alert and Oriented x 3, NL Muscle Strength and Tone Result Diagrams: 10/31/18 06:57 10/31/18 06:57 Microbiology and Other Data: Microbiology 10/27/18 14:10 Aerobic Blood Culture - Preliminary Blood Venous No Growth Day 1 Anaerobic Blood Culture - Preliminary No Growth Day 1 10/27/18 14:10 Aerobic Blood Culture - Preliminary Blood Venous No Growth Day 1 Anaerobic Blood Culture - Preliminary No Growth Day 1 10/28/18 04:00 Nasal Screen MRSA (PCR) - Final Nasal Mrsa Not Detected Assess/Plan/Problems-Billing Assessment: Patient is a 78yo male with a PMH for severe COPD, Severe HFrEF, Metastatic Melanoma not currently receiving therapy, who is admitted for a COPD exacerbation. - Patient Problems (1) Acute and chronic respiratory failure Current Visit: Yes Status: Acute Code(s): J96.20 - ACUTE AND CHR RESP FAILURE, UNSP W HYPOXIA OR HYPERCAPNIA SNOMED Code(s): 27465736 Comment: -2/2 COPD exacerbation -exacerbation likely related to medication change, was prescribed Anoro without ICS -COPD with 2L oxygen requirement at home -frequenty hospitalizations for COPD exacerbations this year. Patient has [facility] to avoid such frequent hospitalizations but appears patient is not utilizing this community support appropriately -cont doxy po, scheduled duonebs, Anoro from home, and mometasone -change solumedrol to prednisone po -pt advised to discuss inhaler changes with Dr. Del Castillo -will consult Dr. Benton with palliative care, appreciate assistance with communication with [facility] -ambulatory oxygen saturation pending -symptomatic SOB improved today -wheezing today (2) Systolic CHF Current Visit: Yes Status: Acute Code(s): I50.20 - UNSPECIFIED SYSTOLIC ( CONGESTIVE) HEART FAILURE SNOMED Code(s): 51791897 Comment: -ischemic cardiomyopathy, EF 20-25% -continue entresto, eplerenone, metoprolol -with PPM and ICD -lungs without crackles (3) Mechanical heart valve present Current Visit: No Status: Acute Code(s): Z95.2 - PRESENCE OF PROSTHETIC HEART VALVE SNOMED Code(s): 29348459259894 Comment: - Warfarin supratherapeutic - holding again today, will recheck INR tomorrow - Patient's INR has been supratherapeutic multiple times upon presentation, may benefit from discussion of NOAC with PCP (4) Melanoma Current Visit: No Status: Acute Code(s): C43.9 - MALIGNANT MELANOMA OF SKIN , UNSPECIFIED SNOMED Code(s): 429837393 Comment: - Metastatic, failed treatment - Follow up outpatient Oncology (5) CAD (coronary artery disease) Current Visit: No Status: Acute Code(s): I25.10 - ATHSCL HEART DISEASE OF [place] CORONARY ARTERY W/O ANG PCTRS SNOMED Code(s): 32163445 Comment: -continue aspirin, entresto, metoprolol (6) DVT prophylaxis Current Visit: No Status: Acute Priority: Medium Onset Date: 04/07/14 Code(s): BON0691 - SNOMED Code(s): 319244917 Comment: - on warfarin, INR supratherapeutic at this time (7) Full code status Current Visit: No Status: Acute Priority: Medium Onset Date: 04/07/14 Code(s): Z78.9 - OTHER SPECIFIED HEALTH STATUS SNOMED Code(s): 226233660 Status and Disposition: Inpatient for COPD Exacerbation with severe co-morbidities.
--- NOTE | 2018-10-31 15:31 | CONSULT ---
Palliative / Hospice Consult Ordering Provider: Claudette Vega - PCP-[facility] - Subjective Code Status: Full Code Advance Directives Location: No Advance Directives - History or Present Illness History or Present Illness: 78yo male Lab Values: Abnormal Lab Results 10/31/18 10/31/18 10/31/18 06:57 06:57 06:57 WBC 15.3 H RBC 3.61 L Hgb 10.6 L Hct 32 L MCV 90 MCH 30 MCHC 33 RDW 16 H Plt Count 237 MPV 8.7 Neut % (Auto) 93.5 Lymph % (Auto) 2.5 [place] % (Auto) 3.8 Eos % (Auto) 0.0 Baso % (Auto) 0.2 Absolute Neuts (auto) 14.3 H Absolute Lymphs (auto) 0.4 L Absolute Monos (auto) 0.6 Absolute Eos (auto) 0.0 Absolute Basos (auto) 0.0 Absolute Nucleated RBC 0.0 Nucleated RBC % 0.0 INR (Anticoag Therapy) 3.87 H Sodium 137 Potassium 4.5 Chloride 103 Carbon Dioxide 32 Anion Gap 2 BUN 22 Creatinine 0.71 Est GFR ( Amer) 129.8 Est GFR (Non-Af Amer) 107.3 BUN/Creatinine Ratio 31.0 H Glucose 124 H Calcium 9.2 Laboratory Last Values WBC 15.3 10^3/uL (3.5-10.8) H 10/31/18 06:57 RBC 3.61 10^6 /uL (4.18-5.48) L 10/31/18 06:57 Hgb 10.6 g/dL (14.0-18.0) L 10/31/18 06:57 Hct 32 % (42-52) L 10/31/18 06:57 MCV 90 fL (80-94) 10/31/18 06:57 MCH 30 pg (27-31) 10/31/18 06:57 MCHC 33 g/dL (31-36) 10/31/18 06:57 RDW 16 % (10-15) H 10/31/18 06:57 Plt Count 237 10^3/uL (150-450) 10/31/18 06:57 MPV 8.7 fL (7.4-10.4) 10/31/18 06:57 Neut % (Auto) 93.5 % 10/31/18 06:57 Lymph % (Auto) 2.5 % 10/31/18 06:57 [place] % (Auto) 3.8 % 10/31/18 06:57 Eos % (Auto) 0.0 % 10/31/18 06:57 Baso % (Auto) 0.2 % 10/31/18 06:57 Absolute Neuts (auto) 14.3 10^3/ul (1.5-7.7) H 10/31/18 06:57 Absolute Lymphs (auto) 0.4 10^3/ul (1.0-4.8) L 10/31/18 06:57 Absolute Monos (auto) 0.6 10^3/ul (0-0.8) 10/31/18 06:57 Absolute Eos (auto) 0.0 10^3/ul (0-0.6) 10/31/18 06:57 Absolute Basos (auto) 0.0 10^3/ul (0-0.2) 10/31/18 06:57 Absolute Nucleated RBC 0.0 10^3/ul 10/31/18 06:57 Nucleated RBC % 0.0 10/31/18 06:57 INR (Anticoag Therapy) 3.87 (0.82-1.09) H 10/31/18 06:57 D-Dimer, Quantitative 299 ng/mL (Less Than 230) H 10/27/18 14:10 Sodium 137 mmol/L (135-145) 10/31/18 06:57 Potassium 4.5 mmol/L (3.5-5.0) 10/31/18 06:57 Chloride 103 mmol/L (101-111) 10/31/18 06:57 Carbon Dioxide 32 mmol/L (22-32) 10/31/18 06:57 Anion Gap 2 mmol/L (2-11) 10/31/18 06:57 BUN 22 mg/dL (6-24) 10/31/18 06:57 Creatinine 0.71 mg/dL (0.67-1.17) 10/31/18 06:57 Est GFR ( Amer) 129.8 (>60) 10/31/18 06:57 Est GFR (Non-Af Amer) 107.3 (>60) 10/31/18 06:57 BUN/Creatinine Ratio 31.0 (8-20) H 10/31/18 06:57 Glucose 124 mg/dL (70-100) H 10/31/18 06:57 Lactic Acid 0.9 mmol/L (0.5-2.0) 10/27/18 14:10 Calcium 9.2 mg/dL (8.6-10.3) 10/31/18 06:57 Magnesium 2.0 mg/dL (1.9-2.7) 10/30/18 07:12 Total Bilirubin 0.90 mg/dL (0.2-1.0) 10/27/18 14:10 AST 25 U/L (13-39) 10/27/18 14:10 ALT 14 U/L (7-52) 10/27/18 14:10 Alkaline Phosphatase 85 U/L (34-104) 10/27/18 14:10 Troponin I 0.01 ng/mL (<0.04) 10/27/18 14:10 B-Natriuretic Peptide 126 pg/mL (<=100) H 10/27/18 14:10 Total Protein 7.4 g/dL (6.4-8.9) 10/27/18 14:10 Albumin 4.3 g/dL (3.2-5.2) 10/27/18 14:10 Globulin 3.1 g/dL (2-4) 10/27/18 14:10 Albumin/Globulin Ratio 1.4 (1-3) 10/27/18 14:10 Urine Color Yellow 10/28/18 04:00 Urine Appearance Cloudy 10/28/18 04:00 Urine pH 5.0 (5-9) 10/28/18 04:00 Ur Specific [place] 1.039 (1.010-1.030) H 10/28/18 04:00 Urine Protein Negative (Negative) 10/28/18 04:00 Urine Ketones Negative (Negative) 10/28/18 04:00 Urine Blood Negative (Negative) 10/28/18 04:00 Urine Nitrate Negative (Negative) 10/28/18 04:00 Urine Bilirubin Negative (Negative) 10/28/18 04:00 Urine Urobilinogen Negative (Negative) 10/28/18 04:00 Ur Leukocyte Esterase Negative (Negative) 10/28/18 04:00 Urine Glucose Negative (Negative) 10/28/18 04:00 Urine Ascorbic Acid * (Negative) A 10/28/18 04:00 - Objective Active Medications: Acetaminophen (Tylenol Tab*) 650 mg PO Q6H PRN PRN Reason: MILD PAIN or TEMP > 100.4 Last Admin: 10/28/18 14:11 Dose: 650 mg Albuterol (Ventolin 2.5 Mg/3 Ml Neb.Nori*) 2.5 mg INH Q2H PRN PRN Reason: SOB/WHEEZING Albuterol/Ipratropium (Duoneb (Albuterol 2.5 Mg/Ipratropium 0.5 Mg)) 1 neb INH [id number] AWAKE PRN PRN Reason: WHEEZING Last Admin: 10/29/18 19:40 Dose: 1 neb Aspirin (Aspirin Ec Tab*) 81 mg PO DAILY [facility] Last Admin: 10/31/18 09:14 Dose: 81 mg Atorvastatin Calcium (Lipitor*) 40 mg PO DAILY [facility] Last Admin: 10/31/18 09:15 Dose: 40 mg Benzonatate (Tessalon Cap*) 100 mg PO BID PRN PRN Reason: COUGH Last Admin: 10/27/18 21:50 Dose: 100 mg Betamethasone/Clotrimazole (Lotrisone Cream*) 1 applic TOPICAL BID [facility] Last Admin: 10/31/18 09:17 Dose: 1 applic Bumetanide (Bumex Tab*) 1 mg PO DAILY [facility] Last Admin: 10/31/18 09:13 Dose: 1 mg Doxycycline Hyclate (Vibramycin Cap(*)) 100 mg PO DAILY [facility] Last Admin: 10/31/18 09:15 Dose: 100 mg Eplerenone (Inspra (Nf)) 25 mg PO DAILY [facility]; Protocol Last Admin: 10/31/18 09:13 Dose: 25 mg Guaifenesin (Mucinex*) 1,200 mg PO BID [facility] Last Admin: 10/31/18 09:15 Dose: 1,200 mg Lorazepam (Ativan Tab(*)) 0.5 mg PO Q6H PRN PRN Reason: ANXIETY Last Admin: 10/31/18 09:24 Dose: 0.5 mg Metoprolol Succinate (Toprol Xl Tab*) 25 mg PO DAILY [facility] Last Admin: 10/31/18 09:14 Dose: 25 mg Mometasone Furoate (Asmanex 220 Mcg Mdi *) 1 puff INH DAILY [facility]; Protocol Last Admin: 10/31/18 08:13 Dose: 1 puff Morphine Sulfate (Morphine Oral.Soln 10 Mg*) 2.5 mg PO Q6H PRN PRN Reason: SEE LABEL COMMENTS Last Admin: 10/30/18 23:51 Dose: 2.5 mg Multivitamins/Minerals (Theragran/Minerals Tab*) 1 tab PO DAILY [facility] Last Admin: 10/31/18 09:13 Dose: 1 tab Nitroglycerin (Nitroglycerin Tab 0.4 Mg*) 0.4 mg SL Q5M PRN PRN Reason: PAIN - CHEST Ondansetron HCl (Zofran Inj*) 4 mg IV Q6H PRN PRN Reason: NAUSEA Oxycodone HCl (Roxycodone Tab*) 5 mg PO Q4H PRN PRN Reason: PAIN Last Admin: 10/31/18 09:16 Dose: 5 mg Polyethylene Glycol/Electrolytes (Miralax*) 17 gm PO DAILY [facility] Last Admin: 10/31/18 09:17 Dose: Not Given Prednisone (Deltasone Tab*) 50 mg PO DAILY [facility] Sacubitril/Valsartan (Entresto (Nf)) 1 tab PO BID [facility] Last Admin: 10/31/18 09:17 Dose: 1 tab Senna (Senokot 8.6 Mg Tab*) 2 tab PO BID [facility] Last Admin: 10/31/18 09:14 Dose: 2 tab Simethicone (Mylicon Tab*) 80 mg PO QID PRN PRN Reason: INDIGESTION Umeclidinium/Vilanterol (Anoro 62.5/25 Ellipta Device (Nf)) 1 inh INH DAILY [facility] Last Admin: 10/31/18 08:16 Dose: 1 puff Vital Signs: Vital Signs: Temp Pulse Resp BP Pulse Ox 98.7 F 70 18 112/57 97 10/31/18 08:21 10/31/18 08:21 10/31/18 09:24 10/31/18 08:21 10/31/18 08:21 Patient Weight: Weight 66.497 kg Intake and Output: Intake & Output 10/29/18 10/30/18 10/31/18 11/01/18 06:59 06:59 06:59 06:59 Intake Total 1586 1781.96 1460 480 Output Total 200 1425 1730 1150 Balance 1386 356.96 -270 -670 Weight 67.767 kg 66.088 kg 66.497 kg Intake: IV Fluids 250 281.96 20 NS 30 20 IVPB 250 250 280 ABX - DOXYCYCLINE 280 NS 250 Medicated IV 250 250 doxycycline 250 250 Oral 836 1000 1160 480 Output: Urine 200 1425 1730 1150 ADLs: Meal Record Start: 10/27/18 19: 37 Freq: DAILY@0900,1400,1800 Status: Active Protocol: Created 10/27/18 19:37 System (Rec: 10/27/18 19:37 System MININT- [id number]) Document 10/28/18 09:00 [id number] (Rec: 10/28/18 10:32 [id number] TELE-C13) Document 10/28/18 14:00 [id number] (Rec: 10/28/18 14:27 [id number] TELE-C13) Document 10/28/18 19:08 [id number] (Rec: 10/28/18 19:08 [id number] TELE-C05) Document 10/29/18 09:00 [id number] (Rec: 10/29/18 12:51 [id number] TELE-C13) Document 10/29/18 14:00 [id number] (Rec: 10/29/18 14:06 [id number] TELE-C13) Document 10/29/18 18:00 [id number] (Rec: 10/29/18 18:57 [id number] TELE-C11) Document 10/30/18 09:00 [id number] (Rec: 10/30/18 10:49 [id number] TELE-C05) Document 10/30/18 13:12 [id number] (Rec: 10/30/18 13:14 [id number] TELE-C05) Document 10/30/18 18:00 [id number] (Rec: 10/30/18 21:47 [id number] TELE-C13) Document 10/31/18 09:00 [id number] (Rec: 10/31/18 13:14 [id number] TELE-C13) Document 10/31/18 13:14 [id number] (Rec: 10/31/18 13:16 [id number] TELE-C13) Intake and Output Start: 10/27/18 13: 56 Freq: Status: Active Protocol: Created 10/27/18 13:56 System (Rec: 10/27/18 13:56 System [id number]) Intake and Output Start: 10/27/18 19: 37 Freq: DAILY@0600,1400,2200 Status: Active Protocol: Created 10/27/18 19:37 System (Rec: 10/27/18 19:37 System MININT- [id number]) Document 10/27/18 22:00 [id number] (Rec: 10/27/18 22:02 [id number] TELE-C32) Document 10/28/18 05:48 [id number] (Rec: 10/28/18 05:48 [id number] TELE-C03) Document 10/28/18 22:00 [id number] (Rec: 10/28/18 22:14 [id number] TELE-C05) Document 10/29/18 06:00 [id number] (Rec: 10/29/18 07:27 [id number] TELE-C07) Document 10/29/18 14:00 [id number] (Rec: 10/29/18 14:06 [id number] TELE-C13) Document 10/29/18 21:34 [id number] (Rec: 10/29/18 21:35 [id number] TELE-C05) Document 10/29/18 21:42 [id number] (Rec: 10/29/18 21:43 [id number] TELE-C05) Document 10/30/18 06:00 [id number] (Rec: 10/30/18 06:45 [id number] TELE-C13) Document 10/30/18 13:12 [id number] (Rec: 10/30/18 13:14 [id number] TELE-C05) Document 10/30/18 21:48 [id number] (Rec: 10/30/18 21:49 [id number] TELE-C13) Document 10/31/18 06:00 [id number] (Rec: 10/31/18 06:09 [id number] TELE-C03) Document 10/31/18 14:00 [id number] (Rec: 10/31/18 15:11 [id number] TELE-C13) Eyes: No Scleral Icterus, PERRLA Ears/Nose/Mouth/Throat: Mucous Membranes Moist Neck: NL Appearance and Movements; NL JVP Cardiovascular: NL Sounds; No Murmurs; No JVD, RRR Abdominal: - - abd soft, nontender, nondistended Extremities: No Edema, No Clubbing, Cyanosis Neurological: Alert and Oriented x 3, NL Muscle Strength and Tone - Assessment Assessment: 78yo male admitted with COPD exacerbation, CHF and pneumonia - Plan Consult Plan (MU): Palliative Plan: Long discussion with pt about goals of care. Pt lives independently in a trailer. - Time On Unit Date of Evaluation: 10/31/18 Hospice Consult Time in: 14:30 Hospice Consult Time Out: 16:00 Hospice Consult Time Total: 90 > 50% of Time Spend In Counseling or Coordinating Care: Yes
--- NOTE | 2018-10-31 19:07 | CONSULT ---
Palliative / Hospice Consult Ordering Provider: Claudette Vega - [facility] Ref[facility] Reason: Goals of care - Subjective Code Status: Full Code Advance Directives Location: No Advance Directives - History or Present Illness History or Present Illness: 78yo male with severe COPD and CHF EF 25-30% presents with SOB. PMH is significant for COPD on 2 liters, CHF, rheumatic heart disease, melanoma(no evidence of disease), CAD, nonsustained ventricular tachycardia s/p pacer and ICD, obstructive sleep apnea, carotid stenosis, BPH and GI AV malformation. 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 Studies show CXR-interstitial edema with R basilar pneumonia, ekg-paced, CTA no PE, H/H 10.6/32, BUN/Cr 22/.71 egfr 107.3, Ca 9.2, tprot 7.4. alb 4.3, inr 3.87 blood cult-neg. All history is from pt and medical record. Pt has 1 ER visit and 5 admissions in the last year. Pt is admitted with COPD exacerbation, pneumonia and CHF. Lab Values: Abnormal Lab Results 10/31/18 10/31/18 10/31/18 06:57 06:57 06:57 WBC 15.3 H RBC 3.61 L Hgb 10.6 L Hct 32 L MCV 90 MCH 30 MCHC 33 RDW 16 H Plt Count 237 MPV 8.7 Neut % (Auto) 93.5 Lymph % (Auto) 2.5 Harlan % (Auto) 3.8 Eos % (Auto) 0.0 Baso % (Auto) 0.2 Absolute Neuts (auto) 14.3 H Absolute Lymphs (auto) 0.4 L Absolute Monos (auto) 0.6 Absolute Eos (auto) 0.0 Absolute Basos (auto) 0.0 Absolute Nucleated RBC 0.0 Nucleated RBC % 0.0 INR (Anticoag Therapy) 3.87 H Sodium 137 Potassium 4.5 Chloride 103 Carbon Dioxide 32 Anion Gap 2 BUN 22 Creatinine 0.71 Est GFR ( Amer) 129.8 Est GFR (Non-Af Amer) 107.3 BUN/Creatinine Ratio 31.0 H Glucose 124 H Calcium 9.2 Laboratory Last Values WBC 15.3 10^3/uL (3.5-10.8) H 10/31/18 06:57 RBC 3.61 10^6 /uL (4.18-5.48) L 10/31/18 06:57 Hgb 10.6 g/dL (14.0-18.0) L 10/31/18 06:57 Hct 32 % (42-52) L 10/31/18 06:57 MCV 90 fL (80-94) 10/31/18 06:57 MCH 30 pg (27-31) 10/31/18 06:57 MCHC 33 g/dL (31-36) 10/31/18 06:57 RDW 16 % (10-15) H 10/31/18 06:57 Plt Count 237 10^3/uL (150-450) 10/31/18 06:57 MPV 8.7 fL (7.4-10.4) 10/31/18 06:57 Neut % (Auto) 93.5 % 10/31/18 06:57 Lymph % (Auto) 2.5 % 10/31/18 06:57 Harlan % (Auto) 3.8 % 10/31/18 06:57 Eos % (Auto) 0.0 % 10/31/18 06:57 Baso % (Auto) 0.2 % 10/31/18 06:57 Absolute Neuts (auto) 14.3 10^3/ul (1.5-7.7) H 10/31/18 06:57 Absolute Lymphs (auto) 0.4 10^3/ul (1.0-4.8) L 10/31/18 06:57 Absolute Monos (auto) 0.6 10^3/ul (0-0.8) 10/31/18 06:57 Absolute Eos (auto) 0.0 10^3/ul (0-0.6) 10/31/18 06:57 Absolute Basos (auto) 0.0 10^3/ul (0-0.2) 10/31/18 06:57 Absolute Nucleated RBC 0.0 10^3/ul 10/31/18 06:57 Nucleated RBC % 0.0 10/31/18 06:57 INR (Anticoag Therapy) 3.87 (0.82-1.09) H 10/31/18 06:57 D-Dimer, Quantitative 299 ng/mL (Less Than 230) H 10/27/18 14:10 Sodium 137 mmol/L (135-145) 10/31/18 06:57 Potassium 4.5 mmol/L (3.5-5.0) 10/31/18 06:57 Chloride 103 mmol/L (101-111) 10/31/18 06:57 Carbon Dioxide 32 mmol/L (22-32) 10/31/18 06:57 Anion Gap 2 mmol/L (2-11) 10/31/18 06:57 BUN 22 mg/dL (6-24) 10/31/18 06:57 Creatinine 0.71 mg/dL (0.67-1.17) 10/31/18 06:57 Est GFR ( Amer) 129.8 (>60) 10/31/18 06:57 Est GFR (Non-Af Amer) 107.3 (>60) 10/31/18 06:57 BUN/Creatinine Ratio 31.0 (8-20) H 10/31/18 06:57 Glucose 124 mg/dL (70-100) H 10/31/18 06:57 Lactic Acid 0.9 mmol/L (0.5-2.0) 10/27/18 14:10 Calcium 9.2 mg/dL (8.6-10.3) 10/31/18 06:57 Magnesium 2.0 mg/dL (1.9-2.7) 10/30/18 07:12 Total Bilirubin 0.90 mg/dL (0.2-1.0) 10/27/18 14:10 AST 25 U/L (13-39) 10/27/18 14:10 ALT 14 U/L (7-52) 10/27/18 14:10 Alkaline Phosphatase 85 U/L (34-104) 10/27/18 14:10 Troponin I 0.01 ng/mL (<0.04) 10/27/18 14:10 B-Natriuretic Peptide 126 pg/mL (<=100) H 10/27/18 14:10 Total Protein 7.4 g/dL (6.4-8.9) 10/27/18 14:10 Albumin 4.3 g/dL (3.2-5.2) 10/27/18 14:10 Globulin 3.1 g/dL (2-4) 10/27/18 14:10 Albumin/Globulin Ratio 1.4 (1-3) 10/27/18 14:10 Urine Color Yellow 10/28/18 04:00 Urine Appearance Cloudy 10/28/18 04:00 Urine pH 5.0 (5-9) 10/28/18 04:00 Ur Specific [place] 1.039 (1.010-1.030) H 10/28/18 04:00 Urine Protein Negative (Negative) 10/28/18 04:00 Urine Ketones Negative (Negative) 10/28/18 04:00 Urine Blood Negative (Negative) 10/28/18 04:00 Urine Nitrate Negative (Negative) 10/28/18 04:00 Urine Bilirubin Negative (Negative) 10/28/18 04:00 Urine Urobilinogen Negative (Negative) 10/28/18 04:00 Ur Leukocyte Esterase Negative (Negative) 10/28/18 04:00 Urine Glucose Negative (Negative) 10/28/18 04:00 Urine Ascorbic Acid * (Negative) A 10/28/18 04:00 - Objective Active Medications: Acetaminophen (Tylenol Tab*) 650 mg PO Q6H PRN PRN Reason: MILD PAIN or TEMP > 100.4 Last Admin: 10/28/18 14:11 Dose: 650 mg Albuterol (Ventolin 2.5 Mg/3 Ml Neb.Nori*) 2.5 mg INH Q2H PRN PRN Reason: SOB/WHEEZING Albuterol/Ipratropium (Duoneb (Albuterol 2.5 Mg/Ipratropium 0.5 Mg)) 1 neb INH [id number] AWAKE PRN PRN Reason: WHEEZING Last Admin: 10/29/18 19:40 Dose: 1 neb Aspirin (Aspirin Ec Tab*) 81 mg PO DAILY [facility] Last Admin: 10/31/18 09:14 Dose: 81 mg Atorvastatin Calcium (Lipitor*) 40 mg PO DAILY [facility] Last Admin: 10/31/18 09:15 Dose: 40 mg Benzonatate (Tessalon Cap*) 100 mg PO BID PRN PRN Reason: COUGH Last Admin: 10/27/18 21:50 Dose: 100 mg Betamethasone/Clotrimazole (Lotrisone Cream*) 1 applic TOPICAL BID [facility] Last Admin: 10/31/18 09:17 Dose: 1 applic Bumetanide (Bumex Tab*) 1 mg PO DAILY [facility] Last Admin: 10/31/18 09:13 Dose: 1 mg Doxycycline Hyclate (Vibramycin Cap(*)) 100 mg PO DAILY [facility] Last Admin: 10/31/18 09:15 Dose: 100 mg Eplerenone (Inspra (Nf)) 25 mg PO DAILY [facility]; Protocol Last Admin: 10/31/18 09:13 Dose: 25 mg Guaifenesin (Mucinex*) 1,200 mg PO BID [facility] Last Admin: 10/31/18 09:15 Dose: 1,200 mg Lorazepam (Ativan Tab(*)) 0.5 mg PO Q6H PRN PRN Reason: ANXIETY Last Admin: 10/31/18 09:24 Dose: 0.5 mg Metoprolol Succinate (Toprol Xl Tab*) 25 mg PO DAILY [facility] Last Admin: 10/31/18 09:14 Dose: 25 mg Mometasone Furoate (Asmanex 220 Mcg Mdi *) 1 puff INH DAILY [facility]; Protocol Last Admin: 10/31/18 08:13 Dose: 1 puff Morphine Sulfate (Morphine Oral.Soln 10 Mg*) 2.5 mg PO Q6H PRN PRN Reason: SEE LABEL COMMENTS Last Admin: 10/30/18 23:51 Dose: 2.5 mg Multivitamins/Minerals (Theragran/Minerals Tab*) 1 tab PO DAILY [facility] Last Admin: 10/31/18 09:13 Dose: 1 tab Nitroglycerin (Nitroglycerin Tab 0.4 Mg*) 0.4 mg SL Q5M PRN PRN Reason: PAIN - CHEST Ondansetron HCl (Zofran Inj*) 4 mg IV Q6H PRN PRN Reason: NAUSEA Oxycodone HCl (Roxycodone Tab*) 5 mg PO Q4H PRN PRN Reason: PAIN Last Admin: 10/31/18 09:16 Dose: 5 mg Polyethylene Glycol/Electrolytes (Miralax*) 17 gm PO DAILY [facility] Last Admin: 10/31/18 09:17 Dose: Not Given Prednisone (Deltasone Tab*) 50 mg PO DAILY [facility] Sacubitril/Valsartan (Entresto (Nf)) 1 tab PO BID [facility] Last Admin: 10/31/18 09:17 Dose: 1 tab Senna (Senokot 8.6 Mg Tab*) 2 tab PO BID [facility] Last Admin: 10/31/18 09:14 Dose: 2 tab Simethicone (Mylicon Tab*) 80 mg PO QID PRN PRN Reason: INDIGESTION Umeclidinium/Vilanterol (Anoro 62.5/25 Ellipta Device (Nf)) 1 inh INH DAILY [facility] Last Admin: 10/31/18 08:16 Dose: 1 puff Vital Signs: Vital Signs: Temp Pulse Resp BP Pulse Ox 98.0 F 70 16 106/52 99 10/31/18 15:01 10/31/18 15:01 10/31/18 15:01 10/31/18 15:01 10/31/18 15:01 Patient Weight: Weight 66.497 kg Intake and Output: Intake & Output 10/29/18 10/30/18 10/31/18 11/01/18 06:59 06:59 06:59 06:59 Intake Total 1586 1781.96 1460 480 Output Total 200 1425 1730 1150 Balance 1386 356.96 -270 -670 Weight 67.767 kg 66.088 kg 66.497 kg Intake: IV Fluids 250 281.96 20 NS 30 20 IVPB 250 250 280 ABX - DOXYCYCLINE 280 NS 250 Medicated IV 250 250 doxycycline 250 250 Oral 836 1000 1160 480 Output: Urine 200 1425 1730 1150 ADLs: Meal Record Start: 10/27/18 19: 37 Freq: DAILY@0900,1400,1800 Status: Active Protocol: Created 10/27/18 19:37 System (Rec: 10/27/18 19:37 System [facility]- [id number]) Document 10/28/18 09:00 [id number] (Rec: 10/28/18 10:32 [id number] TELE-C13) Document 10/28/18 14:00 [id number] (Rec: 10/28/18 14:27 [id number] TELE-C13) Document 10/28/18 19:08 [id number] (Rec: 10/28/18 19:08 [id number] TELE-C05) Document 10/29/18 09:00 [id number] (Rec: 10/29/18 12:51 [id number] TELE-C13) Document 10/29/18 14:00 GGK1203 (Rec: 10/29/18 14:06 [id number] TELE-C13) Document 10/29/18 18:00 [id number] (Rec: 10/29/18 18:57 [id number] TELE-C11) Document 10/30/18 09:00 [id number] (Rec: 10/30/18 10:49 [id number] TELE-C05) Document 10/30/18 13:12 [id number] (Rec: 10/30/18 13:14 [id number] TELE-C05) Document 10/30/18 18:00 [id number] (Rec: 10/30/18 21:47 [id number] TELE-C13) Document 10/31/18 09:00 [id number] (Rec: 10/31/18 13:14 [id number] TELE-C13) Document 10/31/18 13:14 [id number] (Rec: 10/31/18 13:16 [id number] TELE-C13) Intake and Output Start: 10/27/18 13: 56 Freq: Status: Active Protocol: Created 10/27/18 13:56 System (Rec: 10/27/18 13:56 System [id number]) Intake and Output Start: 10/27/18 19: 37 Freq: DAILY@0600,1400,2200 Status: Active Protocol: Created 10/27/18 19:37 System (Rec: 10/27/18 19:37 System [facility]- [id number]) Document 10/27/18 22:00 [id number] (Rec: 10/27/18 22:02 [id number] TELE-C32) Document 10/28/18 05:48 [id number] (Rec: 10/28/18 05:48 [id number] TELE-C03) Document 10/28/18 22:00 [id number] (Rec: 10/28/18 22:14 EPS8920 TELE-C05) Document 10/29/18 06:00 [id number] (Rec: 10/29/18 07:27 [id number] TELE-C07) Document 10/29/18 14:00 [id number] (Rec: 10/29/18 14:06 [id number] TELE-C13) Document 10/29/18 21:34 [id number] (Rec: 10/29/18 21:35 [id number] TELE-C05) Document 10/29/18 21:42 [id number] (Rec: 10/29/18 21:43 [id number] TELE-C05) Document 10/30/18 06:00 [id number] (Rec: 10/30/18 06:45 [id number] TELE-C13) Document 10/30/18 13:12 [id number] (Rec: 10/30/18 13:14 [id number] TELE-C05) Document 10/30/18 21:48 [id number] (Rec: 10/30/18 21:49 [id number] TELE-C13) Document 10/31/18 06:00 [id number] (Rec: 10/31/18 06:09 [id number] TELE-C03) Document 10/31/18 14:00 [id number] (Rec: 10/31/18 15:11 [id number] TELE-C13) Eyes: No Scleral Icterus, PERRLA Ears/Nose/Mouth/Throat: Mucous Membranes Moist Neck: NL Appearance and Movements; NL JVP Cardiovascular: RRR, - - systolic click consistent with mechanical valve, otherwise no murmurs appreciated Abdominal: - - abd soft, nontender, nondistended Extremities: No Edema, No Clubbing, Cyanosis Neurological: Alert and Oriented x 3, NL Muscle Strength and Tone - Assessment Assessment: 78yo male with severe COPD and CHF 25-30% admitted with COPD exacerbation, pneumonia and CHF - Plan Consult Plan (MU): Palliative Plan: Long discussion wtih pt about goals of care. Discussed MOLST, pt wants CPR for limited time, he doesn't want to be intubated, no feeding tube. Left copy with pt to look over with daughter. Pt wants to stay at home. His mother used hospice at home and then was transferred to residence but he feels people just there and use too much morphine-he is not interested in hospice. Currently he is enrolled in [facility] not sure he calls them when he is sick. Will clarify with [facility] if he is enrolled. He likes going to the hospital and doesn't feel he comes here often. Pt still drives and lives independently. Pt notes he has a lot of stuff at his trailer which can make it difficult to move around. Gets meals on wheels delivered twice a week. He feels his doctors don't always listen to him especially about side effects of medications so he makes some dose adjustments on his own. He is articulate and has noted that he is slowing down over the last few years. He still feels he has a good quality of life. - Time On Unit Date of Evaluation: 10/31/18 Hospice Consult Time in: 15:00 Hospice Consult Time Out: 16:30 Hospice Consult Time Total: 90
[2018-11-01] MEDS: Mometasone 220 MCG MDI INH SCH (08:16)
[2018-11-01 08:17] LABS: INR 2.07 (0.82-1.09)
[2018-11-01] MEDS: PTO:Umeclidin/Vilant 62.5 MDI 62.5/25 mcg 14 INH ELLIPTA DEVICE INH SCH (08:18)
[2018-11-01] MEDS: guaiFENesin ER TAB 600 MG PO SCH (08:55)
[2018-11-01] MEDS: Senna TAB 8.6 mg* TAB PO SCH (08:55)
[2018-11-01] MEDS: Multivitamins/Minerals TAB PO SCH (08:55)
[2018-11-01] MEDS: DOXYcycline CAP(*) 100 MG PO SCH (08:56)
[2018-11-01] MEDS: Aspirin EC TAB* 81 MG TAB.EC PO SCH (08:56)
[2018-11-01] MEDS: Metoprolol Succinate XL TAB* 25 MG PO SCH (08:56)
[2018-11-01] MEDS: CMCS:Epleronone (NF) 25 MG TAB PO SCH (08:56)
[2018-11-01] MEDS: Atorvastatin* 40 MG TAB PO SCH (08:56)
[2018-11-01] MEDS: Bumetanide TAB* 2 MG PO SCH (08:57)
[2018-11-01] MEDS: Clotrimazole/Betamethasone CREAM* 15 GM TOPICAL SCH (08:58)
[2018-11-01] MEDS: Polyethylene Glycol 3350* 17 GM PACKET PO SCH (08:59)
[2018-11-01] MEDS: PTO:Sacubitril/Valsartan 24/26(NF) 1 TAB PO SCH (08:59)
[2018-11-01] MEDS ORDERED: predniSONE TAB* 50 MG PO SCH (09:00)
[2018-11-01] MEDS: LORazepam TAB(*) 0.5 MG PO PRN ×2 (09:17→15:35)
[2018-11-01] MEDS: oxyCODONE TAB* 5 MG TAB PO PRN ×2 (09:17→15:34)
[2018-11-01 11:58] VITALS: BP 114/58
[2018-11-01] MEDS ORDERED: Warfarin TAB(*) 5 MG PO ONE (17:00)
--- NOTE | 2018-11-01 23:15 | DS ---
CC: Dr. Ruth; Dr. Del Castillo; Dr. Benton. * DISCHARGE SUMMARY: DATE OF ADMISSION: 10/27/18 DATE OF DISCHARGE: 11/01/18 ATTENDING PHYSICIAN WHILE IN THE HOSPITAL: Dr. Joseph Turk * (dictated by ADI Bonilla). PRIMARY CARE PROVIDER: Dr. Ruth. OUTPATIENT RESOURCE DEVELOPMENT MANAGER: Dr. Del Castillo. CONSULTING PALLIATIVE CARE PHYSICIAN: Dr. Benton. PRIMARY DIAGNOSES: 1. Acute on chronic respiratory failure with hypoxia. 2. Chronic obstructive pulmonary disease exacerbation secondary to medication deescalation. 3. Supratherapeutic INR. SECONDARY DIAGNOSES: 1. Chronic obstructive pulmonary disease, on 2 L of oxygen at home. 2. Rheumatic heart disease with mechanical valve replacement, on Coumadin. 3. Coronary artery disease, status post coronary artery bypass graft. 4. Nonsustained V-tach, status post permanent pacemaker. 5. Obstructive sleep apnea. 6. Carotid stenosis. 7. History of DVT. 8. BPH. 9. Malignant melanoma, on current treatment. 10. Heart failure with reduced ejection fraction. STUDIES WHILE IN THE HOSPITAL: Chest/thorax CTA. Impression: No definite pulmonary embolus is noted. Enlarged left atrium and right atrium which is similar to that identified previously. Areas of peripheral nodular infiltrate in the inferior right upper lobe and right lower lobe as well as the left lower lobe is noted unchanged from previous exam and may represent inflammatory changes. Right basilar atelectasis is noted. HISTORY OF PRESENT ILLNESS/HOSPITAL COURSE: Mario Huber is a 78-year-old male with a past medical history significant for coronary artery disease; COPD, on 2 L of oxygen at home; mechanical valve, on Coumadin and metastatic melanoma, on current therapy, who presented to the emergency department due to shortness of breath x3 days. Please see admitting history and physical dictated by ADI Doran for further information. During the patient's hospital stay, he did have fair response to IV steroids which were then downgraded to oral steroids. The patient was treated with doxycycline during his hospital stay, given that he did have inflammatory changes on his CTA which were consistent with previous exam. The patient did have pneumonia in the setting of these prior exams and there may be a risk of this given his severe COPD, though he did not have any clinical suspicion for pneumonia. It appears that the COPD exacerbation is likely brought upon by deescalation of COPD therapy. It appears that the patient asked his primary care provider to change to try Anoro. The patient was previously on Yupelri prescribed by Dr. Del Castillo. The patient was now additionally prescribed inhaled corticosteroid which is optimal therapy for this patient given his advanced COPD and it appears this is the reason why he failed. Additionally, the patient has [facility] and [facility] in the home and has not been utilizing [facility] services appropriately. Additionally, the patient reports to me he does not usually take the morphine that is prescribed to him to help him with air hunger and the patient does not appropriately decrease his activity in the setting of his severe COPD. Dr. Benton evaluated the patient during the hospital stay. The patient refused hospice which is consistent with his refusal to hospice in the past. Dr. Benton did recommend adding an additional community service of [facility] for additional palliative care services and in the home to hopefully prevent further hospitalizations. On the date of discharge, the patient is feeling well. His lungs do not have any wheezing and he feels his shortness of breath has improved with exertion and he has no shortness of breath at rest. He denies chest pain, abdominal pain, nausea, vomiting, fever, or chills. On the date of discharge, the patient ambulated on 2 L of oxygen and maintained oxygen saturation only as low as 90%, which represents good oxygen saturation. PHYSICAL EXAMINATION: General: Thin elderly white male, appearing comfortable , in no acute distress. HEENT: Mucous membranes are moist. Lungs: Clear to auscultation throughout, diminished breath sounds. Cardiac: Regular rate and rhythm with heart sound, click, consistent with mechanical valve. No murmurs appreciated. Abdomen is soft, nontender, and nondistended. Extremities: No clubbing, cyanosis, or edema. Neuro: Alert and oriented x3. No focal deficits. Skin: Warm, dry, and intact. Psych: Pleasant and cooperative. DISCHARGE PLAN: DIET: Heart-healthy diet. ACTIVITY: The patient is advised to limit his activity to as tolerated using his oxygen. The patient was advised that if he experiences shortness of breath he should first try his DuoNeb, then try using morphine, then call [facility] or [facility]. The patient additionally was advised to follow up with Dr. Del Castillo regarding this hospitalization and his medication changes that previously occurred. I will not change his medications other than adding inhaled corticosteroid that was added during his stay until Dr. Del Castillo evaluates the patient. The patient was advised to only see Dr. Del Castillo for his COPD medication changes. The patient was advised not to request changes from his private provider regarding these inhalers considering this recent hospitalization. The patient was advised to return to the emergency department if he experiences chest pain, loss of consciousness, fever, or chills. The patient was set up with [facility] palliative care services as previously mentioned in addition to already established [facility] and [facility]. Additionally, the patient should be following up with his primary care provider within 1-2 days to have his INR rechecked as he has had a supratherapeutic INR during his stay. The patient has had a supratherapeutic INR as mentioned on many hospitalizations during this year and it may be of benefit to discuss alternative anticoagulation options with the patient such as a NOAC. The patient did have a subtherapeutic INR on the day of discharge and was given a dose of his normal Coumadin before he left. DISCHARGE MEDICATIONS: 1. Mometasone 220 mcg 1 puff inhaled daily. 2. Prednisone tab 60 x3 days, then 50 mg x3 days, then 40 mg x3 days, then 20 mg x3 days, and 10 mg x3 days. 3. Doxycycline 100 mg p.o. x2 days. Continued home medications: 1. DuoNeb 1 neb inhaled q.6 hours p.r.n. 2. Anoro 1 inhaled daily. 3. Morphine oral concentrate 0.25 mL p.o. q.4 to 6 hours p.r.n. air hunger. 4. Acetaminophen 500 mg p.o. q.6 hours p.r.n. 5. Albuterol inhaler 2 puffs inhaled q.4 hours p.r.n. shortness of breath. 6. Aspirin 81 mg p.o. daily. 7. Lipitor 40 mg p.o. daily. 8. Azithromycin 250 p.o. t.i.d. 9. Lotrisone cream 1 application topically b.i.d. 10. Eplerenone 25 mg p.o. daily. 11. Lorazepam 0.5 mg p.o. q.6 hours p.r.n. anxiety. 12. Metoprolol 25 mg p.o. daily. 13. Moxifloxacin 2 drops right eye 4 times a day. 14. Multivitamin 1 tab p.o. daily. 15. Nitroglycerin 0.4 mg sublingual q.5 minutes p.r.n. angina. 16. Oxycodone 5 mg p.o. q.4 hours p.r.n. pain. 17. MiraLAX 17 mg p.o. daily. 18. Prednisolone eye drops 1 drop right eye 4 times a day. 19. Entresto 1 tab p.o. b.i.d. 20. Simethicone 125 mg p.o. 4 times a day p.r.n. 21. Torsemide 10 mg p.o. daily. 22. Warfarin 3 mg p.o. Wednesday, Wednesday, Wednesday, , Wednesday. 23. Warfarin 5 mg p.o. Wednesday, Wednesday. Discontinued home medication: Spiriva. CONDITION ON DISCHARGE: Fair. DISPOSITION: Home. TIME SPENT: Approximately 45 minutes was spent on this discharge, roughly half this time spent with patient counseling him on what to do when he experiences shortness of breath at home and examining the patient. ADI BONILLA [id number]/CPS #: [id number] MTDD
== END 2018-11-01 16:00 | disposition home health service (06) | DRG 190 ==
LOC: ED 13:48 → MEDTELE 18:58 → OBSVTOIN 10-29 16:17
PROVIDERS: ADMIT Internal Medicine; ATTEND Internal Medicine
DX: J44.1 Chronic obstructive pulmonary disease with (acute) exacerbation (principal); J96.21 Acute and chronic respiratory failure with hypoxia; I47.2 Ventricular tachycardia; C79.89 Secondary malignant neoplasm of other specified sites; I50.22 Chronic systolic (congestive) heart failure; Z68.1 Body mass index [BMI] 19.9 or less, adult; J98.11 Atelectasis; Z99.81 Dependence on supplemental oxygen; I65.29 Occlusion and stenosis of unspecified carotid artery; I25.5 Ischemic cardiomyopathy; C43.9 Malignant melanoma of skin, unspecified; I09.9 Rheumatic heart disease, unspecified; I25.10 Atherosclerotic heart disease of native coronary artery without angina pectoris; G47.33 Obstructive sleep apnea (adult) (pediatric); N40.0 Benign prostatic hyperplasia without lower urinary tract symptoms; R63.4 Abnormal weight loss; R79.1 Abnormal coagulation profile; Z79.01 Long term (current) use of anticoagulants; Z95.2 Presence of prosthetic heart valve; Z95.810 Presence of automatic (implantable) cardiac defibrillator; Z95.1 Presence of aortocoronary bypass graft; Z79.1 Long term (current) use of non-steroidal anti-inflammatories (NSAID); Z79.82 Long term (current) use of aspirin; Z79.891 Long term (current) use of opiate analgesic; Z79.51 Long term (current) use of inhaled steroids; Z79.899 Other long term (current) drug therapy; Z88.8 Allergy status to other drugs, medicaments and biological substances; Z80.8 Family history of malignant neoplasm of other organs or systems; Z87.891 Personal history of nicotine dependence; Z86.718 Personal history of other venous thrombosis and embolism
CPT/HCPCS: 36415; 71045; 71275; 80048; 80053; 81003; 83605; 83735; 83880; 84484; 85025; 85379; 85610; 87040; 87641; 93005; 94640; 99284; A9270-GY; G0378; J1100; J1940; J2930; J7512; Q9967

== ENCOUNTER 2020-02-05 11:27 | Observation (INO) ==
[2020-02-05 12:27] LABS: Hematocrit 41 % (42-52); Hemoglobin 13.1 g/dL (14.0-18.0); Mean Corpuscular HGB Conc 32 g/dL (31-36); Mean Corpuscular Hemoglobin 30 pg (27-31); Mean Corpuscular Volume 92 fL (80-94); Mean Platelet Volume 8.6 fL (7.4-10.4); Platelet Count 259 10^3/uL (150-450); Red Blood Count 4.41 10^6 /uL (4.18-5.48); Red Cell Distribution Width 15 % (10-15); White Blood Count 11.2 10^3/uL (3.5-10.8)
[2020-02-05 12:38] LABS: INR 4.97 (0.82-1.09)
[2020-02-05 12:51] LABS: Albumin 3.9 g/dL (3.2-5.2); Albumin/Globulin Ratio 1.4 (1-3); BUN/Creatinine Ratio 16.2 (8-20); Calcium 8.7 mg/dL (8.6-10.3); EGFR African American 88.2 (>60); EGFR Non-African American 72.9 (>60); Globulin 2.8 g/dL (2-4); Total Bilirubin 0.9 mg/dL (0.2-1.0); Total Protein 6.7 g/dL (6.4-8.9)
[2020-02-05 12:53] LABS: Troponin I 0.02 ng/mL (<0.03)
[2020-02-05 12:57] LABS: ABS Basophils 0.1 10^3/ul (0-0.2); ABS Eosinophils 0.5 10^3/ul (0-0.6); ABS Lymphocytes 0.7 10^3/ul (1.0-4.8); ABS Monocytes 1.6 10^3/ul (0-0.8); ABS Neutrophils 8.3 10^3/ul (1.5-7.7); Eosinophil % 4.4 %; Lymphocyte % 6.4 %
[2020-02-05] MEDS ORDERED: Ondansetron 4 mg VIAL 2 MG/ML 2 ml VIAL IV PRN (18:05)
[2020-02-05] MEDS ORDERED: Albuterol 2.5mg/3 ml (0.083%) NEB.SOLN INH PRN (18:05)
[2020-02-05] MEDS: Aspirin EC 81 mg TAB.EC (enteric coated) PO SCH (20:32)
[2020-02-05] MEDS: prednisoLONE 1% OPHTH.SUSP 5 ML OPHTH.SUSP RIGHT EYE SCH (20:34)
[2020-02-05] MEDS ORDERED: Moxifloxacin 0.5% OPHTH(NF) 1 DROP OPHTH.SOLN RIGHT EYE SCH (21:00)
[2020-02-06 05:56] LABS: ABS Basophils 0.1 10^3/ul (0-0.2); ABS Eosinophils 0.6 10^3/ul (0-0.6); ABS Lymphocytes 0.9 10^3/ul (1.0-4.8); ABS Monocytes 1.7 10^3/ul (0-0.8); ABS Neutrophils 7.5 10^3/ul (1.5-7.7); Eosinophil % 5.4 %; Hematocrit 39 % (42-52); Hemoglobin 12.5 g/dL (14.0-18.0); Lymphocyte % 8.1 %; Mean Corpuscular HGB Conc 32 g/dL (31-36); Mean Corpuscular Hemoglobin 30 pg (27-31); Mean Corpuscular Volume 92 fL (80-94); Mean Platelet Volume 8.8 fL (7.4-10.4); Platelet Count 229 10^3/uL (150-450); Red Blood Count 4.23 10^6 /uL (4.18-5.48); Red Cell Distribution Width 15 % (10-15); White Blood Count 10.7 10^3/uL (3.5-10.8)
[2020-02-06 06:05] LABS: INR 3.6 (0.82-1.09)
[2020-02-06 06:17] LABS: BUN/Creatinine Ratio 18.9 (8-20); Calcium 8.4 mg/dL (8.6-10.3); EGFR African American 92.5 (>60); EGFR Non-African American 76.5 (>60); HDL Cholesterol 47.1 mg/dL; Magnesium 2.1 mg/dL (1.9-2.7); Potassium 4.2 mmol/L (3.5-5.0)
[2020-02-06] MEDS ORDERED: Regadenoson 0.4 MG/5 ML SYRINGE ONE (10:10)
[2020-02-06] MEDS ORDERED: Aminophylline 25 MG/ML VIAL ONE (10:10)
[2020-02-06] MEDS: Multivitamins/Minerals TAB PO SCH (13:13)
[2020-02-06] MEDS: Aspirin EC 81 mg TAB.EC (enteric coated) PO SCH (13:13)
[2020-02-06] MEDS: prednisoLONE 1% OPHTH.SUSP 5 ML OPHTH.SUSP RIGHT EYE SCH ×4 (13:15→20:25)
[2020-02-06] MEDS: Polyethylene Glycol 3350 17 GM PACKET PO SCH (13:15)
[2020-02-06] MEDS: PTO:FLUTICASONE/UMECLIDIN/VILANTER 1 PUFF MDI INH SCH (13:22)
[2020-02-07 06:18] LABS: INR 2.53 (0.82-1.09)
[2020-02-07] MEDS: prednisoLONE 1% OPHTH.SUSP 5 ML OPHTH.SUSP RIGHT EYE SCH ×2 (08:56→12:20)
[2020-02-07] MEDS: Polyethylene Glycol 3350 17 GM PACKET PO SCH (08:57)
[2020-02-07] MEDS: PTO:FLUTICASONE/UMECLIDIN/VILANTER 1 PUFF MDI INH SCH (08:58)
[2020-02-07] MEDS: Aspirin EC 81 mg TAB.EC (enteric coated) PO SCH (08:58)
[2020-02-07] MEDS: Multivitamins/Minerals TAB PO SCH (08:58)
[2020-02-07 11:24] VITALS: BP 85/51
== END 2020-02-07 13:10 | disposition home or self-care (01) ==
LOC: ED 11:27 → MEDTELE 11:27
PROVIDERS: ADMIT Internal Medicine; ATTEND Internal Medicine

== ENCOUNTER 2020-08-07 15:28 | Inpatient (IN) ==
[2020-08-07 16:06] LABS: ABS Eosinophils 0.1 10^3/ul (0-0.6); ABS Lymphocytes 0.8 10^3/ul (1.0-4.8); ABS Monocytes 1.2 10^3/ul (0-0.8); ABS Neutrophils 11.6 10^3/ul (1.5-7.7); Eosinophil % 0.6 %; Hematocrit 39 % (42-52); Hemoglobin 12.6 g/dL (14.0-18.0); Lymphocyte % 5.8 %; Mean Corpuscular HGB Conc 33 g/dL (31-36); Mean Corpuscular Hemoglobin 30 pg (27-31); Mean Corpuscular Volume 92 fL (80-94); Mean Platelet Volume 8.5 fL (7.4-10.4); Platelet Count 268 10^3/uL (150-450); Red Blood Count 4.22 10^6 /uL (4.18-5.48); Red Cell Distribution Width 15 % (10-15); White Blood Count 13.7 10^3/uL (3.5-10.8)
[2020-08-07 16:23] LABS: Troponin I 0.03 ng/mL (<0.03)
[2020-08-07 16:43] LABS: Anion Gap 4 mmol/L (2-11); Blood Urea Nitrogen 18 mg/dL (6-24); CO2 Carbon Dioxide 34 mmol/L (22-32); Calcium 8.8 mg/dL (8.6-10.3); Chloride 99 mmol/L (101-111); EGFR Non-African American 80.2 (>60); Glucose 108 mg/dL (70-100); Potassium 4.5 mmol/L (3.5-5.0); Sodium 137 mmol/L (135-145)
[2020-08-07] MEDS ORDERED: Azithromycin 500 mg/250 ml NS 500 MG/250 ML BAG IVPB ONE (16:48)
[2020-08-07] MEDS ORDERED: cefTRIAXone 1 gm/50 mL NS BAG 1 GM/50 ML BAG IV ONE (16:48)
[2020-08-07] MEDS ORDERED: guaiFENesin 100 mg/5 ml LIQ unit dose cup PO PRN (19:55)
[2020-08-07 20:16] LABS: C Reactive Protein 9.14 mg/L (<8.01)
[2020-08-07] MEDS: Albuterol/Ipratropium NEB.SOL (2.5/0.5 MG) 3 ML NEB.SOLN INH PRN (21:06)
[2020-08-08 01:46] LABS: Troponin I 0.03 ng/mL (<0.03)
[2020-08-08] MEDS ORDERED: NS 0.9% 500 ml BAG 500 ML IV ONE (04:01)
[2020-08-08 06:25] LABS: ABS Lymphocytes 0.3 10^3/ul (1.0-4.8); ABS Monocytes 0.3 10^3/ul (0-0.8); ABS Neutrophils 9.3 10^3/ul (1.5-7.7); Eosinophil % 0.1 %; Hematocrit 33 % (42-52); Lymphocyte % 3.3 %; Mean Corpuscular HGB Conc 33 g/dL (31-36); Mean Corpuscular Hemoglobin 30 pg (27-31); Mean Corpuscular Volume 93 fL (80-94); Mean Platelet Volume 8.4 fL (7.4-10.4); Platelet Count 237 10^3/uL (150-450); Red Blood Count 3.61 10^6 /uL (4.18-5.48); Red Cell Distribution Width 15 % (10-15)
[2020-08-08 06:44] LABS: Blood Urea Nitrogen 15 mg/dL (6-24); CO2 Carbon Dioxide 36 mmol/L (22-32); Calcium 8.3 mg/dL (8.6-10.3); Chloride 102 mmol/L (101-111); EGFR African American 115.9 (>60); EGFR Non-African American 95.8 (>60); Glucose 148 mg/dL (70-100); Potassium 4.7 mmol/L (3.5-5.0); Sodium 137 mmol/L (135-145); Troponin I 0.03 ng/mL (<0.03)
[2020-08-08] MEDS: Aspirin EC 81 mg TAB.EC (enteric coated) PO SCH (09:07)
[2020-08-08] MEDS: Multivitamins/Minerals TAB PO SCH (09:07)
[2020-08-08] MEDS: Polyethylene Glycol 3350 17 GM PACKET PO SCH (09:10)
[2020-08-08] MEDS: CMCS:Epleronone 25 mg TAB (NF) PO SCH ×2 (09:10→12:55)
[2020-08-08] MEDS: FLUTICAS/UMECLI/VILANT 100-62.5-25 MDI (NF) INH SCH (09:34)
[2020-08-08] MEDS: cefTRIAXone 1 gm/50 mL NS BAG 1 GM/50 ML BAG IVPB SCH (17:13)
[2020-08-08] MEDS: Warfarin DAILY REMINDER **NOTE FOLLOW UP SCH (17:13)
[2020-08-08] MEDS: Azithromycin 500 mg/250 ml NS 500 MG/250 ML BAG IVPB SCH (18:01)
[2020-08-08 20:08] LABS: INR 3.31 (0.82-1.09)
[2020-08-08 20:30] LABS: Theophylline < 2.7 mcg/mL (10-20.0)
[2020-08-09] MEDS: Albuterol/Ipratropium NEB.SOL (2.5/0.5 MG) 3 ML NEB.SOLN INH PRN ×2 (03:24→08:56)
[2020-08-09 06:45] LABS: Hematocrit 32 % (42-52); Hemoglobin 10.4 g/dL (14.0-18.0); Mean Corpuscular HGB Conc 33 g/dL (31-36); Mean Corpuscular Hemoglobin 30 pg (27-31); Mean Corpuscular Volume 92 fL (80-94); Mean Platelet Volume 8.7 fL (7.4-10.4); Platelet Count 234 10^3/uL (150-450); Red Blood Count 3.43 10^6 /uL (4.18-5.48); Red Cell Distribution Width 15 % (10-15); White Blood Count 12.1 10^3/uL (3.5-10.8)
[2020-08-09 06:59] LABS: Calcium 8.5 mg/dL (8.6-10.3); EGFR African American 112.5 (>60); Potassium 4.2 mmol/L (3.5-5.0)
[2020-08-09] MEDS: Polyethylene Glycol 3350 17 GM PACKET PO SCH (07:57)
[2020-08-09] MEDS: Aspirin EC 81 mg TAB.EC (enteric coated) PO SCH (07:58)
[2020-08-09] MEDS: Multivitamins/Minerals TAB PO SCH (07:58)
[2020-08-09] MEDS: CMCS:Epleronone 25 mg TAB (NF) PO SCH (08:01)
[2020-08-09] MEDS: FLUTICAS/UMECLI/VILANT 100-62.5-25 MDI (NF) INH SCH (08:02)
[2020-08-09] MEDS: Morphine ORAL CONCENTRATE 5 MG/0.25 ML ORAL.SYRIN PO PRN ×3 (09:58→19:45)
[2020-08-09 10:31] LABS: Troponin I 0.03 ng/mL (<0.03)
[2020-08-09] MEDS ORDERED: Mometasone/Formoter 100/5 MDI INH SCH (12:00)
[2020-08-09] MEDS ORDERED: SPIRIVA Respimat (tiotropium) 2.5 mcg/inh Inhaler INH SCH (12:00)
[2020-08-09 13:56] LABS: Troponin I 0.03 ng/mL (<0.03)
[2020-08-09] MEDS: methylPREDNISolone SOD 40 mg/ml 1 ml VIAL IV SCH (14:33)
[2020-08-09 15:40] LABS: INR 3.68 (0.82-1.09)
[2020-08-09] MEDS: cefTRIAXone 1 gm/50 mL NS BAG 1 GM/50 ML BAG IVPB SCH (16:56)
[2020-08-09] MEDS: Azithromycin 500 mg/250 ml NS 500 MG/250 ML BAG IVPB SCH (17:49)
[2020-08-09] MEDS: Warfarin DAILY REMINDER **NOTE FOLLOW UP SCH (17:49)
[2020-08-10] MEDS: Morphine ORAL CONCENTRATE 5 MG/0.25 ML ORAL.SYRIN PO PRN ×5 (01:42→22:23)
[2020-08-10] MEDS: methylPREDNISolone SOD 40 mg/ml 1 ml VIAL IV SCH ×2 (01:42→13:30)
[2020-08-10] MEDS: Albuterol/Ipratropium NEB.SOL (2.5/0.5 MG) 3 ML NEB.SOLN INH PRN (02:15)
[2020-08-10 06:35] LABS: ABS Lymphocytes 0.3 10^3/ul (1.0-4.8); ABS Monocytes 0.5 10^3/ul (0-0.8); ABS Neutrophils 12.2 10^3/ul (1.5-7.7); Hematocrit 33 % (42-52); Hemoglobin 10.6 g/dL (14.0-18.0); Lymphocyte % 2.5 %; Mean Corpuscular HGB Conc 32 g/dL (31-36); Mean Corpuscular Hemoglobin 30 pg (27-31); Mean Corpuscular Volume 93 fL (80-94); Mean Platelet Volume 8.6 fL (7.4-10.4); Platelet Count 265 10^3/uL (150-450); Red Blood Count 3.59 10^6 /uL (4.18-5.48); Red Cell Distribution Width 15 % (10-15)
[2020-08-10 06:44] LABS: INR 4.18 (0.82-1.09)
[2020-08-10 06:54] LABS: Calcium 8.7 mg/dL (8.6-10.3); EGFR African American 123.1 (>60); EGFR Non-African American 101.8 (>60); Potassium 4.8 mmol/L (3.5-5.0)
[2020-08-10] MEDS: Aspirin EC 81 mg TAB.EC (enteric coated) PO SCH (07:53)
[2020-08-10] MEDS: Multivitamins/Minerals TAB PO SCH (07:53)
[2020-08-10] MEDS ORDERED: Piperacillin/Tazobac ADVAN 3.375 GM in NS 0.9% 100 ml BAG 100 ML IV ONE (09:00)
[2020-08-10] MEDS ORDERED: Zosyn per Pharmacy NOTE FOLLOW UP SCH (09:00)
[2020-08-10] MEDS: CMCS:Epleronone 25 mg TAB (NF) PO SCH (09:20)
[2020-08-10] MEDS: [UNRECOGNIZED DRUG - OTHER] INH SCH (09:20)
[2020-08-10] MEDS: Polyethylene Glycol 3350 17 GM PACKET PO SCH (09:20)
[2020-08-10] MEDS: Linezolid 600 MG IVPREMIX(*) 600 MG/300 ML BAG IVPB SCH ×2 (10:03→20:18)
[2020-08-10] MEDS: Albuterol 2.5mg/3 ml (0.083%) NEB.SOLN INH SCH ×2 (12:25→19:42)
[2020-08-10] MEDS: ZOSYN 3.375 GM Q8H per EXTENDED INFUSION IV SCH ×2 (13:30→21:47)
[2020-08-10] MEDS: Warfarin DAILY REMINDER **NOTE FOLLOW UP SCH (16:42)
[2020-08-11] MEDS: Albuterol 2.5mg/3 ml (0.083%) NEB.SOLN INH SCH ×4 (00:48→19:41)
[2020-08-11] MEDS: methylPREDNISolone SOD 40 mg/ml 1 ml VIAL IV SCH ×2 (02:24→16:40)
[2020-08-11] MEDS: ZOSYN 3.375 GM Q8H per EXTENDED INFUSION IV SCH ×3 (05:48→22:09)
[2020-08-11] MEDS: Morphine ORAL CONCENTRATE 5 MG/0.25 ML ORAL.SYRIN PO PRN ×3 (05:52→17:52)
[2020-08-11 06:36] LABS: INR 4.48 (0.82-1.09)
[2020-08-11] MEDS: CMCS:Epleronone 25 mg TAB (NF) PO SCH (09:12)
[2020-08-11] MEDS: Multivitamins/Minerals TAB PO SCH (09:12)
[2020-08-11] MEDS: Aspirin EC 81 mg TAB.EC (enteric coated) PO SCH (09:13)
[2020-08-11] MEDS: Polyethylene Glycol 3350 17 GM PACKET PO SCH (09:13)
[2020-08-11] MEDS: Linezolid 600 MG IVPREMIX(*) 600 MG/300 ML BAG IVPB SCH ×2 (10:25→20:51)
[2020-08-11] MEDS: [UNRECOGNIZED DRUG - OTHER] INH SCH ×2 (11:14→12:51)
[2020-08-11] MEDS: Warfarin DAILY REMINDER **NOTE FOLLOW UP SCH (15:20)
[2020-08-12] MEDS: Morphine ORAL CONCENTRATE 5 MG/0.25 ML ORAL.SYRIN PO PRN ×3 (00:14→09:34)
[2020-08-12] MEDS: Albuterol 2.5mg/3 ml (0.083%) NEB.SOLN INH SCH ×4 (00:41→20:19)
[2020-08-12] MEDS: ZOSYN 3.375 GM Q8H per EXTENDED INFUSION IV SCH ×3 (04:50→23:25)
[2020-08-12 07:21] LABS: INR 2.55 (0.82-1.09)
[2020-08-12] MEDS: [UNRECOGNIZED DRUG - OTHER] INH SCH (07:32)
[2020-08-12] MEDS: Multivitamins/Minerals TAB PO SCH (09:33)
[2020-08-12] MEDS: Aspirin EC 81 mg TAB.EC (enteric coated) PO SCH (09:34)
[2020-08-12] MEDS: CMCS:Epleronone 25 mg TAB (NF) PO SCH (09:34)
[2020-08-12] MEDS: Polyethylene Glycol 3350 17 GM PACKET PO SCH (09:35)
[2020-08-12] MEDS: Linezolid 600 MG IVPREMIX(*) 600 MG/300 ML BAG IVPB SCH ×2 (10:15→21:57)
[2020-08-12] MEDS ORDERED: Furosemide 40 mg/4 ml IV VIAL IV SLOW PU ONE (10:36)
[2020-08-12] MEDS: Warfarin DAILY REMINDER **NOTE FOLLOW UP SCH (17:19)
[2020-08-13] MEDS: Albuterol 2.5mg/3 ml (0.083%) NEB.SOLN INH SCH ×2 (02:06→07:36)
[2020-08-13] MEDS: ZOSYN 3.375 GM Q8H per EXTENDED INFUSION IV SCH ×2 (04:32→12:25)
[2020-08-13 06:27] LABS: Hematocrit 34 % (42-52); Mean Corpuscular HGB Conc 33 g/dL (31-36); Mean Corpuscular Hemoglobin 30 pg (27-31); Mean Corpuscular Volume 92 fL (80-94); Mean Platelet Volume 9.2 fL (7.4-10.4); Platelet Count 263 10^3/uL (150-450); Red Blood Count 3.68 10^6 /uL (4.18-5.48); Red Cell Distribution Width 14 % (10-15)
[2020-08-13 06:34] LABS: INR 1.98 (0.82-1.09)
[2020-08-13 06:42] LABS: Blood Urea Nitrogen 17 mg/dL (6-24); CO2 Carbon Dioxide 39 mmol/L (22-32); Calcium 8.6 mg/dL (8.6-10.3); Chloride 96 mmol/L (101-111); EGFR African American 93.4 (>60); EGFR Non-African American 77.2 (>60); Glucose 115 mg/dL (70-100); Potassium 4.5 mmol/L (3.5-5.0); Sodium 135 mmol/L (135-145)
[2020-08-13] MEDS: [UNRECOGNIZED DRUG - OTHER] INH SCH (07:39)
[2020-08-13] MEDS: Morphine ORAL CONCENTRATE 5 MG/0.25 ML ORAL.SYRIN PO PRN (10:26)
[2020-08-13] MEDS: Aspirin EC 81 mg TAB.EC (enteric coated) PO SCH (10:30)
[2020-08-13] MEDS: Multivitamins/Minerals TAB PO SCH (10:31)
[2020-08-13] MEDS: Polyethylene Glycol 3350 17 GM PACKET PO SCH (10:33)
[2020-08-13] MEDS: CMCS:Epleronone 25 mg TAB (NF) PO SCH (11:14)
[2020-08-13] MEDS: Linezolid 600 MG IVPREMIX(*) 600 MG/300 ML BAG IVPB SCH ×2 (11:15→22:01)
[2020-08-13 11:47] LABS: Magnesium 2.2 mg/dL (1.9-2.7)
[2020-08-13 11:48] LABS: Troponin I 0.04 ng/mL (<0.03)
[2020-08-13] MEDS: Isosorbide Mononit ER 30mg TAB PO SCH (12:23)
[2020-08-13] MEDS ORDERED: Warfarin per PHARMACY **NOTE FOLLOW UP SCH (15:00)
[2020-08-13] MEDS: Albuterol HFA INHALER 8 gm MDI INH SCH ×2 (15:25→22:01)
[2020-08-13] MEDS: Warfarin DAILY REMINDER **NOTE FOLLOW UP SCH (17:33)
[2020-08-14] MEDS: ZOSYN 3.375 GM Q8H per EXTENDED INFUSION IV SCH ×4 (00:01→23:25)
[2020-08-14] MEDS: Albuterol HFA INHALER 8 gm MDI INH SCH ×4 (01:33→20:54)
[2020-08-14] MEDS: Morphine ORAL CONCENTRATE 5 MG/0.25 ML ORAL.SYRIN PO PRN ×3 (03:32→21:59)
[2020-08-14 07:22] LABS: INR 1.61 (0.82-1.09)
[2020-08-14] MEDS: Isosorbide Mononit ER 30mg TAB PO SCH (09:10)
[2020-08-14] MEDS: Multivitamins/Minerals TAB PO SCH (09:10)
[2020-08-14] MEDS: Aspirin EC 81 mg TAB.EC (enteric coated) PO SCH (09:10)
[2020-08-14] MEDS: [UNRECOGNIZED DRUG - OTHER] INH SCH (09:43)
[2020-08-14] MEDS: Polyethylene Glycol 3350 17 GM PACKET PO SCH (13:15)
[2020-08-14] MEDS: Linezolid 600 MG IVPREMIX(*) 600 MG/300 ML BAG IVPB SCH ×2 (13:23→22:01)
[2020-08-14] MEDS: CMCS:Epleronone 25 mg TAB (NF) PO SCH (13:33)
[2020-08-14] MEDS: Warfarin DAILY REMINDER **NOTE FOLLOW UP SCH (19:42)
[2020-08-15] MEDS: Albuterol HFA INHALER 8 gm MDI INH SCH ×3 (00:59→10:30)
[2020-08-15] MEDS: ZOSYN 3.375 GM Q8H per EXTENDED INFUSION IV SCH (05:02)
[2020-08-15 06:26] LABS: ABS Eosinophils 0.1 10^3/ul (0-0.6); ABS Lymphocytes 0.6 10^3/ul (1.0-4.8); ABS Monocytes 1.1 10^3/ul (0-0.8); ABS Neutrophils 9.4 10^3/ul (1.5-7.7); Eosinophil % 0.7 %; Hematocrit 30 % (42-52); Hemoglobin 10.1 g/dL (14.0-18.0); Lymphocyte % 5.7 %; Mean Corpuscular HGB Conc 33 g/dL (31-36); Mean Corpuscular Hemoglobin 30 pg (27-31); Mean Corpuscular Volume 91 fL (80-94); Mean Platelet Volume 8.6 fL (7.4-10.4); Platelet Count 240 10^3/uL (150-450); Red Blood Count 3.35 10^6 /uL (4.18-5.48); Red Cell Distribution Width 15 % (10-15); White Blood Count 11.2 10^3/uL (3.5-10.8)
[2020-08-15 06:38] LABS: INR 2.24 (0.82-1.09)
[2020-08-15 06:45] LABS: Calcium 7.9 mg/dL (8.6-10.3); EGFR African American 106.4 (>60); EGFR Non-African American 87.9 (>60); Magnesium 2.1 mg/dL (1.9-2.7); Potassium 3.7 mmol/L (3.5-5.0)
[2020-08-15 08:07] VITALS: BP 115/61
[2020-08-15] MEDS ORDERED: Potassium Chlor 20 meq TAB.ER PO ONE (08:32)
[2020-08-15] MEDS: CMCS:Epleronone 25 mg TAB (NF) PO SCH (09:15)
[2020-08-15] MEDS: Multivitamins/Minerals TAB PO SCH (09:15)
[2020-08-15] MEDS: Morphine ORAL CONCENTRATE 5 MG/0.25 ML ORAL.SYRIN PO PRN (09:18)
[2020-08-15] MEDS: Linezolid 600 MG IVPREMIX(*) 600 MG/300 ML BAG IVPB SCH (09:19)
[2020-08-15] MEDS: Isosorbide Mononit ER 30mg TAB PO SCH (09:19)
[2020-08-15] MEDS: [UNRECOGNIZED DRUG - OTHER] INH SCH (10:31)
[2020-08-15] MEDS: Polyethylene Glycol 3350 17 GM PACKET PO SCH (11:03)
== END 2020-08-15 13:02 | disposition hospice, home (50) | DRG 193 ==
LOC: ED 15:28 → MED 19:57 → MEDTELE 08-12 20:58
PROVIDERS: ADMIT Internal Medicine; ATTEND Pediatrics

== ENCOUNTER 2020-10-10 13:21 | Inpatient (IN) ==
[2020-10-10 15:30] LABS: Hematocrit 32 % (42-52); Hemoglobin 10.6 g/dL (14.0-18.0); Mean Corpuscular HGB Conc 33 g/dL (31-36); Mean Corpuscular Hemoglobin 31 pg (27-31); Mean Corpuscular Volume 94 fL (80-94); Mean Platelet Volume 8.4 fL (7.4-10.4); Platelet Count 250 10^3/uL (150-450); Red Blood Count 3.46 10^6 /uL (4.18-5.48); Red Cell Distribution Width 15 % (10-15); White Blood Count 9.7 10^3/uL (3.5-10.8)
[2020-10-10 15:48] LABS: Albumin 3.6 g/dL (3.2-5.2); Calcium 8.8 mg/dL (8.6-10.3); EGFR African American 117.6 (>60); EGFR Non-African American 97.2 (>60); Potassium 4.1 mmol/L (3.5-5.0); Total Protein 6.2 g/dL (6.4-8.9)
[2020-10-10 15:49] LABS: Albumin/Globulin Ratio 1.4 (1-3); C Reactive Protein 68.23 mg/L (<8.01); Globulin 2.6 g/dL (2-4); Total Bilirubin 0.8 mg/dL (0.2-1.0)
[2020-10-10 17:07] LABS: INR 6.07 (0.86-1.15)
[2020-10-10] MEDS ORDERED: Albuterol/Ipratropium NEB.SOL (2.5/0.5 MG) 3 ML NEB.SOLN INH PRN (17:21)
[2020-10-10] MEDS ORDERED: Albuterol HFA INHALER 8 gm MDI INH PRN (17:21)
[2020-10-10 17:54] LABS: ABS Basophils 0.1 10^3/ul (0-0.2); ABS Eosinophils 0.5 10^3/ul (0-0.6); ABS Lymphocytes 0.7 10^3/ul (1.0-4.8); ABS Monocytes 1.6 10^3/ul (0-0.8); ABS Neutrophils 6.8 10^3/ul (1.5-7.7); Eosinophil % 4.9 %; Lymphocyte % 7.3 %
[2020-10-10] MEDS ORDERED: Senna TAB 8.6 mg TAB PO PRN (18:55)
[2020-10-10] MEDS: Lidocaine Patch REMOVE PATCH PATCH OFF SCH (21:07)
[2020-10-11 05:54] LABS: INR 5.3 (0.86-1.15)
[2020-10-11] MEDS: CMCS:Epleronone 25 mg TAB (NF) PO SCH (09:25)
[2020-10-11] MEDS: Lidocaine PATCH 5% PATCH TRANSDERM SCH (09:27)
[2020-10-11] MEDS: Polyethylene Glycol 3350 17 GM PACKET PO SCH (10:21)
[2020-10-11] MEDS: Morphine ORAL CONCENTRATE 5 MG/0.25 ML ORAL.SYRIN SL PRN (16:16)
[2020-10-11] MEDS: Senna TAB 8.6 mg TAB PO SCH (19:53)
[2020-10-11] MEDS: Lidocaine Patch REMOVE PATCH PATCH OFF SCH (21:19)
[2020-10-12] MEDS: Morphine ORAL CONCENTRATE 5 MG/0.25 ML ORAL.SYRIN SL PRN ×3 (00:17→19:19)
[2020-10-12 06:22] LABS: ABS Eosinophils 0.2 10^3/ul (0-0.6); ABS Lymphocytes 0.7 10^3/ul (1.0-4.8); ABS Neutrophils 6.3 10^3/ul (1.5-7.7); Eosinophil % 1.8 %; Hematocrit 30 % (42-52); Hemoglobin 9.9 g/dL (14.0-18.0); Lymphocyte % 8.1 %; Mean Corpuscular HGB Conc 34 g/dL (31-36); Mean Corpuscular Hemoglobin 31 pg (27-31); Mean Corpuscular Volume 92 fL (80-94); Mean Platelet Volume 8.3 fL (7.4-10.4); Platelet Count 255 10^3/uL (150-450); Red Cell Distribution Width 15 % (10-15); White Blood Count 8.2 10^3/uL (3.5-10.8)
[2020-10-12 06:33] LABS: INR 3.79 (0.86-1.15)
[2020-10-12 06:43] LABS: Calcium 8.5 mg/dL (8.6-10.3); EGFR African American 112.5 (>60)
[2020-10-12] MEDS: Lidocaine PATCH 5% PATCH TRANSDERM SCH (09:24)
[2020-10-12] MEDS: Polyethylene Glycol 3350 17 GM PACKET PO SCH (09:24)
[2020-10-12] MEDS: CMCS:Epleronone 25 mg TAB (NF) PO SCH (09:24)
[2020-10-12] MEDS: Senna TAB 8.6 mg TAB PO SCH (21:04)
[2020-10-12] MEDS: Lidocaine Patch REMOVE PATCH PATCH OFF SCH (21:07)
[2020-10-13 01:36] LABS: Urine Appearance Clear; Urine Bilirubin Negative (Negative); Urine Blood Negative (Negative); Urine Color Yellow; Urine Glucose Negative (Negative); Urine Ketones Negative (Negative); Urine Nitrite Negative (Negative); Urine Protein Negative (Negative); Urine Specific Gravity 1.005 (1.002-1.030); Urine Urobilinogen Negative (Negative)
[2020-10-13] MEDS: Morphine ORAL CONCENTRATE 5 MG/0.25 ML ORAL.SYRIN SL PRN ×5 (04:17→21:27)
[2020-10-13 06:07] LABS: ABS Eosinophils 0.2 10^3/ul (0-0.6); ABS Lymphocytes 0.7 10^3/ul (1.0-4.8); ABS Monocytes 1.1 10^3/ul (0-0.8); Hematocrit 29 % (42-52); Hemoglobin 10.1 g/dL (14.0-18.0); Lymphocyte % 8.5 %; Mean Corpuscular HGB Conc 35 g/dL (31-36); Mean Corpuscular Hemoglobin 32 pg (27-31); Mean Corpuscular Volume 92 fL (80-94); Mean Platelet Volume 8.4 fL (7.4-10.4); Platelet Count 262 10^3/uL (150-450); Red Blood Count 3.18 10^6 /uL (4.18-5.48); Red Cell Distribution Width 15 % (10-15); White Blood Count 7.9 10^3/uL (3.5-10.8)
[2020-10-13 06:26] LABS: C Reactive Protein 22.51 mg/L (<8.01); Calcium 8.6 mg/dL (8.6-10.3); EGFR African American 138.1 (>60); EGFR Non-African American 114.1 (>60); Potassium 4.1 mmol/L (3.5-5.0)
[2020-10-13] MEDS: CMCS:Epleronone 25 mg TAB (NF) PO SCH (09:55)
[2020-10-13] MEDS: Polyethylene Glycol 3350 17 GM PACKET PO SCH (09:56)
[2020-10-13] MEDS: Lidocaine PATCH 5% PATCH TRANSDERM SCH (09:56)
[2020-10-13] MEDS ORDERED: Sodium Phosphate ADULT ENEMA 133 ML BTL PR PRN (15:15)
[2020-10-13] MEDS: Warfarin DAILY REMINDER **NOTE FOLLOW UP SCH (18:06)
[2020-10-13] MEDS: Senna TAB 8.6 mg TAB PO SCH (21:27)
[2020-10-13] MEDS: Lidocaine Patch REMOVE PATCH PATCH OFF SCH (21:29)
[2020-10-14] MEDS: Morphine ORAL CONCENTRATE 5 MG/0.25 ML ORAL.SYRIN SL PRN ×5 (03:10→20:50)
[2020-10-14 06:33] LABS: INR 1.84 (0.86-1.15)
[2020-10-14] MEDS: CMCS:Epleronone 25 mg TAB (NF) PO SCH (08:38)
[2020-10-14] MEDS: Lidocaine PATCH 5% PATCH TRANSDERM SCH (08:38)
[2020-10-14] MEDS: Polyethylene Glycol 3350 17 GM PACKET PO SCH ×2 (08:39→20:50)
[2020-10-14] MEDS: Warfarin DAILY REMINDER **NOTE FOLLOW UP SCH (17:10)
[2020-10-14] MEDS ORDERED: Magnesium CITRATE LIQ 300 ML BTL PO ONE (19:22)
[2020-10-14] MEDS: Lidocaine Patch REMOVE PATCH PATCH OFF SCH (20:52)
[2020-10-14] MEDS: Senna TAB 8.6 mg TAB PO SCH (20:52)
[2020-10-15 06:14] LABS: INR 2.48 (0.86-1.15)
[2020-10-15 08:05] VITALS: BP 118/54
[2020-10-15] MEDS: Lidocaine PATCH 5% PATCH TRANSDERM SCH (08:54)
[2020-10-15] MEDS: CMCS:Epleronone 25 mg TAB (NF) PO SCH (08:55)
[2020-10-15] MEDS: Morphine ORAL CONCENTRATE 5 MG/0.25 ML ORAL.SYRIN SL PRN ×2 (08:55→13:20)
[2020-10-15] MEDS: Polyethylene Glycol 3350 17 GM PACKET PO SCH (08:55)
== END 2020-10-15 14:35 | DRG 190 ==
LOC: MED 13:21 → ED 13:21
PROVIDERS: ADMIT Student in an Organized Health Care Education/Training Program; ATTEND Hospitalist

== ENCOUNTER 2020-12-16 06:10 | Inpatient (IN) ==
[2020-12-16] MEDS ORDERED: NS 0.9% 1000 ml BAG 1,000 ML IV ONE (06:27)
[2020-12-16 07:05] LABS: Hematocrit 37 % (42-52); Hemoglobin 12.2 g/dL (14.0-18.0); Mean Corpuscular HGB Conc 33 g/dL (31-36); Mean Corpuscular Hemoglobin 30 pg (27-31); Mean Corpuscular Volume 93 fL (80-94); Mean Platelet Volume 9.8 fL (7.4-10.4); Platelet Count 268 10^3/uL (150-450); Red Blood Count 4.04 10^6 /uL (4.18-5.48); Red Cell Distribution Width 15 % (10-15); White Blood Count 14.2 10^3/uL (3.5-10.8)
[2020-12-16 07:06] LABS: INR 3.65 (0.86-1.15)
[2020-12-16 07:10] LABS: Albumin 3.8 g/dL (3.2-5.2); Albumin/Globulin Ratio 1.3 (1-3); Calcium 9.1 mg/dL (8.6-10.3); EGFR African American 60.5 (>60); Globulin 2.9 g/dL (2-4); Total Bilirubin 0.9 mg/dL (0.2-1.0); Total Protein 6.7 g/dL (6.4-8.9)
[2020-12-16 08:01] LABS: Potassium 4.1 mmol/L (3.5-5.0)
[2020-12-16 08:17] LABS: ABS Lymphocytes 0.6 10^3/ul (1.0-4.8); ABS Monocytes 1.7 10^3/ul (0-0.8); ABS Neutrophils 11.8 10^3/ul (1.5-7.7); Eosinophil % 0.3 %; Lymphocyte % 4.2 %
[2020-12-16] MEDS ORDERED: Ondansetron 4 mg VIAL 2 MG/ML 2 ml VIAL IV PRN (11:09)
[2020-12-16] MEDS ORDERED: Al Hydrox/Mg Hydrox/Simet LIQ 30 ML UDC PO PRN (11:09)
[2020-12-16] MEDS ORDERED: Magnesium Hydroxide LIQ 30 ML UDC PO PRN (11:09)
[2020-12-16] MEDS ORDERED: Albuterol/Ipratropium NEB.SOL (2.5/0.5 MG) 3 ML NEB.SOLN INH PRN (11:13)
[2020-12-16] MEDS ORDERED: Morphine ORAL.SOLN 10 mg 2 mg/ml UDC 5 ml (10 mg) PO PRN (11:13)
[2020-12-16] MEDS ORDERED: Albuterol HFA INHALER 8 gm MDI INH PRN (11:13)
[2020-12-16] MEDS ORDERED: Calcium Carb (TUMS) 500 mg CHEW TAB PO PRN (11:13)
[2020-12-16] MEDS ORDERED: Sodium Phosphate ADULT ENEMA 133 ML BTL PR PRN (11:13)
[2020-12-16] MEDS ORDERED: NS 0.9% 1000 ml BAG 1,000 ML IV SCH (11:15)
[2020-12-16] MEDS: Morphine 2 MG/ML SYRINGE IV PRN (12:42)
[2020-12-16 12:57] LABS: Rapid COVID-19 Molecular Undetected (Undetected)
[2020-12-16] MEDS ORDERED: Phytonadione Oral Solution 5 MG/25 ML UDC PO ONE (17:11)
[2020-12-16] MEDS: Senna TAB 8.6 mg TAB PO SCH (21:15)
[2020-12-16] MEDS ORDERED: fentaNYL 100 mcg/2 ml 50 MCG/ML VIAL IV SLOW PU ONE (22:43)
[2020-12-16 23:29] LABS: Urine Appearance Clear; Urine Bilirubin Negative (Negative); Urine Blood Negative (Negative); Urine Color Yellow; Urine Glucose Negative (Negative); Urine Ketones Negative (Negative); Urine Nitrite Negative (Negative); Urine Protein Negative (Negative); Urine Specific Gravity 1.013 (1.002-1.030); Urine Urobilinogen Negative (Negative)
[2020-12-16] MEDS ORDERED: LORazepam 2 mg VIAL 1 ml IV PUSH ONE (23:58)
[2020-12-16] MEDS ORDERED: Lorazepam PYXIS KEY PRN (23:58)
[2020-12-17] MEDS: Morphine 2 MG/ML SYRINGE IV PRN ×3 (01:50→14:50)
[2020-12-17] MEDS ORDERED: LORazepam 2 mg VIAL 1 ml IV PUSH ONE (04:37)
[2020-12-17] MEDS ORDERED: Lorazepam PYXIS KEY PRN (04:37)
[2020-12-17 06:05] LABS: Hematocrit 35 % (42-52); Hemoglobin 10.7 g/dL (14.0-18.0); Mean Corpuscular HGB Conc 31 g/dL (31-36); Mean Corpuscular Hemoglobin 29 pg (27-31); Mean Corpuscular Volume 95 fL (80-94); Mean Platelet Volume 9.3 fL (7.4-10.4); Platelet Count 252 10^3/uL (150-450); Red Blood Count 3.67 10^6 /uL (4.18-5.48); Red Cell Distribution Width 15 % (10-15); White Blood Count 14.3 10^3/uL (3.5-10.8)
[2020-12-17 06:08] LABS: ABS Eosinophils 0.1 10^3/ul (0-0.6); ABS Lymphocytes 0.5 10^3/ul (1.0-4.8); ABS Monocytes 2.2 10^3/ul (0-0.8); ABS Neutrophils 11.5 10^3/ul (1.5-7.7); Eosinophil % 0.8 %; Lymphocyte % 3.3 %
[2020-12-17 06:32] LABS: Calcium 8.4 mg/dL (8.6-10.3); EGFR African American 90.1 (>60); EGFR Non-African American 74.5 (>60); Potassium 3.7 mmol/L (3.5-5.0)
[2020-12-17 06:42] LABS: INR 5.65 (0.86-1.15)
[2020-12-17] MEDS ORDERED: Phytonadione IV (Adult) 10 MG in NS 0.9% 50 ML 50 ML IV ONE (06:45)
[2020-12-17] MEDS: Polyethylene Glycol 3350 17 GM PACKET PO SCH (08:23)
[2020-12-17] MEDS: LORazepam 2 mg VIAL 1 ml IV PUSH PRN ×2 (10:26→16:52)
[2020-12-17] MEDS ORDERED: NS 0.9% 1000 ml BAG 1,000 ML IV SCH (11:00)
[2020-12-17] MEDS: Morphine ORAL CONCENTRATE 5 MG/0.25 ML ORAL.SYRIN SL PRN ×2 (11:11→14:43)
[2020-12-17 11:32] LABS: PO2 Arterial < 38 mmHg (80-100)
[2020-12-17 11:33] LABS: PCO2 Arterial 78 mmHg (35-45)
[2020-12-17 13:03] LABS: INR 3.32 (0.86-1.15)
[2020-12-17 16:36] LABS: INR 2.63 (0.86-1.15)
[2020-12-17] MEDS ORDERED: Heparin DRIP 25,000 UNITS BAG 25,000 UNITS/500 ML BAG IV SCH (17:15)
[2020-12-17] MEDS ORDERED: Heparin 5000 UNITS/ML 1 mL VIAL IV SCH (18:00)
[2020-12-17 18:46] LABS: Hematocrit 33 % (42-52); Hemoglobin 10.7 g/dL (14.0-18.0); Mean Corpuscular HGB Conc 32 g/dL (31-36); Mean Corpuscular Hemoglobin 30 pg (27-31); Mean Corpuscular Volume 94 fL (80-94); Mean Platelet Volume 9.5 fL (7.4-10.4); Platelet Count 236 10^3/uL (150-450); Red Blood Count 3.53 10^6 /uL (4.18-5.48); Red Cell Distribution Width 15 % (10-15); White Blood Count 14.5 10^3/uL (3.5-10.8)
[2020-12-17 18:59] LABS: EGFR African American 93.4 (>60); EGFR Non-African American 77.2 (>60)
[2020-12-17 20:51] LABS: ABS Basophils 0.1 10^3/ul (0-0.2); ABS Lymphocytes 0.5 10^3/ul (1.0-4.8); ABS Monocytes 2.1 10^3/ul (0-0.8); ABS Neutrophils 11.4 10^3/ul (1.5-7.7); Eosinophil % 0.2 %; Lymphocyte % 3.7 %; Nucleated Red Blood Cells % 0.1
[2020-12-17] MEDS: Senna TAB 8.6 mg TAB PO SCH (20:59)
[2020-12-18] MEDS: Morphine 2 MG/ML SYRINGE IV PRN ×5 (03:19→23:19)
[2020-12-18 06:02] LABS: ABS Eosinophils 0.1 10^3/ul (0-0.6); ABS Lymphocytes 0.8 10^3/ul (1.0-4.8); ABS Monocytes 2.5 10^3/ul (0-0.8); Eosinophil % 0.9 %; Hematocrit 32 % (42-52); Hemoglobin 10.1 g/dL (14.0-18.0); Lymphocyte % 5.4 %; Mean Corpuscular HGB Conc 31 g/dL (31-36); Mean Corpuscular Hemoglobin 30 pg (27-31); Mean Corpuscular Volume 94 fL (80-94); Mean Platelet Volume 9.7 fL (7.4-10.4); Nucleated Red Blood Cells % 0.1; Platelet Count 243 10^3/uL (150-450); Red Blood Count 3.42 10^6 /uL (4.18-5.48); Red Cell Distribution Width 15 % (10-15); White Blood Count 14.4 10^3/uL (3.5-10.8)
[2020-12-18] MEDS: Polyethylene Glycol 3350 17 GM PACKET PO SCH (08:34)
[2020-12-18 08:39] LABS: Activated Partial Thrombo Time 37.9 seconds (26.0-38.0); INR 1.72 (0.86-1.15)
[2020-12-18] MEDS ORDERED: Furosemide 20 mg/2 ml IV VIAL IV SLOW PU ONE (08:55)
[2020-12-18 12:43] LABS: Activated Partial Thrombo Time 31.6 seconds (26.0-38.0); INR 1.63 (0.86-1.15)
[2020-12-18] MEDS ORDERED: ceFAZolin 2 GM in NS PREMIX 2 GM/100 ML BAG IVPB ONE (13:33)
[2020-12-18] MEDS ORDERED: Buffered Lidocaine 1% SYRIN 1 ml INTRADERM ONE (14:05)
[2020-12-18] MEDS ORDERED: Naloxone 0.4 mg VIAL 0.4 mg/ml 1 ml VIAL IV PRN (14:05)
[2020-12-18] MEDS ORDERED: fentaNYL 100 mcg/2 ml 50 MCG/ML VIAL IV PRN (14:05)
[2020-12-18] MEDS ORDERED: fentaNYL 100 mcg/2 ml 50 MCG/ML VIAL ONE (14:08)
[2020-12-18] MEDS ORDERED: Etomidate 20 mg/10 ml 2 MG/ML 10 ml VIAL ONE (14:08)
[2020-12-18] MEDS ORDERED: Lidocaine 2% PF 5 ML VIAL ONE (14:10)
[2020-12-18] MEDS ORDERED: Ketamine HCL 50 mg/ml 10 ml VIAL (500 MG) ONE (14:21)
[2020-12-18] MEDS ORDERED: Lactated Ringers 1000 ml BAG 1,000 ML IV SCH (15:00)
[2020-12-18] MEDS ORDERED: Ondansetron 4 mg VIAL 2 MG/ML 2 ml VIAL ONE (15:15)
[2020-12-18] MEDS ORDERED: Albuterol 2.5mg/3 ml (0.083%) NEB.SOLN INH ONE ×2 (15:45→17:15)
[2020-12-18 17:04] LABS: PO2 Arterial 110 mmHg (80-100)
[2020-12-18 17:11] LABS: PCO2 Arterial 104 mmHg (35-45)
[2020-12-18] MEDS ORDERED: Haloperidol 5 mg/ml SDV IV/IM 5 MG/ML AMP IV SLOW PU PRN (18:22)
[2020-12-18 19:25] LABS: Hematocrit 35 % (42-52); Hemoglobin 10.5 g/dL (14.0-18.0)
[2020-12-18 21:38] LABS: PO2 Arterial 89 mmHg (80-100)
[2020-12-18 21:57] LABS: PCO2 Arterial 72 mmHg (35-45)
[2020-12-18] MEDS: LORazepam 2 mg VIAL 1 ml IV PUSH PRN (22:03)
[2020-12-19] MEDS: LORazepam 2 mg VIAL 1 ml IV PUSH PRN ×2 (01:06→22:24)
[2020-12-19] MEDS: Morphine 2 MG/ML SYRINGE IV PRN ×3 (06:00→13:27)
[2020-12-19 06:41] LABS: INR 1.45 (0.86-1.15)
[2020-12-19] MEDS: Polyethylene Glycol 3350 17 GM PACKET PO SCH (08:21)
[2020-12-19] MEDS ORDERED: Furosemide 40 mg/4 ml IV VIAL IV SLOW PU ONE (09:11)
[2020-12-19 09:42] LABS: Hematocrit 33 % (42-52); Hemoglobin 10.3 g/dL (14.0-18.0); Mean Platelet Volume 9.8 fL (7.4-10.4); Platelet Count 215 10^3/uL (150-450)
[2020-12-19 10:01] LABS: Calcium 8.6 mg/dL (8.6-10.3); EGFR African American 94.6 (>60); EGFR Non-African American 78.2 (>60); Potassium 4.2 mmol/L (3.5-5.0)
[2020-12-19] MEDS ORDERED: NS 0.9% 50 ML 50 ML ONE (10:15)
[2020-12-19] MEDS: ceFAZolin 1 GM X 3 DOSES POST-OP Q8H (AddVan) IVPB SCH ×2 (10:18→18:04)
[2020-12-19] MEDS: Enoxaparin 30 MG/0.3 ML SYR SUBCUT SCH ×2 (10:24→21:30)
[2020-12-19 12:18] LABS: PO2 Arterial 77 mmHg (80-100)
[2020-12-19 12:22] LABS: PCO2 Arterial 76 mmHg (35-45)
[2020-12-19] MEDS ORDERED: Acetaminophen IV 1 GM/100ML 100 ML IV PRN (13:34)
[2020-12-19] MEDS ORDERED: Acetaminophen IV 1 GM/100ML 100 ML IV ONE (15:12)
[2020-12-19] MEDS: Acetaminophen IV 1 GM/100ML 100 ML IV SCH (15:16)
[2020-12-19] MEDS ORDERED: SALIVA SUBSTITUTE MT PRN (16:04)
[2020-12-20] MEDS: Morphine 2 MG/ML SYRINGE IV PRN ×7 (00:03→14:54)
[2020-12-20] MEDS: Acetaminophen IV 1 GM/100ML 100 ML IV SCH ×4 (00:53→10:35)
[2020-12-20] MEDS: ceFAZolin 1 GM X 3 DOSES POST-OP Q8H (AddVan) IVPB SCH (03:10)
[2020-12-20 08:34] LABS: INR 1.45 (0.86-1.15)
[2020-12-20] MEDS: LORazepam 2 mg VIAL 1 ml IV PUSH PRN ×2 (08:45→18:23)
[2020-12-20] MEDS: Enoxaparin 30 MG/0.3 ML SYR SUBCUT SCH (10:35)
[2020-12-20] MEDS: Morphine ORAL CONCENTRATE 5 MG/0.25 ML ORAL.SYRIN SL PRN (17:50)
[2020-12-21] MEDS: Morphine 2 MG/ML SYRINGE IV PRN ×5 (03:21→22:53)
[2020-12-21] MEDS: Morphine ORAL CONCENTRATE 5 MG/0.25 ML ORAL.SYRIN SL PRN ×2 (11:27→18:08)
[2020-12-21] MEDS: LORazepam 2 mg VIAL 1 ml IV PUSH PRN ×2 (14:27→20:05)
[2020-12-22] MEDS: LORazepam 2 mg VIAL 1 ml IV PUSH PRN ×3 (02:26→11:28)
[2020-12-22] MEDS: Morphine 2 MG/ML SYRINGE IV PRN ×8 (02:27→23:19)
[2020-12-22 10:56] LABS: INR 1.37 (0.86-1.15)
[2020-12-23] MEDS: LORazepam 2 mg VIAL 1 ml IV PUSH PRN ×3 (01:12→10:47)
[2020-12-23] MEDS: Morphine 2 MG/ML SYRINGE IV PRN ×6 (02:15→16:34)
[2020-12-23 07:02] LABS: INR 1.44 (0.86-1.15)
[2020-12-23 07:59] VITALS: BP 104/40
[2020-12-23 15:06] LABS: Rapid COVID-19 Molecular Undetected (Undetected)
== END 2020-12-23 16:55 | DRG 480 ==
LOC: ED 06:10 → SSU 11:09 → SUATTDRO 11:09 → SSU 13:54 → ICU 12-18 18:05 → MED 12-19 17:55
PROVIDERS: ADMIT Internal Medicine; ATTEND Internal Medicine